=== PATIENT | male | born 1935 | race Caucasian/White ===

== ENCOUNTER 2017-11-13 15:35 | Inpatient (IN) | payer MEDICARE, SELFPAY ==
[2017-11-13 15:43] VITALS: BP 126/45; PULSE 55; RESP 18; TEMP 36.7; O2SAT 98; BMI 26.9
[2017-11-13] MEDS: Menthol/Lanolin/Calamine/Znox 113 GM Tube 1 APPLIC TOPICAL ×2 (17:40→21:54)
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
[2017-11-13 19:35] VITALS: PULSE 55; RESP 18; O2SAT 98
[2017-11-13] MEDS: Ipratropium/Albuterol Sulfate 3 ML AMPUL.NEB INHALATION (19:35)
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
[2017-11-13] MEDS: Doxycycline 100 MG CAPSULE PO (21:54)
[2017-11-13] MEDS: Amitriptyline 25 MG Tablet PO (21:54)
[2017-11-13] MEDS: Atorvastatin Calcium 40 MG Tablet PO (21:54)
[2017-11-13] MEDS: oxyCODONE 5 MG Tablet PO (22:01)
[2017-11-14] MEDS: Menthol/Lanolin/Calamine/Znox 113 GM Tube 1 APPLIC TOPICAL ×4 (05:58→21:49)
[2017-11-14] MEDS: levoFLOXacin 250 MG Tablet PO (05:58)
[2017-11-14] MEDS: Enoxaparin 30 MG/0.3 ML Syringe SC (05:58)
[2017-11-14 07:21] LABS: Bedside Glucose 135 mg/dL (70-110)
[2017-11-14] MEDS: Aspirin 81 MG TAB.CHEW PO (08:24)
[2017-11-14] MEDS: amLODIPine 5 MG Tablet PO (08:25)
[2017-11-14] MEDS: Doxycycline 100 MG CAPSULE PO ×2 (08:25→17:02)
[2017-11-14] MEDS: Propranolol 40 MG Tablet 80 MG PO ×2 (08:25→17:02)
[2017-11-14] MEDS: Iron Polysaccharide Complex 150 MG CAPSULE PO (08:26)
[2017-11-14] MEDS: Senna/Docusate Sodium 1 Tablet 2 TABLET PO ×2 (08:26→17:02)
[2017-11-14] MEDS: Pantoprazole Sodium 40 MG Tablet PO (08:26)
[2017-11-14] MEDS: Magnesium Oxide 400 MG Tablet PO (08:26)
[2017-11-14] MEDS: Polyethylene Glycol 3350 17 GM PACKET PO (08:37)
[2017-11-14 11:01] LABS: Bedside Glucose 195 mg/dL (70-110)
[2017-11-14] MEDS: Tuberculin,Purif.prot.deriv. 50 TU/ML Vial 5 ML ID (11:38)
[2017-11-14 11:45] VITALS: PULSE 53; RESP 18; O2SAT 93
--- NOTE | 2017-11-14 15:06 | NURSING ---
wound photo: left anterior lower leg
--- NOTE | 2017-11-14 15:06 | NURSING ---
wound photo: left lateral foot/heel
[2017-11-14 15:50] VITALS: BP 120/48; PULSE 50; RESP 18; TEMP 36.9; O2SAT 95
[2017-11-14] MEDS: oxyCODONE 5 MG Tablet PO (19:08)
[2017-11-14] MEDS: Atorvastatin Calcium 40 MG Tablet PO (21:50)
[2017-11-14] MEDS: Amitriptyline 25 MG Tablet PO (21:50)
[2017-11-14 22:40] LABS: Bedside Glucose 245 mg/dL (70-110)
--- NOTE | 2017-11-14 23:49 | NURSING ---
Pt remains in contact precautions this shift.
[2017-11-15] MEDS: Menthol/Lanolin/Calamine/Znox 113 GM Tube 1 APPLIC TOPICAL ×3 (05:21→20:31)
[2017-11-15] MEDS: Enoxaparin 30 MG/0.3 ML Syringe SC (05:21)
[2017-11-15] MEDS: levoFLOXacin 250 MG Tablet PO (05:21)
[2017-11-15 07:21] LABS: Bedside Glucose 156 mg/dL (70-110)
[2017-11-15] MEDS: Propranolol 40 MG Tablet 80 MG PO ×2 (08:45→18:06)
[2017-11-15] MEDS: Magnesium Oxide 400 MG Tablet PO (08:45)
[2017-11-15] MEDS: amLODIPine 5 MG Tablet PO (08:46)
[2017-11-15] MEDS: Doxycycline 100 MG CAPSULE PO ×2 (08:46→18:06)
[2017-11-15] MEDS: Senna/Docusate Sodium 1 Tablet 2 TABLET PO ×2 (08:46→18:06)
[2017-11-15] MEDS: Pantoprazole Sodium 40 MG Tablet PO (08:46)
[2017-11-15] MEDS: Aspirin 81 MG TAB.CHEW PO (08:46)
[2017-11-15] MEDS: Iron Polysaccharide Complex 150 MG CAPSULE PO (08:46)
[2017-11-15 11:11] LABS: Bedside Glucose 245 mg/dL (70-110)
[2017-11-15 15:46] VITALS: BP 111/45; PULSE 58; RESP 18; TEMP 36.7; O2SAT 94
[2017-11-15 17:00] LABS: Bedside Glucose 258 mg/dL (70-110)
[2017-11-15] MEDS: Amitriptyline 25 MG Tablet PO (20:32)
[2017-11-15] MEDS: Atorvastatin Calcium 40 MG Tablet PO (20:32)
[2017-11-15] MEDS: oxyCODONE 5 MG Tablet PO (20:35)
[2017-11-15 20:56] LABS: Bedside Glucose 313 mg/dL (70-110)
[2017-11-16] MEDS: Enoxaparin 30 MG/0.3 ML Syringe SC (05:38)
[2017-11-16] MEDS: levoFLOXacin 250 MG Tablet PO (05:38)
[2017-11-16] MEDS: Menthol/Lanolin/Calamine/Znox 113 GM Tube 1 APPLIC TOPICAL ×4 (05:42→20:56)
[2017-11-16 06:11] LABS: Absolute Lymphocyte Count 1.37 X10^3/ul (0.83-4.51); Basophil# 0.01 X10^3/uL; Basophil% 0.1 % (0-1); Eosinophil# 0.02 X10^3/uL; Eosinophils% 0.1 % (0-5); Hematocrit 31.8 % (40-54); Hemoglobin 10.8 g/dl (13.0-16.5); Lymphocyte # 1.37 X10^3/ul (4.0); Lymphocyte % 7.3 % (19-41); Mean Corpuscular Hgb 31.2 pg (27.0-32.0); Mean Corpuscular Volume 91.9 fL (80-94); Mean Platelet Vol. 9.1 fl (6.2-12.0); Monocyte# 1.32 X10^3/uL; Neutrophil # 15.98 X10^3/uL (2.7-7.7); Neutrophil % 85.1 % (47-70); Platelet Count 267 K/mm3 (150-450); RBC Distribution Width CV 12.6 % (11.6-14.6); RBC Distribution Width SD 40.9 fl (35.1-43.9); Red Blood Count 3.46 M/mm3 (4.6-6.2); White Blood Count 18.8 K/mm3 (4.4-11.0)
[2017-11-16 06:20] LABS: POSITIVE COUNT NO; POSITIVE DIFFERENTIAL NO; POSITIVE MORPHOLOGY NO
[2017-11-16 06:40] LABS: Anion Gap 7 (5-15); BUN 38 mg/dL (7-18); Calcium,Total 8.1 mg/dL (8.5-10.1); Chloride 97 mmol/L (98-107); Creatinine, Serum 1.73 mg/dL (0.70-1.30); EST Glomerular Filtration Rate 40 mL/min (>60); Est Glom Filt Rate - Afr Amer 49 mL/min (>60); Estimated Creatinine Clearance 33.49 ml/min; Glucose 144 mg/dL (70-110); Potassium 4.1 mmol/L (3.5-5.1); Sodium Level 132 mmol/L (136-145)
[2017-11-16 06:56] LABS: Bedside Glucose 127 mg/dL (70-110)
[2017-11-16 10:00] VITALS: PULSE 58; RESP 24; O2SAT 98
[2017-11-16] MEDS: oxyCODONE 5 MG Tablet PO ×2 (10:05→20:58)
[2017-11-16] MEDS: Propranolol 40 MG Tablet 80 MG PO ×2 (10:06→18:14)
[2017-11-16] MEDS: Magnesium Oxide 400 MG Tablet PO (10:06)
[2017-11-16] MEDS: Senna/Docusate Sodium 1 Tablet 2 TABLET PO ×2 (10:06→18:15)
[2017-11-16] MEDS: Pantoprazole Sodium 40 MG Tablet PO (10:06)
[2017-11-16] MEDS: amLODIPine 5 MG Tablet PO (10:06)
[2017-11-16] MEDS: Aspirin 81 MG TAB.CHEW PO (10:07)
[2017-11-16] MEDS: Iron Polysaccharide Complex 150 MG CAPSULE PO (10:07)
[2017-11-16] MEDS: Doxycycline 100 MG CAPSULE PO ×2 (10:07→18:14)
[2017-11-16 10:19] VITALS: BP 120/52; PULSE 60; O2SAT 98
--- NOTE | 2017-11-16 10:20 | NURSING ---
pt in precautions
--- NOTE | 2017-11-16 15:04 | PCM.PN.RX ---
<Valerio Buckley D - Last Filed: 11/16/17 15:04> Progress Note - Pharmacy Subjective: [facility] Admission Objective: Allergies aspirin Adverse Reaction (Verified 11/07/17 07:08) Other causes stomach to bleed Home Medications Medication Instructions Recorded Magnesium Oxide [Mag-Ox 400] 400 mg PO DAILY 12/21/15 Amlodipine [Norvasc] 5 mg PO DAILY 07/13/17 Propranolol HCl 80 mg PO BID 07/13/17 Amitriptyline HCl [Elavil] 25 mg PO QHS 08/02/17 Lansoprazole [Prevacid] 30 mg PO DAILY 08/02/17 Oxygen, Home [Home Oxygen] 2 lpm NASAL PRN PRN 08/02/17 Acetaminophen [Tylenol Tablet] 650 mg PO Q6H PRN PRN tablet 11/13/17 Albuterol Aerosols [Ventolin 2.5 mg INHALATION Q2H PRN PRN 11/13/17 Aerosols] vial.neb. Aspirin [Aspirin, Baby] 81 mg PO DAILY@0800 11/13/17 Atorvastatin Calcium [Lipitor] 40 mg PO QHS 11/13/17 Bisacodyl [Dulcolax] 10 mg RECTAL DAILY PRN PRN suppos. 11/13/17 Doxycycline 100 mg PO BID 11/13/17 Furosemide [Lasix] 40 mg PO BID 11/13/17 Insulin Aspart [Novolog Flexpen] See Protocol SC ACHS 11/13/17 Ipratropium/Albuterol Sulfate 3 ml INHALATION Q4HWA.RT 11/13/17 [Duoneb] Iron Polysaccharide Complex 150 mg PO DAILYCM 11/13/17 [Ferrex 150] Levofloxacin [Levaquin] 250 mg PO DAILY@0600 11/13/17 Magnesium Hydroxide [Milk Of 30 ml PO DAILY PRN PRN udc 11/13/17 Magnesia] Menthol/Lanolin/Calamine/Znox 1 applic TOPICAL 4X/DAY 11/13/17 [Calmoseptine Ointment] Oxycodone [Oxyir] 5 mg PO Q6H PRN PRN #12 tab 11/13/17 Polyethylene Glycol 3350 [Miralax] 17 gm PO DAILY 11/13/17 Prednisone 10 mg PO DAILY 11/13/17 Spironolactone [Aldactone] 50 mg PO BID #0 11/13/17 Current Medications Generic Name Dose Route Start Last Admin Trade Name Freq PRN Reason Stop Dose Admin Acetaminophen 1,000 mg 11/13/17 19:58 Tylenol PO Q8H PRN MILD PAIN (1-3/10) Albuterol Sulfate 2.5 mg 11/13/17 16:40 Ventolin Aerosols INHALATION Q2H PRN PRN SHORTNESS OF BREATH Amitriptyline HCl 25 mg 11/13/17 22:00 11/15/17 20:32 Elavil PO 25 mg QHS [facility] Administration Amlodipine Besylate 5 mg 11/14/17 08:00 11/16/17 10:06 Norvasc PO 5 mg DAILY@0800 [facility] Administration Aspirin 81 mg 11/14/17 08:00 11/16/17 10:07 Aspirin, Baby PO 81 mg DAILY@0800 [facility] Administration Atorvastatin Calcium 40 mg 11/13/17 22:00 11/15/17 20:32 Lipitor PO 40 mg QHS [facility] Administration Bisacodyl 10 mg 11/13/17 16:40 Dulcolax RECTAL DAILY PRN PRN Constipation Calamine/Phenol 1 applic 11/13/17 17:00 11/16/17 11:25 Calmoseptine Ointment TOPICAL 1 applicatio 4X/DAY [facility] Administration Protocol Doxycycline Monohydrate 100 mg 11/14/17 08:00 11/16/17 10:07 Doxycycline PO 11/16/17 23:59 100 mg BID@0800,1800 [facility] Administration Enoxaparin Sodium 30 mg 11/14/17 06:00 11/16/17 05:38 Lovenox SC 30 mg DAILY@0600 [facility] Administration Furosemide 40 mg 11/18/17 08:00 Lasix PO BID@0800,1800 [facility] Levofloxacin 250 mg 11/14/17 06:00 11/16/17 05:38 Levaquin PO 11/16/17 23:59 250 mg DAILY@0600 [facility] Administration Magnesium Hydroxide 30 ml 11/13/17 16:40 Milk Of Magnesia PO DAILY PRN PRN Constipation Magnesium Oxide 400 mg 11/14/17 08:00 11/16/17 10:06 Mag-Ox 400 PO 400 mg DAILY@0800 [facility] Administration Non-Formulary Medication 2 lpm 11/13/17 16:40 Oxygen, Home [Home Oxygen] NASAL PRN PRN SOB &/OR WHEEZING Oxycodone HCl 5 mg 11/13/17 16:40 11/16/17 10:05 Oxyir PO 5 mg Q6H PRN PRN Administration SEVERE PAIN (6-08/08) Pantoprazole Sodium 40 mg 11/14/17 08:00 11/16/17 10:06 Protonix PO 40 mg DAILY@0800 [facility] Administration Polyethylene Glycol 17 gm 11/14/17 08:00 11/16/17 10:08 Miralax PO Not Given DAILY@0800 [facility] Polysaccharide Iron Complex 150 mg 11/14/17 08:00 11/16/17 10:07 Ferrex 150 PO 150 mg DAILYCM [facility] Administration Prednisone 20 mg 11/14/17 08:00 11/16/17 10:05 Prednisone PO 11/19/17 07:59 20 mg DAILY@0800 [facility] Administration Taper Propranolol HCl 80 mg 11/14/17 08:00 11/16/17 10:06 Inderal PO 80 mg BID@0800,1800 [facility] Administration Senna/Docusate Sodium 2 tablet 11/14/17 08:00 11/16/17 10:06 Senokot-S, Anastasia-Colace PO 2 tablet BID@0800,1800 [facility] Administration Spironolactone 50 mg 11/18/17 08:00 Aldactone PO BID@0800,1800 [facility] Tuberculin PPD 5 tu 11/21/17 10:00 Tubersol, Aplisol, Ppd ID 11/21/17 10:01 X1 ONE Problem List Encephalopathy (Acute) Chronic pain (Chronic) Vital Signs Temp Pulse Resp BP Pulse Ox 98.1 F 60 18 120/52 L 98 11/15/17 15:46 11/16/17 10:19 11/15/17 15:46 11/16/17 10:19 11/16/17 10:19 Oxygen Flow Rate 3 Oxygen Delivery Method Nasal Cannula Weight: 82.15 kg Body Mass Index (BMI) 26.9 Finger Stick Blood Glucose 205 Sodium 132 mmol/L (136-145) L 11/16/17 05:22 Potassium 4.1 mmol/L (3.5-5.1) 11/16/17 05:22 Chloride 97 mmol/L (98-107) L 11/16/17 05:22 Carbon Dioxide 28.0 mmol/L (21.0-32.0) 11/16/17 05:22 Anion Gap 7 (5-15) 11/16/17 05:22 BUN 38 mg/dL (7-18) H 11/16/17 05:22 Creatinine 1.73 mg/dL (0.70-1.30) H 11/16/17 05:22 Est GFR (MDRD) Af Amer 49 mL/min (>60) L 11/16/17 05:22 Est GFR (MDRD) Non-Af 40 mL/min (>60) L 11/16/17 05:22 BUN/Creatinine Ratio 22.0 RATIO (10-20) H 11/16/17 05:22 Glucose 144 mg/dL (70-110) H 11/16/17 05:22 Assessment/Plan: 1) Pain APAP for mild pain, oxycodone for severe pain. Continue to monitor prn medication use, daily pain scores. 2) HTN/CAD/CHF Amlodipine, propranolol, spironolactone, ASA, atorvastatin, furosemide. BP/HR within goal ranges, patient has been BP < 55, BUN/SCr at baseline, K wnl, lipids at goal, hepatic enzymes wnl. Continue to monitor BP/HR, renal function, electrolytes, lipids, hepatic enzymes. 3) ID Levofloxacin and doxycycline until 11/16. WBC elevated but patient taking prednisone, afebrile. Continue to monitor s/s infection. 4) Pulm Albuterol aerosols prn, prednisone. Continue to monitor prn medication use, for shortness of breath. 5) Nutrition MgOx, Fe. Continue to monitor clinically. 6) GI Pantoprazole daily. Continue to monitor s/s GI distress. 7) Derm Calmoseptine topically. Continue to monitor clinically. 8) DVT PPx Enoxaparin daily. Continue to monitor s/s bleeding/clot. Psychotropic Medications: 9) Insomnia Amitriptyline at HS. Continue to monitor for insomnia. Unnecessary Medications: None Bowel Regimen: 10) Senna/s, PEG, prn bisacodyl, prn MgOH. Continue to monitor prn medication use, daily pain scores. Date of Note:: 11/16/17 - Provider Comments Provider responsibility: Provider responsible to enter orders to implement recommendations <Tommy Maciel Chi - Last Filed: 11/16/17 17:38> Progress Note - Pharmacy Subjective: [] Objective: Allergies aspirin Adverse Reaction (Verified 11/07/17 07:08) Other causes stomach to bleed Home Medications Medication Instructions Recorded Magnesium Oxide [Mag-Ox 400] 400 mg PO DAILY 12/21/15 Amlodipine [Norvasc] 5 mg PO DAILY 07/13/17 Propranolol HCl 80 mg PO BID 07/13/17 Amitriptyline HCl [Elavil] 25 mg PO QHS 08/02/17 Lansoprazole [Prevacid] 30 mg PO DAILY 08/02/17 Oxygen, Home [Home Oxygen] 2 lpm NASAL PRN PRN 08/02/17 Acetaminophen [Tylenol Tablet] 650 mg PO Q6H PRN PRN tablet 11/13/17 Albuterol Aerosols [Ventolin 2.5 mg INHALATION Q2H PRN PRN 11/13/17 Aerosols] vial.neb. Aspirin [Aspirin, Baby] 81 mg PO DAILY@0800 11/13/17 Atorvastatin Calcium [Lipitor] 40 mg PO QHS 11/13/17 Bisacodyl [Dulcolax] 10 mg RECTAL DAILY PRN PRN suppos. 11/13/17 Doxycycline 100 mg PO BID 11/13/17 Furosemide [Lasix] 40 mg PO BID 11/13/17 Insulin Aspart [Novolog Flexpen] See Protocol SC ACHS 11/13/17 Ipratropium/Albuterol Sulfate 3 ml INHALATION Q4HWA.RT 11/13/17 [Duoneb] Iron Polysaccharide Complex 150 mg PO DAILYCM 11/13/17 [Ferrex 150] Levofloxacin [Levaquin] 250 mg PO DAILY@0600 11/13/17 Magnesium Hydroxide [Milk Of 30 ml PO DAILY PRN PRN udc 11/13/17 Magnesia] Menthol/Lanolin/Calamine/Znox 1 applic TOPICAL 4X/DAY 11/13/17 [Calmoseptine Ointment] Oxycodone [Oxyir] 5 mg PO Q6H PRN PRN #12 tab 11/13/17 Polyethylene Glycol 3350 [Miralax] 17 gm PO DAILY 11/13/17 Prednisone 10 mg PO DAILY 11/13/17 Spironolactone [Aldactone] 50 mg PO BID #0 11/13/17 Current Medications Generic Name Dose Route Start Last Admin Trade Name Freq PRN Reason Stop Dose Admin Acetaminophen 1,000 mg 11/13/17 19:58 Tylenol PO Q8H PRN MILD PAIN (1-3/10) Albuterol Sulfate 2.5 mg 11/13/17 16:40 Ventolin Aerosols INHALATION Q2H PRN PRN SHORTNESS OF BREATH Amitriptyline HCl 25 mg 11/13/17 22:00 11/15/17 20:32 Elavil PO 25 mg QHS [facility] Administration Amlodipine Besylate 5 mg 11/14/17 08:00 11/16/17 10:06 Norvasc PO 5 mg DAILY@0800 [facility] Administration Aspirin 81 mg 11/14/17 08:00 11/16/17 10:07 Aspirin, Baby PO 81 mg DAILY@0800 [facility] Administration Atorvastatin Calcium 40 mg 11/13/17 22:00 11/15/17 20:32 Lipitor PO 40 mg QHS [facility] Administration Bisacodyl 10 mg 11/13/17 16:40 Dulcolax RECTAL DAILY PRN PRN Constipation Calamine/Phenol 1 applic 11/13/17 17:00 11/16/17 11:25 Calmoseptine Ointment TOPICAL 1 applicatio 4X/DAY [facility] Administration Protocol Doxycycline Monohydrate 100 mg 11/14/17 08:00 11/16/17 10:07 Doxycycline PO 11/16/17 23:59 100 mg BID@0800,1800 [facility] Administration Enoxaparin Sodium 30 mg 11/14/17 06:00 11/16/17 05:38 Lovenox SC 30 mg DAILY@0600 [facility] Administration Furosemide 40 mg 11/18/17 08:00 Lasix PO BID@0800,1800 [facility] Levofloxacin 250 mg 11/14/17 06:00 11/16/17 05:38 Levaquin PO 11/16/17 23:59 250 mg DAILY@0600 [facility] Administration Magnesium Hydroxide 30 ml 11/13/17 16:40 Milk Of Magnesia PO DAILY PRN PRN Constipation Magnesium Oxide 400 mg 11/14/17 08:00 11/16/17 10:06 Mag-Ox 400 PO 400 mg DAILY@0800 [facility] Administration Non-Formulary Medication 2 lpm 11/13/17 16:40 Oxygen, Home [Home Oxygen] NASAL PRN PRN SOB &/OR WHEEZING Oxycodone HCl 5 mg 11/13/17 16:40 11/16/17 10:05 Oxyir PO 5 mg Q6H PRN PRN Administration SEVERE PAIN (6-08/08) Pantoprazole Sodium 40 mg 11/14/17 08:00 11/16/17 10:06 Protonix PO 40 mg DAILY@0800 [facility] Administration Polyethylene Glycol 17 gm 11/14/17 08:00 11/16/17 10:08 Miralax PO Not Given DAILY@0800 [facility] Polysaccharide Iron Complex 150 mg 11/14/17 08:00 11/16/17 10:07 Ferrex 150 PO 150 mg DAILYCM [facility] Administration Prednisone 20 mg 11/14/17 08:00 11/16/17 10:05 Prednisone PO 11/19/17 07:59 20 mg DAILY@0800 [facility] Administration Taper Propranolol HCl 80 mg 11/14/17 08:00 11/16/17 10:06 Inderal PO 80 mg BID@0800,1800 [facility] Administration Senna/Docusate Sodium 2 tablet 11/14/17 08:00 11/16/17 10:06 Senokot-S, Anastasia-Colace PO 2 tablet BID@0800,1800 [facility] Administration Spironolactone 50 mg 11/18/17 08:00 Aldactone PO BID@0800,1800 [facility] Tuberculin PPD 5 tu 11/21/17 10:00 Tubersol, Aplisol, Ppd ID 11/21/17 10:01 X1 ONE Problem List Encephalopathy (Acute) Chronic pain (Chronic) Vital Signs Temp Pulse Resp BP Pulse Ox 97.3 F L 50 L 18 120/46 L 96 11/16/17 15:14 11/16/17 15:14 11/16/17 15:14 11/16/17 15:14 11/16/17 15:14 Oxygen Flow Rate 3 Oxygen Delivery Method Nasal Cannula Weight: 82.15 kg Body Mass Index (BMI) 26.9 Finger Stick Blood Glucose 205 Sodium 132 mmol/L (136-145) L 11/16/17 05:22 Potassium 4.1 mmol/L (3.5-5.1) 11/16/17 05:22 Chloride 97 mmol/L (98-107) L 11/16/17 05:22 Carbon Dioxide 28.0 mmol/L (21.0-32.0) 11/16/17 05:22 Anion Gap 7 (5-15) 11/16/17 05:22 BUN 38 mg/dL (7-18) H 11/16/17 05:22 Creatinine 1.73 mg/dL (0.70-1.30) H 11/16/17 05:22 Est GFR (MDRD) Af Amer 49 mL/min (>60) L 11/16/17 05:22 Est GFR (MDRD) Non-Af 40 mL/min (>60) L 11/16/17 05:22 BUN/Creatinine Ratio 22.0 RATIO (10-20) H 11/16/17 05:22 Glucose 144 mg/dL (70-110) H 11/16/17 05:22 Assessment/Plan: Psychotropic Medications: Unnecessary Medications: Bowel Regimen: - Provider Comments Provider responsibility: Provider responsible to enter orders to implement recommendations Provider Comments to Recommendations by Pharmacy: Agree
[2017-11-16 15:14] VITALS: BP 120/46; PULSE 50; RESP 18; TEMP 36.3; O2SAT 96
--- NOTE | 2017-11-16 15:21 | PHA.CONS_ITS ---
<Valerio Buckley D - Last Filed: 11/16/17 15:04> Progress Note - Pharmacy Subjective: TCU Admission Objective: Allergies aspirin Adverse Reaction (Verified 11/07/17 07:08) Other causes stomach to bleed Home Medications Medication Instructions Recorded Magnesium Oxide [Mag-Ox 400] 400 mg PO DAILY 12/21/15 Amlodipine [Norvasc] 5 mg PO DAILY 07/13/17 Propranolol HCl 80 mg PO BID 07/13/17 Amitriptyline HCl [Elavil] 25 mg PO QHS 08/02/17 Lansoprazole [Prevacid] 30 mg PO DAILY 08/02/17 Oxygen, Home [Home Oxygen] 2 lpm NASAL PRN PRN 08/02/17 Acetaminophen [Tylenol Tablet] 650 mg PO Q6H PRN PRN tablet 11/13/17 Albuterol Aerosols [Ventolin 2.5 mg INHALATION Q2H PRN PRN 11/13/17 Aerosols] vial.neb. Aspirin [Aspirin, Baby] 81 mg PO DAILY@0800 11/13/17 Atorvastatin Calcium [Lipitor] 40 mg PO QHS 11/13/17 Bisacodyl [Dulcolax] 10 mg RECTAL DAILY PRN PRN suppos. 11/13/17 Doxycycline 100 mg PO BID 11/13/17 Furosemide [Lasix] 40 mg PO BID 11/13/17 Insulin Aspart [Novolog Flexpen] See Protocol SC ACHS 11/13/17 Ipratropium/Albuterol Sulfate 3 ml INHALATION Q4HWA.RT 11/13/17 [Duoneb] Iron Polysaccharide Complex 150 mg PO DAILYCM 11/13/17 [Ferrex 150] Levofloxacin [Levaquin] 250 mg PO DAILY@0600 11/13/17 Magnesium Hydroxide [Milk Of 30 ml PO DAILY PRN PRN udc 11/13/17 Magnesia] Menthol/Lanolin/Calamine/Znox 1 applic TOPICAL 4X/DAY 11/13/17 [Calmoseptine Ointment] Oxycodone [Oxyir] 5 mg PO Q6H PRN PRN #12 tab 11/13/17 Polyethylene Glycol 3350 [Miralax] 17 gm PO DAILY 11/13/17 Prednisone 10 mg PO DAILY 11/13/17 Spironolactone [Aldactone] 50 mg PO BID #0 11/13/17 Current Medications Generic Name Dose Route Start Last Admin Trade Name Freq PRN Reason Stop Dose Admin Acetaminophen 1,000 mg 11/13/17 19:58 Tylenol PO Q8H PRN MILD PAIN (1-3/10) Albuterol Sulfate 2.5 mg 11/13/17 16:40 Ventolin Aerosols INHALATION Q2H PRN PRN SHORTNESS OF BREATH Amitriptyline HCl 25 mg 11/13/17 22:00 11/15/17 20:32 Elavil PO 25 mg QHS [facility] Administration Amlodipine Besylate 5 mg 11/14/17 08:00 11/16/17 10:06 Norvasc PO 5 mg DAILY@0800 [facility] Administration Aspirin 81 mg 11/14/17 08:00 11/16/17 10:07 Aspirin, Baby PO 81 mg DAILY@0800 [facility] Administration Atorvastatin Calcium 40 mg 11/13/17 22:00 11/15/17 20:32 Lipitor PO 40 mg QHS [facility] Administration Bisacodyl 10 mg 11/13/17 16:40 Dulcolax RECTAL DAILY PRN PRN Constipation Calamine/Phenol 1 applic 11/13/17 17:00 11/16/17 11:25 Calmoseptine Ointment TOPICAL 1 applicatio 4X/DAY [facility] Administration Protocol Doxycycline Monohydrate 100 mg 11/14/17 08:00 11/16/17 10:07 Doxycycline PO 11/16/17 23:59 100 mg BID@0800,1800 [facility] Administration Enoxaparin Sodium 30 mg 11/14/17 06:00 11/16/17 05:38 Lovenox SC 30 mg DAILY@0600 [facility] Administration Furosemide 40 mg 11/18/17 08:00 Lasix PO BID@0800,1800 [facility] Levofloxacin 250 mg 11/14/17 06:00 11/16/17 05:38 Levaquin PO 11/16/17 23:59 250 mg DAILY@0600 [facility] Administration Magnesium Hydroxide 30 ml 11/13/17 16:40 Milk Of Magnesia PO DAILY PRN PRN Constipation Magnesium Oxide 400 mg 11/14/17 08:00 11/16/17 10:06 Mag-Ox 400 PO 400 mg DAILY@0800 [facility] Administration Non-Formulary Medication 2 lpm 11/13/17 16:40 Oxygen, Home [Home Oxygen] NASAL PRN PRN SOB &/OR WHEEZING Oxycodone HCl 5 mg 11/13/17 16:40 11/16/17 10:05 Oxyir PO 5 mg Q6H PRN PRN Administration SEVERE PAIN (6-08/08) Pantoprazole Sodium 40 mg 11/14/17 08:00 11/16/17 10:06 Protonix PO 40 mg DAILY@0800 [facility] Administration Polyethylene Glycol 17 gm 11/14/17 08:00 11/16/17 10:08 Miralax PO Not Given DAILY@0800 [facility] Polysaccharide Iron Complex 150 mg 11/14/17 08:00 11/16/17 10:07 Ferrex 150 PO 150 mg DAILYCM [facility] Administration Prednisone 20 mg 11/14/17 08:00 11/16/17 10:05 Prednisone PO 11/19/17 07:59 20 mg DAILY@0800 [facility] Administration Taper Propranolol HCl 80 mg 11/14/17 08:00 11/16/17 10:06 Inderal PO 80 mg BID@0800,1800 [facility] Administration Senna/Docusate Sodium 2 tablet 11/14/17 08:00 11/16/17 10:06 Senokot-S, Anastasia-Colace PO 2 tablet BID@0800,1800 [facility] Administration Spironolactone 50 mg 11/18/17 08:00 Aldactone PO BID@0800,1800 [facility] Tuberculin PPD 5 tu 11/21/17 10:00 Tubersol, Aplisol, Ppd ID 11/21/17 10:01 X1 ONE Problem List Encephalopathy (Acute) Chronic pain (Chronic) Vital Signs Temp Pulse Resp BP Pulse Ox 98.1 F 60 18 120/52 L 98 11/15/17 15:46 11/16/17 10:19 11/15/17 15:46 11/16/17 10:19 11/16/17 10:19 Oxygen Flow Rate 3 Oxygen Delivery Method Nasal Cannula Weight: 82.15 kg Body Mass Index (BMI) 26.9 Finger Stick Blood Glucose 205 Sodium 132 mmol/L (136-145) L 11/16/17 05:22 Potassium 4.1 mmol/L (3.5-5.1) 11/16/17 05:22 Chloride 97 mmol/L (98-107) L 11/16/17 05:22 Carbon Dioxide 28.0 mmol/L (21.0-32.0) 11/16/17 05:22 Anion Gap 7 (5-15) 11/16/17 05:22 BUN 38 mg/dL (7-18) H 11/16/17 05:22 Creatinine 1.73 mg/dL (0.70-1.30) H 11/16/17 05:22 Est GFR (MDRD) Af Amer 49 mL/min (>60) L 11/16/17 05:22 Est GFR (MDRD) Non-Af 40 mL/min (>60) L 11/16/17 05:22 BUN/Creatinine Ratio 22.0 RATIO (10-20) H 11/16/17 05:22 Glucose 144 mg/dL (70-110) H 11/16/17 05:22 Assessment/Plan: 1) Pain APAP for mild pain, oxycodone for severe pain. Continue to monitor prn medication use, daily pain scores. 2) HTN/CAD/CHF Amlodipine, propranolol, spironolactone, ASA, atorvastatin, furosemide. BP/ HR within goal ranges, patient has been BP < 55, BUN/SCr at baseline, K wnl, lipids at goal, hepatic enzymes wnl. Continue to monitor BP/HR, renal function, electrolytes, lipids, hepatic enzymes. 3) ID Levofloxacin and doxycycline until 11/16. WBC elevated but patient taking prednisone, afebrile. Continue to monitor s/s infection. 4) Pulm Albuterol aerosols prn, prednisone. Continue to monitor prn medication use, for shortness of breath. 5) Nutrition MgOx, Fe. Continue to monitor clinically. 6) GI Pantoprazole daily. Continue to monitor s/s GI distress. 7) Derm Calmoseptine topically. Continue to monitor clinically. 8) DVT PPx Enoxaparin daily. Continue to monitor s/s bleeding/clot. Psychotropic Medications: 9) Insomnia Amitriptyline at HS. Continue to monitor for insomnia. Unnecessary Medications: None Bowel Regimen: 10) Senna/s, PEG, prn bisacodyl, prn MgOH. Continue to monitor prn medication use, daily pain scores. Date of Note:: 11/16/17 - Provider Comments Provider responsibility: Provider responsible to enter orders to implement recommendations <Tommy Maciel Chi - Last Filed: 11/16/17 17:38> Progress Note - Pharmacy Subjective: [] Objective: Allergies aspirin Adverse Reaction (Verified 11/07/17 07:08) Other causes stomach to bleed Home Medications Medication Instructions Recorded Magnesium Oxide [Mag-Ox 400] 400 mg PO DAILY 12/21/15 Amlodipine [Norvasc] 5 mg PO DAILY 07/13/17 Propranolol HCl 80 mg PO BID 07/13/17 Amitriptyline HCl [Elavil] 25 mg PO QHS 08/02/17 Lansoprazole [Prevacid] 30 mg PO DAILY 08/02/17 Oxygen, Home [Home Oxygen] 2 lpm NASAL PRN PRN 08/02/17 Acetaminophen [Tylenol Tablet] 650 mg PO Q6H PRN PRN tablet 11/13/17 Albuterol Aerosols [Ventolin 2.5 mg INHALATION Q2H PRN PRN 11/13/17 Aerosols] vial.neb. Aspirin [Aspirin, Baby] 81 mg PO DAILY@0800 11/13/17 Atorvastatin Calcium [Lipitor] 40 mg PO QHS 11/13/17 Bisacodyl [Dulcolax] 10 mg RECTAL DAILY PRN PRN suppos. 11/13/17 Doxycycline 100 mg PO BID 11/13/17 Furosemide [Lasix] 40 mg PO BID 11/13/17 Insulin Aspart [Novolog Flexpen] See Protocol SC ACHS 11/13/17 Ipratropium/Albuterol Sulfate 3 ml INHALATION Q4HWA.RT 11/13/17 [Duoneb] Iron Polysaccharide Complex 150 mg PO DAILYCM 11/13/17 [Ferrex 150] Levofloxacin [Levaquin] 250 mg PO DAILY@0600 11/13/17 Magnesium Hydroxide [Milk Of 30 ml PO DAILY PRN PRN udc 11/13/17 Magnesia] Menthol/Lanolin/Calamine/Znox 1 applic TOPICAL 4X/DAY 11/13/17 [Calmoseptine Ointment] Oxycodone [Oxyir] 5 mg PO Q6H PRN PRN #12 tab 11/13/17 Polyethylene Glycol 3350 [Miralax] 17 gm PO DAILY 11/13/17 Prednisone 10 mg PO DAILY 11/13/17 Spironolactone [Aldactone] 50 mg PO BID #0 11/13/17 Current Medications Generic Name Dose Route Start Last Admin Trade Name Freq PRN Reason Stop Dose Admin Acetaminophen 1,000 mg 11/13/17 19:58 Tylenol PO Q8H PRN MILD PAIN (1-3/10) Albuterol Sulfate 2.5 mg 11/13/17 16:40 Ventolin Aerosols INHALATION Q2H PRN PRN SHORTNESS OF BREATH Amitriptyline HCl 25 mg 11/13/17 22:00 11/15/17 20:32 Elavil PO 25 mg QHS [facility] Administration Amlodipine Besylate 5 mg 11/14/17 08:00 11/16/17 10:06 Norvasc PO 5 mg DAILY@0800 [facility] Administration Aspirin 81 mg 11/14/17 08:00 11/16/17 10:07 Aspirin, Baby PO 81 mg DAILY@0800 [facility] Administration Atorvastatin Calcium 40 mg 11/13/17 22:00 11/15/17 20:32 Lipitor PO 40 mg QHS [facility] Administration Bisacodyl 10 mg 11/13/17 16:40 Dulcolax RECTAL DAILY PRN PRN Constipation Calamine/Phenol 1 applic 11/13/17 17:00 11/16/17 11:25 Calmoseptine Ointment TOPICAL 1 applicatio 4X/DAY [facility] Administration Protocol Doxycycline Monohydrate 100 mg 11/14/17 08:00 11/16/17 10:07 Doxycycline PO 11/16/17 23:59 100 mg BID@0800,1800 [facility] Administration Enoxaparin Sodium 30 mg 11/14/17 06:00 11/16/17 05:38 Lovenox SC 30 mg DAILY@0600 [facility] Administration Furosemide 40 mg 11/18/17 08:00 Lasix PO BID@0800,1800 [facility] Levofloxacin 250 mg 11/14/17 06:00 11/16/17 05:38 Levaquin PO 11/16/17 23:59 250 mg DAILY@0600 [facility] Administration Magnesium Hydroxide 30 ml 11/13/17 16:40 Milk Of Magnesia PO DAILY PRN PRN Constipation Magnesium Oxide 400 mg 11/14/17 08:00 11/16/17 10:06 Mag-Ox 400 PO 400 mg DAILY@0800 [facility] Administration Non-Formulary Medication 2 lpm 11/13/17 16:40 Oxygen, Home [Home Oxygen] NASAL PRN PRN SOB &/OR WHEEZING Oxycodone HCl 5 mg 11/13/17 16:40 11/16/17 10:05 Oxyir PO 5 mg Q6H PRN PRN Administration SEVERE PAIN (6-08/08) Pantoprazole Sodium 40 mg 11/14/17 08:00 11/16/17 10:06 Protonix PO 40 mg DAILY@0800 [facility] Administration Polyethylene Glycol 17 gm 11/14/17 08:00 11/16/17 10:08 Miralax PO Not Given DAILY@0800 [facility] Polysaccharide Iron Complex 150 mg 11/14/17 08:00 11/16/17 10:07 Ferrex 150 PO 150 mg DAILYCM [facility] Administration Prednisone 20 mg 11/14/17 08:00 11/16/17 10:05 Prednisone PO 11/19/17 07:59 20 mg DAILY@0800 [facility] Administration Taper Propranolol HCl 80 mg 11/14/17 08:00 11/16/17 10:06 Inderal PO 80 mg BID@0800,1800 [facility] Administration Senna/Docusate Sodium 2 tablet 11/14/17 08:00 11/16/17 10:06 Senokot-S, Anastasia-Colace PO 2 tablet BID@0800,1800 [facility] Administration Spironolactone 50 mg 11/18/17 08:00 Aldactone PO BID@0800,1800 [facility] Tuberculin PPD 5 tu 11/21/17 10:00 Tubersol, Aplisol, Ppd ID 11/21/17 10:01 X1 ONE Problem List Encephalopathy (Acute) Chronic pain (Chronic) Vital Signs Temp Pulse Resp BP Pulse Ox 97.3 F L 50 L 18 120/46 L 96 11/16/17 15:14 11/16/17 15:14 11/16/17 15:14 11/16/17 15:14 11/16/17 15:14 Oxygen Flow Rate 3 Oxygen Delivery Method Nasal Cannula Weight: 82.15 kg Body Mass Index (BMI) 26.9 Finger Stick Blood Glucose 205 Sodium 132 mmol/L (136-145) L 11/16/17 05:22 Potassium 4.1 mmol/L (3.5-5.1) 11/16/17 05:22 Chloride 97 mmol/L (98-107) L 11/16/17 05:22 Carbon Dioxide 28.0 mmol/L (21.0-32.0) 11/16/17 05:22 Anion Gap 7 (5-15) 11/16/17 05:22 BUN 38 mg/dL (7-18) H 11/16/17 05:22 Creatinine 1.73 mg/dL (0.70-1.30) H 11/16/17 05:22 Est GFR (MDRD) Af Amer 49 mL/min (>60) L 11/16/17 05:22 Est GFR (MDRD) Non-Af 40 mL/min (>60) L 11/16/17 05:22 BUN/Creatinine Ratio 22.0 RATIO (10-20) H 11/16/17 05:22 Glucose 144 mg/dL (70-110) H 11/16/17 05:22 Assessment/Plan: Psychotropic Medications: Unnecessary Medications: Bowel Regimen: - Provider Comments Provider responsibility: Provider responsible to enter orders to implement recommendations Provider Comments to Recommendations by Pharmacy: Agree
--- NOTE | 2017-11-16 17:19 | NURSING ---
Dr. Maciel reviewed labs, NNO.
[2017-11-16] MEDS: Atorvastatin Calcium 40 MG Tablet PO (20:53)
[2017-11-16] MEDS: Amitriptyline 25 MG Tablet PO (20:53)
[2017-11-17] MEDS: Enoxaparin 30 MG/0.3 ML Syringe SC (06:06)
[2017-11-17] MEDS: Menthol/Lanolin/Calamine/Znox 113 GM Tube 1 APPLIC TOPICAL ×3 (06:06→22:02)
[2017-11-17 07:11] LABS: Bedside Glucose 176 mg/dL (70-110)
[2017-11-17] MEDS: amLODIPine 5 MG Tablet PO (08:54)
[2017-11-17] MEDS: Senna/Docusate Sodium 1 Tablet 2 TABLET PO ×2 (08:54→17:52)
[2017-11-17] MEDS: Pantoprazole Sodium 40 MG Tablet PO (08:54)
[2017-11-17] MEDS: Iron Polysaccharide Complex 150 MG CAPSULE PO (08:55)
[2017-11-17] MEDS: Aspirin 81 MG TAB.CHEW PO (08:55)
[2017-11-17] MEDS: Magnesium Oxide 400 MG Tablet PO (08:55)
[2017-11-17] MEDS: Propranolol 40 MG Tablet 80 MG PO ×2 (08:55→17:52)
[2017-11-17 10:00] VITALS: PULSE 74; RESP 18; O2SAT 97
[2017-11-17 10:50] VITALS: O2SAT 96
--- NOTE | 2017-11-17 11:36 | CASEMGMT ---
Brief interview for mental status (BIMS) and resident mood interview (PHQ-9) completed on this day. BIMS score 1515. PHQ-9 score 01/23
[2017-11-17] MEDS: oxyCODONE 5 MG Tablet PO (15:17)
[2017-11-17 15:42] VITALS: BP 120/44; PULSE 55; RESP 18; TEMP 36.7; O2SAT 97
[2017-11-17] MEDS: Atorvastatin Calcium 40 MG Tablet PO (22:03)
[2017-11-17] MEDS: Amitriptyline 25 MG Tablet PO (22:04)
--- NOTE | 2017-11-18 02:37 | NURSING ---
Pt remains in contact precautions this shift.
[2017-11-18] MEDS: Menthol/Lanolin/Calamine/Znox 113 GM Tube 1 APPLIC TOPICAL ×3 (05:32→21:13)
[2017-11-18] MEDS: Enoxaparin 30 MG/0.3 ML Syringe SC (05:33)
[2017-11-18] MEDS: oxyCODONE 5 MG Tablet PO ×2 (06:44→21:13)
[2017-11-18 07:10] LABS: Bedside Glucose 127 mg/dL (70-110)
[2017-11-18] MEDS: Pantoprazole Sodium 40 MG Tablet PO (09:50)
[2017-11-18] MEDS: Magnesium Oxide 400 MG Tablet PO (09:50)
[2017-11-18] MEDS: Iron Polysaccharide Complex 150 MG CAPSULE PO (09:53)
[2017-11-18] MEDS: Aspirin 81 MG TAB.CHEW PO (09:53)
[2017-11-18] MEDS: amLODIPine 5 MG Tablet PO (09:53)
[2017-11-18] MEDS: Propranolol 40 MG Tablet 80 MG PO ×2 (09:54→18:47)
[2017-11-18] MEDS: Spironolactone 50 MG Tablet PO ×2 (09:54→18:47)
[2017-11-18] MEDS: Furosemide 40 MG Tablet PO ×2 (09:54→18:47)
[2017-11-18] MEDS: Senna/Docusate Sodium 1 Tablet 2 TABLET PO ×2 (09:55→18:47)
[2017-11-18] MEDS: Polyethylene Glycol 3350 17 GM PACKET PO (10:00)
[2017-11-18] MEDS: Acetaminophen 500 MG Tablet 1000 MG PO (10:18)
[2017-11-18 16:00] VITALS: BP 111/55; PULSE 53; RESP 14; TEMP 36.4; O2SAT 94
[2017-11-18 20:45] VITALS: PULSE 66; O2SAT 99
[2017-11-18] MEDS: Amitriptyline 25 MG Tablet PO (21:13)
[2017-11-18] MEDS: Atorvastatin Calcium 40 MG Tablet PO (21:14)
--- NOTE | 2017-11-18 22:45 | NURSING ---
Pt remains in contact precautions this shift.
[2017-11-19] MEDS: Menthol/Lanolin/Calamine/Znox 113 GM Tube 1 APPLIC TOPICAL ×4 (04:07→21:17)
[2017-11-19] MEDS: Enoxaparin 30 MG/0.3 ML Syringe SC (04:07)
[2017-11-19 06:52] LABS: Absolute Lymphocyte Count 1.35 X10^3/ul (0.83-4.51); Absolute Neutrophil Count 10.4 X10^3/uL (2.0-7.7); Basophil# 0.01 X10^3/uL; Basophil% 0.1 % (0-1); Eosinophil# 0.04 X10^3/uL; Eosinophils% 0.3 % (0-5); Hematocrit 29.5 % (40-54); Lymphocyte # 1.35 X10^3/ul (4.0); Lymphocyte % 10.4 % (19-41); Mean Corp Hgb Conc 33.9 g/gl (32-36); Mean Corpuscular Hgb 31.3 pg (27.0-32.0); Mean Corpuscular Volume 92.2 fL (80-94); Mean Platelet Vol. 9.4 fl (6.2-12.0); Monocyte# 1.19 X10^3/uL; Monocyte% 9.2 % (0-10); Neutrophil # 10.35 X10^3/uL (2.7-7.7); Neutrophil % 79.7 % (47-70); Platelet Count 249 K/mm3 (150-450); RBC Distribution Width CV 12.7 % (11.6-14.6); RBC Distribution Width SD 41.3 fl (35.1-43.9)
[2017-11-19 06:56] LABS: Bedside Glucose 132 mg/dL (70-110)
[2017-11-19 06:57] LABS: POSITIVE COUNT NO; POSITIVE DIFFERENTIAL NO; POSITIVE MORPHOLOGY NO
[2017-11-19 07:24] LABS: Anion Gap 7 (5-15); BUN 31 mg/dL (7-18); BUN/Creat Ratio 20.1 RATIO (10-20); Chloride 97 mmol/L (98-107); Creatinine, Serum 1.54 mg/dL (0.70-1.30); EST Glomerular Filtration Rate 46 mL/min (>60); Est Glom Filt Rate - Afr Amer 56 mL/min (>60); Estimated Creatinine Clearance 37.62 ml/min; Glucose 126 mg/dL (70-110); Potassium 4.1 mmol/L (3.5-5.1); Sodium Level 134 mmol/L (136-145)
[2017-11-19 07:57] VITALS: O2SAT 97
[2017-11-19] MEDS: Pantoprazole Sodium 40 MG Tablet PO (10:07)
[2017-11-19] MEDS: Polyethylene Glycol 3350 17 GM PACKET PO (10:07)
[2017-11-19] MEDS: Spironolactone 50 MG Tablet PO ×2 (10:07→17:28)
[2017-11-19] MEDS: Magnesium Oxide 400 MG Tablet PO (10:07)
[2017-11-19] MEDS: amLODIPine 5 MG Tablet PO (10:07)
[2017-11-19] MEDS: Propranolol 40 MG Tablet 80 MG PO ×2 (10:07→17:28)
[2017-11-19] MEDS: Aspirin 81 MG TAB.CHEW PO (10:07)
[2017-11-19] MEDS: Iron Polysaccharide Complex 150 MG CAPSULE PO (10:08)
[2017-11-19] MEDS: Furosemide 40 MG Tablet PO ×2 (10:08→17:28)
[2017-11-19] MEDS: oxyCODONE 5 MG Tablet PO ×2 (10:08→17:29)
[2017-11-19] MEDS: Senna/Docusate Sodium 1 Tablet 2 TABLET PO ×2 (10:08→17:28)
[2017-11-19 15:57] VITALS: BP 131/55; PULSE 60; RESP 16; TEMP 37; O2SAT 97
--- NOTE | 2017-11-19 17:10 | NURSING ---
Patient's requesting pt be restarted on actos that he was on at home. Dr. Maciel made aware, NO for actos 15mg PO daily. Pt and made aware.
[2017-11-19] MEDS: Atorvastatin Calcium 40 MG Tablet PO (21:17)
[2017-11-19] MEDS: Amitriptyline 25 MG Tablet PO (21:17)
[2017-11-20] MEDS: Menthol/Lanolin/Calamine/Znox 113 GM Tube 1 APPLIC TOPICAL ×3 (04:41→20:19)
[2017-11-20] MEDS: Enoxaparin 30 MG/0.3 ML Syringe SC (04:42)
--- NOTE | 2017-11-20 06:38 | NURSING ---
Pt remains in contact isolation this shift.
[2017-11-20 06:51] LABS: Bedside Glucose 124 mg/dL (70-110)
[2017-11-20 07:55] VITALS: O2SAT 92
[2017-11-20] MEDS: Spironolactone 50 MG Tablet PO ×2 (09:19→17:54)
[2017-11-20] MEDS: Polyethylene Glycol 3350 17 GM PACKET PO (09:19)
[2017-11-20] MEDS: Pioglitazone Hydrochloride 15 MG Tablet PO (09:19)
[2017-11-20] MEDS: Propranolol 40 MG Tablet 80 MG PO ×2 (09:19→17:54)
[2017-11-20] MEDS: Furosemide 40 MG Tablet PO ×2 (09:20→17:54)
[2017-11-20] MEDS: Aspirin 81 MG TAB.CHEW PO (09:20)
[2017-11-20] MEDS: Magnesium Oxide 400 MG Tablet PO (09:20)
[2017-11-20] MEDS: Senna/Docusate Sodium 1 Tablet 2 TABLET PO ×2 (09:20→17:53)
[2017-11-20] MEDS: amLODIPine 5 MG Tablet PO (09:20)
[2017-11-20] MEDS: Pantoprazole Sodium 40 MG Tablet PO (09:20)
[2017-11-20] MEDS: Iron Polysaccharide Complex 150 MG CAPSULE PO (09:20)
--- NOTE | 2017-11-20 10:31 | NURSING ---
wound photo: left lower leg
--- NOTE | 2017-11-20 10:31 | NURSING ---
wound photo: left lateral heel
[2017-11-20] MEDS: oxyCODONE 5 MG Tablet PO (10:35)
--- NOTE | 2017-11-20 11:08 | NURSING ---
pt assisted to BR, noted mepilex rolled up, moist with strong odor. REmoved, applied salma to bottocks. Will continue to monitor. explained to pt to turn side to side when resting in bed.
--- NOTE | 2017-11-20 14:20 | CASEMGMT ---
Insurance Clinical information faxed. Pending continued stay approval at this time. Auth#[id number] Mely SANDOVAL, PARKING METER MECHANIC
--- NOTE | 2017-11-20 14:52 | CASEMGMT ---
Insurance Continued stay approved with next update due on 11/24/17 Auth#[id number] Mely SANDOVAL, SHRUB GROWER
[2017-11-20 15:44] VITALS: BP 130/46; PULSE 60; RESP 18; TEMP 36.7; O2SAT 94
[2017-11-20] MEDS: Amitriptyline 25 MG Tablet PO (20:17)
[2017-11-20] MEDS: Atorvastatin Calcium 40 MG Tablet PO (20:17)
[2017-11-21] MEDS: Enoxaparin 30 MG/0.3 ML Syringe SC (06:19)
[2017-11-21] MEDS: Menthol/Lanolin/Calamine/Znox 113 GM Tube 1 APPLIC TOPICAL ×3 (06:20→20:40)
[2017-11-21 07:21] LABS: Bedside Glucose 145 mg/dL (70-110)
[2017-11-21 07:36] VITALS: O2SAT 90
[2017-11-21] MEDS: Spironolactone 50 MG Tablet PO ×2 (08:58→17:10)
[2017-11-21] MEDS: Aspirin 81 MG TAB.CHEW PO (08:58)
[2017-11-21] MEDS: Iron Polysaccharide Complex 150 MG CAPSULE PO (08:58)
[2017-11-21] MEDS: Propranolol 40 MG Tablet 80 MG PO ×2 (08:58→17:10)
[2017-11-21] MEDS: Magnesium Oxide 400 MG Tablet PO (08:59)
[2017-11-21] MEDS: Polyethylene Glycol 3350 17 GM PACKET PO (08:59)
[2017-11-21] MEDS: Furosemide 40 MG Tablet PO ×2 (08:59→17:10)
[2017-11-21] MEDS: Senna/Docusate Sodium 1 Tablet 2 TABLET PO ×2 (09:00→17:10)
[2017-11-21] MEDS: Pantoprazole Sodium 40 MG Tablet PO (09:00)
[2017-11-21] MEDS: Pioglitazone Hydrochloride 15 MG Tablet PO (09:01)
[2017-11-21] MEDS: oxyCODONE 5 MG Tablet PO ×2 (09:04→20:32)
[2017-11-21] MEDS: amLODIPine 5 MG Tablet PO (09:05)
[2017-11-21 09:11] VITALS: BP 119/46; PULSE 61; O2SAT 99
[2017-11-21] MEDS: Tuberculin,Purif.prot.deriv. 50 TU/ML Vial 5 ML ID (09:59)
--- NOTE | 2017-11-21 12:43 | CASEMGMT ---
Insurance Clinical information faxed. Pending continued stay approval at this time. Auth#[id number] Mely SANDOVAL, GOLD TOOLER
--- NOTE | 2017-11-21 14:26 | NURSING ---
AIDS AND THIS NURSE IN ROOM. PT REFUSING CALMOSEPTINE ON BOTTOM. PT BEEN COMPLANING OF BOTTOM HURTING. ASKED PT IF HE WANTED TO LAY DOWN TO GET OFF OF IT AND WE WOULD LAY HIM ON HIS SIDE. PT REFUSED AND WANTED BACK IN CHAIR. REPORTED TO JANUSZ MESSER
[2017-11-21 15:37] VITALS: BP 118/39; PULSE 55; RESP 18; TEMP 36.6; O2SAT 94
[2017-11-21] MEDS: Amitriptyline 25 MG Tablet PO (20:32)
[2017-11-21] MEDS: Atorvastatin Calcium 40 MG Tablet PO (20:32)
[2017-11-21 21:43] VITALS: O2SAT 94
[2017-11-22] MEDS: Enoxaparin 30 MG/0.3 ML Syringe SC (05:27)
[2017-11-22] MEDS: Menthol/Lanolin/Calamine/Znox 113 GM Tube 1 APPLIC TOPICAL (05:28)
[2017-11-22 07:11] LABS: Bedside Glucose 120 mg/dL (70-110)
[2017-11-22 07:23] VITALS: O2SAT 97
[2017-11-22] MEDS: Magnesium Oxide 400 MG Tablet PO (08:45)
[2017-11-22] MEDS: Senna/Docusate Sodium 1 Tablet 2 TABLET PO ×2 (08:45→17:43)
[2017-11-22] MEDS: Propranolol 40 MG Tablet 80 MG PO ×2 (08:45→17:43)
[2017-11-22] MEDS: Pioglitazone Hydrochloride 15 MG Tablet PO (08:45)
[2017-11-22] MEDS: Furosemide 40 MG Tablet PO ×2 (08:45→17:43)
[2017-11-22] MEDS: amLODIPine 5 MG Tablet PO (08:46)
[2017-11-22] MEDS: Spironolactone 50 MG Tablet PO ×2 (08:46→17:43)
[2017-11-22] MEDS: Aspirin 81 MG TAB.CHEW PO (08:46)
[2017-11-22] MEDS: Polyethylene Glycol 3350 17 GM PACKET PO (08:46)
[2017-11-22] MEDS: Iron Polysaccharide Complex 150 MG CAPSULE PO (08:46)
[2017-11-22] MEDS: Pantoprazole Sodium 40 MG Tablet PO (08:46)
[2017-11-22 10:00] VITALS: PULSE 63; RESP 16; O2SAT 97
[2017-11-22] MEDS: oxyCODONE 5 MG Tablet PO ×2 (10:04→21:54)
--- NOTE | 2017-11-22 13:55 | CASEMGMT ---
Plan of care meeting held. Resident present as well as resident daughter. No discharge date set at this time. Resident to continue with further care and treatment on the Transitional Care Unit at this time. Resident does have an insurance update due on 11/24/17, resident and resident family aware. Resident plans to discharge home with spouse at time of discharge. Support given. Will continue to follow. Mely SANDOVAL, JOURNEYMAN WIREMAN
[2017-11-22] MEDS: Acetaminophen 500 MG Tablet 1000 MG PO (14:46)
[2017-11-22 15:44] VITALS: BP 111/41; PULSE 63; RESP 20; TEMP 36.9; O2SAT 97
--- NOTE | 2017-11-22 18:42 | NURSING ---
Dr. Maciel updated about home Ambien dose, N.O. received. Also aware that family was asking about Actoplus instead of Actos. [facility] pharmacy doesn't carry Actoplus, Dr. Maciel stating it isn't available anymore. Pt aware.
[2017-11-22] MEDS: Amitriptyline 25 MG Tablet PO (21:52)
[2017-11-22] MEDS: Atorvastatin Calcium 40 MG Tablet PO (21:52)
[2017-11-22] MEDS: Zolpidem Tartrate 5 MG Tablet PO (21:52)
--- NOTE | 2017-11-22 21:56 | NURSING ---
Pt refused to have salma applied to bilateral buttocks. Educated on importance and that it was only applied once this AM but this nurse after much encouragment. Pt stated This is my ass and ill worry about it. Im sick of you people trying to make it better! Pt resting comfortably in bed with call light in reach.
[2017-11-23 06:40] VITALS: O2SAT 97
[2017-11-23] MEDS: Menthol/Lanolin/Calamine/Znox 113 GM Tube 1 APPLIC TOPICAL ×2 (06:57→15:45)
[2017-11-23 07:01] LABS: Bedside Glucose 109 mg/dL (70-110)
[2017-11-23] MEDS: Propranolol 40 MG Tablet 80 MG PO ×2 (08:31→18:17)
[2017-11-23] MEDS: Spironolactone 50 MG Tablet PO ×2 (08:32→18:17)
[2017-11-23] MEDS: Iron Polysaccharide Complex 150 MG CAPSULE PO (08:32)
[2017-11-23] MEDS: Aspirin 81 MG TAB.CHEW PO (08:32)
[2017-11-23] MEDS: Pioglitazone Hydrochloride 15 MG Tablet PO (08:32)
[2017-11-23] MEDS: Enoxaparin 30 MG/0.3 ML Syringe SC (08:33)
[2017-11-23] MEDS: Furosemide 40 MG Tablet PO ×2 (08:33→18:17)
[2017-11-23] MEDS: Magnesium Oxide 400 MG Tablet PO (08:34)
[2017-11-23] MEDS: Senna/Docusate Sodium 1 Tablet 2 TABLET PO (08:36)
[2017-11-23] MEDS: Pantoprazole Sodium 40 MG Tablet PO (08:36)
[2017-11-23] MEDS: amLODIPine 5 MG Tablet PO (08:38)
[2017-11-23] MEDS: oxyCODONE 5 MG Tablet PO ×2 (08:38→23:30)
[2017-11-23 08:47] VITALS: BP 112/41; PULSE 63
[2017-11-23 15:22] VITALS: BP 116/46; PULSE 54; RESP 16; TEMP 37.1; O2SAT 96
[2017-11-23] MEDS: Amitriptyline 25 MG Tablet PO (20:22)
[2017-11-23] MEDS: Atorvastatin Calcium 40 MG Tablet PO (20:23)
[2017-11-23] MEDS: Zolpidem Tartrate 5 MG Tablet PO (23:29)
[2017-11-24 07:01] LABS: Bedside Glucose 142 mg/dL (70-110)
[2017-11-24] MEDS: Pantoprazole Sodium 40 MG Tablet PO (08:44)
[2017-11-24] MEDS: Propranolol 40 MG Tablet 80 MG PO ×2 (08:44→17:13)
[2017-11-24] MEDS: Magnesium Oxide 400 MG Tablet PO (08:44)
[2017-11-24] MEDS: Senna/Docusate Sodium 1 Tablet 2 TABLET PO (08:44)
[2017-11-24] MEDS: Iron Polysaccharide Complex 150 MG CAPSULE PO (08:45)
[2017-11-24] MEDS: Spironolactone 50 MG Tablet PO ×2 (08:45→17:13)
[2017-11-24] MEDS: amLODIPine 5 MG Tablet PO (08:45)
[2017-11-24] MEDS: Furosemide 40 MG Tablet PO ×2 (08:45→17:13)
[2017-11-24] MEDS: Aspirin 81 MG TAB.CHEW PO (08:45)
[2017-11-24] MEDS: Pioglitazone Hydrochloride 15 MG Tablet PO (08:45)
[2017-11-24] MEDS: Enoxaparin 30 MG/0.3 ML Syringe SC (08:46)
[2017-11-24] MEDS: oxyCODONE 5 MG Tablet PO ×2 (08:54→15:13)
--- NOTE | 2017-11-24 09:45 | MDS.RN ---
Information for the mds was obtained from review of the clinical record, interview of resident, staff, and direct observation of resident's care.
--- NOTE | 2017-11-24 12:04 | CASEMGMT ---
Insurance Clinical update faxed to insurance. Will await determination on continued stay. Auth # [id number] JAIME Spann
[2017-11-24 13:12] VITALS: O2SAT 95
--- NOTE | 2017-11-24 15:00 | CASEMGMT ---
Insurance and Social Work Spoke with Magdalena at [facility] and continued stay has been approved with update due on 11/28/17. Magdalena states she is planning on issuing a NOMNOC on that date. Phone call to pt with above information. Pt is very upset with this information. She does not feel pt is ready to return home at this time and stated multiple times that she has many medical issues and is no longer able to care for pt. SW attempted to speak with pt about detention longterm placement. Pt states that she cannot care for pt any longer but she will not place him in a longterm. SW did discuss with pt appeal process with insurance if pt is cut from services. Pt is aware of this option. SW attempted to speak with of detention plan and need to consider [facility] placement. Presented options of private pay vs. Medicaid and pt states she knows she will not qualify for Medicaid. SW encouraged her to speak with J[facility]. SW allowed pt to verbalize feelings and provided emotional support. SW encouraged pt to talk to her daughter and review detention plans for pt including possible longterm placement if insurance does not approve continued stay. THERESE will continue to follow for d/c planning and support. JAIME Spann
[2017-11-24 16:00] VITALS: BP 112/42; PULSE 58; RESP 18; TEMP 36.8; O2SAT 94
[2017-11-24] MEDS: Menthol/Lanolin/Calamine/Znox 113 GM Tube 1 APPLIC TOPICAL (17:13)
[2017-11-24] MEDS: Amitriptyline 25 MG Tablet PO (22:01)
[2017-11-24] MEDS: Atorvastatin Calcium 40 MG Tablet PO (22:01)
[2017-11-24] MEDS: Zolpidem Tartrate 5 MG Tablet PO (22:06)
[2017-11-24 22:08] VITALS: PULSE 68; O2SAT 98
[2017-11-25] MEDS: Menthol/Lanolin/Calamine/Znox 113 GM Tube 1 APPLIC TOPICAL (05:22)
[2017-11-25 05:31] LABS: Bedside Glucose 151 mg/dL (70-110)
[2017-11-25 07:17] VITALS: O2SAT 90
[2017-11-25] MEDS: Aspirin 81 MG TAB.CHEW PO (09:04)
[2017-11-25] MEDS: Magnesium Oxide 400 MG Tablet PO (09:04)
[2017-11-25] MEDS: Propranolol 40 MG Tablet 80 MG PO ×2 (09:04→17:40)
[2017-11-25] MEDS: Furosemide 40 MG Tablet PO ×2 (09:05→17:40)
[2017-11-25] MEDS: Pioglitazone Hydrochloride 15 MG Tablet PO (09:05)
[2017-11-25] MEDS: Spironolactone 50 MG Tablet PO ×2 (09:05→17:40)
[2017-11-25] MEDS: Iron Polysaccharide Complex 150 MG CAPSULE PO (09:05)
[2017-11-25] MEDS: Enoxaparin 30 MG/0.3 ML Syringe SC (09:06)
[2017-11-25] MEDS: amLODIPine 5 MG Tablet PO (09:06)
[2017-11-25] MEDS: Pantoprazole Sodium 40 MG Tablet PO (09:07)
[2017-11-25] MEDS: oxyCODONE 5 MG Tablet PO (11:41)
--- NOTE | 2017-11-25 12:44 | CASEMGMT ---
Brief interview for mental status (BIMS) and resident mood interview (PHQ-9) completed on this day. BIMS score 15. PHQ-9 score 12/26
[2017-11-25 16:00] VITALS: BP 106/41; PULSE 66; RESP 18; TEMP 37.1; O2SAT 95
[2017-11-25] MEDS: Atorvastatin Calcium 40 MG Tablet PO (20:12)
[2017-11-25] MEDS: Amitriptyline 25 MG Tablet PO (20:12)
[2017-11-25 20:18] VITALS: O2SAT 95
[2017-11-25] MEDS: Zolpidem Tartrate 5 MG Tablet PO (22:01)
[2017-11-26 06:56] LABS: Bedside Glucose 131 mg/dL (70-110)
[2017-11-26] MEDS: Senna/Docusate Sodium 1 Tablet 2 TABLET PO (08:21)
[2017-11-26] MEDS: Propranolol 40 MG Tablet 80 MG PO ×2 (08:22→17:13)
[2017-11-26] MEDS: amLODIPine 5 MG Tablet PO (08:22)
[2017-11-26] MEDS: Pioglitazone Hydrochloride 15 MG Tablet PO (08:22)
[2017-11-26] MEDS: Magnesium Oxide 400 MG Tablet PO (08:22)
[2017-11-26] MEDS: Furosemide 40 MG Tablet PO ×2 (08:23→17:13)
[2017-11-26] MEDS: Pantoprazole Sodium 40 MG Tablet PO (08:23)
[2017-11-26] MEDS: Aspirin 81 MG TAB.CHEW PO (08:23)
[2017-11-26] MEDS: Spironolactone 50 MG Tablet PO ×2 (08:23→17:13)
[2017-11-26] MEDS: Iron Polysaccharide Complex 150 MG CAPSULE PO (08:27)
[2017-11-26] MEDS: Enoxaparin 30 MG/0.3 ML Syringe SC (08:28)
--- NOTE | 2017-11-26 11:01 | PCM.PROGNOTE ---
Patient Problems: Active and Suspected Problems Encephalopathy (Acute) Subjective: Patient seen for long, painful, thickened toenails 1-5 bilateral. He is unable to reduce them himself. He is in TCU, recovering from regalado on the left heel and leg. He is having daily dressing changes. He relates they are improving. He has no other complaints at this time. - Physical Exam General: Alert, Oriented x3, Cooperative, No apparent distress Extremities: Capillary Refill Less than 3 Seconds, No Calf Tenderness, - - There are wounds/ulcers to the anterior leg and to the lateral heel down to the subcutaneous tissue layer secondary to regalado, the wounds appear to be healing with viable base and margins; there is some superficial dry scabbing present; there is no maloder, no cellulitis, no purulence, no visible abscess, no crepitus, no fluctuance present; there are no other open lesions bilateral foot/ankle/leg; temperature within normal limits bilateral foot/ankle/leg with CFT < 2 seconds to all toes; motor function and sensation intact bilateral foot/ankle. Toenails 1-5 bilateral are thickened, dsytrophic, elongated, yellow, painful with subungual debris. Vital Signs Temp Pulse Resp BP Pulse Ox 98.8 F 66 18 106/41 L 95 11/25/17 16:00 11/25/17 16:00 11/25/17 16:00 11/25/17 16:00 11/25/17 20:18 Oxygen Flow Rate 2 Oxygen Delivery Method Room Air Weight: 82.4 kg Body Mass Index (BMI) 26.9 Finger Stick Blood Glucose 205 Intake and Output for Last 24 Hours 11/24/17 11/25/17 11/26/17 23:59 23:59 23:59 Intake Total 1200 / 1200 600 / 600 240 / 240 Output Total 1550 / 1550 950 / 950 650 / 650 Balance -350 / -350 -350 / -350 -410 / -410 POC Glucose 11/26/17 06:46 POC Glucose 131 H Assessment/Plan Active and Suspected Problems Encephalopathy (Acute) Left heel and leg ulcers down to subcutaneous tissue layer secondary to regalado left foot/leg - healing Dystrophic nails 1-5 bilateral Pain in toe right and left Reviewed findings with him. Appears the wounds on the left heel and leg are healing, no evidence of infection at this time. Wounds were cleansed with normal saline solution, applied adaptic and overlying dry sterile gauze, abd pads, and kerlix dressing. Nursing continues to change daily. Debrided toenails 1-5 bilateral manually using a nail nipper, this was done without incident. All of patient's questions were answered. Podiatry will continue to follow weekly.
--- NOTE | 2017-11-26 11:11 | PN_ITS ---
Patient Problems: Active and Suspected Problems Encephalopathy (Acute) Subjective: Patient seen for long, painful, thickened toenails 1-5 bilateral. He is unable to reduce them himself. He is in TCU, recovering from regalado on the left heel and leg. He is having daily dressing changes. He relates they are improving. He has no other complaints at this time. - Physical Exam General: Alert, Oriented x3, Cooperative, No apparent distress Extremities: Capillary Refill Less than 3 Seconds, No Calf Tenderness, - - There are wounds/ulcers to the anterior leg and to the lateral heel down to the subcutaneous tissue layer secondary to regalado, the wounds appear to be healing with viable base and margins; there is some superficial dry scabbing present; there is no maloder, no cellulitis, no purulence, no visible abscess, no crepitus, no fluctuance present; there are no other open lesions bilateral foot/ ankle/leg; temperature within normal limits bilateral foot/ankle/leg with CFT < 2 seconds to all toes; motor function and sensation intact bilateral foot/ ankle. Toenails 1-5 bilateral are thickened, dsytrophic, elongated, yellow, painful with subungual debris. Vital Signs Temp Pulse Resp BP Pulse Ox 98.8 F 66 18 106/41 L 95 11/25/17 16:00 11/25/17 16:00 11/25/17 16:00 11/25/17 16:00 11/25/17 20:18 Oxygen Flow Rate 2 Oxygen Delivery Method Room Air Weight: 82.4 kg Body Mass Index (BMI) 26.9 Finger Stick Blood Glucose 205 Intake and Output for Last 24 Hours 11/24/17 11/25/17 11/26/17 23:59 23:59 23:59 Intake Total 1200 / 1200 600 / 600 240 / 240 Output Total 1550 / 1550 950 / 950 650 / 650 Balance -350 / -350 -350 / -350 -410 / -410 POC Glucose 11/26/17 06:46 POC Glucose 131 H Assessment/Plan Active and Suspected Problems Encephalopathy (Acute) Left heel and leg ulcers down to subcutaneous tissue layer secondary to regalado left foot/leg - healing Dystrophic nails 1-5 bilateral Pain in toe right and left Reviewed findings with him. Appears the wounds on the left heel and leg are healing, no evidence of infection at this time. Wounds were cleansed with normal saline solution, applied adaptic and overlying dry sterile gauze, abd pads, and kerlix dressing. Nursing continues to change daily. Debrided toenails 1-5 bilateral manually using a nail nipper, this was done without incident. All of patient's questions were answered. Podiatry will continue to follow weekly.
[2017-11-26] MEDS: oxyCODONE 5 MG Tablet PO ×2 (12:49→19:46)
[2017-11-26 16:00] VITALS: BP 105/33; PULSE 81; RESP 18; TEMP 36.9; O2SAT 95
[2017-11-26] MEDS: Atorvastatin Calcium 40 MG Tablet PO (19:39)
[2017-11-26] MEDS: Amitriptyline 25 MG Tablet PO (19:39)
[2017-11-26] MEDS: Zolpidem Tartrate 5 MG Tablet PO (21:54)
[2017-11-27] MEDS: Zolpidem Tartrate 5 MG Tablet PO (00:10)
[2017-11-27 06:45] LABS: Bedside Glucose 115 mg/dL (70-110)
--- NOTE | 2017-11-27 08:47 | NURSING ---
wound photo: left rosario
--- NOTE | 2017-11-27 08:48 | NURSING ---
wound photo: left lateral heel
[2017-11-27] MEDS: Aspirin 81 MG TAB.CHEW PO (09:16)
[2017-11-27] MEDS: Pantoprazole Sodium 40 MG Tablet PO (09:16)
[2017-11-27] MEDS: Magnesium Oxide 400 MG Tablet PO (09:16)
[2017-11-27] MEDS: Propranolol 40 MG Tablet 80 MG PO ×2 (09:16→18:54)
[2017-11-27] MEDS: Iron Polysaccharide Complex 150 MG CAPSULE PO (09:16)
[2017-11-27] MEDS: Pioglitazone Hydrochloride 15 MG Tablet PO (09:17)
[2017-11-27] MEDS: Enoxaparin 30 MG/0.3 ML Syringe SC (09:17)
[2017-11-27 09:33] VITALS: BP 110/40; PULSE 73
--- NOTE | 2017-11-27 10:44 | NURSING ---
Pt having low blood pressures, 106/41, 105/33, 110/40. Dr. Maciel made aware, NO to decrease lasix to 40mg daily and decrease aldactone to 50mg daily. Aldactone, lasix and norvasc held this AM per nursing judgement for low BP of 110/40.
[2017-11-27 11:27] VITALS: O2SAT 94
[2017-11-27 15:32] VITALS: BP 123/60; PULSE 60; RESP 18; TEMP 36.3; O2SAT 96
[2017-11-27] MEDS: oxyCODONE 5 MG Tablet PO (18:54)
[2017-11-27] MEDS: Menthol/Lanolin/Calamine/Znox 113 GM Tube 1 APPLIC TOPICAL (19:02)
[2017-11-27] MEDS: Amitriptyline 25 MG Tablet PO (20:39)
[2017-11-27] MEDS: Atorvastatin Calcium 40 MG Tablet PO (20:39)
--- NOTE | 2017-11-27 20:48 | NURSING ---
Patient c/o not being able to open his left eye. Left eye lid swollen and red. Dr. Maciel notified. New orders given.
[2017-11-28] VITALS (7 sets, daily range): BP systolic 113–144; BP diastolic 42–63; PULSE 50–95; RESP 18; TEMP 37; O2SAT 96–97
[2017-11-28] MEDS: Gentamicin Sulfate 1 OPTH.BTL 1 DRP LEFT EYE ×7 (02:24→21:44)
[2017-11-28 07:21] LABS: Bedside Glucose 145 mg/dL (70-110)
[2017-11-28] MEDS: Furosemide 40 MG Tablet PO (07:33)
[2017-11-28] MEDS: Spironolactone 50 MG Tablet PO (07:34)
[2017-11-28] MEDS: Pantoprazole Sodium 40 MG Tablet PO (09:11)
[2017-11-28] MEDS: Aspirin 81 MG TAB.CHEW PO (09:11)
[2017-11-28] MEDS: Propranolol 40 MG Tablet 80 MG PO ×2 (09:12→18:25)
[2017-11-28] MEDS: Magnesium Oxide 400 MG Tablet PO (09:12)
[2017-11-28] MEDS: Enoxaparin 30 MG/0.3 ML Syringe SC (09:12)
[2017-11-28] MEDS: amLODIPine 5 MG Tablet PO (09:12)
[2017-11-28] MEDS: Iron Polysaccharide Complex 150 MG CAPSULE PO (09:13)
[2017-11-28] MEDS: Pioglitazone Hydrochloride 15 MG Tablet PO (10:10)
--- NOTE | 2017-11-28 12:45 | CASEMGMT ---
Insurance Clinical information faxed. Pending continued stay approval at this time. Auth#[id number] Mely SANDOVAL, PUBLIC HEALTH PHYSICIAN
--- NOTE | 2017-11-28 14:12 | CASEMGMT ---
Insurance Continued stay denied with last cover day being 11/30/17 and discharge or resident financial responsibility to begin on 12/01/17. Auth#[id number] Mely SANDOVAL, CERTIFIED CONTROL SYSTEMS TECHNICIAN
--- NOTE | 2017-11-28 15:58 | CASEMGMT ---
Social Work Spoke with resident and resident spouse. This socially responsible investment adviser communicating that continued stay has been denied by resident insurance with a last cover day of 11/30/17 and a discharge or resident financial responsibility to begin on 12/01/17. Resident is agreeable to discharge date on 12/01/17 and plans to discharge home with spouse. Resident spouse is agreeable to discharge plan as too but also expressing some concerns. Resident spouse, Buffy voicing to have concerns of being able to meet resident needs within the home. This socially responsible investment adviser broached topic of assisted living and extended care facilities, both resident and Buffy reporting to not be interested in either option and that the plan will be for resident to discharge home. Resident is agreeable to have home health services. Support given. Proposed discharge date: 12/01/17 PLAN: Discharge home with spouse and home health care. Will continue to follow. Mely SANDOVAL, SPINNER HAND
[2017-11-28] MEDS: oxyCODONE 5 MG Tablet PO (18:31)
[2017-11-28] MEDS: Atorvastatin Calcium 40 MG Tablet PO (21:43)
[2017-11-28] MEDS: Amitriptyline 25 MG Tablet PO (21:43)
[2017-11-28] MEDS: Zolpidem Tartrate 5 MG Tablet PO (22:50)
[2017-11-29] MEDS: Spironolactone 50 MG Tablet PO (06:14)
[2017-11-29] MEDS: Gentamicin Sulfate 1 OPTH.BTL 1 DRP LEFT EYE ×6 (06:15→22:18)
[2017-11-29] MEDS: Furosemide 40 MG Tablet PO (06:15)
[2017-11-29 06:16] VITALS: BP 153/57; PULSE 59
[2017-11-29 07:00] LABS: Bedside Glucose 130 mg/dL (70-110)
[2017-11-29] MEDS: Pioglitazone Hydrochloride 15 MG Tablet PO (08:20)
[2017-11-29] MEDS: Iron Polysaccharide Complex 150 MG CAPSULE PO (08:20)
[2017-11-29] MEDS: Enoxaparin 30 MG/0.3 ML Syringe SC (08:20)
[2017-11-29] MEDS: Pantoprazole Sodium 40 MG Tablet PO (08:20)
[2017-11-29] MEDS: Magnesium Oxide 400 MG Tablet PO (08:20)
[2017-11-29] MEDS: Propranolol 40 MG Tablet 80 MG PO ×2 (08:20→17:12)
[2017-11-29] MEDS: amLODIPine 5 MG Tablet PO (08:20)
[2017-11-29] MEDS: Aspirin 81 MG TAB.CHEW PO (08:20)
--- NOTE | 2017-11-29 10:31 | CASEMGMT ---
Social Work Spoke with resident in room. This nephrology social worker communicating that physical and occupational therapy as well as group home are recommending for resident to have continued services through home health care at time of discharge. Resident is requesting for home health care to be set up through [facility] ([facility]). Resident reporting to have all needed durable medical equipment set up within the home at time of discharge. Resident spouse and daughter to provide transportation home for for resident at time of discharge. Support given. [facility] This nephrology social worker making referral for physical and occupational therapy as well as group home. Order to be completed. Proposed discharge date: 12/01/17 PLAN: Discharge home with spouse and home health care. Mely SANDOVAL, TECHNICIAN HELPER INSTRUMENT
--- NOTE | 2017-11-29 14:35 | NURSING ---
Pt back from neurology appt today, no new orders, f/u appt made january 10 at 1330
[2017-11-29 15:32] VITALS: BP 119/39; PULSE 52; RESP 18; TEMP 36.9; O2SAT 90
[2017-11-29 20:32] VITALS: O2SAT 97
--- NOTE | 2017-11-29 20:34 | PCM.DC ---
- Discharge Diagnoses Current Active Problems: Current Active and Chronic Problems Encephalopathy (Acute) Chronic pain (Chronic) You will use the following diet at home:: No restrictions, Regular Your food should be the consistency of: Regular Your liquids should be the consistency of: Regular/Thin Discharge Activity: Return to Normal Activity, May Shower, Use Walker Weight Bearing Status: Weight bearing as tolerated Call your doctor if you observe: Fever of 101 or Higher, Inability to urinate, Inability to have a bowel movement, Shortness of breath, Chest pain, Uncontrolled pain Allergies/Adverse Reactions: Allergies aspirin Adverse Reaction (Verified 11/07/17 07:08) Other causes stomach to bleed Medications to take at Discharge Magnesium Oxide [Mag-Ox 400] 400 mg PO DAILY 12/21/15 Amlodipine [Norvasc] 5 mg PO DAILY 07/13/17 Propranolol HCl 80 mg PO BID 07/13/17 Amitriptyline HCl [Elavil] 25 mg PO QHS 08/02/17 Lansoprazole [Prevacid] 30 mg PO DAILY 08/02/17 Oxygen, Home [Home Oxygen] 2 lpm NASAL PRN PRN 08/02/17 Acetaminophen [Tylenol Tablet] 650 mg PO Q6H PRN PRN tablet 11/13/17 Aspirin [Aspirin, Baby] 81 mg PO DAILY@0800 11/13/17 Atorvastatin Calcium [Lipitor] 40 mg PO QHS 11/13/17 Furosemide [Lasix] 40 mg PO BID 11/13/17 Iron Polysaccharide Complex [Ferrex 150] 150 mg PO DAILYCM 11/13/17 Menthol/Lanolin/Calamine/Znox [Calmoseptine Ointment] 1 applic TOPICAL 4X/DAY 11/13/17 Polyethylene Glycol 3350 [Miralax] 17 gm PO DAILY 11/13/17 Spironolactone [Aldactone] 50 mg PO BID #0 11/13/17 Gentamicin Ophthalmic Drops [Garamycin Ophthalmic Drops] 1 drp LEFT EYE Q3HWA #1 opth.btl 11/29/17 Nutritional Supplement [Clif - ORANGE FLAVOR] 1 packet PO BIDCM #60 packet 11/29/17 Pioglitazone [Actos] 15 mg PO DAILY@0800 tablet 11/29/17 The following prescriptions were given: Nutritional Supplement [Clif - ORANGE FLAVOR] 1 packet PO BIDCM #60 packet Gentamicin Ophthalmic Drops [Garamycin Ophthalmic Drops] 1 drp LEFT EYE Q3HWA #1 opth.btl Primary Care Physician: Tommy Maciel Chi, MD [Primary Care Provider] - Please follow up with your Primary Care Physician in: 1 week. Please Follow Up With: Fady Velasco MD When: [phone] Proposed Discharge Date: 12/01/17
--- NOTE | 2017-11-29 20:37 | DCINST_ITS ---
- Discharge Diagnoses Current Active Problems: Current Active and Chronic Problems Encephalopathy (Acute) Chronic pain (Chronic) You will use the following diet at home:: No restrictions, Regular Your food should be the consistency of: Regular Your liquids should be the consistency of: Regular/Thin Discharge Activity: Return to Normal Activity, May Shower, Use Walker Weight Bearing Status: Weight bearing as tolerated Call your doctor if you observe: Fever of 101 or Higher, Inability to urinate, Inability to have a bowel movement, Shortness of breath, Chest pain, Uncontrolled pain Allergies/Adverse Reactions: Allergies aspirin Adverse Reaction (Verified 11/07/17 07:08) Other causes stomach to bleed Medications to take at Discharge Magnesium Oxide [Mag-Ox 400] 400 mg PO DAILY 12/21/15 Amlodipine [Norvasc] 5 mg PO DAILY 07/13/17 Propranolol HCl 80 mg PO BID 07/13/17 Amitriptyline HCl [Elavil] 25 mg PO QHS 08/02/17 Lansoprazole [Prevacid] 30 mg PO DAILY 08/02/17 Oxygen, Home [Home Oxygen] 2 lpm NASAL PRN PRN 08/02/17 Acetaminophen [Tylenol Tablet] 650 mg PO Q6H PRN PRN tablet 11/13/17 Aspirin [Aspirin, Baby] 81 mg PO DAILY@0800 11/13/17 Atorvastatin Calcium [Lipitor] 40 mg PO QHS 11/13/17 Furosemide [Lasix] 40 mg PO BID 11/13/17 Iron Polysaccharide Complex [Ferrex 150] 150 mg PO DAILYCM 11/13/17 Menthol/Lanolin/Calamine/Znox [Calmoseptine Ointment] 1 applic TOPICAL 4X/DAY Polyethylene Glycol 3350 [Miralax] 17 gm PO DAILY 11/13/17 Spironolactone [Aldactone] 50 mg PO BID #0 11/13/17 Gentamicin Ophthalmic Drops [Garamycin Ophthalmic Drops] 1 drp LEFT EYE Q3HWA # 1 opth.btl 11/29/17 Nutritional Supplement [Clif - ORANGE FLAVOR] 1 packet PO BIDCM #60 packet Pioglitazone [Actos] 15 mg PO DAILY@0800 tablet 11/29/17 The following prescriptions were given: Nutritional Supplement [Clif - ORANGE FLAVOR] 1 packet PO BIDCM #60 packet Gentamicin Ophthalmic Drops [Garamycin Ophthalmic Drops] 1 drp LEFT EYE Q3HWA # 1 opth.btl Primary Care Physician: Tommy Maciel Chi, MD [Primary Care Provider] - Please follow up with your Primary Care Physician in: 1 week. Please Follow Up With: Fady Velasco MD When: [phone] Proposed Discharge Date: 12/01/17
--- NOTE | 2017-11-29 20:37 | PCM.DC.SUM ---
Discharge Date and Diagnosis - Problem List Patient Problems: Active and Suspected Problems Encephalopathy (Acute) Date of Admission: 11/13/17 Date of Discharge: 12/01/17 - Primary Discharge Diagnosis Active and Suspected Problems Encephalopathy (Acute) - Secondary Discharge Diagnosis Chronic Problems Diabetes mellitus (Chronic) Chronic constipation (Chronic) Anemia (Chronic) Cirrhosis of liver (Chronic) Chronic kidney disease (Chronic) Peripheral vascular disease (Chronic) COPD (chronic obstructive pulmonary disease) (Chronic) Hypertension (Chronic) Hepatic encephalopathy (Chronic) Stroke (Chronic) Pulmonary hypertension (Chronic) mild Hypomagnesemia (Chronic) Edema (Chronic) GERD (gastroesophageal reflux disease) (Chronic) Insomnia (Chronic) Tinea unguium (Chronic) Toe pain, right (Chronic) Toe pain, left (Chronic) Chronic pain (Chronic) Hospital Course and Treatment Imaging Results: 11/13/17 15:50 Diet: Cardiac: Calorie-Controlled Diet Comments: low sodium How many daily calories?: 1800 calorie Labs (Last 48 Hours) 11/28/17 11/29/17 07:17 06:55 POC Glucose 145 H 130 H Consultations 11/13/17 Consult: Onc/Wound/datawarehouse developer Routine Comment: burn lle Reason for Consult:: burn lle 11/17/17 07:35 Consult: Onc/Wound/datawarehouse developer Routine Comment: Reason for Consult:: Open areas to bilateral buttocks Operations: None Procedures: None Summary of Care Provided: The patient is a 82 year old Male with below past medical history hospitalized for sepsis secondary to left lower extremity cellulitis complicated by encephalopathy, acute kidney injury, atrial fibrillation, constipation, fluid overload, admitted to TCU for rehabilitation, strengthening. Will discharge home with spouse. Home health ordered. Discharge Diet: No Restrictions Discharge Activity: Return to Normal Activity, May Shower, Use Walker Weight Bearing Status: Weight bearing as tolerated Call your doctor if you observe: Fever of 101 or Higher, Inability to urinate, Inability to have a bowel movement, Shortness of breath, Chest pain, Uncontrolled pain Home Medications: Medications to take at Discharge Magnesium Oxide [Mag-Ox 400] 400 mg PO DAILY 12/21/15 Amlodipine [Norvasc] 5 mg PO DAILY 07/13/17 Propranolol HCl 80 mg PO BID 07/13/17 Amitriptyline HCl [Elavil] 25 mg PO QHS 08/02/17 Lansoprazole [Prevacid] 30 mg PO DAILY 08/02/17 Oxygen, Home [Home Oxygen] 2 lpm NASAL PRN PRN 08/02/17 Acetaminophen [Tylenol Tablet] 650 mg PO Q6H PRN PRN tablet 11/13/17 Aspirin [Aspirin, Baby] 81 mg PO DAILY@0800 11/13/17 Atorvastatin Calcium [Lipitor] 40 mg PO QHS 11/13/17 Furosemide [Lasix] 40 mg PO BID 11/13/17 Iron Polysaccharide Complex [Ferrex 150] 150 mg PO DAILYCM 11/13/17 Menthol/Lanolin/Calamine/Znox [Calmoseptine Ointment] 1 applic TOPICAL 4X/DAY 11/13/17 Polyethylene Glycol 3350 [Miralax] 17 gm PO DAILY 11/13/17 Spironolactone [Aldactone] 50 mg PO BID #0 11/13/17 Gentamicin Ophthalmic Drops [Garamycin Ophthalmic Drops] 1 drp LEFT EYE Q3HWA #1 opth.btl 11/29/17 Nutritional Supplement [Clif - ORANGE FLAVOR] 1 packet PO BIDCM #60 packet 11/29/17 Pioglitazone [Actos] 15 mg PO DAILY@0800 tablet 11/29/17 Following Prescrptions Were Given to Patient: Nutritional Supplement [Clif - ORANGE FLAVOR] 1 packet PO BIDCM #60 packet Gentamicin Ophthalmic Drops [Garamycin Ophthalmic Drops] 1 drp LEFT EYE Q3HWA #1 opth.btl Primary Care Physician: Tommy Maciel Chi, MD [Primary Care Provider] - Please follow up with your Primary Care Physician in: 1 week. Please Follow Up With: Fady Velasco MD When: [phone] Disposition: Home with Home Health Minutes spent on discharge:: 35 Patient Condition:: Stable Meaningful Use Info Meaningful Use Diagnoses (Choose all that apply): None applicable
--- NOTE | 2017-11-29 20:41 | DS.PCM_ITS ---
Discharge Date and Diagnosis - Problem List Patient Problems: Active and Suspected Problems Encephalopathy (Acute) Date of Admission: 11/13/17 Date of Discharge: 12/01/17 - Primary Discharge Diagnosis Active and Suspected Problems Encephalopathy (Acute) - Secondary Discharge Diagnosis Chronic Problems Diabetes mellitus (Chronic) Chronic constipation (Chronic) Anemia (Chronic) Cirrhosis of liver (Chronic) Chronic kidney disease (Chronic) Peripheral vascular disease (Chronic) COPD (chronic obstructive pulmonary disease) (Chronic) Hypertension (Chronic) Hepatic encephalopathy (Chronic) Stroke (Chronic) Pulmonary hypertension (Chronic) mild Hypomagnesemia (Chronic) Edema (Chronic) GERD (gastroesophageal reflux disease) (Chronic) Insomnia (Chronic) Tinea unguium (Chronic) Toe pain, right (Chronic) Toe pain, left (Chronic) Chronic pain (Chronic) Hospital Course and Treatment Imaging Results: 11/13/17 15:50 Diet: Cardiac: Calorie-Controlled Diet Comments: low sodium How many daily calories?: 1800 calorie Labs (Last 48 Hours) 11/28/17 11/29/17 07:17 06:55 POC Glucose 145 H 130 H Consultations 11/13/17 Consult: Onc/Wound/electric meter tester helper Routine Comment: burn lle Reason for Consult:: burn lle 11/17/17 07:35 Consult: Onc/Wound/electric meter tester helper Routine Comment: Reason for Consult:: Open areas to bilateral buttocks Operations: None Procedures: None Summary of Care Provided: The patient is a 82 year old Male with below past medical history hospitalized for sepsis secondary to left lower extremity cellulitis complicated by encephalopathy, acute kidney injury, atrial fibrillation, constipation, fluid overload, admitted to TCU for rehabilitation, strengthening. Will discharge home with spouse. Home health ordered. Discharge Diet: No Restrictions Discharge Activity: Return to Normal Activity, May Shower, Use Walker Weight Bearing Status: Weight bearing as tolerated Call your doctor if you observe: Fever of 101 or Higher, Inability to urinate, Inability to have a bowel movement, Shortness of breath, Chest pain, Uncontrolled pain Home Medications: Medications to take at Discharge Magnesium Oxide [Mag-Ox 400] 400 mg PO DAILY 12/21/15 Amlodipine [Norvasc] 5 mg PO DAILY 07/13/17 Propranolol HCl 80 mg PO BID 07/13/17 Amitriptyline HCl [Elavil] 25 mg PO QHS 08/02/17 Lansoprazole [Prevacid] 30 mg PO DAILY 08/02/17 Oxygen, Home [Home Oxygen] 2 lpm NASAL PRN PRN 08/02/17 Acetaminophen [Tylenol Tablet] 650 mg PO Q6H PRN PRN tablet 11/13/17 Aspirin [Aspirin, Baby] 81 mg PO DAILY@0800 11/13/17 Atorvastatin Calcium [Lipitor] 40 mg PO QHS 11/13/17 Furosemide [Lasix] 40 mg PO BID 11/13/17 Iron Polysaccharide Complex [Ferrex 150] 150 mg PO DAILYCM 11/13/17 Menthol/Lanolin/Calamine/Znox [Calmoseptine Ointment] 1 applic TOPICAL 4X/DAY Polyethylene Glycol 3350 [Miralax] 17 gm PO DAILY 11/13/17 Spironolactone [Aldactone] 50 mg PO BID #0 11/13/17 Gentamicin Ophthalmic Drops [Garamycin Ophthalmic Drops] 1 drp LEFT EYE Q3HWA # 1 opth.btl 11/29/17 Nutritional Supplement [Clif - ORANGE FLAVOR] 1 packet PO BIDCM #60 packet Pioglitazone [Actos] 15 mg PO DAILY@0800 tablet 11/29/17 Following Prescrptions Were Given to Patient: Nutritional Supplement [Clif - ORANGE FLAVOR] 1 packet PO BIDCM #60 packet Gentamicin Ophthalmic Drops [Garamycin Ophthalmic Drops] 1 drp LEFT EYE Q3HWA # 1 opth.btl Primary Care Physician: Tommy Maciel Chi, MD [Primary Care Provider] - Please follow up with your Primary Care Physician in: 1 week. Please Follow Up With: Fady Velasco MD When: [phone] Disposition: Home with Home Health Minutes spent on discharge:: 35 Patient Condition:: Stable Meaningful Use Info Meaningful Use Diagnoses (Choose all that apply): None applicable
--- NOTE | 2017-11-29 20:42 | HHNOTE_ITS ---
Home Health Note - Plan Overview of reason of hospitalization: The patient is a 82 year old Male with below past medical history hospitalized for sepsis secondary to left lower extremity cellulitis complicated by encephalopathy, acute kidney injury, atrial fibrillation, constipation, fluid overload, admitted to TCU for rehabilitation, strengthening. Will discharge home with spouse. Home health ordered. Problems: Patient was seen for Encephalopathy (Acute) Chronic pain (Chronic) Complete List of Medical Problems Choledocholithiasis (Acute) Pancreatitis (Acute) Abdominal pain (Acute) Diabetes mellitus (Chronic) Chronic constipation (Chronic) Anemia (Chronic) Cirrhosis of liver (Chronic) Chronic kidney disease (Chronic) Cellulitis of leg without foot, left (Acute) Peripheral vascular disease (Chronic) COPD (chronic obstructive pulmonary disease) (Chronic) Hypertension (Chronic) Hepatic encephalopathy (Chronic) Pneumonia (Acute) Stroke (Chronic) Visual disturbance as complication of stroke (Acute) Debility secondary to stroke (Acute) 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) Pulmonary hypertension (Chronic) Fall (Acute) Hypomagnesemia (Chronic) Edema (Chronic) GERD (gastroesophageal reflux disease) (Chronic) Insomnia (Chronic) Tinea unguium (Chronic) Toe pain, right (Chronic) Toe pain, left (Chronic) Sepsis (Acute) Left leg cellulitis (Acute) COPD with acute exacerbation (Acute) Diastolic CHF (Acute) YANNA (acute kidney injury) (Acute) Paroxysmal A-fib (Acute) Debility (Acute) Acute respiratory failure with hypoxia (Acute) Encephalopathy (Acute) Chronic pain (Chronic) - Requirements and Reasons Disciplines Needed/Ordered: Longterm, Physical Therapy Reason for Disciplines: Disease Specific Monitoring/education, Medication Management/Knowledge Deficit, Wound Care, Gait Training, Stair Training, Fall Prevention, Home Safety/Equipment Instruction, Balance and/or Posture Training, Transfer Training Related To: Limited/Poor Endurance, Shortness of Breath with Activity, Physical Impairments, Unsteady Gait/Balance, Fall Risk Patient is unable to leave the home: Without Aid of Supportive Devices (crutches , cane, wheelchair, walker), Without the assistance of another person - Additional Disciplines Additional Disciplines Needed/Ordered: Occupational Therapy
[2017-11-29] MEDS: Zolpidem Tartrate 5 MG Tablet PO (22:20)
[2017-11-29] MEDS: Atorvastatin Calcium 40 MG Tablet PO (22:21)
[2017-11-29] MEDS: Amitriptyline 25 MG Tablet PO (22:21)
[2017-11-30] MEDS: Furosemide 40 MG Tablet PO (05:30)
[2017-11-30] MEDS: Spironolactone 50 MG Tablet PO (05:30)
[2017-11-30] MEDS: Gentamicin Sulfate 1 OPTH.BTL 1 DRP LEFT EYE ×6 (05:30→21:59)
[2017-11-30 06:52] LABS: Bedside Glucose 166 mg/dL (70-110)
[2017-11-30] MEDS: Magnesium Oxide 400 MG Tablet PO (08:55)
[2017-11-30] MEDS: amLODIPine 5 MG Tablet PO (08:55)
[2017-11-30] MEDS: Pantoprazole Sodium 40 MG Tablet PO (08:55)
[2017-11-30] MEDS: Propranolol 40 MG Tablet 80 MG PO ×2 (08:56→18:41)
[2017-11-30] MEDS: Enoxaparin 30 MG/0.3 ML Syringe SC (08:56)
[2017-11-30] MEDS: Iron Polysaccharide Complex 150 MG CAPSULE PO (08:56)
[2017-11-30] MEDS: Aspirin 81 MG TAB.CHEW PO (08:56)
[2017-11-30] MEDS: Pioglitazone Hydrochloride 15 MG Tablet PO (08:56)
[2017-11-30] MEDS: oxyCODONE 5 MG Tablet PO ×2 (09:02→18:42)
[2017-11-30 09:17] VITALS: BP 113/53; PULSE 72
--- NOTE | 2017-11-30 11:24 | CASEMGMT ---
Social Work Telephone call from [facility], [facility]. Tyra reporting to now not be able to accept resident due to resident having daily dressing changes. Spoke with resident and resident spouse. This bilingual social worker communicating above information. Resident voicing understanding and requesting for this bilingual social worker to make a referral to [facility]. Support given. [facility] This bilingual social worker making referral for physical and occupational therapy as well as detention. [facility] reporting to be able to accept resident. Clinical information faxed along with discharge orders. Proposed discharge date: 12/01/17 PLAN: Discharge home with spouse and home health care. Mely SANDOVAL, HEAD MILLER
[2017-11-30 16:00] VITALS: BP 130/47; PULSE 59; RESP 18; TEMP 36.2; O2SAT 97
[2017-11-30] MEDS: Amitriptyline 25 MG Tablet PO (22:00)
[2017-11-30] MEDS: Atorvastatin Calcium 40 MG Tablet PO (22:00)
[2017-11-30] MEDS: Zolpidem Tartrate 5 MG Tablet PO (23:24)
[2017-12-01] MEDS: Gentamicin Sulfate 1 OPTH.BTL 1 DRP LEFT EYE ×2 (06:32→09:16)
[2017-12-01] MEDS: Spironolactone 50 MG Tablet PO (06:33)
[2017-12-01] MEDS: Furosemide 40 MG Tablet PO (06:33)
[2017-12-01 06:46] LABS: Bedside Glucose 141 mg/dL (70-110)
[2017-12-01] MEDS: Pantoprazole Sodium 40 MG Tablet PO (09:15)
[2017-12-01] MEDS: amLODIPine 5 MG Tablet PO (09:15)
[2017-12-01] MEDS: Magnesium Oxide 400 MG Tablet PO (09:15)
[2017-12-01] MEDS: Aspirin 81 MG TAB.CHEW PO (09:16)
[2017-12-01] MEDS: Propranolol 40 MG Tablet 80 MG PO (09:16)
[2017-12-01] MEDS: Pioglitazone Hydrochloride 15 MG Tablet PO (09:16)
[2017-12-01] MEDS: Iron Polysaccharide Complex 150 MG CAPSULE PO (09:17)
[2017-12-01] MEDS: oxyCODONE 5 MG Tablet PO (10:03)
[2017-12-01 10:20] VITALS: PULSE 56; RESP 18; O2SAT 95
--- NOTE | 2017-12-04 11:32 | CASEMGMT ---
Insurance Notified Magdalena at [facility] of resident discharge date on 12/01/17. Auth#[id number] Mely SANDOVAL, LOG CLERK
--- NOTE | 2017-12-11 15:11 | MDS.RN ---
Information for the mds was obtained from review of the clinical record, interview of resident, staff, and direct observation of resident's care.
== END 2017-12-01 15:29 | disposition home health service (06) | DRG 871 ==
PROVIDERS: Admitting Provider Family Medicine Geriatric Medicine; Family Provider Family Medicine Geriatric Medicine; PCP Family Medicine Geriatric Medicine; Visit Provider Family Medicine Geriatric Medicine
DX: A41.9 Sepsis, unspecified organism (principal); K72.00 Acute and subacute hepatic failure without coma; N17.9 Acute kidney failure, unspecified; E11.22 Type 2 diabetes mellitus with diabetic chronic kidney disease; I27.20 Pulmonary hypertension, unspecified; I13.0 Hypertensive heart and chronic kidney disease with heart failure and stage 1 through stage 4 chronic kidney disease, or unspecified chronic kidney disease; I50.22 Chronic systolic (congestive) heart failure; I48.91 Unspecified atrial fibrillation; B35.1 Tinea unguium; L03.116 Cellulitis of left lower limb; Z99.81 Dependence on supplemental oxygen; D50.9 Iron deficiency anemia, unspecified; D64.9 Anemia, unspecified; F10.20 Alcohol dependence, uncomplicated; K21.9 Gastro-esophageal reflux disease without esophagitis; T25.022D Burn of unspecified degree of left foot, subsequent encounter; N18.9 Chronic kidney disease, unspecified; K74.60 Unspecified cirrhosis of liver; K59.09 Other constipation; J44.9 Chronic obstructive pulmonary disease, unspecified; I73.9 Peripheral vascular disease, unspecified; G89.29 Other chronic pain; K72.90 Hepatic failure, unspecified without coma; F17.210 Nicotine dependence, cigarettes, uncomplicated; E78.5 Hyperlipidemia, unspecified; I25.10 Atherosclerotic heart disease of native coronary artery without angina pectoris; K72.10 Chronic hepatic failure without coma; M79.674 Pain in right toe(s); M79.675 Pain in left toe(s); Z86.73 Personal history of transient ischemic attack (TIA), and cerebral infarction without residual deficits; Z79.899 Other long term (current) drug therapy; Z79.4 Long term (current) use of insulin; Z79.84 Long term (current) use of oral hypoglycemic drugs; Z91.81 History of falling; X08.8XXD Exposure to other specified smoke, fire and flames, subsequent encounter
CPT/HCPCS: 36415; 80048; 82962; 85025; 94640; 97110; 97116; 97162; 97165; 97530; 97535; 99406

== ENCOUNTER → 2018-01-02 15:20 | Outpatient (CLI) | payer MEDICARE, SELFPAY ==
[2018-01-02 16:43] LABS: Absolute Lymphocyte Count 1.71 X10^3/ul (0.83-4.51); Absolute Neutrophil Count 6.2 X10^3/uL (2.0-7.7); Basophil# 0.05 X10^3/uL; Basophil% 0.5 % (0-1); Eosinophil# 0.62 X10^3/uL; Eosinophils% 6.5 % (0-5); Hematocrit 34.6 % (40-54); Hemoglobin 11.2 g/dl (13.0-16.5); Lymphocyte # 1.71 X10^3/ul (4.0); Mean Corp Hgb Conc 32.4 g/gl (32-36); Mean Corpuscular Hgb 30.8 pg (27.0-32.0); Mean Corpuscular Volume 95.1 fL (80-94); Monocyte# 0.91 X10^3/uL; Monocyte% 9.6 % (0-10); Neutrophil % 65.1 % (47-70); Platelet Count 253 K/mm3 (150-450); RBC Distribution Width CV 14.3 % (11.6-14.6); RBC Distribution Width SD 49.6 fl (35.1-43.9); Red Blood Count 3.64 M/mm3 (4.6-6.2); White Blood Count 9.5 K/mm3 (4.4-11.0)
[2018-01-02 16:47] LABS: POSITIVE COUNT NO; POSITIVE DIFFERENTIAL NO; POSITIVE MORPHOLOGY NO
[2018-01-02 16:57] LABS: ALB/GLOB Ratio 0.7 RATIO (0.9-2.4); AST(SGOT) 18 U/L (15-37); Alanine Aminotransfer ALT/SGPT 16 U/L (16-61); Albumin, Serum 3.3 g/dL (3.2-5.0); Alkaline Phosphatase 62 U/L (45-117); Anion Gap 6 (5-15); BUN 28 mg/dL (7-18); BUN/Creat Ratio 15.5 RATIO (10-20); Calcium,Total 8.9 mg/dL (8.5-10.1); Chloride 99 mmol/L (98-107); Creatinine, Serum 1.81 mg/dL (0.70-1.30); EST Glomerular Filtration Rate 38 mL/min (>60); Est Glom Filt Rate - Afr Amer 46 mL/min (>60); Globulin 4.6 g/dL (2.2-4.2); Glucose 123 mg/dL (74-106); Potassium 4.5 mmol/L (3.5-5.1); Protein, Total 7.9 g/dL (6.4-8.2); Sodium Level 133 mmol/L (136-145); Thyroid Stim Hormone (TSH) 1.06 uIU/mL (0.358-3.74)
== END ==
PROVIDERS: Family Provider Family Medicine Geriatric Medicine; PCP Family Medicine Geriatric Medicine; Visit Provider Family Medicine Geriatric Medicine
DX: E11.9 Type 2 diabetes mellitus without complications (principal); I10 Essential (primary) hypertension
CPT/HCPCS: 36415; 80053; 84443; 85025

== ENCOUNTER → 2018-03-20 14:47 | Outpatient (CLI) | payer MEDICARE, SELFPAY ==
--- NOTE | 2018-03-20 14:55 | CT_ITS ---
STUDY: CT BRAIN WITHOUT CONTRAST REASON FOR EXAM: Male, 83 years old. CVA. Left hemianopsia. Elevated creatinine. RADIATION DOSAGE (If Supplied By Facility): CTDIvol = ( 44.99 ) mGy, DLP = ( 796.11 ) mGycm TECHNIQUE: Transaxial CT imaging of the brain was performed without administration of intravenous contrast material. Individualized dose optimization techniques were used for this CT. COMPARISON: November 07, 2017. FINDINGS: Normal soft tissue structures. Normal calvarium. There is mild cerebral atrophy with widening of the extra-axial spaces and ventricular dilatation. There are areas of decreased attenuation within the white matter tracts of the supratentorial brain, consistent with microvascular disease changes. Normal basal ganglia and thalami. Normal brainstem. Normal cerebellum. Old right medial occipital lobe infarction. There is no intracranial hemorrhage. There are no findings of an acute ischemic infarction. Normal visualized paranasal sinuses. Atherosclerotic calcification of the cavernous portion of the internal carotid arteries as well as the left vertebral artery. CT/Brain/Head without Contrast IMPRESSION: Stable head CT, no acute intracranial abnormality. Chronic involutional changes of brain. Old right occipital lobe infarction. If further imaging is clinically warranted consider MRI with diffusion-weighted images. Electronically Signed: Christopher Delgado MD at 0:29 EDT , Service support ,
[2018-03-20 15:16] LABS: CREATININE FINGERSTICK 1.8 mg/dL (0.70-1.30)
== END ==
PROVIDERS: Family Provider Family Medicine Geriatric Medicine; PCP Family Medicine Geriatric Medicine; Visit Provider Nurse Practitioner Acute Care
DX: H53.462 Homonymous bilateral field defects, left side (principal); Z86.73 Personal history of transient ischemic attack (TIA), and cerebral infarction without residual deficits
CPT/HCPCS: 70450

== ENCOUNTER → 2018-04-16 15:17 | Outpatient (CLI) | payer MEDICARE, SELFPAY ==
[2018-04-16 17:28] LABS: Absolute Neutrophil Count 5.3 X10^3/uL (2.0-7.7); Basophil# 0.07 X10^3/uL; Basophil% 0.8 % (0-1); Eosinophil# 0.53 X10^3/uL; Eosinophils% 6.1 % (0-5); Hematocrit 31.8 % (40-54); Hemoglobin 10.6 g/dl (13.0-16.5); Lymphocyte % 19.5 % (19-41); Mean Corp Hgb Conc 33.3 g/gl (32-36); Mean Corpuscular Hgb 31.8 pg (27.0-32.0); Mean Corpuscular Volume 95.5 fL (80-94); Monocyte# 1.14 X10^3/uL; Monocyte% 13.1 % (0-10); Neutrophil # 5.28 X10^3/uL (2.7-7.7); Neutrophil % 60.4 % (47-70); Platelet Count 214 K/mm3 (150-450); RBC Distribution Width CV 13.5 % (11.6-14.6); Red Blood Count 3.33 M/mm3 (4.6-6.2); White Blood Count 8.7 K/mm3 (4.4-11.0)
[2018-04-16 17:31] LABS: POSITIVE COUNT NO; POSITIVE DIFFERENTIAL NO; POSITIVE MORPHOLOGY NO
[2018-04-16 17:42] LABS: Vitamin D,25 Hydroxy 26.8 ng/mL (29.95-100.01)
[2018-04-16 18:37] LABS: ALB/GLOB Ratio 0.8 RATIO (0.9-2.4); AST(SGOT) 21 U/L (15-37); Alanine Aminotransfer ALT/SGPT 20 U/L (16-61); Albumin, Serum 3.4 g/dL (3.2-5.0); Alkaline Phosphatase 66 U/L (45-117); Anion Gap 7 (5-15); BUN 42 mg/dL (7-18); BUN/Creat Ratio 19.5 RATIO (10-20); Calcium,Total 9.1 mg/dL (8.5-10.1); Chloride 100 mmol/L (98-107); Creatinine, Serum 2.15 mg/dL (0.70-1.30); EST Glomerular Filtration Rate 31 mL/min (>60); Est Glom Filt Rate - Afr Amer 38 mL/min (>60); Globulin 4.3 g/dL (2.2-4.2); Glucose 127 mg/dL (74-106); Potassium 4.7 mmol/L (3.5-5.1); Protein, Total 7.7 g/dL (6.4-8.2); Sodium Level 134 mmol/L (136-145); Thyroid Stim Hormone (TSH) 0.92 uIU/mL (0.358-3.74)
== END ==
PROVIDERS: Family Provider Family Medicine Geriatric Medicine; PCP Family Medicine Geriatric Medicine; Visit Provider Family Medicine Geriatric Medicine
DX: E11.9 Type 2 diabetes mellitus without complications (principal); E55.9 Vitamin D deficiency, unspecified; I10 Essential (primary) hypertension
CPT/HCPCS: 36415; 80053; 82306; 84443; 85025

== ENCOUNTER 2018-04-25 06:59 | Emergency (ER) | payer MEDICARE, SELFPAY ==
[2018-04-25 07:00] VITALS: BP 138/44; PULSE 59; RESP 18; TEMP 37.2; O2SAT 96; BMI 31.5
--- NOTE | 2018-04-25 07:22 | RAD_ITS ---
STUDY: X-RAY - LEFT TIBIA AND FIBULA REASON FOR EXAM: Male, 83 years old. Pain following a fall. TECHNIQUE: 4 view(s) of the tibia and fibula were obtained. COMPARISON: None. FINDINGS: Comminuted nondisplaced fracture in the proximal shaft of the tibia. Comminuted nondisplaced fracture in the neck of the fibula. Soft tissue swelling. Vascular calcification. RAD/Tibia & Fibula 2 Views IMPRESSION: Comminuted fracture in the proximal metaphysis and shaft of the tibia as well as in the neck of the fibula with overlying soft tissue swelling. Electronically Signed: Raheel Church MD at 8:37 EDT Tel [phone], Service support ,
--- NOTE | 2018-04-25 07:22 | RAD_ITS ---
STUDY: X-RAY - LEFT ANKLE REASON FOR EXAM: Male, 83 years old. Fell and injured left ankle TECHNIQUE: 1 view(s) of the ankle. COMPARISON: None. FINDINGS: Normal visualized distal tibia and fibula. Normal medial and lateral malleoli. Normal tibiotalar articulation and ankle mortise. Normal visualized talus and calcaneus. The visualized subtalar, talonavicular, calcaneocuboid and tarsal articulations are normal. Diffuse demineralization. The soft tissue structures are unremarkable. RAD/Ankle 2 Views IMPRESSION: Limited one view with demineralization decreases sensitivity for fracture Electronically Signed: Geoff Perez MD at 18:22 EDT , Service support ,
[2018-04-25] MEDS: Ondansetron 4 MG/2 ML Vial IV (07:37)
[2018-04-25] MEDS: Morphine 4 MG/ML Syringe IV ×2 (07:37→08:45)
[2018-04-25 07:42] LABS: Absolute Lymphocyte Count 1.04 X10^3/ul (0.83-4.51); Absolute Neutrophil Count 6.7 X10^3/uL (2.0-7.7); Basophil# 0.05 X10^3/uL; Basophil% 0.5 % (0-1); Eosinophils% 4.3 % (0-5); Hematocrit 31.6 % (40-54); Hemoglobin 10.7 g/dl (13.0-16.5); Lymphocyte # 1.04 X10^3/ul (4.0); Lymphocyte % 11.3 % (19-41); Mean Corp Hgb Conc 33.9 g/gl (32-36); Mean Corpuscular Volume 94.6 fL (80-94); Mean Platelet Vol. 8.5 fl (6.2-12.0); Monocyte# 1.04 X10^3/uL; Monocyte% 11.3 % (0-10); Neutrophil % 72.5 % (47-70); Platelet Count 204 K/mm3 (150-450); RBC Distribution Width CV 13.5 % (11.6-14.6); Red Blood Count 3.34 M/mm3 (4.6-6.2); White Blood Count 9.2 K/mm3 (4.4-11.0)
[2018-04-25 07:45] LABS: POSITIVE COUNT NO; POSITIVE DIFFERENTIAL NO; POSITIVE MORPHOLOGY NO
[2018-04-25 07:56] LABS: ALB/GLOB Ratio 0.7 RATIO (0.9-2.4); AST(SGOT) 22 U/L (15-37); Alanine Aminotransfer ALT/SGPT 19 U/L (16-61); Albumin, Serum 3.3 g/dL (3.2-5.0); Alkaline Phosphatase 58 U/L (45-117); Anion Gap 6 (5-15); BUN 46 mg/dL (7-18); BUN/Creat Ratio 18.8 RATIO (10-20); Calcium,Total 9.1 mg/dL (8.5-10.1); Chloride 95 mmol/L (98-107); Creatinine, Serum 2.45 mg/dL (0.70-1.30); EST Glomerular Filtration Rate 27 mL/min (>60); Est Glom Filt Rate - Afr Amer 33 mL/min (>60); Estimated Creatinine Clearance 22.49 ml/min; Globulin 4.9 g/dL (2.2-4.2); Glucose 136 mg/dL (74-106); Potassium 4.9 mmol/L (3.5-5.1); Protein, Total 8.2 g/dL (6.4-8.2); Sodium Level 132 mmol/L (136-145)
[2018-04-25 08:11] LABS: International Normalized Ratio 1.2; Prothrombin Time (Protime)PT. 15.2 SECONDS (11.7-14.9)
--- NOTE | 2018-04-25 08:49 | ED.VISSUMM ---
- ER Visit Summary Date of Service: 04/25/18 Chief Complaint: Fall History of Present Illness: The patient is a 83 M who fell at home. He tripped and injured his left leg. He denies any other injuries or complaints. He says he did not hit his head or neck. He denies head or neck pain. He denies loss of consciousness. Patient has multiple past medical issues including stroke, COPD, diabetes, hypertension, chronic kidney disease, cirrhosis, anemia, atrial fibrillation, pulmonary hypertension, and pancreatitis, among others. He takes aspirin but no other blood thinners. He does live at home with his spouse. He uses alcohol and tobacco. Physical Examination: Afebrile and vital signs unremarkable. Head and neck are atraumatic. Cranial nerves grossly intact. Neck is nontender. Chest is nontender. Heart regular. Lungs clear. Abdomen soft and nontender. Back unremarkable. Pelvis stable. Upper extremities atraumatic. Right lower extremity atraumatic. Left lower extremity shows severe tenderness to palpation of the mid and proximal left tib and fib with a concern for possible mild deformity with movement. Overlying skin is intact. He is neurovascular intact distally. Test Results: X-rays show comminuted fracture of the proximal tibia and fibula. Laboratory studies show anemia, BUN 46 and creatinine 2.45. Coags normal. Emergency Department Course and Treatment: Patient was treated with morphine and Zofran while awaiting results. X-rays showed the fracture. He was placed in a posterior leg splint. He tolerated this well. Neurovascularly intact distally afterwards. I spoke with Dr. Darryn Louise. He voiced some concerns that the patient has multiple medical issues and that likely this type of fracture could be rodded. He is unable to do that at this facility and recommended transfer to a trauma center. Patient adjusted [facility]. I spoke with Dr. Edwin Fajardo. The patient will be transferred to the emergency department for further evaluation and definitive orthopedic and medical care. Patient required an additional dose of morphine. He remains neurovascularly intact. No new or worsening issues. He will be transferred by local ambulance. Treatment Plan: As above Disposition: Transfer to [facility] Impression: 1. Comminuted fracture left proximal tibia and fibula This note was generated with TrenStar dictation software. It may contain incorrect words, spelling, and punctuation that were not noted in review of the chart prior to signing ED Disposition - Plan for ED Patient: Chief Complaint: Fall Referrals: Tommy Maciel Chi, MD [Primary Care Provider] -
--- NOTE | 2018-04-25 08:52 | ED.DCSUM_ITS ---
- ER Visit Summary Date of Service: 04/25/18 Chief Complaint: Fall History of Present Illness: The patient is a 83 M who fell at home. He tripped and injured his left leg. He denies any other injuries or complaints. He says he did not hit his head or neck. He denies head or neck pain. He denies loss of consciousness. Patient has multiple past medical issues including stroke, COPD, diabetes, hypertension, chronic kidney disease, cirrhosis, anemia, atrial fibrillation, pulmonary hypertension, and pancreatitis, among others. He takes aspirin but no other blood thinners. He does live at home with his spouse. He uses alcohol and tobacco. Physical Examination: Afebrile and vital signs unremarkable. Head and neck are atraumatic. Cranial nerves grossly intact. Neck is nontender. Chest is nontender. Heart regular. Lungs clear. Abdomen soft and nontender. Back unremarkable. Pelvis stable. Upper extremities atraumatic. Right lower extremity atraumatic. Left lower extremity shows severe tenderness to palpation of the mid and proximal left tib and fib with a concern for possible mild deformity with movement. Overlying skin is intact. He is neurovascular intact distally. Test Results: X-rays show comminuted fracture of the proximal tibia and fibula. Laboratory studies show anemia, BUN 46 and creatinine 2.45. Coags normal. Emergency Department Course and Treatment: Patient was treated with morphine and Zofran while awaiting results. X-rays showed the fracture. He was placed in a posterior leg splint. He tolerated this well. Neurovascularly intact distally afterwards. I spoke with Dr. Darryn Louise. He voiced some concerns that the patient has multiple medical issues and that likely this type of fracture could be rodded. He is unable to do that at this facility and recommended transfer to a trauma center. Patient adjusted [facility]. I spoke with Dr. Edwin Fajardo. The patient will be transferred to the emergency department for further evaluation and definitive orthopedic and medical care. Patient required an additional dose of morphine. He remains neurovascularly intact. No new or worsening issues. He will be transferred by local ambulance. Treatment Plan: As above Disposition: Transfer to [facility] Impression: 1. Comminuted fracture left proximal tibia and fibula This note was generated with [employer] dictation software. It may contain incorrect words, spelling, and punctuation that were not noted in review of the chart prior to signing ED Disposition - Plan for ED Patient: Chief Complaint: Fall Referrals: Tommy Maciel Chi, MD [Primary Care Provider] -
[2018-04-25 09:00] VITALS: BP 146/40; BP 165/44; PULSE 17; PULSE 71; RESP 16; TEMP 37.2; O2SAT 95; O2SAT 97
[2018-04-25 10:00] VITALS: BP 108/38; PULSE 71; RESP 14; O2SAT 95
== END 2018-04-25 10:01 | disposition short-term general hospital (02) ==
LOC: ED 07:27
PROVIDERS: Emergency Provider Emergency Medicine; Family Provider Family Medicine Geriatric Medicine; PCP Family Medicine Geriatric Medicine
DX: S82.192A Other fracture of upper end of left tibia, initial encounter for closed fracture (principal); S82.492A Other fracture of shaft of left fibula, initial encounter for closed fracture; W01.0XXA Fall on same level from slipping, tripping and stumbling without subsequent striking against object, initial encounter; Y93.9 Activity, unspecified; Y92.009 Unspecified place in unspecified non-institutional (private) residence as the place of occurrence of the external cause; Z86.73 Personal history of transient ischemic attack (TIA), and cerebral infarction without residual deficits; J44.9 Chronic obstructive pulmonary disease, unspecified; I12.9 Hypertensive chronic kidney disease with stage 1 through stage 4 chronic kidney disease, or unspecified chronic kidney disease; E11.22 Type 2 diabetes mellitus with diabetic chronic kidney disease; N18.9 Chronic kidney disease, unspecified; D63.1 Anemia in chronic kidney disease; I48.91 Unspecified atrial fibrillation; I27.20 Pulmonary hypertension, unspecified; K74.60 Unspecified cirrhosis of liver; K21.9 Gastro-esophageal reflux disease without esophagitis; Z79.82 Long term (current) use of aspirin; Z79.84 Long term (current) use of oral hypoglycemic drugs; Z79.899 Other long term (current) drug therapy; Z72.0 Tobacco use
CPT/HCPCS: 29505; 73590; 73600; 80053; 85025; 85610; 85730; 96361; 96374; 96375; 96376; 99285; J7030; J7040; A4216; J2405

== ENCOUNTER 2018-05-01 18:03 | Inpatient (IN) | payer MEDICARE, SELFPAY ==
--- NOTE | 2018-05-01 18:28 | PCM.HP.STD ---
Problem List (1) Fracture of left tibia and fibula Status: Acute (2) Chronic kidney disease Status: Chronic (3) Cirrhosis of liver Status: Chronic (4) Anemia Status: Chronic (5) Diabetes mellitus Status: Chronic (6) Chronic pain Status: Chronic (7) Insomnia Status: Chronic (8) GERD (gastroesophageal reflux disease) Status: Chronic (9) Edema Status: Chronic (10) Hypomagnesemia Status: Chronic (11) Fall Status: Acute (12) Pulmonary hypertension Status: Chronic Comment: mild (13) Stroke Status: Chronic Qualifiers: (14) Hepatic encephalopathy Status: Chronic (15) Hypertension Status: Chronic (16) COPD (chronic obstructive pulmonary disease) Status: Chronic (17) Peripheral vascular disease Status: Chronic History of Present Illness Date of Admission: 05/01/18 Chief Complaint: Here for rehabilitation, strengthening, prior to discharge home with spouse. The patient is a 83 year old Male with below past medical history with followin04/25/2018 Fall, presented to [facility] ED with left tib/fib fracture, transferred to [facility]. 04/27/2018 ORIF left tib/fib fracture. 05/01/2018 Admit to TCU for rehabilitation, strengthening, prior to discharge home with spouse.; Past Medical History Past Medical History (Chronic Problems): Chronic Problems Chronic kidney disease (Chronic) Cirrhosis of liver (Chronic) Anemia (Chronic) Chronic constipation (Chronic) Diabetes mellitus (Chronic) Chronic pain (Chronic) Toe pain, left (Chronic) Toe pain, right (Chronic) Tinea unguium (Chronic) Insomnia (Chronic) GERD (gastroesophageal reflux disease) (Chronic) Edema (Chronic) Hypomagnesemia (Chronic) Pulmonary hypertension (Chronic) mild Stroke (Chronic) Hepatic encephalopathy (Chronic) Hypertension (Chronic) COPD (chronic obstructive pulmonary disease) (Chronic) Peripheral vascular disease (Chronic) Allergies aspirin Adverse Reaction (Verified 04/25/18 07:02) Other causes stomach to bleed Home Medications: Ambulatory Orders Medication Instructions Recorded Magnesium Oxide [Mag-Ox 400] 400 mg PO DAILY 12/21/15 Amlodipine [Norvasc] 5 mg PO DAILY 07/13/17 Propranolol HCl 80 mg PO BID 07/13/17 Amitriptyline HCl [Elavil] 25 mg PO QHS 08/02/17 Aspirin [Aspirin, Baby] 81 mg PO DAILY@0800 11/13/17 Atorvastatin Calcium [Lipitor] 40 mg PO QHS 11/13/17 Furosemide [Lasix] 40 mg PO BID 11/13/17 Oxycodone CR [Oxycontin] 20 mg PO Q12H 04/25/18 Pioglitazone HCl/Metformin HCl 1 tab PO BID 04/25/18 [Actoplus Met 15 MG-500 MG Tab] Acetaminophen [Tylenol Tablet] 650 mg PO Q4H PRN PRN 05/01/18 Balsam [place] Oil [Venelex 60 gm TP BID 05/01/18 Ointment] Docusate Sodium [Colace] 100 mg PO DAILY 05/01/18 Hydrocodone/Acetaminophen [[place] 1 each PO Q6H PRN PRN 05/01/18 5-325 Tablet] Metformin HCl 500 mg PO BID 05/01/18 Spironolactone [Aldactone] 50 mg PO DAILY 05/01/18 Surgical History: cholecystectomy, tonsillectomy, - - Stone removal from common bile duct, ORIF left tib/fib fracture. Psychiatric History: No pertinent psych hx Lives: Spouse/ Significant Other Smoking Status: Current every day smoker Tobacco Use: Cigarettes Alcohol: Sober Drugs: None - *Family History Maternal History Items: Diabetes Paternal History Items: Stroke Review of Systems Constitutional: Denies: Chills, Fever, Weight Change HEENT: Denies: Head Aches, Sinus Congestion, Sinus Drainage Cardiovascular: Denies: Chest Pain, Palpitations Respiratory: Denies: Cough, Shortness of breath at rest, Sputum production Gastrointestinal: Denies: Abdominal Pain, Nausea, Vomiting Genitourinary: Denies: Dysuria Musculoskeletal: Denies: Joint Pain, Joint Tenderness Skin: Denies: Rash, Wounds Neurological: Denies: Numbness, Tingling, Focal weakness Psychiatric: Denies: Anxiety, Depression, Homicidal Ideations, Suicidal Ideations Hematologic/ Lymphatic: Denies: Easy Bruising, Easy Bleeding VTE Information - Inpt Only VTE Present on Admission: No VTE Mechan Device Prophylaxis: Knee High DEENA Hose VTE Pharm Prophylaxis ordered?: Yes Patient Problems: Active and Suspected Problems Fracture of left tibia and fibula (Acute) - Physical Exam General: Alert, Oriented x3, Cooperative HEENT: Atraumatic, PERRLA, EOMI, Normocephalic Neck: Supple, No JVD, Negative Carotid Bruits Lungs: Clear to auscultation, Normal air movement Cardiovascular: Regular rate, No murmurs Abdomen: Bowel Sounds Present, Soft, Non Tender Extremities: No edema, Capillary Refill Less than 3 Seconds Skin: No rashes, No breakdown, Incision - Left lower extremity clean, dry, intact. Musculoskeletal: No Tenderness to Palpation of Joints or Extremities Neurological: Cranial nerves II-XII grossly intact Psych/Mental Status: Normal Affect, Appropriate Finger Stick Blood Glucose 205 Assessment/Plan All Active Problems Fracture of left tibia and fibula (Acute) Cellulitis of leg without foot, left (Acute) Encephalopathy (Acute) Acute respiratory failure with hypoxia (Acute) Debility (Acute) Paroxysmal A-fib (Acute) YANNA (acute kidney injury) (Acute) Diastolic CHF (Acute) COPD with acute exacerbation (Acute) Abdominal pain (Acute) Left leg cellulitis (Acute) Sepsis (Acute) Fall (Acute) Pancreatitis (Acute) 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 Debility - PT/OT. Pain - Oxycontin 20MG Q12H, Tylenol 1000MG Q8H PRN mild pain, Oxycodone 5MG Q4H PRN severe pain. Bowel - Miralax 17GM daily, Senna/colace 2 tablets BID, Dulcolax 10MG PO daily PRN. Pneumonia vaccination - Administer Prevnar 13 and/or Pneumovax 23 as necessary. DVT prophylaxis - Lovenox 40MG SC daily. Neuropathic pain - Elavil 25MG QHS (Beer's List drug due to rehabilitation supervisor use). Hypertension - Amlodipine 5MG daily. Coronary Artery Disease - Propranolol 80MG twice daily, Aspirin 81MG daily. Hyperlipidemia - Atorvastatin 40MG QHS. Edema - Lasix 40MG twice daily, Aldactone 50MG daily. Hypomagnesemia - Mag Oxide 400MG daily. Diabetes Mellitus II - Metformin 500MG BID, Pioglitazone 15MG BID.
[2018-05-01 18:32] VITALS: BP 118/45; PULSE 60; RESP 18; TEMP 36.4; O2SAT 96
--- NOTE | 2018-05-01 18:35 | HP.PCM_ITS ---
Problem List (1) Fracture of left tibia and fibula Status: Acute (2) Chronic kidney disease Status: Chronic (3) Cirrhosis of liver Status: Chronic (4) Anemia Status: Chronic (5) Diabetes mellitus Status: Chronic (6) Chronic pain Status: Chronic (7) Insomnia Status: Chronic (8) GERD (gastroesophageal reflux disease) Status: Chronic (9) Edema Status: Chronic (10) Hypomagnesemia Status: Chronic (11) Fall Status: Acute (12) Pulmonary hypertension Status: Chronic Comment: mild (13) Stroke Status: Chronic Qualifiers: (14) Hepatic encephalopathy Status: Chronic (15) Hypertension Status: Chronic (16) COPD (chronic obstructive pulmonary disease) Status: Chronic (17) Peripheral vascular disease Status: Chronic History of Present Illness Date of Admission: 05/01/18 Chief Complaint: Here for rehabilitation, strengthening, prior to discharge home with spouse. The patient is a 83 year old Male with below past medical history with following : 04/25/2018 Fall, presented to [facility] ED with left tib/fib fracture, transferred to [facility]. 04/27/2018 ORIF left tib/fib fracture. 05/01/2018 Admit to TCU for rehabilitation, strengthening, prior to discharge home with spouse.; Past Medical History Past Medical History (Chronic Problems): Chronic Problems Chronic kidney disease (Chronic) Cirrhosis of liver (Chronic) Anemia (Chronic) Chronic constipation (Chronic) Diabetes mellitus (Chronic) Chronic pain (Chronic) Toe pain, left (Chronic) Toe pain, right (Chronic) Tinea unguium (Chronic) Insomnia (Chronic) GERD (gastroesophageal reflux disease) (Chronic) Edema (Chronic) Hypomagnesemia (Chronic) Pulmonary hypertension (Chronic) mild Stroke (Chronic) Hepatic encephalopathy (Chronic) Hypertension (Chronic) COPD (chronic obstructive pulmonary disease) (Chronic) Peripheral vascular disease (Chronic) Allergies aspirin Adverse Reaction (Verified 04/25/18 07:02) Other causes stomach to bleed Home Medications: Ambulatory Orders Medication Instructions Recorded Magnesium Oxide [Mag-Ox 400] 400 mg PO DAILY 12/21/15 Amlodipine [Norvasc] 5 mg PO DAILY 07/13/17 Propranolol HCl 80 mg PO BID 07/13/17 Amitriptyline HCl [Elavil] 25 mg PO QHS 08/02/17 Aspirin [Aspirin, Baby] 81 mg PO DAILY@0800 11/13/17 Atorvastatin Calcium [Lipitor] 40 mg PO QHS 11/13/17 Furosemide [Lasix] 40 mg PO BID 11/13/17 Oxycodone CR [Oxycontin] 20 mg PO Q12H 04/25/18 Pioglitazone HCl/Metformin HCl 1 tab PO BID 04/25/18 [Actoplus Met 15 MG-500 MG Tab] Acetaminophen [Tylenol Tablet] 650 mg PO Q4H PRN PRN 05/01/18 Balsam [place] Oil [Venelex 60 gm TP BID 05/01/18 Ointment] Docusate Sodium [Colace] 100 mg PO DAILY 05/01/18 Hydrocodone/Acetaminophen [[place] 1 each PO Q6H PRN PRN 05/01/18 5-325 Tablet] Metformin HCl 500 mg PO BID 05/01/18 Spironolactone [Aldactone] 50 mg PO DAILY 05/01/18 Surgical History: cholecystectomy, tonsillectomy, - - Stone removal from common bile duct, ORIF left tib/fib fracture. Psychiatric History: No pertinent psych hx Lives: Spouse/ Significant Other Smoking Status: Current every day smoker Tobacco Use: Cigarettes Alcohol: Sober Drugs: None - *Family History Maternal History Items: Diabetes Paternal History Items: Stroke Review of Systems Constitutional: Denies: Chills, Fever, Weight Change HEENT: Denies: Head Aches, Sinus Congestion, Sinus Drainage Cardiovascular: Denies: Chest Pain, Palpitations Respiratory: Denies: Cough, Shortness of breath at rest, Sputum production Gastrointestinal: Denies: Abdominal Pain, Nausea, Vomiting Genitourinary: Denies: Dysuria Musculoskeletal: Denies: Joint Pain, Joint Tenderness Skin: Denies: Rash, Wounds Neurological: Denies: Numbness, Tingling, Focal weakness Psychiatric: Denies: Anxiety, Depression, Homicidal Ideations, Suicidal Ideations Hematologic/ Lymphatic: Denies: Easy Bruising, Easy Bleeding VTE Information - Inpt Only VTE Present on Admission: No VTE Mechan Device Prophylaxis: Knee High DEENA Hose VTE Pharm Prophylaxis ordered?: Yes Patient Problems: Active and Suspected Problems Fracture of left tibia and fibula (Acute) - Physical Exam General: Alert, Oriented x3, Cooperative HEENT: Atraumatic, PERRLA, EOMI, Normocephalic Neck: Supple, No JVD, Negative Carotid Bruits Lungs: Clear to auscultation, Normal air movement Cardiovascular: Regular rate, No murmurs Abdomen: Bowel Sounds Present, Soft, Non Tender Extremities: No edema, Capillary Refill Less than 3 Seconds Skin: No rashes, No breakdown, Incision - Left lower extremity clean, dry, intact. Musculoskeletal: No Tenderness to Palpation of Joints or Extremities Neurological: Cranial nerves II-XII grossly intact Psych/Mental Status: Normal Affect, Appropriate Finger Stick Blood Glucose 205 Assessment/Plan All Active Problems Fracture of left tibia and fibula (Acute) Cellulitis of leg without foot, left (Acute) Encephalopathy (Acute) Acute respiratory failure with hypoxia (Acute) Debility (Acute) Paroxysmal A-fib (Acute) YANNA (acute kidney injury) (Acute) Diastolic CHF (Acute) COPD with acute exacerbation (Acute) Abdominal pain (Acute) Left leg cellulitis (Acute) Sepsis (Acute) Fall (Acute) Pancreatitis (Acute) 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 * Debility - PT/OT. * Pain - Oxycontin 20MG Q12H, Tylenol 1000MG Q8H PRN mild pain, Oxycodone 5MG Q4H PRN severe pain. * Bowel - Miralax 17GM daily, Senna/colace 2 tablets BID, Dulcolax 10MG PO daily PRN. * Pneumonia vaccination - Administer Prevnar 13 and/or Pneumovax 23 as necessary. * DVT prophylaxis - Lovenox 40MG SC daily. * Neuropathic pain - Elavil 25MG QHS (Beer's List drug due to nursing home use). * Hypertension - Amlodipine 5MG daily. * Coronary Artery Disease - Propranolol 80MG twice daily, Aspirin 81MG daily. * Hyperlipidemia - Atorvastatin 40MG QHS. * Edema - Lasix 40MG twice daily, Aldactone 50MG daily. * Hypomagnesemia - Mag Oxide 400MG daily. * Diabetes Mellitus II - Metformin 500MG BID, Pioglitazone 15MG BID.
--- NOTE | 2018-05-01 18:51 | NURSING ---
Pt admitted to room 18 from [facility] via cot. Patient oriented to room and call light system explained.
[2018-05-01 20:40] VITALS: BMI 26.6
[2018-05-01 20:43] VITALS: BMI 26.6
[2018-05-01 20:45] VITALS: O2SAT 99
[2018-05-01] MEDS: Amitriptyline 25 MG Tablet PO (22:23)
[2018-05-01] MEDS: Atorvastatin Calcium 40 MG Tablet PO (22:23)
[2018-05-02] MEDS: oxyCODONE 5 MG Tablet PO ×3 (04:02→13:21)
[2018-05-02] MEDS: Propranolol 40 MG Tablet 80 MG PO ×2 (06:28→17:43)
[2018-05-02] MEDS: Senna/Docusate Sodium 1 Tablet 2 TABLET PO ×2 (06:28→17:42)
[2018-05-02] MEDS: amLODIPine 5 MG Tablet PO (06:28)
[2018-05-02] MEDS: Furosemide 40 MG Tablet PO ×2 (06:28→17:42)
[2018-05-02] MEDS: Magnesium Oxide 400 MG Tablet PO (06:28)
[2018-05-02] MEDS: Nystatin Powder 15gm Bottle 1 APPLIC TOPICAL ×2 (06:28→22:39)
[2018-05-02] MEDS: Spironolactone 50 MG Tablet PO (06:28)
[2018-05-02 06:42] VITALS: BP 126/55; PULSE 76
[2018-05-02 06:57] LABS: Absolute Lymphocyte Count 1.41 X10^3/ul (0.83-4.51); Absolute Neutrophil Count 8.1 X10^3/uL (2.0-7.7); Basophil# 0.03 X10^3/uL; Basophil% 0.3 % (0-1); Eosinophil# 0.32 X10^3/uL; Eosinophils% 2.8 % (0-5); Hematocrit 26.7 % (40-54); Hemoglobin 8.9 g/dl (13.0-16.5); Lymphocyte # 1.41 X10^3/ul (4.0); Lymphocyte % 12.5 % (19-41); Mean Corp Hgb Conc 33.3 g/gl (32-36); Mean Corpuscular Hgb 31.1 pg (27.0-32.0); Mean Corpuscular Volume 93.4 fL (80-94); Mean Platelet Vol. 8.6 fl (6.2-12.0); Monocyte# 1.35 X10^3/uL; Neutrophil # 8.11 X10^3/uL (2.7-7.7); Neutrophil % 72.1 % (47-70); Platelet Count 281 K/mm3 (150-450); RBC Distribution Width CV 13.2 % (11.6-14.6); RBC Distribution Width SD 45.4 fl (35.1-43.9); Red Blood Count 2.86 M/mm3 (4.6-6.2); White Blood Count 11.3 K/mm3 (4.4-11.0)
[2018-05-02 07:02] LABS: Anion Gap 8 (5-15); BUN 42 mg/dL (7-18); BUN/Creat Ratio 23.1 RATIO (10-20); Calcium,Total 8.5 mg/dL (8.5-10.1); Chloride 94 mmol/L (98-107); Creatinine, Serum 1.82 mg/dL (0.70-1.30); EST Glomerular Filtration Rate 38 mL/min (>60); Est Glom Filt Rate - Afr Amer 46 mL/min (>60); Estimated Creatinine Clearance 31.29 ml/min; Glucose 175 mg/dL (74-106); Potassium 3.4 mmol/L (3.5-5.1); Sodium Level 133 mmol/L (136-145)
[2018-05-02 07:03] LABS: POSITIVE COUNT NO; POSITIVE DIFFERENTIAL NO; POSITIVE MORPHOLOGY NO
[2018-05-02 07:15] LABS: Bedside Glucose 177 mg/dL (70-110)
[2018-05-02] MEDS: Pioglitazone Hydrochloride 15 MG Tablet PO ×2 (08:45→17:43)
[2018-05-02] MEDS: Aspirin 81 MG TAB.CHEW PO (08:45)
[2018-05-02] MEDS: Enoxaparin 40 MG/0.4 ML Syringe SC (08:49)
[2018-05-02] MEDS: Tuberculin,Purif.prot.deriv. 50 TU/ML Vial 5 ML ID (11:25)
--- NOTE | 2018-05-02 13:18 | NURSING ---
dr celis reviewed labs, potassium ordered. recheck BMP 05/04/18
[2018-05-02 15:46] VITALS: BP 118/57; PULSE 80; RESP 20; TEMP 36.4; O2SAT 94
[2018-05-02] MEDS: Atorvastatin Calcium 40 MG Tablet PO (20:15)
[2018-05-02] MEDS: Amitriptyline 25 MG Tablet PO (20:15)
[2018-05-03] MEDS: amLODIPine 5 MG Tablet PO (04:44)
[2018-05-03] MEDS: Magnesium Oxide 400 MG Tablet PO (04:44)
[2018-05-03] MEDS: Propranolol 40 MG Tablet 80 MG PO ×2 (04:44→17:07)
[2018-05-03] MEDS: Furosemide 40 MG Tablet PO ×2 (04:44→17:07)
[2018-05-03] MEDS: Senna/Docusate Sodium 1 Tablet 2 TABLET PO ×2 (04:45→17:07)
[2018-05-03] MEDS: Spironolactone 50 MG Tablet PO (04:45)
[2018-05-03] MEDS: Polyethylene Glycol 3350 17 GM PACKET PO (04:45)
[2018-05-03] MEDS: Enoxaparin 40 MG/0.4 ML Syringe SC (04:46)
[2018-05-03] MEDS: Nystatin Powder 15gm Bottle 1 APPLIC TOPICAL ×2 (04:46→19:55)
[2018-05-03] MEDS: Menthol/Lanolin/Calamine/Znox 113 GM Tube 1 APPLIC TOPICAL ×2 (04:46→19:56)
[2018-05-03 06:46] LABS: Bedside Glucose 170 mg/dL (70-110)
[2018-05-03] MEDS: oxyCODONE 5 MG Tablet PO ×3 (07:26→19:56)
[2018-05-03] MEDS: Pioglitazone Hydrochloride 15 MG Tablet PO ×2 (08:44→17:20)
[2018-05-03] MEDS: Aspirin 81 MG TAB.CHEW PO (08:44)
[2018-05-03 10:00] VITALS: PULSE 80; RESP 20; O2SAT 94
[2018-05-03 15:56] VITALS: BP 114/47; PULSE 92; RESP 16; TEMP 36.6; O2SAT 90
[2018-05-03] MEDS: Amitriptyline 25 MG Tablet PO (19:57)
[2018-05-03] MEDS: Atorvastatin Calcium 40 MG Tablet PO (19:57)
[2018-05-04] MEDS: oxyCODONE 5 MG Tablet PO ×3 (01:03→12:14)
--- NOTE | 2018-05-04 01:04 | NURSING ---
Pt moaning, calling out. C/o pain '10/' to left leg. Given prn oxyir 5mg and repositioned for comfort. Continuing to monitor.
[2018-05-04] MEDS: amLODIPine 5 MG Tablet PO (06:20)
[2018-05-04] MEDS: Menthol/Lanolin/Calamine/Znox 113 GM Tube 1 APPLIC TOPICAL ×2 (06:20→20:06)
[2018-05-04] MEDS: Propranolol 40 MG Tablet 80 MG PO ×2 (06:21→17:22)
[2018-05-04] MEDS: Spironolactone 50 MG Tablet PO (06:21)
[2018-05-04] MEDS: Senna/Docusate Sodium 1 Tablet 2 TABLET PO ×2 (06:22→17:23)
[2018-05-04] MEDS: Nystatin Powder 15gm Bottle 1 APPLIC TOPICAL ×2 (06:22→20:09)
[2018-05-04] MEDS: Polyethylene Glycol 3350 17 GM PACKET PO (06:22)
[2018-05-04 06:26] LABS: Anion Gap 9 (5-15); BUN 59 mg/dL (7-18); BUN/Creat Ratio 21.4 RATIO (10-20); Calcium,Total 8.5 mg/dL (8.5-10.1); Chloride 91 mmol/L (98-107); Creatinine, Serum 2.76 mg/dL (0.70-1.30); EST Glomerular Filtration Rate 24 mL/min (>60); Est Glom Filt Rate - Afr Amer 29 mL/min (>60); Estimated Creatinine Clearance 20.64 ml/min; Glucose 170 mg/dL (74-106); Potassium 4.5 mmol/L (3.5-5.1); Sodium Level 129 mmol/L (136-145)
[2018-05-04] MEDS: Magnesium Oxide 400 MG Tablet PO (06:26)
[2018-05-04] MEDS: Enoxaparin 40 MG/0.4 ML Syringe SC (06:26)
[2018-05-04] MEDS: Furosemide 40 MG Tablet PO (06:27)
--- NOTE | 2018-05-04 06:29 | NURSING ---
Pt continues to c/o pain even after oxycontin 20mg. Explained it is an extended release tablet, pt said he understood this and asked for the 'fast release one' meaning the prn oxyir 5mg. Stated he felt more relief from that during night. Given oxyir 5mg, and repositioned for comfort. Continuing to monitor.
[2018-05-04 07:01] LABS: Bedside Glucose 179 mg/dL (70-110)
[2018-05-04] MEDS: Aspirin 81 MG TAB.CHEW PO (08:34)
[2018-05-04] MEDS: Pioglitazone Hydrochloride 15 MG Tablet PO ×2 (08:34→17:22)
[2018-05-04 10:00] VITALS: PULSE 88; RESP 18; O2SAT 94
--- NOTE | 2018-05-04 11:47 | PCM.PN.RX ---
<Valerio Buckley D - Last Filed: 05/04/18 11:47> Progress Note - Pharmacy Subjective: TCU Admission Objective: Allergies aspirin Adverse Reaction (Verified 04/25/18 07:02) Other causes stomach to bleed Current Medications Generic Name Dose Route Start Last Admin Trade Name Freq PRN Reason Stop Dose Admin Acetaminophen 1,000 mg 05/01/18 22:03 Tylenol PO Q8H PRN PRN MILD PAIN (1-3/10) Amitriptyline HCl 25 mg 05/01/18 22:00 05/03/18 19:57 Elavil PO 25 mg QHS VERONIKA Administration Amlodipine Besylate 5 mg 05/02/18 06:00 05/04/18 06:20 Norvasc PO 5 mg DAILY VERONIKA Administration Aspirin 81 mg 05/02/18 08:00 05/04/18 08:34 Aspirin, Baby PO 81 mg DAILY@0800 VERONIKA Administration Atorvastatin Calcium 40 mg 05/01/18 22:00 05/03/18 19:57 Lipitor PO 40 mg QHS VERONIKA Administration Bisacodyl 10 mg 05/01/18 18:46 Dulcolax PO DAILY PRN Constipation Calamine/Phenol 1 applic 05/03/18 06:00 05/04/18 06:20 Calmoseptine Ointment TOPICAL 1 applicatio 0600,2200 VERONIKA Administration Protocol Emollient Ointment 1 applic 05/03/18 22:00 05/04/18 06:21 Eucerin Intensive Repair TOPICAL 1 applicatio 0600,2200 [facility] Administration Protocol Enoxaparin Sodium 40 mg 05/02/18 08:00 05/04/18 06:26 Lovenox SC 40 mg DAILY@0600 VERONIKA Administration Sodium Chloride 1,000 mls @ 50 mls/hr 05/04/18 08:10 IV .Q20H VERONIKA Magnesium Oxide 400 mg 05/02/18 06:00 05/04/18 06:26 Mag-Ox 400 PO 400 mg DAILY VERONIKA Administration Nystatin 1 applic 05/02/18 06:00 05/04/18 06:22 Mycostatin Powder TOPICAL 1 applicatio 0600,2200 VERONIKA Administration Protocol Oxycodone HCl 20 mg 05/01/18 19:00 05/04/18 05:18 Oxycontin PO 20 mg Q12 VERONIKA Administration Oxycodone HCl 5 mg 05/01/18 22:02 05/04/18 06:20 Oxyir PO 5 mg Q4H PRN PRN Administration SEVERE PAIN (6-1010) Pioglitazone HCl 15 mg 05/02/18 08:00 05/04/18 08:34 Actos PO 15 mg BIDCM VERONIKA Administration Polyethylene Glycol 17 gm 05/02/18 06:00 05/04/18 06:22 Miralax PO 17 gm DAILY VERONIKA Administration Potassium Chloride 20 meq 05/03/18 08:00 05/04/18 08:34 K-Dur PO 20 meq DAILYCM VERONIKA Administration Propranolol HCl 80 mg 05/02/18 06:00 05/04/18 06:21 Inderal PO 80 mg BID VERONIKA Administration Senna/Docusate Sodium 2 tablet 05/02/18 06:00 05/04/18 06:22 Senokot-S, Anastasia-Colace PO 2 tablet BID VERONIKA Administration Tuberculin PPD 5 tu 05/09/18 10:00 Tubersol, Aplisol, Ppd ID 05/09/18 10:01 X1 ONE Problem List Fracture of left tibia and fibula (Acute) Vital Signs Temp Pulse Resp BP Pulse Ox 97.9 F 92 16 114/47 L 90 05/03/18 15:56 05/03/18 15:56 05/03/18 15:56 05/03/18 15:56 05/03/18 15:56 Oxygen Delivery Method Room Air Weight: 81.647 kg Body Mass Index (BMI) 26.6 Finger Stick Blood Glucose 205 Sodium 129 mmol/L (136-145) L 05/04/18 05:20 Potassium 4.5 mmol/L (3.5-5.1) 05/04/18 05:20 Chloride 91 mmol/L (98-107) L 05/04/18 05:20 Carbon Dioxide 29.0 mmol/L (21.0-32.0) 05/04/18 05:20 Anion Gap 9 (5-15) 05/04/18 05:20 BUN 59 mg/dL (7-18) H 05/04/18 05:20 Creatinine 2.76 mg/dL (0.70-1.30) H 05/04/18 05:20 Est GFR (MDRD) Af Amer 29 mL/min (>60) L 05/04/18 05:20 Est GFR (MDRD) Non-Af 24 mL/min (>60) L 05/04/18 05:20 BUN/Creatinine Ratio 21.4 RATIO (10-20) H 05/04/18 05:20 Glucose 170 mg/dL (74-106) H 05/04/18 05:20 Assessment/Plan: 1) Pain Oxycontin, oxycodone for severe pain, APAP for mild pain, amitriptyline. Continue to monitor prn medication use, daily pain scores. 2) HTN Amlodipine daily. Continue to monitor BP. 3) DM2 Pioglitazone twice daily. Continue to monitor BGT. 4) CAD ASA, atorvastatin, propranolol. Continue to monitor BP/HR, lipids. 5) DVT PPx Enoxaparin daily. Continue to monitor for bleeding/clot. 6) Derm Calmoseptine, nystatin, emollient. Continue to monitor clinically. Psychotropic Medications: None Unnecessary Medications: None Bowel Regimen: 7) Senna/s, PEG, prn bisacodyl. Continue to monitor prn medication use, for constipation/diarrhea. Date of Note:: 05/04/18 - Provider Comments Provider responsibility: Provider responsible to enter orders to implement recommendations <Tommy Maciel Chi - Last Filed: 05/04/18 13:52> Progress Note - Pharmacy Subjective: [] Objective: Allergies aspirin Adverse Reaction (Verified 04/25/18 07:02) Other causes stomach to bleed Current Medications Generic Name Dose Route Start Last Admin Trade Name Freq PRN Reason Stop Dose Admin Acetaminophen 1,000 mg 05/01/18 22:03 Tylenol PO Q8H PRN PRN MILD PAIN (1-3/10) Amitriptyline HCl 25 mg 05/01/18 22:00 05/03/18 19:57 Elavil PO 25 mg QHS VERONIKA Administration Amlodipine Besylate 5 mg 05/02/18 06:00 05/04/18 06:20 Norvasc PO 5 mg DAILY VERONIKA Administration Aspirin 81 mg 05/02/18 08:00 05/04/18 08:34 Aspirin, Baby PO 81 mg DAILY@0800 VERONIKA Administration Atorvastatin Calcium 40 mg 05/01/18 22:00 05/03/18 19:57 Lipitor PO 40 mg QHS VERONIKA Administration Bisacodyl 10 mg 05/01/18 18:46 Dulcolax PO DAILY PRN Constipation Calamine/Phenol 1 applic 05/03/18 06:00 05/04/18 06:20 Calmoseptine Ointment TOPICAL 1 applicatio 06,2200 [facility] Administration Protocol Emollient Ointment 1 applic 05/03/18 22:00 05/04/18 06:21 Eucerin Intensive Repair TOPICAL 1 applicatio 06,2200 [facility] Administration Protocol Enoxaparin Sodium 40 mg 05/02/18 08:00 05/04/18 06:26 Lovenox SC 40 mg DAILY@0600 VERONIKA Administration Sodium Chloride 1,000 mls @ 50 mls/hr 05/04/18 08:10 05/04/18 12:44 IV 50 mls/hr .Q20H VERONIKA Administration Magnesium Oxide 400 mg 05/02/18 06:00 05/04/18 06:26 Mag-Ox 400 PO 400 mg DAILY VERONIKA Administration Nystatin 1 applic 05/02/18 06:00 05/04/18 06:22 Mycostatin Powder TOPICAL 1 applicatio 599,2200 [facility] Administration Protocol Oxycodone HCl 20 mg 05/01/18 19:00 05/04/18 05:18 Oxycontin PO 20 mg Q12 VERONIKA Administration Oxycodone HCl 5 mg 05/01/18 22:02 05/04/18 12:14 Oxyir PO 5 mg Q4H PRN PRN Administration SEVERE PAIN (6-10/10) Pioglitazone HCl 15 mg 05/02/18 08:00 05/04/18 08:34 Actos PO 15 mg BIDCM VERONIKA Administration Polyethylene Glycol 17 gm 05/02/18 06:00 05/04/18 06:22 Miralax PO 17 gm DAILY VERONIKA Administration Potassium Chloride 20 meq 05/03/18 08:00 05/04/18 08:34 K-Dur PO 20 meq DAILYCM VERONIKA Administration Propranolol HCl 80 mg 05/02/18 06:00 05/04/18 06:21 Inderal PO 80 mg BID VERONIKA Administration Senna/Docusate Sodium 2 tablet 05/02/18 06:00 05/04/18 06:22 Senokot-S, Anastasia-Colace PO 2 tablet BID VERONIKA Administration Tuberculin PPD 5 tu 05/09/18 10:00 Tubersol, Aplisol, Ppd ID 05/09/18 10:01 X1 ONE Problem List Fracture of left tibia and fibula (Acute) Vital Signs Temp Pulse Resp BP Pulse Ox 97.9 F 92 16 114/47 L 90 05/03/18 15:56 05/03/18 15:56 05/03/18 15:56 05/03/18 15:56 05/03/18 15:56 Oxygen Delivery Method Room Air Weight: 81.647 kg Body Mass Index (BMI) 26.6 Finger Stick Blood Glucose 205 Sodium 129 mmol/L (136-145) L 05/04/18 05:20 Potassium 4.5 mmol/L (3.5-5.1) 05/04/18 05:20 Chloride 91 mmol/L (98-107) L 05/04/18 05:20 Carbon Dioxide 29.0 mmol/L (21.0-32.0) 05/04/18 05:20 Anion Gap 9 (5-15) 05/04/18 05:20 BUN 59 mg/dL (7-18) H 05/04/18 05:20 Creatinine 2.76 mg/dL (0.70-1.30) H 05/04/18 05:20 Est GFR (MDRD) Af Amer 29 mL/min (>60) L 05/04/18 05:20 Est GFR (MDRD) Non-Af 24 mL/min (>60) L 05/04/18 05:20 BUN/Creatinine Ratio 21.4 RATIO (10-20) H 05/04/18 05:20 Glucose 170 mg/dL (74-106) H 05/04/18 05:20 Assessment/Plan: Psychotropic Medications: Unnecessary Medications: Bowel Regimen: - Provider Comments Provider responsibility: Provider responsible to enter orders to implement recommendations Provider Comments to Recommendations by Pharmacy: Agree
--- NOTE | 2018-05-04 12:00 | PHA.CONS_ITS ---
<Valerio Buckley D - Last Filed: 05/04/18 11:47> Progress Note - Pharmacy Subjective: TCU Admission Objective: Allergies aspirin Adverse Reaction (Verified 04/25/18 07:02) Other causes stomach to bleed Current Medications Generic Name Dose Route Start Last Admin Trade Name Freq PRN Reason Stop Dose Admin Acetaminophen 1,000 mg 05/01/18 22:03 Tylenol PO Q8H PRN PRN MILD PAIN (1-3/10) Amitriptyline HCl 25 mg 05/01/18 22:00 05/03/18 19:57 Elavil PO 25 mg QHS VERONIKA Administration Amlodipine Besylate 5 mg 05/02/18 06:00 05/04/18 06:20 Norvasc PO 5 mg DAILY VERONIKA Administration Aspirin 81 mg 05/02/18 08:00 05/04/18 08:34 Aspirin, Baby PO 81 mg DAILY@0800 VERONIKA Administration Atorvastatin Calcium 40 mg 05/01/18 22:00 05/03/18 19:57 Lipitor PO 40 mg QHS VERONIKA Administration Bisacodyl 10 mg 05/01/18 18:46 Dulcolax PO DAILY PRN Constipation Calamine/Phenol 1 applic 05/03/18 06:00 05/04/18 06:20 Calmoseptine Ointment TOPICAL 1 applicatio 0600,2200 VERONIKA Administration Protocol Emollient Ointment 1 applic 05/03/18 22:00 05/04/18 06:21 Eucerin Intensive Repair TOPICAL 1 applicatio 0600,2200 [facility] Administration Protocol Enoxaparin Sodium 40 mg 05/02/18 08:00 05/04/18 06:26 Lovenox SC 40 mg DAILY@0600 VERONIKA Administration Sodium Chloride 1,000 mls @ 50 mls/hr 05/04/18 08:10 IV .Q20H VERONIKA Magnesium Oxide 400 mg 05/02/18 06:00 05/04/18 06:26 Mag-Ox 400 PO 400 mg DAILY VERONIKA Administration Nystatin 1 applic 05/02/18 06:00 05/04/18 06:22 Mycostatin Powder TOPICAL 1 applicatio 0600,2200 VERONIKA Administration Protocol Oxycodone HCl 20 mg 05/01/18 19:00 05/04/18 05:18 Oxycontin PO 20 mg Q12 VERONIKA Administration Oxycodone HCl 5 mg 05/01/18 22:02 05/04/18 06:20 Oxyir PO 5 mg Q4H PRN PRN Administration SEVERE PAIN (6-1010) Pioglitazone HCl 15 mg 05/02/18 08:00 05/04/18 08:34 Actos PO 15 mg BIDCM VERONIKA Administration Polyethylene Glycol 17 gm 05/02/18 06:00 05/04/18 06:22 Miralax PO 17 gm DAILY VERONIKA Administration Potassium Chloride 20 meq 05/03/18 08:00 05/04/18 08:34 K-Dur PO 20 meq DAILYCM VERONIKA Administration Propranolol HCl 80 mg 05/02/18 06:00 05/04/18 06:21 Inderal PO 80 mg BID VERONIKA Administration Senna/Docusate Sodium 2 tablet 05/02/18 06:00 05/04/18 06:22 Senokot-S, Anastasia-Colace PO 2 tablet BID VERONIKA Administration Tuberculin PPD 5 tu 05/09/18 10:00 Tubersol, Aplisol, Ppd ID 05/09/18 10:01 X1 ONE Problem List Fracture of left tibia and fibula (Acute) Vital Signs Temp Pulse Resp BP Pulse Ox 97.9 F 92 16 114/47 L 90 05/03/18 15:56 05/03/18 15:56 05/03/18 15:56 05/03/18 15:56 05/03/18 15:56 Oxygen Delivery Method Room Air Weight: 81.647 kg Body Mass Index (BMI) 26.6 Finger Stick Blood Glucose 205 Sodium 129 mmol/L (136-145) L 05/04/18 05:20 Potassium 4.5 mmol/L (3.5-5.1) 05/04/18 05:20 Chloride 91 mmol/L (98-107) L 05/04/18 05:20 Carbon Dioxide 29.0 mmol/L (21.0-32.0) 05/04/18 05:20 Anion Gap 9 (5-15) 05/04/18 05:20 BUN 59 mg/dL (7-18) H 05/04/18 05:20 Creatinine 2.76 mg/dL (0.70-1.30) H 05/04/18 05:20 Est GFR (MDRD) Af Amer 29 mL/min (>60) L 05/04/18 05:20 Est GFR (MDRD) Non-Af 24 mL/min (>60) L 05/04/18 05:20 BUN/Creatinine Ratio 21.4 RATIO (10-20) H 05/04/18 05:20 Glucose 170 mg/dL (74-106) H 05/04/18 05:20 Assessment/Plan: 1) Pain Oxycontin, oxycodone for severe pain, APAP for mild pain, amitriptyline. Continue to monitor prn medication use, daily pain scores. 2) HTN Amlodipine daily. Continue to monitor BP. 3) DM2 Pioglitazone twice daily. Continue to monitor BGT. 4) CAD ASA, atorvastatin, propranolol. Continue to monitor BP/HR, lipids. 5) DVT PPx Enoxaparin daily. Continue to monitor for bleeding/clot. 6) Derm Calmoseptine, nystatin, emollient. Continue to monitor clinically. Psychotropic Medications: None Unnecessary Medications: None Bowel Regimen: 7) Senna/s, PEG, prn bisacodyl. Continue to monitor prn medication use, for constipation/diarrhea. Date of Note:: 05/04/18 - Provider Comments Provider responsibility: Provider responsible to enter orders to implement recommendations <Tommy Maciel Chi - Last Filed: 05/04/18 13:52> Progress Note - Pharmacy Subjective: [] Objective: Allergies aspirin Adverse Reaction (Verified 04/25/18 07:02) Other causes stomach to bleed Current Medications Generic Name Dose Route Start Last Admin Trade Name Freq PRN Reason Stop Dose Admin Acetaminophen 1,000 mg 05/01/18 22:03 Tylenol PO Q8H PRN PRN MILD PAIN (1-3/10) Amitriptyline HCl 25 mg 05/01/18 22:00 05/03/18 19:57 Elavil PO 25 mg QHS VERONIKA Administration Amlodipine Besylate 5 mg 05/02/18 06:00 05/04/18 06:20 Norvasc PO 5 mg DAILY VERONIKA Administration Aspirin 81 mg 05/02/18 08:00 05/04/18 08:34 Aspirin, Baby PO 81 mg DAILY@0800 VERONIKA Administration Atorvastatin Calcium 40 mg 05/01/18 22:00 05/03/18 19:57 Lipitor PO 40 mg QHS VERONIKA Administration Bisacodyl 10 mg 05/01/18 18:46 Dulcolax PO DAILY PRN Constipation Calamine/Phenol 1 applic 05/03/18 06:00 05/04/18 06:20 Calmoseptine Ointment TOPICAL 1 applicatio 06,2200 [facility] Administration Protocol Emollient Ointment 1 applic 05/03/18 22:00 05/04/18 06:21 Eucerin Intensive Repair TOPICAL 1 applicatio 06,2200 [facility] Administration Protocol Enoxaparin Sodium 40 mg 05/02/18 08:00 05/04/18 06:26 Lovenox SC 40 mg DAILY@0600 VERONIKA Administration Sodium Chloride 1,000 mls @ 50 mls/hr 05/04/18 08:10 05/04/18 12:44 IV 50 mls/hr .Q20H VERONIKA Administration Magnesium Oxide 400 mg 05/02/18 06:00 05/04/18 06:26 Mag-Ox 400 PO 400 mg DAILY VERONIKA Administration Nystatin 1 applic 05/02/18 06:00 05/04/18 06:22 Mycostatin Powder TOPICAL 1 applicatio 599,2200 [facility] Administration Protocol Oxycodone HCl 20 mg 05/01/18 19:00 05/04/18 05:18 Oxycontin PO 20 mg Q12 VERONIKA Administration Oxycodone HCl 5 mg 05/01/18 22:02 05/04/18 12:14 Oxyir PO 5 mg Q4H PRN PRN Administration SEVERE PAIN (6-10/10) Pioglitazone HCl 15 mg 05/02/18 08:00 05/04/18 08:34 Actos PO 15 mg BIDCM VERONIKA Administration Polyethylene Glycol 17 gm 05/02/18 06:00 05/04/18 06:22 Miralax PO 17 gm DAILY VERONIKA Administration Potassium Chloride 20 meq 05/03/18 08:00 05/04/18 08:34 K-Dur PO 20 meq DAILYCM VERONIKA Administration Propranolol HCl 80 mg 05/02/18 06:00 05/04/18 06:21 Inderal PO 80 mg BID VERONIKA Administration Senna/Docusate Sodium 2 tablet 05/02/18 06:00 05/04/18 06:22 Senokot-S, Anastasia-Colace PO 2 tablet BID VERONIKA Administration Tuberculin PPD 5 tu 05/09/18 10:00 Tubersol, Aplisol, Ppd ID 05/09/18 10:01 X1 ONE Problem List Fracture of left tibia and fibula (Acute) Vital Signs Temp Pulse Resp BP Pulse Ox 97.9 F 92 16 114/47 L 90 05/03/18 15:56 05/03/18 15:56 05/03/18 15:56 05/03/18 15:56 05/03/18 15:56 Oxygen Delivery Method Room Air Weight: 81.647 kg Body Mass Index (BMI) 26.6 Finger Stick Blood Glucose 205 Sodium 129 mmol/L (136-145) L 05/04/18 05:20 Potassium 4.5 mmol/L (3.5-5.1) 05/04/18 05:20 Chloride 91 mmol/L (98-107) L 05/04/18 05:20 Carbon Dioxide 29.0 mmol/L (21.0-32.0) 05/04/18 05:20 Anion Gap 9 (5-15) 05/04/18 05:20 BUN 59 mg/dL (7-18) H 05/04/18 05:20 Creatinine 2.76 mg/dL (0.70-1.30) H 05/04/18 05:20 Est GFR (MDRD) Af Amer 29 mL/min (>60) L 05/04/18 05:20 Est GFR (MDRD) Non-Af 24 mL/min (>60) L 05/04/18 05:20 BUN/Creatinine Ratio 21.4 RATIO (10-20) H 05/04/18 05:20 Glucose 170 mg/dL (74-106) H 05/04/18 05:20 Assessment/Plan: Psychotropic Medications: Unnecessary Medications: Bowel Regimen: - Provider Comments Provider responsibility: Provider responsible to enter orders to implement recommendations Provider Comments to Recommendations by Pharmacy: Agree
[2018-05-04] MEDS: 0.9% Normal Saline 1,000 ML 50 ML IV (12:44)
--- NOTE | 2018-05-04 12:50 | NURSING ---
This nurse into change Pt dressing, Pt refused to have his dressing changed at this time, kerlex noted to be around Pt ankle, Pt did let this nurse remove kerlex around his foot, but refused to have wound redressed. Priscilla BOUDREAUX aware
--- NOTE | 2018-05-04 13:10 | NURSING ---
Dr. Maciel reviewed AM labs, N.O. to start IV fluids and recheck BMP on 05/05/18, pt updated on new orders
--- NOTE | 2018-05-04 14:32 | NURSING ---
Addendum entered by Priscilla Freitas 05/04/18 17:18: here and aware. Original Note: Dr. Maciel assessed LLE, N.O. for Keflex and Doxycycline for 10 days.
[2018-05-04 15:29] VITALS: BP 154/48; PULSE 56; RESP 18; TEMP 36.8; O2SAT 97
[2018-05-04] MEDS: Cephalexin 500 MG Capsule PO (17:22)
[2018-05-04] MEDS: Doxycycline 100 MG CAPSULE PO (17:23)
[2018-05-04] MEDS: Amitriptyline 25 MG Tablet PO (20:07)
[2018-05-04] MEDS: Atorvastatin Calcium 40 MG Tablet PO (20:07)
[2018-05-05] MEDS: Cephalexin 500 MG Capsule PO ×4 (00:34→21:12)
[2018-05-05] MEDS: Doxycycline 100 MG CAPSULE PO ×3 (00:35→17:36)
[2018-05-05] MEDS: Polyethylene Glycol 3350 17 GM PACKET PO (05:08)
[2018-05-05] MEDS: Senna/Docusate Sodium 1 Tablet 2 TABLET PO ×2 (05:09→17:35)
[2018-05-05] MEDS: amLODIPine 5 MG Tablet PO (05:09)
[2018-05-05] MEDS: Magnesium Oxide 400 MG Tablet PO (05:09)
[2018-05-05] MEDS: Propranolol 40 MG Tablet 80 MG PO ×2 (05:09→17:35)
[2018-05-05] MEDS: Enoxaparin 40 MG/0.4 ML Syringe SC (05:12)
[2018-05-05] MEDS: Menthol/Lanolin/Calamine/Znox 113 GM Tube 1 APPLIC TOPICAL ×2 (05:15→21:10)
[2018-05-05] MEDS: Nystatin Powder 15gm Bottle 1 APPLIC TOPICAL ×2 (05:15→21:11)
[2018-05-05 06:45] LABS: Bedside Glucose 144 mg/dL (70-110)
[2018-05-05 07:11] LABS: Anion Gap 9 (5-15); BUN 51 mg/dL (7-18); BUN/Creat Ratio 23.5 RATIO (10-20); Calcium,Total 8.5 mg/dL (8.5-10.1); Chloride 97 mmol/L (98-107); Creatinine, Serum 2.17 mg/dL (0.70-1.30); EST Glomerular Filtration Rate 31 mL/min (>60); Est Glom Filt Rate - Afr Amer 38 mL/min (>60); Estimated Creatinine Clearance 26.25 ml/min; Glucose 150 mg/dL (74-106); Potassium 4.4 mmol/L (3.5-5.1); Sodium Level 134 mmol/L (136-145)
[2018-05-05] MEDS: 0.9% Normal Saline 1,000 ML 50 ML IV (07:50)
[2018-05-05] MEDS: Pioglitazone Hydrochloride 15 MG Tablet PO ×2 (07:55→17:36)
[2018-05-05] MEDS: Aspirin 81 MG TAB.CHEW PO (07:55)
--- NOTE | 2018-05-05 08:54 | NURSING ---
Addendum entered by Priscilla Freitas 05/05/18 11:34: updated on N.O. and pt via phone Original Note: Dr. Maciel reviewed BMP, N.O. to d/c IV fluids and check BMP 05/06, pt updated.
[2018-05-05] MEDS: oxyCODONE 5 MG Tablet 10 MG PO ×2 (13:49→21:11)
[2018-05-05 16:00] VITALS: BP 126/65; PULSE 63; RESP 22; TEMP 36.4; O2SAT 92
[2018-05-05] MEDS: Atorvastatin Calcium 40 MG Tablet PO (21:12)
[2018-05-05] MEDS: Amitriptyline 25 MG Tablet PO (21:12)
[2018-05-06] MEDS: oxyCODONE 5 MG Tablet 10 MG PO ×3 (01:43→20:28)
[2018-05-06] MEDS: Propranolol 40 MG Tablet 80 MG PO ×2 (06:08→18:17)
[2018-05-06] MEDS: Magnesium Oxide 400 MG Tablet PO (06:08)
[2018-05-06] MEDS: Nystatin Powder 15gm Bottle 1 APPLIC TOPICAL ×2 (06:08→20:29)
[2018-05-06] MEDS: Cephalexin 500 MG Capsule PO ×3 (06:08→20:30)
[2018-05-06] MEDS: amLODIPine 5 MG Tablet PO (06:08)
[2018-05-06] MEDS: Doxycycline 100 MG CAPSULE PO ×2 (06:09→18:16)
[2018-05-06] MEDS: Menthol/Lanolin/Calamine/Znox 113 GM Tube 1 APPLIC TOPICAL ×2 (06:09→20:26)
[2018-05-06] MEDS: Enoxaparin 40 MG/0.4 ML Syringe SC (06:10)
[2018-05-06] MEDS: Senna/Docusate Sodium 1 Tablet 2 TABLET PO ×2 (06:15→18:17)
[2018-05-06] MEDS: Polyethylene Glycol 3350 17 GM PACKET PO (06:15)
[2018-05-06 06:41] LABS: Bedside Glucose 161 mg/dL (70-110)
--- NOTE | 2018-05-06 07:22 | NURSING ---
Pt given prn oxyir 10mg per request prior to dressing change. Pt stated oxycontin 20mg 'doesn't do anything' and made no difference to his pain rated 10/10. Pt was coherent at alert at this time, 0645. Dressings changed and pt repositioned.
--- NOTE | 2018-05-06 07:23 | NURSING ---
Addendum entered by Maggie Ruiz 05/06/18 08:11: Dr. Maciel updated on patient's status. NO for CXR, albuterol 2.5mg [id number] PRN, duoneb 3mL [id number] scheduled, solumedrol 125mg IV x1 now and start medrol dose phoebe. Patient updated. Patient given albuterol breathing treatment per order, Color improved, cap refill less than 3 seconds, oxygen at 96% on 4L (turned up by RT). Patient is alert and answering questions appropriately, eating breakfast. Will continue to monitor. Original Note: At 0715 senior estimator alerted this nurse that pt was requesting breathing tx, stating he was having trouble breathing. Pt was pale, slightly ashen. Pulse ox on unit reading between 70-85% RA. Pt immediately put on oxygen via NC at 2L, and instructed to breathe in through nose and out of mouth which he was having trouble doing. At this time RNs on unit into room to assist. Oxygen bumped up to 5L as sp02 not increasing and pt having trouble breathing through nose. sp02 holding steady at 85%. Pt color returned to normal and he stated he felt better, not as panicky. Asked where he was and pt answered [facility] When initially asked right after senior estimator reported trouble catching breath and confusion, pt stated You've moved me into an office somewhere. Pt baseline is intermittent confusion. Pt put on non re breather mask and after a few moments, oxygen came up to mid nineties, up to 100%. D/t COPD, returned back to [place], from mask. Pt was not on oxygen prior to this morning. Pt reported that he wears 'oxygen at night when I'm at home'. Prior to this he has never told staff that, and has not been on oxygen while a pt here. Pt holding steady at 97% 2L, via NC. RNs aware, dayshift included. Continuing to monitor.
[2018-05-06 07:24] LABS: Anion Gap 7 (5-15); BUN 47 mg/dL (7-18); BUN/Creat Ratio 23.9 RATIO (10-20); Calcium,Total 8.8 mg/dL (8.5-10.1); Chloride 96 mmol/L (98-107); Creatinine, Serum 1.97 mg/dL (0.70-1.30); EST Glomerular Filtration Rate 35 mL/min (>60); Est Glom Filt Rate - Afr Amer 42 mL/min (>60); Estimated Creatinine Clearance 28.91 ml/min; Glucose 171 mg/dL (74-106); Potassium 4.4 mmol/L (3.5-5.1); Sodium Level 131 mmol/L (136-145)
--- NOTE | 2018-05-06 08:03 | RAD_ITS ---
STUDY: X-RAY CHEST REASON FOR EXAM: Male, 83 years old. Shortness of breath. TECHNIQUE: Single AP portable view of the chest. COMPARISON: 11/08/2017 FINDINGS: There is hyperinflation of the lungs consistent with chronic obstructive lung disease (COPD). There is bibasilar mild chronic interstitial infiltrates or edema. There is pleural fibrotic scarring of the costophrenic angles. Normal size heart. Normal mediastinum and esthela. Mildly prominent peripheral pulmonary arteries. There is atherosclerotic calcification of the aortic arch. There is demineralization of the osseous structures. Normal visualized ribs, clavicles, and shoulders. There is no demonstrated abnormality of the visualized soft tissue structures of the upper abdomen. RAD/Chest 1 View (Portable) IMPRESSION: Bibasilar mild chronic interstitial infiltrates or edema. COPD changes. Electronically Signed: Isauro Wise MD at 8:25 EDT Tel , Service support ,
[2018-05-06] MEDS: Albuterol 2.5 MG/3 ML VIAL.NEB. INHALATION ×2 (08:10→12:21)
[2018-05-06 08:15] VITALS: PULSE 83; RESP 18
[2018-05-06 08:38] VITALS: PULSE 72; RESP 23; O2SAT 91
[2018-05-06] MEDS: Aspirin 81 MG TAB.CHEW PO (08:42)
[2018-05-06] MEDS: Pioglitazone Hydrochloride 15 MG Tablet PO ×2 (08:42→18:16)
[2018-05-06] MEDS: MethylPREDNISolone 125 MG/2 ML Vial IV (09:55)
--- NOTE | 2018-05-06 12:41 | NURSING ---
Addendum entered by Maggie Ruiz 05/06/18 12:44: Dr. Maciel updated on CXR results, NNO at this time. Original Note: Pt had another small episode of SOB and anxiety. Oxygen 87% on 4L, PRN albuterol aerosol given, oxygen up to 94% on 4L after treatment. Dr. Maciel updated, NO for xanax 0.5mg PO [id number] PRN for anxiety or SOB. Will continue to monitor patient.
[2018-05-06] MEDS: ALPRAZolam 0.5 MG Tablet PO (13:34)
[2018-05-06 13:44] VITALS: PULSE 80; RESP 20
[2018-05-06] MEDS: Ipratropium/Albuterol Sulfate 3 ML AMPUL.NEB INHALATION (13:44)
[2018-05-06 15:46] VITALS: BP 125/45; PULSE 58; RESP 16; TEMP 37.2; O2SAT 94
[2018-05-06] MEDS: MethylPREDNISolone DosePak 4 MG BOX PO ×2 (18:15→22:14)
[2018-05-06 20:00] VITALS: PULSE 68; RESP 22; O2SAT 92
[2018-05-06] MEDS: Amitriptyline 25 MG Tablet PO (20:28)
[2018-05-06] MEDS: Atorvastatin Calcium 40 MG Tablet PO (20:30)
--- NOTE | 2018-05-06 20:34 | NURSING ---
When asked how pt was doing, how he was feeling, and if he was feeling any better than he was this morning, he looked confused and it took a few moments to focus his eyes on this nurse. Once he did he smiled and was more alert. Stated he was feeling better but c/o all over aching. Appeared uncomfortable, repositioned with several pillows, HOB elevated. Pt said he felt a little better. Given prn oxyir 10mg. sp02 90% on 4L. RN aware. Continuing to monitor.
[2018-05-07] MEDS: oxyCODONE 5 MG Tablet 10 MG PO ×2 (04:15→10:11)
[2018-05-07] MEDS: amLODIPine 5 MG Tablet PO (06:06)
[2018-05-07] MEDS: Nystatin Powder 15gm Bottle 1 APPLIC TOPICAL ×2 (06:06→20:43)
[2018-05-07] MEDS: Propranolol 40 MG Tablet 80 MG PO ×2 (06:07→18:14)
[2018-05-07] MEDS: Magnesium Oxide 400 MG Tablet PO (06:07)
[2018-05-07] MEDS: Cephalexin 500 MG Capsule PO ×3 (06:07→20:40)
[2018-05-07] MEDS: Menthol/Lanolin/Calamine/Znox 113 GM Tube 1 APPLIC TOPICAL ×2 (06:08→20:42)
[2018-05-07] MEDS: Doxycycline 100 MG CAPSULE PO ×2 (06:08→18:14)
[2018-05-07] MEDS: Senna/Docusate Sodium 1 Tablet 2 TABLET PO ×2 (06:08→18:13)
[2018-05-07] MEDS: Polyethylene Glycol 3350 17 GM PACKET PO (06:08)
[2018-05-07] MEDS: Enoxaparin 40 MG/0.4 ML Syringe SC (06:11)
[2018-05-07 06:41] LABS: Bedside Glucose 230 mg/dL (70-110)
[2018-05-07 07:45] VITALS: PULSE 90; RESP 20; O2SAT 91
[2018-05-07] MEDS: Ipratropium/Albuterol Sulfate 3 ML AMPUL.NEB INHALATION ×3 (07:45→19:25)
[2018-05-07] MEDS: Aspirin 81 MG TAB.CHEW PO (08:39)
[2018-05-07] MEDS: Pioglitazone Hydrochloride 15 MG Tablet PO ×2 (08:39→18:14)
[2018-05-07] MEDS: MethylPREDNISolone DosePak 4 MG BOX PO ×4 (08:39→20:40)
[2018-05-07] MEDS: 0.9% NaCl Peripheral Flush Adult/Peds IV (12:35)
[2018-05-07 14:42] VITALS: PULSE 89; RESP 20
[2018-05-07 15:24] VITALS: BP 116/45; PULSE 55; RESP 22; TEMP 36.8; O2SAT 96
[2018-05-07 18:09] VITALS: PULSE 67
[2018-05-07 19:25] VITALS: PULSE 88; RESP 20; O2SAT 92
[2018-05-07] MEDS: Amitriptyline 25 MG Tablet PO (20:40)
[2018-05-07] MEDS: Atorvastatin Calcium 40 MG Tablet PO (20:40)
[2018-05-07] MEDS: Acetaminophen 500 MG Tablet 1000 MG PO (20:50)
[2018-05-07 22:00] VITALS: PULSE 61; RESP 24; O2SAT 97
[2018-05-08] MEDS: amLODIPine 5 MG Tablet PO (06:16)
[2018-05-08] MEDS: Senna/Docusate Sodium 1 Tablet 2 TABLET PO ×2 (06:16→17:26)
[2018-05-08] MEDS: Propranolol 40 MG Tablet 80 MG PO ×2 (06:16→17:26)
[2018-05-08] MEDS: Doxycycline 100 MG CAPSULE PO (06:16)
[2018-05-08] MEDS: Magnesium Oxide 400 MG Tablet PO (06:16)
[2018-05-08] MEDS: Polyethylene Glycol 3350 17 GM PACKET PO (06:16)
[2018-05-08] MEDS: Enoxaparin 40 MG/0.4 ML Syringe SC (06:19)
[2018-05-08] MEDS: Cephalexin 500 MG Capsule PO (06:19)
[2018-05-08] MEDS: Menthol/Lanolin/Calamine/Znox 113 GM Tube 1 APPLIC TOPICAL ×2 (06:22→21:44)
[2018-05-08] MEDS: Nystatin Powder 15gm Bottle 1 APPLIC TOPICAL ×2 (06:22→21:46)
[2018-05-08 06:35] LABS: Bedside Glucose 218 mg/dL (70-110)
[2018-05-08 06:55] VITALS: PULSE 79; RESP 28; O2SAT 85
[2018-05-08] MEDS: Ipratropium/Albuterol Sulfate 3 ML AMPUL.NEB INHALATION ×4 (06:55→19:00)
[2018-05-08] MEDS: Aspirin 81 MG TAB.CHEW PO (08:19)
[2018-05-08] MEDS: Pioglitazone Hydrochloride 15 MG Tablet PO ×2 (08:19→17:27)
[2018-05-08] MEDS: MethylPREDNISolone DosePak 4 MG BOX PO ×4 (08:19→21:45)
[2018-05-08 08:29] VITALS: RESP 24; O2SAT 96
--- NOTE | 2018-05-08 08:53 | RAD_ITS ---
STUDY: X-RAY CHEST REASON FOR EXAM: Male, 83 years old. Shortness of breath. TECHNIQUE: AP and lateral views of the chest. COMPARISON: Comparison is made with prior study dated May 16, 2018. FINDINGS: Hyperinflation. There is evidence of a small bilateral pleural effusions with bibasilar atelectasis slightly worse on the left side. There is superimposed mild degree of vascular congestion and CHF. There is borderline cardiomegaly. Normal mediastinum and esthela. Normal visualized pulmonary arteries. There is atherosclerotic calcification of the aortic arch with tortuosity. There is demineralization of the osseous structures. Loss of height of the lower dorsal and upper lumbar vertebrae. There is degenerative osteoarthritis of the bilateral shoulders. There is no demonstrated abnormality of the visualized soft tissue structures of the upper abdomen. RAD/Chest PA and Lateral IMPRESSION: Mild degree of CHF with small bilateral pleural effusions and bibasilar atelectasis. Electronically Signed: Raheel Church MD at 10:33 EDT Tel [phone], Service support ,
--- NOTE | 2018-05-08 09:32 | NURSING ---
Pt had an episode of SOB with morning, oxygen dropped to 85% on 4L, RT gave aerosol treatment and increased oxygen to 6L, oxygen increased to 95%, sob subsided. CXR completed per Dr. Maciel. Results reviewed, NO for zithromax 500mg IV [id number] and rocephin 1 gram IV [id number]. PO keflex and doxycycline discontinued.
--- NOTE | 2018-05-08 09:42 | CASEMGMT ---
Insurance Clinical information faxed. Pending continued stay approval at this time. Auth#[id number] Mely SANDOVAL, MOTOR BUILDER WINDER
[2018-05-08] MEDS: oxyCODONE 5 MG Tablet 10 MG PO ×3 (10:16→21:46)
[2018-05-08 10:57] VITALS: PULSE 72; RESP 23; O2SAT 95
[2018-05-08] MEDS: ALPRAZolam 0.5 MG Tablet PO (11:25)
--- NOTE | 2018-05-08 11:28 | NURSING ---
22g IV inserted into patients left AC. Patient tolerated procedure well. Flushed with 10mL NS and dressed with tegaderm dressing.
--- NOTE | 2018-05-08 11:34 | CASEMGMT ---
Insurance Continued stay approved with next update due on 05/14/18. Auth#[id number] Mely SANDOVAL, TANK PUMPER
[2018-05-08] MEDS: 0.9% NaCl IVPB Med Flush (250 mL) 15 ML IV (12:03)
[2018-05-08] MEDS: Ceftriaxone 1 GM/50 ML BAG IV (12:04)
[2018-05-08] MEDS: 0.9% NaCl Peripheral Flush Adult/Peds IV ×2 (12:17→14:17)
[2018-05-08 14:37] VITALS: RESP 24
--- NOTE | 2018-05-08 14:39 | CASEMGMT ---
Brief interview for mental status (BIMS) and resident mood interview (PHQ-9) completed on this day. BIMS score 10/13. PHQ-9 score 06/25
[2018-05-08 15:19] VITALS: BP 107/42; PULSE 58; RESP 22; TEMP 36.4; O2SAT 95
[2018-05-08 16:55] LABS: Bedside Glucose 232 mg/dL (70-110)
[2018-05-08] MEDS: Bisacodyl 5 MG Tablet 10 MG PO (17:28)
[2018-05-08 19:00] VITALS: PULSE 60; RESP 22; O2SAT 92
[2018-05-08] MEDS: Furosemide 40 MG/4 ML Vial IV (19:41)
--- NOTE | 2018-05-08 19:42 | NURSING ---
Patient's BP 104/44, HR 67. Dr. Maciel made aware of blood pressure, order to give IV lasix.
[2018-05-08] MEDS: Amitriptyline 25 MG Tablet PO (21:44)
[2018-05-08] MEDS: Atorvastatin Calcium 40 MG Tablet PO (21:45)
[2018-05-09] MEDS: Magnesium Oxide 400 MG Tablet PO (06:32)
[2018-05-09] MEDS: Enoxaparin 40 MG/0.4 ML Syringe SC (06:32)
[2018-05-09] MEDS: amLODIPine 5 MG Tablet PO (06:32)
[2018-05-09] MEDS: Propranolol 40 MG Tablet 80 MG PO ×2 (06:32→17:20)
[2018-05-09] MEDS: Senna/Docusate Sodium 1 Tablet 2 TABLET PO ×2 (06:32→17:20)
[2018-05-09] MEDS: Polyethylene Glycol 3350 17 GM PACKET PO (06:32)
[2018-05-09] MEDS: Menthol/Lanolin/Calamine/Znox 113 GM Tube 1 APPLIC TOPICAL ×2 (06:39→20:56)
[2018-05-09] MEDS: Nystatin Powder 15gm Bottle 1 APPLIC TOPICAL ×2 (06:40→20:58)
[2018-05-09 06:44] LABS: Absolute Lymphocyte Count 1.19 X10^3/ul (0.83-4.51); Absolute Neutrophil Count 16.4 X10^3/uL (2.0-7.7); Basophil# 0.01 X10^3/uL; Basophil% 0.1 % (0-1); Hematocrit 24.9 % (40-54); Lymphocyte # 1.19 X10^3/ul (4.0); Lymphocyte % 6.3 % (19-41); Mean Corp Hgb Conc 32.1 g/gl (32-36); Mean Corpuscular Hgb 31.1 pg (27.0-32.0); Mean Corpuscular Volume 96.9 fL (80-94); Mean Platelet Vol. 8.5 fl (6.2-12.0); Monocyte# 1.21 X10^3/uL; Monocyte% 6.4 % (0-10); Neutrophil # 16.37 X10^3/uL (2.7-7.7); Neutrophil % 86.7 % (47-70); Platelet Count 299 K/mm3 (150-450); RBC Distribution Width CV 13.4 % (11.6-14.6); RBC Distribution Width SD 44.2 fl (35.1-43.9); Red Blood Count 2.57 M/mm3 (4.6-6.2); White Blood Count 18.9 K/mm3 (4.4-11.0)
[2018-05-09 06:46] LABS: Anion Gap 8 (5-15); BUN 71 mg/dL (7-18); BUN/Creat Ratio 34.6 RATIO (10-20); Calcium,Total 8.5 mg/dL (8.5-10.1); Chloride 97 mmol/L (98-107); Creatinine, Serum 2.05 mg/dL (0.70-1.30); EST Glomerular Filtration Rate 33 mL/min (>60); Est Glom Filt Rate - Afr Amer 40 mL/min (>60); Estimated Creatinine Clearance 27.78 ml/min; Glucose 202 mg/dL (74-106); Potassium 4.8 mmol/L (3.5-5.1); Sodium Level 134 mmol/L (136-145)
[2018-05-09 06:50] LABS: Bedside Glucose 195 mg/dL (70-110)
[2018-05-09 06:56] LABS: Differential Indicated SCAN CRITERIA MET; POSITIVE COUNT NO; POSITIVE DIFFERENTIAL NO; POSITIVE MORPHOLOGY YES
[2018-05-09 07:00] VITALS: PULSE 56; RESP 21; O2SAT 90
[2018-05-09] MEDS: Ipratropium/Albuterol Sulfate 3 ML AMPUL.NEB INHALATION ×3 (07:00→20:35)
[2018-05-09 07:06] LABS: Differential Comment SCANNED
[2018-05-09] MEDS: MethylPREDNISolone DosePak 4 MG BOX PO ×3 (08:27→20:57)
[2018-05-09] MEDS: Aspirin 81 MG TAB.CHEW PO (08:27)
[2018-05-09] MEDS: Pioglitazone Hydrochloride 15 MG Tablet PO ×2 (08:28→17:20)
[2018-05-09] MEDS: oxyCODONE 5 MG Tablet 10 MG PO ×2 (09:21→21:03)
[2018-05-09] MEDS: Ceftriaxone 1 GM/50 ML BAG IV (09:27)
[2018-05-09] MEDS: Furosemide 40 MG/4 ML Vial IV (09:27)
[2018-05-09] MEDS: 0.9% NaCl Peripheral Flush Adult/Peds IV ×2 (09:34→20:54)
[2018-05-09 10:00] VITALS: PULSE 84; RESP 18; O2SAT 96
--- NOTE | 2018-05-09 13:00 | CASEMGMT ---
Plan of care meeting held. Resident present as well as resident spouse and resident family. No discharge date set at this time. Resident with next insurance update due on 05/14/18 and is aware that continued stay approval is not guaranteed. This protective services social worker broaching topic of a plan B in the event that resident is unable to return home with spouse. Resident open to group home placement if needed. This protective services social worker providing resident and resident family with list of extended care facilities within the area as well as a private duty home health care list. Resident and resident family planning to discuss further on what their plan B option would be in the event that it is needed. Resident spouse is unable to assist with care of resident within the home. Support given. Will continue to follow. Mely SANDOVAL, STEEL FIXER
[2018-05-09 14:25] VITALS: RESP 20
--- NOTE | 2018-05-09 15:23 | NURSING ---
wound photo: left posterior thigh
--- NOTE | 2018-05-09 15:23 | NURSING ---
wound photo: left heel
[2018-05-09 15:31] VITALS: BP 87/42; PULSE 62; RESP 20; TEMP 36.1; O2SAT 98
[2018-05-09] MEDS: Furosemide 40 MG Tablet PO (17:20)
[2018-05-09 20:35] VITALS: PULSE 80; RESP 20
[2018-05-09] MEDS: Atorvastatin Calcium 40 MG Tablet PO (20:57)
[2018-05-09] MEDS: Amitriptyline 25 MG Tablet PO (20:57)
[2018-05-10] MEDS: Polyethylene Glycol 3350 17 GM PACKET PO (04:44)
[2018-05-10] MEDS: Bisacodyl 5 MG Tablet 10 MG PO ×2 (04:44→17:03)
[2018-05-10] MEDS: amLODIPine 5 MG Tablet PO (04:47)
[2018-05-10] MEDS: Magnesium Oxide 400 MG Tablet PO (04:47)
[2018-05-10] MEDS: Senna/Docusate Sodium 1 Tablet 2 TABLET PO ×2 (04:47→17:07)
[2018-05-10] MEDS: Propranolol 40 MG Tablet 80 MG PO ×2 (04:47→17:08)
[2018-05-10] MEDS: Enoxaparin 40 MG/0.4 ML Syringe SC (04:48)
[2018-05-10] MEDS: Menthol/Lanolin/Calamine/Znox 113 GM Tube 1 APPLIC TOPICAL ×2 (04:51→21:08)
[2018-05-10] MEDS: Nystatin Powder 15gm Bottle 1 APPLIC TOPICAL ×2 (04:51→21:09)
[2018-05-10 07:06] LABS: Bedside Glucose 174 mg/dL (70-110)
[2018-05-10] MEDS: Ipratropium/Albuterol Sulfate 3 ML AMPUL.NEB INHALATION (07:14)
[2018-05-10 07:15] VITALS: PULSE 71; RESP 18; O2SAT 99
[2018-05-10] MEDS: MethylPREDNISolone DosePak 4 MG BOX PO ×2 (08:27→21:09)
[2018-05-10] MEDS: Aspirin 81 MG TAB.CHEW PO (08:28)
[2018-05-10] MEDS: Furosemide 40 MG Tablet PO ×2 (08:28→17:08)
[2018-05-10] MEDS: Pioglitazone Hydrochloride 15 MG Tablet PO ×2 (08:28→17:08)
--- NOTE | 2018-05-10 09:07 | NURSING ---
Dr. Maciel updated that last BM was 05/05, N.O. for SSE, pt updated.
[2018-05-10] MEDS: 0.9% NaCl Peripheral Flush Adult/Peds IV (09:48)
[2018-05-10 10:00] VITALS: PULSE 84; RESP 18; O2SAT 96
[2018-05-10] MEDS: Ceftriaxone 1 GM/50 ML BAG IV (11:39)
[2018-05-10] MEDS: 0.9% NaCl IVPB Med Flush (250 mL) 15 ML IV (11:40)
--- NOTE | 2018-05-10 11:50 | NURSING ---
Addendum entered by Priscilla Freitas 05/10/18 18:00: Dr. Maciel updated no results from enema, PRN dulcolax given, N.O. for lactulose, pt updated Original Note: Soaps suds enema given Per Doctor order at 1150
[2018-05-10 16:00] VITALS: BP 112/54; PULSE 67; RESP 22; TEMP 35.7; O2SAT 99
[2018-05-10] MEDS: Amitriptyline 25 MG Tablet PO (21:08)
[2018-05-10] MEDS: Atorvastatin Calcium 40 MG Tablet PO (21:09)
[2018-05-10] MEDS: Lactulose 20 GM/30 ML UDC 60 GM PO (21:18)
--- NOTE | 2018-05-10 21:24 | NURSING ---
Aide assisted nurse with pulling pt up in bed and noted IV catheter lying in the covers of the bed next to resident. small amount of red drainage dry at the IV site. IV cath tip full intact at this time.
[2018-05-11] MEDS: Menthol/Lanolin/Calamine/Znox 113 GM Tube 1 APPLIC TOPICAL ×2 (05:27→20:30)
[2018-05-11] MEDS: Enoxaparin 40 MG/0.4 ML Syringe SC (05:28)
[2018-05-11] MEDS: amLODIPine 5 MG Tablet PO (05:29)
[2018-05-11] MEDS: Magnesium Oxide 400 MG Tablet PO (05:29)
[2018-05-11] MEDS: Propranolol 40 MG Tablet 80 MG PO ×2 (05:29→17:22)
[2018-05-11] MEDS: Nystatin Powder 15gm Bottle 1 APPLIC TOPICAL ×2 (05:30→20:31)
[2018-05-11 06:56] LABS: Bedside Glucose 185 mg/dL (70-110)
[2018-05-11] MEDS: MethylPREDNISolone DosePak 4 MG BOX PO (08:09)
[2018-05-11] MEDS: Aspirin 81 MG TAB.CHEW PO (08:09)
[2018-05-11] MEDS: Pioglitazone Hydrochloride 15 MG Tablet PO ×2 (08:09→17:21)
[2018-05-11 08:13] VITALS: O2SAT 98
[2018-05-11] MEDS: 0.9% NaCl Peripheral Flush Adult/Peds IV ×2 (10:00→10:54)
[2018-05-11] MEDS: Ceftriaxone 1 GM/50 ML BAG IV (10:00)
[2018-05-11] MEDS: 0.9% NaCl IVPB Med Flush (250 mL) 15 ML IV (10:54)
[2018-05-11] MEDS: Furosemide 40 MG Tablet PO ×2 (11:05→17:22)
[2018-05-11 15:38] VITALS: BP 133/51; PULSE 80; RESP 18; TEMP 36.8; O2SAT 99
[2018-05-11] MEDS: Senna/Docusate Sodium 1 Tablet 2 TABLET PO (17:24)
[2018-05-11] MEDS: Amitriptyline 25 MG Tablet PO (20:29)
[2018-05-11] MEDS: Atorvastatin Calcium 40 MG Tablet PO (20:29)
[2018-05-12] MEDS: Menthol/Lanolin/Calamine/Znox 113 GM Tube 1 APPLIC TOPICAL ×2 (05:08→20:40)
[2018-05-12] MEDS: Nystatin Powder 15gm Bottle 1 APPLIC TOPICAL ×2 (05:08→20:41)
[2018-05-12] MEDS: Senna/Docusate Sodium 1 Tablet 2 TABLET PO ×2 (05:13→17:07)
[2018-05-12] MEDS: amLODIPine 5 MG Tablet PO (05:14)
[2018-05-12] MEDS: Magnesium Oxide 400 MG Tablet PO (05:14)
[2018-05-12] MEDS: Propranolol 40 MG Tablet 80 MG PO ×2 (05:14→17:07)
[2018-05-12] MEDS: Enoxaparin 40 MG/0.4 ML Syringe SC (05:17)
[2018-05-12 07:06] LABS: Bedside Glucose 184 mg/dL (70-110)
[2018-05-12 07:38] VITALS: O2SAT 100
[2018-05-12] MEDS: Polyethylene Glycol 3350 17 GM PACKET PO (07:38)
[2018-05-12] MEDS: Pioglitazone Hydrochloride 15 MG Tablet PO ×2 (08:39→17:07)
[2018-05-12] MEDS: Aspirin 81 MG TAB.CHEW PO (08:39)
[2018-05-12] MEDS: Furosemide 40 MG Tablet PO ×2 (08:40→17:07)
[2018-05-12] MEDS: Ceftriaxone 1 GM/50 ML BAG IV (09:09)
[2018-05-12] MEDS: 0.9% NaCl Peripheral Flush Adult/Peds IV ×3 (09:13→20:36)
[2018-05-12 10:00] VITALS: PULSE 74; RESP 18; O2SAT 94
[2018-05-12 15:46] VITALS: BP 119/44; PULSE 67; RESP 20; TEMP 36.8; O2SAT 92
[2018-05-12] MEDS: Atorvastatin Calcium 40 MG Tablet PO (20:36)
[2018-05-12] MEDS: Amitriptyline 25 MG Tablet PO (20:36)
[2018-05-13] MEDS: Propranolol 40 MG Tablet 80 MG PO ×2 (05:21→17:24)
[2018-05-13] MEDS: Enoxaparin 40 MG/0.4 ML Syringe SC (05:21)
[2018-05-13] MEDS: Magnesium Oxide 400 MG Tablet PO (05:21)
[2018-05-13] MEDS: Polyethylene Glycol 3350 17 GM PACKET PO (05:21)
[2018-05-13] MEDS: amLODIPine 5 MG Tablet PO (05:21)
[2018-05-13] MEDS: Senna/Docusate Sodium 1 Tablet 2 TABLET PO ×2 (05:21→17:23)
[2018-05-13] MEDS: Menthol/Lanolin/Calamine/Znox 113 GM Tube 1 APPLIC TOPICAL ×2 (05:22→20:26)
[2018-05-13] MEDS: Nystatin Powder 15gm Bottle 1 APPLIC TOPICAL ×2 (05:22→20:26)
[2018-05-13 07:26] LABS: Bedside Glucose 169 mg/dL (70-110)
[2018-05-13 07:41] VITALS: O2SAT 98
[2018-05-13] MEDS: Aspirin 81 MG TAB.CHEW PO (08:34)
[2018-05-13] MEDS: Pioglitazone Hydrochloride 15 MG Tablet PO ×2 (08:34→17:24)
[2018-05-13] MEDS: Furosemide 40 MG Tablet PO ×2 (08:34→17:25)
[2018-05-13] MEDS: 0.9% NaCl Peripheral Flush Adult/Peds IV ×2 (08:58→20:27)
[2018-05-13] MEDS: 0.9% NaCl IVPB Med Flush (250 mL) 15 ML IV (08:58)
[2018-05-13] MEDS: Ceftriaxone 1 GM/50 ML BAG IV (08:58)
[2018-05-13 15:54] VITALS: BP 134/54; PULSE 79; RESP 20; TEMP 37.1; O2SAT 95
[2018-05-13] MEDS: Amitriptyline 25 MG Tablet PO (20:25)
[2018-05-13] MEDS: Atorvastatin Calcium 40 MG Tablet PO (20:25)
[2018-05-14] MEDS: Propranolol 40 MG Tablet 80 MG PO ×2 (05:56→17:17)
[2018-05-14] MEDS: Polyethylene Glycol 3350 17 GM PACKET PO (05:56)
[2018-05-14] MEDS: amLODIPine 5 MG Tablet PO (05:56)
[2018-05-14] MEDS: Senna/Docusate Sodium 1 Tablet 2 TABLET PO ×2 (05:56→17:17)
[2018-05-14] MEDS: Enoxaparin 40 MG/0.4 ML Syringe SC (05:57)
[2018-05-14] MEDS: Magnesium Oxide 400 MG Tablet PO (05:57)
[2018-05-14] MEDS: Menthol/Lanolin/Calamine/Znox 113 GM Tube 1 APPLIC TOPICAL ×2 (05:57→19:58)
[2018-05-14] MEDS: Nystatin Powder 15gm Bottle 1 APPLIC TOPICAL ×2 (05:57→20:00)
[2018-05-14 06:45] LABS: Bedside Glucose 147 mg/dL (70-110)
[2018-05-14 07:05] VITALS: O2SAT 91
--- NOTE | 2018-05-14 07:27 | MDS.RN ---
Information for the mds was obtained from review of the clinical record, interview of resident, staff, and direct observation of resident's care.
[2018-05-14] MEDS: Furosemide 40 MG Tablet PO ×2 (08:09→17:17)
[2018-05-14] MEDS: Aspirin 81 MG TAB.CHEW PO (08:10)
[2018-05-14] MEDS: Pioglitazone Hydrochloride 15 MG Tablet PO ×2 (08:10→17:17)
[2018-05-14 10:00] VITALS: PULSE 86; RESP 18; O2SAT 96
[2018-05-14] MEDS: oxyCODONE 5 MG Tablet 10 MG PO ×2 (10:16→19:57)
[2018-05-14] MEDS: 0.9% NaCl IVPB Med Flush (250 mL) 15 ML IV (10:32)
[2018-05-14] MEDS: 0.9% NaCl Peripheral Flush Adult/Peds IV (10:33)
--- NOTE | 2018-05-14 10:46 | CASEMGMT ---
Insurance Clinical information faxed. Pending continued stay approval at this time. Auth#[id number] Mely SANDOVAL, STREET LIGHT MECHANIC
--- NOTE | 2018-05-14 11:21 | NURSING ---
Pt Jhonny removed per Doctor order, 26 jhonny removed, all jhonny intact incisions approximated, no redness noted. Pt tolerated without complaint.
--- NOTE | 2018-05-14 11:36 | CASEMGMT ---
Insurance Continued stay approved with next update due on 05/18/18. Auth#[id number] Mely SANDOVAL, LOCATOR
[2018-05-14] MEDS: Ceftriaxone 1 GM/50 ML BAG IV (11:57)
--- NOTE | 2018-05-14 13:31 | NURSING ---
Addendum entered by Priscilla Freitas 05/15/18 14:52: This nurse spoke with Olga in xray, they will send xray results to Dr. Louise's office Original Note: Addendum entered by Priscilla Freitas 05/15/18 14:32: LM with Dr. Louise to follow up about xray results from yesterday Original Note: Addendum entered by Priscilla Freitas 05/14/18 15:21: X-ray results faxed to Dr. Louise Original Note: Dr. Hans Louise faxed an order to xray left tibula fibula prior to scheduling a follow up appt, pt updated, will updated Dr. Maciel
--- NOTE | 2018-05-14 14:10 | RAD_ITS ---
STUDY: X-RAY - LEFT TIBIA AND FIBULA REASON FOR EXAM: Male, 83 years old. Follow-up fracture repair 2 weeks ago TECHNIQUE: 2 view(s) of the tibia and fibula were obtained. COMPARISON: April 25, 2018 FINDINGS: There is a intramedullary amandeep in the right tibia transfixed by 4 cortical screws. There is a comminuted minimally displaced fracture of the proximal tibia. There is a fracture of the proximal fibula with extension to the fibular head. The bones are severely osteopenic. There is visualization of the minimally posterior displaced fracture of the distal fibula. There is soft tissue swelling cranial to the patella. There is degenerative change in the knee joint. RAD/Tibia & Fibula 2 Views IMPRESSION: Open reduction internal fixation comminuted tibia fracture. Minimally displaced proximal and distal fibular fractures. Electronically Signed: Eloisa Aquino MD at 14:59 EDT Tel , Service support ,
--- NOTE | 2018-05-14 14:45 | CASEMGMT ---
Brief interview for mental status (BIMS) and resident mood interview (PHQ-9) completed on this day. BIMS score 10/15. PHQ-9 score 06/25
[2018-05-14 15:39] VITALS: BP 112/44; PULSE 63; RESP 18; TEMP 35.3; O2SAT 97
[2018-05-14] MEDS: Amitriptyline 25 MG Tablet PO (19:58)
[2018-05-14] MEDS: Atorvastatin Calcium 40 MG Tablet PO (19:58)
--- NOTE | 2018-05-14 23:59 | NURSING ---
Pt was observed sleeping in bed without NC/oxygen on. When this nurse entered room to put it back on pt did not want it, and when reminded he needed it especially while sleeping, he said bullshit! you're full of shit leave me alone'. RN aware. Continuing to monitor, check oxygen is on. Sp02 currently 91% on 4L.
[2018-05-15] MEDS: oxyCODONE 5 MG Tablet 10 MG PO ×4 (01:00→19:54)
--- NOTE | 2018-05-15 04:56 | NURSING ---
Pt has been asking for pain medication since 0300. AM meds with scheduled oxycontin 20mg given at this time. Repositioned for comfort. RN aware, continuing to monitor.
[2018-05-15] MEDS: Propranolol 40 MG Tablet 80 MG PO ×2 (04:58→17:32)
[2018-05-15] MEDS: Menthol/Lanolin/Calamine/Znox 113 GM Tube 1 APPLIC TOPICAL ×2 (04:58→19:54)
[2018-05-15] MEDS: Enoxaparin 40 MG/0.4 ML Syringe SC (04:59)
[2018-05-15] MEDS: Nystatin Powder 15gm Bottle 1 APPLIC TOPICAL (04:59)
[2018-05-15] MEDS: Magnesium Oxide 400 MG Tablet PO (04:59)
[2018-05-15] MEDS: amLODIPine 5 MG Tablet PO (05:00)
[2018-05-15] MEDS: Senna/Docusate Sodium 1 Tablet 2 TABLET PO ×2 (05:00→17:31)
[2018-05-15] MEDS: Polyethylene Glycol 3350 17 GM PACKET PO (05:00)
--- NOTE | 2018-05-15 06:37 | NURSING ---
Pt given prn oxyir 10mg per request for c/o pain in left leg, heel. Stated scheduled oxycontin 20mg doesn't help. Explained to pt that is extended release and if he did not take it he would probably have greater pain, and explained difference between that and prn oxyir 10mg. Pt states oxyir more effective. RN aware. Repositioned for comfort, continuing to monitor.
[2018-05-15 07:06] LABS: Bedside Glucose 146 mg/dL (70-110)
[2018-05-15] MEDS: Aspirin 81 MG TAB.CHEW PO (08:15)
[2018-05-15] MEDS: Pioglitazone Hydrochloride 15 MG Tablet PO ×2 (08:15→17:32)
[2018-05-15] MEDS: Furosemide 40 MG Tablet PO ×2 (08:18→17:32)
[2018-05-15] MEDS: 0.9% NaCl Peripheral Flush Adult/Peds IV ×3 (09:24→20:44)
[2018-05-15] MEDS: Ceftriaxone 1 GM/50 ML BAG IV (09:24)
[2018-05-15 10:21] VITALS: O2SAT 96
[2018-05-15] MEDS: 0.9% NaCl IVPB Med Flush (250 mL) 15 ML IV (10:54)
[2018-05-15 15:50] VITALS: PULSE 66; RESP 24; O2SAT 91
[2018-05-15 16:00] VITALS: BP 94/56; PULSE 66; RESP 20; TEMP 36.8; O2SAT 100
--- NOTE | 2018-05-15 16:22 | NURSING ---
THIS NURSE WAS IN PT ROOM WITH THERAPY AND PT WAS CUSING BOTH THERAPY GIRLS OUT WHEN THEY WERE TRYING TO GET PT OUT OF BED FOR THERAPY. PT WAS REFUSING TO DO THERAPY AND TOLD GIRLS THEY DIDNT KNOW HOW TO DO THERE F#*#*# JOB, ETC. THIS NURSE TRIED TALKING TO PT AND HELP. PT STARTED TO YELL AT THIS NURSE. LEFT PT ALONG AND THERAPY FINALLY GOT PT UP TO CHAIR. REPORTED TO JANUSZ RÍOS
[2018-05-15] MEDS: Amitriptyline 25 MG Tablet PO (19:54)
[2018-05-15] MEDS: Atorvastatin Calcium 40 MG Tablet PO (19:54)
--- NOTE | 2018-05-15 19:57 | NURSING ---
Pt confused, sitting in recliner chair asking where his is. Very slowly and carefully moving left leg, wincing and moaning in pain. Yelled give me something for this leg. Given prn oxyir 10mg and encouraged to rest. RN aware, continuing to monitor.
[2018-05-16] MEDS: oxyCODONE 5 MG Tablet 10 MG PO ×2 (03:17→08:51)
[2018-05-16] MEDS: Menthol/Lanolin/Calamine/Znox 113 GM Tube 1 APPLIC TOPICAL ×2 (05:31→20:09)
[2018-05-16] MEDS: Magnesium Oxide 400 MG Tablet PO (05:31)
[2018-05-16] MEDS: Polyethylene Glycol 3350 17 GM PACKET PO (05:31)
[2018-05-16] MEDS: amLODIPine 5 MG Tablet PO (05:31)
[2018-05-16] MEDS: Senna/Docusate Sodium 1 Tablet 2 TABLET PO ×2 (05:31→17:42)
[2018-05-16] MEDS: Propranolol 40 MG Tablet 80 MG PO ×2 (05:31→17:42)
[2018-05-16] MEDS: Nystatin Powder 15gm Bottle 1 APPLIC TOPICAL ×2 (05:32→20:09)
[2018-05-16] MEDS: Enoxaparin 40 MG/0.4 ML Syringe SC (05:32)
[2018-05-16 07:16] LABS: Bedside Glucose 158 mg/dL (70-110)
[2018-05-16 08:05] LABS: Absolute Lymphocyte Count 0.94 X10^3/ul (0.83-4.51); Absolute Neutrophil Count 6.6 X10^3/uL (2.0-7.7); Basophil# 0.03 X10^3/uL; Basophil% 0.3 % (0-1); Eosinophil# 0.34 X10^3/uL; Eosinophils% 3.8 % (0-5); Hematocrit 25.5 % (40-54); Hemoglobin 8.2 g/dl (13.0-16.5); Lymphocyte # 0.94 X10^3/ul (4.0); Lymphocyte % 10.5 % (19-41); Mean Corp Hgb Conc 32.2 g/gl (32-36); Mean Corpuscular Hgb 30.8 pg (27.0-32.0); Mean Corpuscular Volume 95.9 fL (80-94); Mean Platelet Vol. 8.5 fl (6.2-12.0); Monocyte# 1.06 X10^3/uL; Monocyte% 11.8 % (0-10); Neutrophil # 6.59 X10^3/uL (2.7-7.7); Neutrophil % 73.6 % (47-70); Platelet Count 199 K/mm3 (150-450); RBC Distribution Width CV 13.9 % (11.6-14.6); RBC Distribution Width SD 48.7 fl (35.1-43.9); Red Blood Count 2.66 M/mm3 (4.6-6.2)
[2018-05-16 08:06] LABS: POSITIVE COUNT NO; POSITIVE DIFFERENTIAL NO; POSITIVE MORPHOLOGY NO
[2018-05-16 08:19] LABS: Anion Gap 7 (5-15); BUN 24 mg/dL (7-18); BUN/Creat Ratio 15.6 RATIO (10-20); Calcium,Total 8.7 mg/dL (8.5-10.1); Chloride 98 mmol/L (98-107); Creatinine, Serum 1.54 mg/dL (0.70-1.30); EST Glomerular Filtration Rate 46 mL/min (>60); Est Glom Filt Rate - Afr Amer 56 mL/min (>60); Estimated Creatinine Clearance 36.98 ml/min; Glucose 156 mg/dL (74-106); Potassium 4.1 mmol/L (3.5-5.1); Sodium Level 136 mmol/L (136-145)
[2018-05-16] MEDS: Furosemide 40 MG Tablet PO ×2 (08:51→17:42)
[2018-05-16] MEDS: Pioglitazone Hydrochloride 15 MG Tablet PO ×2 (08:52→17:42)
[2018-05-16] MEDS: Aspirin 81 MG TAB.CHEW PO (08:52)
[2018-05-16] MEDS: 0.9% NaCl Peripheral Flush Adult/Peds IV ×2 (11:48→14:23)
[2018-05-16] MEDS: Ceftriaxone 1 GM/50 ML BAG IV (13:12)
[2018-05-16 16:00] VITALS: BP 115/45; PULSE 77; RESP 20; TEMP 36.7; O2SAT 90
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
[2018-05-16] MEDS: Atorvastatin Calcium 40 MG Tablet PO (20:09)
[2018-05-16] MEDS: Amitriptyline 25 MG Tablet PO (20:09)
[2018-05-16 20:13] VITALS: PULSE 66; RESP 18; O2SAT 100
[2018-05-17] MEDS: amLODIPine 5 MG Tablet PO (06:27)
[2018-05-17] MEDS: Magnesium Oxide 400 MG Tablet PO (06:27)
[2018-05-17] MEDS: Senna/Docusate Sodium 1 Tablet 2 TABLET PO (06:27)
[2018-05-17] MEDS: Propranolol 40 MG Tablet 80 MG PO ×2 (06:27→16:41)
[2018-05-17] MEDS: Polyethylene Glycol 3350 17 GM PACKET PO (06:29)
[2018-05-17] MEDS: Enoxaparin 40 MG/0.4 ML Syringe SC (06:30)
[2018-05-17] MEDS: Menthol/Lanolin/Calamine/Znox 113 GM Tube 1 APPLIC TOPICAL ×2 (06:32→22:01)
[2018-05-17] MEDS: Nystatin Powder 15gm Bottle 1 APPLIC TOPICAL ×2 (06:32→22:01)
[2018-05-17 07:06] LABS: Bedside Glucose 135 mg/dL (70-110)
[2018-05-17 07:44] VITALS: O2SAT 90
[2018-05-17] MEDS: Aspirin 81 MG TAB.CHEW PO ×2 (08:24→08:25)
[2018-05-17] MEDS: Pioglitazone Hydrochloride 15 MG Tablet PO ×2 (08:25→16:42)
[2018-05-17] MEDS: oxyCODONE 5 MG Tablet 10 MG PO (09:08)
[2018-05-17] MEDS: Furosemide 40 MG Tablet PO ×2 (09:08→16:42)
[2018-05-17 09:34] VITALS: PULSE 66; RESP 16
[2018-05-17 15:50] VITALS: BP 107/63; PULSE 64; RESP 18; TEMP 35.6; O2SAT 4
[2018-05-17] MEDS: Atorvastatin Calcium 40 MG Tablet PO (22:03)
[2018-05-17] MEDS: Amitriptyline 25 MG Tablet PO (22:03)
[2018-05-18] MEDS: Menthol/Lanolin/Calamine/Znox 113 GM Tube 1 APPLIC TOPICAL ×2 (05:27→19:55)
[2018-05-18] MEDS: Nystatin Powder 15gm Bottle 1 APPLIC TOPICAL ×2 (05:27→22:02)
[2018-05-18] MEDS: Magnesium Oxide 400 MG Tablet PO (05:29)
[2018-05-18] MEDS: Propranolol 40 MG Tablet 80 MG PO ×2 (05:29→19:52)
[2018-05-18] MEDS: Senna/Docusate Sodium 1 Tablet 2 TABLET PO (05:29)
[2018-05-18] MEDS: amLODIPine 5 MG Tablet PO (05:30)
[2018-05-18] MEDS: Enoxaparin 40 MG/0.4 ML Syringe SC (05:33)
[2018-05-18 07:15] LABS: Bedside Glucose 121 mg/dL (70-110)
[2018-05-18] MEDS: Pioglitazone Hydrochloride 15 MG Tablet PO ×2 (08:31→19:52)
[2018-05-18] MEDS: Furosemide 40 MG Tablet PO ×2 (08:32→19:52)
--- NOTE | 2018-05-18 08:51 | CASEMGMT ---
Insurance Clinical update faxed to insurance. Will await continued stay determination. Auth #[id number] JAIME Spann
[2018-05-18 10:00] VITALS: PULSE 72; O2SAT 98
--- NOTE | 2018-05-18 11:35 | CASEMGMT ---
Insurance Return call from Magdalena at [facility] and continued stay has been denied with last covered day of 05/21/18 and D/C 05/22/18. Auth # [id number] JAIME Spann
--- NOTE | 2018-05-18 11:37 | CASEMGMT ---
Social Work Phone call placed to pt Buffy and explained that continued stay has been denied by insurance with d/c set for 05/22/18. Extensive conversation with Buffy concerning discharge plan. Pt does not feel pt is ready for d/c at this time and states she would like to appeal determination. SW explained that this was her right and appeal can take place, but plan does need to be made in case pt loses appeal. Pt adamant that she is not able to care for pt in her home as her health is compromised and she cannot assist pt and her physical well being will decline. SW explored options with pt including staying in [facility] private pay and community SNFs. SW explained the difference in cost of the facilities and that pt will be responsible for payment. Discussion with pt regarding Medicaid and qualifications. Likely pt will not qualify for Medicaid at this time. Much active listening provided and SW continued to redirect conversation to need to make a discharge plan. SW assured pt that SW will assist in making arrangements with nursing facility, however, pt continues to resist making decision stating she does not want him to go to a group home. SW encouraged pt to discuss situation with children to assist her in making a decision. Pt also resistant to this idea as she does not want to interrupt daughter. SW providing emotional support and education on [facility] care options. SW to continue to follow to assist with d/c planning. JAIME Spann
[2018-05-18 16:00] VITALS: BP 116/46; PULSE 68; RESP 20; TEMP 37.3; O2SAT 88
--- NOTE | 2018-05-18 16:24 | CASEMGMT ---
Social Work/Insurance Pt signed NOMNOC and pt wishing to appeal. Appeal process started. Will await determination on continued stay vs. Last covered day 05/21/18. Auth #[id number] Phone calls placed to [facility] to obtain bed availability and room rates. Phone call placed to pt and information provided. Pt Buffy stating she would like pt to go to the [facility]. Buffy made aware that room rate is $250 a day and 30 day payment is due up front prior to admission. She is agreeable. Phone call to Lynn at [facility] and verbal referral given. Will fax information on Monday in the event pt looses appeal. JAIME Spann
--- NOTE | 2018-05-18 16:31 | CHAPLAIN ---
Type of Pastoral Visit _x__ Initial Visit ___ Follow-up Visit ___ On-call Visit ___ General Patient Visit ___ Spiritual Assessment ___ Family Conference ___ Bereavement ___ Rapid Response ___ Code Blue ___ Other (describe below) Pastoral Care Referral From _x__ Patient ___ Family ___ Nurse ___ Physician ___ Restaurant Delivery Driver ___ Mental Health Specialist ___ Other (describe below) Sacrament/Intervention ___ Active listening ___ Anointing ___ Anabaptism ___ Bereavement ___ Communion ___ Sugey exploration ___ ___ Life review ___ Prayer ___ Reconciliation ___ Sacrament of Sick _x__ Supportive presence ___ Wedding ___ Other (describe below) Pastoral Comments introduced self to patient and purpose of care; family members were with pt in room; pt was welcoming but said I've sure had a lot of visitors today and so made this brief
[2018-05-18] MEDS: Atorvastatin Calcium 40 MG Tablet PO (19:52)
[2018-05-18] MEDS: Amitriptyline 25 MG Tablet PO (19:52)
[2018-05-19] MEDS: Senna/Docusate Sodium 1 Tablet 2 TABLET PO (05:48)
[2018-05-19] MEDS: Nystatin Powder 15gm Bottle 1 APPLIC TOPICAL ×2 (05:49→20:07)
[2018-05-19] MEDS: amLODIPine 5 MG Tablet PO (05:49)
[2018-05-19] MEDS: Enoxaparin 40 MG/0.4 ML Syringe SC (05:49)
[2018-05-19] MEDS: Magnesium Oxide 400 MG Tablet PO (05:49)
[2018-05-19] MEDS: Propranolol 40 MG Tablet 80 MG PO ×2 (05:49→18:14)
[2018-05-19] MEDS: Menthol/Lanolin/Calamine/Znox 113 GM Tube 1 APPLIC TOPICAL ×2 (05:50→20:07)
[2018-05-19 05:59] VITALS: BP 107/50; PULSE 82
[2018-05-19 07:15] LABS: Bedside Glucose 136 mg/dL (70-110)
[2018-05-19] MEDS: Aspirin 81 MG TAB.CHEW PO (08:36)
[2018-05-19] MEDS: Pioglitazone Hydrochloride 15 MG Tablet PO ×2 (08:36→18:14)
[2018-05-19] MEDS: Furosemide 40 MG Tablet PO ×2 (08:36→18:12)
[2018-05-19] MEDS: oxyCODONE 5 MG Tablet 10 MG PO ×2 (08:39→14:27)
[2018-05-19 15:50] VITALS: BP 101/37; PULSE 63; RESP 20; TEMP 36.4; O2SAT 100
--- NOTE | 2018-05-19 16:01 | NURSING ---
[employer] called, resident lost appeal, pt and aware, LM with Banker Mason Mely
[2018-05-19 16:28] VITALS: PULSE 64; RESP 18; O2SAT 93
[2018-05-19 18:19] VITALS: BP 138/43; PULSE 76
[2018-05-19] MEDS: Atorvastatin Calcium 40 MG Tablet PO (20:08)
[2018-05-19] MEDS: Amitriptyline 25 MG Tablet PO (20:08)
[2018-05-20] MEDS: Acetaminophen 500 MG Tablet 1000 MG PO (00:49)
[2018-05-20] MEDS: Propranolol 40 MG Tablet 80 MG PO ×2 (05:23→18:16)
[2018-05-20] MEDS: amLODIPine 5 MG Tablet PO (05:23)
[2018-05-20] MEDS: Senna/Docusate Sodium 1 Tablet 2 TABLET PO (05:23)
[2018-05-20] MEDS: Magnesium Oxide 400 MG Tablet PO (05:23)
[2018-05-20] MEDS: Nystatin Powder 15gm Bottle 1 APPLIC TOPICAL ×2 (05:24→21:08)
[2018-05-20] MEDS: Menthol/Lanolin/Calamine/Znox 113 GM Tube 1 APPLIC TOPICAL ×2 (05:25→21:07)
[2018-05-20] MEDS: Enoxaparin 40 MG/0.4 ML Syringe SC (05:26)
[2018-05-20 07:16] LABS: Bedside Glucose 126 mg/dL (70-110)
[2018-05-20 07:20] VITALS: O2SAT 98
[2018-05-20] MEDS: oxyCODONE 5 MG Tablet 10 MG PO (09:10)
[2018-05-20] MEDS: Pioglitazone Hydrochloride 15 MG Tablet PO ×2 (09:11→18:15)
[2018-05-20] MEDS: Aspirin 81 MG TAB.CHEW PO (09:11)
[2018-05-20] MEDS: Furosemide 40 MG Tablet PO ×2 (09:11→18:17)
[2018-05-20 16:00] VITALS: BP 108/43; PULSE 60; RESP 20; TEMP 36.7; O2SAT 98
[2018-05-20] MEDS: Atorvastatin Calcium 40 MG Tablet PO (21:07)
[2018-05-20] MEDS: Amitriptyline 25 MG Tablet PO (21:07)
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
[2018-05-20] MEDS: ALPRAZolam 0.5 MG Tablet 1 MG PO (23:04)
[2018-05-21] MEDS: Menthol/Lanolin/Calamine/Znox 113 GM Tube 1 APPLIC TOPICAL ×2 (05:44→22:44)
[2018-05-21] MEDS: Propranolol 40 MG Tablet 80 MG PO ×2 (05:45→17:43)
[2018-05-21] MEDS: Nystatin Powder 15gm Bottle 1 APPLIC TOPICAL ×2 (05:45→22:44)
[2018-05-21] MEDS: amLODIPine 5 MG Tablet PO (05:46)
[2018-05-21] MEDS: Magnesium Oxide 400 MG Tablet PO (05:46)
[2018-05-21] MEDS: Senna/Docusate Sodium 1 Tablet 2 TABLET PO ×2 (05:46→17:43)
[2018-05-21] MEDS: Enoxaparin 40 MG/0.4 ML Syringe SC (05:49)
[2018-05-21 07:25] LABS: Bedside Glucose 139 mg/dL (70-110)
[2018-05-21 07:45] VITALS: PULSE 70; RESP 24; O2SAT 83
[2018-05-21] MEDS: Albuterol 2.5 MG/3 ML VIAL.NEB. INHALATION (07:45)
[2018-05-21 07:55] VITALS: O2SAT 93
--- NOTE | 2018-05-21 08:15 | CPS ---
Patient given aerosol and nurse aware of sats.
[2018-05-21] MEDS: Pioglitazone Hydrochloride 15 MG Tablet PO ×2 (08:19→17:43)
[2018-05-21] MEDS: Aspirin 81 MG TAB.CHEW PO (08:19)
[2018-05-21] MEDS: Furosemide 40 MG Tablet PO ×2 (08:19→17:43)
--- NOTE | 2018-05-21 10:40 | CASEMGMT ---
Social Work Telephone call to resident spouse Buffy Baer voicing to be aware that appeal was lost at this time. [facility]y confirming that [facility]. Buffy aware that this will be private pay. Support given. Spoke with resident in room and confirmed above information as well. [facility]phone call to [facility]. This social service technician making referral. Clinical information faxed. Pending approval at this time. Proposed discharge date: 05/22/18 PLAN: Discharge to the [facility] [place] pending approval. Mely SANDOVAL, CONSUMER AFFAIRS DIRECTOR
[2018-05-21 11:00] VITALS: O2SAT 93
--- NOTE | 2018-05-21 13:52 | CASEMGMT ---
Social Work Tele[place] [facility] [place]. Resident approved to transition on 05/22/18. Spoke with resident and resident spouse in regards to above information. Resident and resident spouse are agreeable to discharge plan. Resident requesting for transportation to be set up via cot. Therapy staff supporting that resident should be transported by cot for safety. Support given. Transfer form initiated. PASRR completed in [facility] Telephone call to Lili/Krista. Ashtyn. Transportation set up for 05/22/18 at 2:00pm. Transportation form completed and placed with resident discharge information. Proposed discharge date: 05/22/18 PLAN: Discharge to the [facility] under intermediate stay. Mely SANDOVAL, COAL SHOVELER
[2018-05-21 14:14] VITALS: O2SAT 91
[2018-05-21 16:00] VITALS: BP 131/85; PULSE 66; RESP 18; TEMP 36.7; O2SAT 94
--- NOTE | 2018-05-21 18:19 | TREXTCAR_ITS ---
- Diet 05/01/18 18:32 Diet: Regular Diet - Routine Orders/Code Status Suppository Type: Dulcolax 10mg Suppository Frequency: Daily PRN Routine Lab Work: CBC, BMP Code Status: Full Code - Wound(s) Inner Lt ankle Wound Type: Surgical Incision Dressing Change: Dry Sterile Dressing Proximal Incision above Lt knee Wound Type: Surgical Incision Dressing Change: Adaptic with DSD Medial inc below knee Wound Type: Surgical Incision Dressing Change: Adaptic with DSD Lt heel Wound Type: Pressure Injury Dressing Change: Mepilex 05/19 Lt great toe Wound Type: Abrasion Dressing Change: Dry Sterile Dressing Lt posterior thigh Wound Type: necrotic area Dressing Change: Dry Sterile Dressing Coccyx Wound Type: Area of concern Dressing Change: mepilex 05/19 Left buttock Wound Type: Open area Dressing Change: Mepilex 05/19 - Therapies Weight Bearing: Weight bearing as tolerated Extremity Affected:: Bilateral Lower Physical Therapy: Eval and Treat Occupational Therapy: Eval and Treat - Problem/Diagnosis (1) Fracture of left tibia and fibula Status: Acute Current Visit: Yes (2) Chronic kidney disease Status: Chronic Current Visit: No (3) Cirrhosis of liver Status: Chronic Current Visit: No (4) Anemia Status: Chronic Current Visit: No (5) Diabetes mellitus Status: Chronic Current Visit: No (6) Chronic pain Status: Chronic Current Visit: No (7) Insomnia Status: Chronic Current Visit: No (8) GERD (gastroesophageal reflux disease) Status: Chronic Current Visit: No (9) Edema Status: Chronic Current Visit: No (10) Hypomagnesemia Status: Chronic Current Visit: No (11) Fall Status: Acute Current Visit: No (12) Pulmonary hypertension Status: Chronic Comment: mild Current Visit: No (13) Stroke Status: Chronic Current Visit: No (14) Hepatic encephalopathy Status: Chronic Current Visit: No (15) Hypertension Status: Chronic Current Visit: No (16) COPD (chronic obstructive pulmonary disease) Status: Chronic Current Visit: No (17) Peripheral vascular disease Status: Chronic Current Visit: No - Allergies/Procedures Done in Hospital Allergies/Adverse Reactions: Allergies aspirin Adverse Reaction (Verified 04/25/18 07:02) Other causes stomach to bleed - Type of Care/Length of Stay Estimated LOS: More Than 30 Days Type of Care Needed: Intermediate Rehab Potential: Fair Prognosis: Fair - Additional Orders/Day of Discharge Day of Discharge: 05/22/18 - Dietary and Speech Recommendations Dietitian Recommendations/Changes: Rec consider diet change to 1800 Telly, Cardiac /Low Cholesterol r/t PMHx. Does not like ensure enlive - providing chocolate CIB w/ meals warmed up instead. - Follow Up Care Primary Care Physician: Tommy Maciel Chi, MD [Primary Care Provider] - Please follow up with your Primary Care Physician in: After [facility] from [facility]. Please Follow Up With: Dr.Eric Louise When: 1-2 weeks from [id number]
--- NOTE | 2018-05-21 18:19 | PCM.DC.SUM ---
Discharge Date and Diagnosis - Problem List Patient Problems: Active and Suspected Problems Fracture of left tibia and fibula (Acute) Date of Admission: 05/01/18 Date of Discharge: 05/22/18 - Primary Discharge Diagnosis Active and Suspected Problems Fracture of left tibia and fibula (Acute) - Secondary Discharge Diagnosis Chronic Problems Chronic kidney disease (Chronic) Cirrhosis of liver (Chronic) Anemia (Chronic) Chronic constipation (Chronic) Diabetes mellitus (Chronic) Chronic pain (Chronic) Toe pain, left (Chronic) Toe pain, right (Chronic) Tinea unguium (Chronic) Insomnia (Chronic) GERD (gastroesophageal reflux disease) (Chronic) Edema (Chronic) Hypomagnesemia (Chronic) Pulmonary hypertension (Chronic) mild Stroke (Chronic) Hepatic encephalopathy (Chronic) Hypertension (Chronic) COPD (chronic obstructive pulmonary disease) (Chronic) Peripheral vascular disease (Chronic) Hospital Course and Treatment Imaging Results: 05/01/18 18:32 Diet: Regular Diet Clinical Impression(s) from Imaging Studies Chest X-Ray 05/08/18 08:53 IMPRESSION: Mild degree of CHF with small bilateral pleural effusions and bibasilar atelectasis. Electronically Signed: Raheel Church MD at 10:33 EDT Tel [phone], Service support , Tibia/Fibula X-Ray 05/14/18 14:10 IMPRESSION: Open reduction internal fixation comminuted tibia fracture. Minimally displaced proximal and distal fibular fractures. Electronically Signed: Eloisa Aquino MD at 14:59 EDT Tel , Service support , Labs (Last 48 Hours) 05/20/18 05/21/18 07:03 07:01 POC Glucose 126 H 139 H Consultations 05/01/18 Consult: Onc/Wound/police liaison Routine Comment: Reason for Consult:: left heel DTI 05/09/18 06:57 Consult: Onc/Wound/police liaison Routine Comment: Reason for Consult:: Posterior lt thigh Operations: None Procedures: None Summary of Care Provided: The patient is a 83 year old Male with below past medical history hospitalized for fall with left tib/fib fracture, underwent ORIF 04/27/2018 at [facility], admitted to TCU with debility, here for rehabilitation, strengthening, prior to discharge home with spouse. Resident is dying, I have let resident, , daughter know he is hospice appropriate. is in denial at this time. Consider transitioning to hospice care. [facility] to [facility] [place], under intermediate stay. Discharge Diet: No Restrictions Discharge Activity: Return to Normal Activity, May Shower, Use Walker Weight Bearing Status: Weight bearing as tolerated Call your doctor if you observe: Fever of 101 or Higher, Inability to urinate, Inability to have a bowel movement, Chest pain, Uncontrolled pain Home Medications: Medications to take at Discharge Magnesium Oxide [Mag-Ox 400] 400 mg PO DAILY 12/21/15 Amlodipine [Norvasc] 5 mg PO DAILY 07/13/17 Propranolol HCl 80 mg PO BID 07/13/17 Amitriptyline HCl [Elavil] 25 mg PO QHS 08/02/17 Aspirin [Aspirin, Baby] 81 mg PO DAILY@0800 11/13/17 Atorvastatin Calcium [Lipitor] 40 mg PO QHS 11/13/17 Oxycodone CR [Oxycontin] 20 mg PO Q12H 04/25/18 Acetaminophen [Tylenol Tablet] 650 mg PO Q4H PRN PRN 05/01/18 ALPRAZolam [Xanax] 0.5 mg PO Q6H PRN PRN tablet 05/21/18 Albuterol Aerosols [Ventolin Aerosols] 2.5 mg INHALATION Q2H PRN PRN vial.neb. 05/21/18 Bisacodyl [Dulcolax] 10 mg PO DAILY PRN tablet 05/21/18 Enoxaparin [Lovenox] 40 mg SC DAILY@0600 syringe 05/21/18 Furosemide [Lasix] 40 mg PO BID@1000,1800 tablet 05/21/18 Guaifenesin Dm [Robitussin Dm] 10 ml PO Q4H PRN PRN udc 05/21/18 Menthol/Lanolin/Calamine/Znox [Calmoseptine Ointment] 1 applic TOPICAL 0600,2200 tube 05/21/18 Nystatin Powder [Mycostatin Powder] 1 applic TOPICAL 0600,2200 bottle 05/21/18 Oxycodone [Oxyir] 10 mg PO Q4H PRN PRN tablet 05/21/18 Pioglitazone [Actos] 15 mg PO BIDCM tablet 05/21/18 Polyethylene Glycol 3350 [Miralax] 17 gm PO DAILY packet 05/21/18 Potassium Chloride [K-Dur] 20 meq PO DAILYCM tablet 05/21/18 Senna/Docusate Sodium [Senokot-S] 2 tablet PO BID tablet 05/21/18 Primary Care Physician: Tommy Maciel Chi, MD [Primary Care Provider] - Please follow up with your Primary Care Physician in: After [facility] from [facility]. Please Follow Up With: Dr.Eric Louise When: 1-2 weeks from [id number] Disposition: Asstd Living/Non-Skill [place] Minutes spent on discharge:: 35 Patient Condition:: Guarded Medical Necessity - Tobacco Use Smoking Status: Current every day smoker Tobacco Use: Cigarettes Meaningful Use Info Meaningful Use Diagnoses (Choose all that apply): None applicable
--- NOTE | 2018-05-21 18:22 | DS.PCM_ITS ---
Discharge Date and Diagnosis - Problem List Patient Problems: Active and Suspected Problems Fracture of left tibia and fibula (Acute) Date of Admission: 05/01/18 Date of Discharge: 05/22/18 - Primary Discharge Diagnosis Active and Suspected Problems Fracture of left tibia and fibula (Acute) - Secondary Discharge Diagnosis Chronic Problems Chronic kidney disease (Chronic) Cirrhosis of liver (Chronic) Anemia (Chronic) Chronic constipation (Chronic) Diabetes mellitus (Chronic) Chronic pain (Chronic) Toe pain, left (Chronic) Toe pain, right (Chronic) Tinea unguium (Chronic) Insomnia (Chronic) GERD (gastroesophageal reflux disease) (Chronic) Edema (Chronic) Hypomagnesemia (Chronic) Pulmonary hypertension (Chronic) mild Stroke (Chronic) Hepatic encephalopathy (Chronic) Hypertension (Chronic) COPD (chronic obstructive pulmonary disease) (Chronic) Peripheral vascular disease (Chronic) Hospital Course and Treatment Imaging Results: 05/01/18 18:32 Diet: Regular Diet Clinical Impression(s) from Imaging Studies Chest X-Ray 05/08/18 08:53 IMPRESSION: Mild degree of CHF with small bilateral pleural effusions and bibasilar atelectasis. Electronically Signed: Raheel Church MD at 10:33 EDT Tel [phone], Service support , Tibia/Fibula X-Ray 05/14/18 14:10 IMPRESSION: Open reduction internal fixation comminuted tibia fracture. Minimally displaced proximal and distal fibular fractures. Electronically Signed: Eloisa Aquino MD at 14:59 EDT Tel , Service support , Labs (Last 48 Hours) 05/20/18 05/21/18 07:03 07:01 POC Glucose 126 H 139 H Consultations 05/01/18 Consult: Onc/Wound/dispute specialist Routine Comment: Reason for Consult:: left heel DTI 05/09/18 06:57 Consult: Onc/Wound/dispute specialist Routine Comment: Reason for Consult:: Posterior lt thigh Operations: None Procedures: None Summary of Care Provided: The patient is a 83 year old Male with below past medical history hospitalized for fall with left tib/fib fracture, underwent ORIF 04/27/2018 at [facility] , admitted to TCU with debility, here for rehabilitation, strengthening, prior to discharge home with spouse. Resident is dying, I have let resident, , daughter know he is hospice appropriate. is in denial at this time. Consider transitioning to hospice care. [facility] [place], under intermediate stay. Discharge Diet: No Restrictions Discharge Activity: Return to Normal Activity, May Shower, Use Walker Weight Bearing Status: Weight bearing as tolerated Call your doctor if you observe: Fever of 101 or Higher, Inability to urinate, Inability to have a bowel movement, Chest pain, Uncontrolled pain Home Medications: Medications to take at Discharge Magnesium Oxide [Mag-Ox 400] 400 mg PO DAILY 12/21/15 Amlodipine [Norvasc] 5 mg PO DAILY 07/13/17 Propranolol HCl 80 mg PO BID 07/13/17 Amitriptyline HCl [Elavil] 25 mg PO QHS 08/02/17 Aspirin [Aspirin, Baby] 81 mg PO DAILY@0800 11/13/17 Atorvastatin Calcium [Lipitor] 40 mg PO QHS 11/13/17 Oxycodone CR [Oxycontin] 20 mg PO Q12H 04/25/18 Acetaminophen [Tylenol Tablet] 650 mg PO Q4H PRN PRN 05/01/18 ALPRAZolam [Xanax] 0.5 mg PO Q6H PRN PRN tablet 05/21/18 Albuterol Aerosols [Ventolin Aerosols] 2.5 mg INHALATION Q2H PRN PRN vial.neb. 05/21/18 Bisacodyl [Dulcolax] 10 mg PO DAILY PRN tablet 05/21/18 Enoxaparin [Lovenox] 40 mg SC DAILY@0600 syringe 05/21/18 Furosemide [Lasix] 40 mg PO BID@1000,1800 tablet 05/21/18 Guaifenesin Dm [Robitussin Dm] 10 ml PO Q4H PRN PRN udc 05/21/18 Menthol/Lanolin/Calamine/Znox [Calmoseptine Ointment] 1 applic TOPICAL 0600, 2200 tube 05/21/18 Nystatin Powder [Mycostatin Powder] 1 applic TOPICAL 0600,2200 bottle 05/21/18 Oxycodone [Oxyir] 10 mg PO Q4H PRN PRN tablet 05/21/18 Pioglitazone [Actos] 15 mg PO BIDCM tablet 05/21/18 Polyethylene Glycol 3350 [Miralax] 17 gm PO DAILY packet 05/21/18 Potassium Chloride [K-Dur] 20 meq PO DAILYCM tablet 05/21/18 Senna/Docusate Sodium [Senokot-S] 2 tablet PO BID tablet 05/21/18 Primary Care Physician: Tommy Maciel Chi, MD [Primary Care Provider] - Please follow up with your Primary Care Physician in: After [facility] from [facility]. Please Follow Up With: Dr.Eric Louise When: 1-2 weeks from [id number] Disposition: Asstd Living/Non-Skill [place] Minutes spent on discharge:: 35 Patient Condition:: Guarded Medical Necessity - Tobacco Use Smoking Status: Current every day smoker Tobacco Use: Cigarettes Meaningful Use Info Meaningful Use Diagnoses (Choose all that apply): None applicable
[2018-05-21 22:30] VITALS: O2SAT 94
[2018-05-21] MEDS: Atorvastatin Calcium 40 MG Tablet PO (22:43)
[2018-05-21] MEDS: Amitriptyline 25 MG Tablet PO (22:43)
[2018-05-21] MEDS: oxyCODONE 5 MG Tablet 10 MG PO (22:47)
[2018-05-22] MEDS: Menthol/Lanolin/Calamine/Znox 113 GM Tube 1 APPLIC TOPICAL (06:14)
[2018-05-22] MEDS: Senna/Docusate Sodium 1 Tablet 2 TABLET PO (06:15)
[2018-05-22] MEDS: amLODIPine 5 MG Tablet PO (06:15)
[2018-05-22] MEDS: Enoxaparin 40 MG/0.4 ML Syringe SC (06:15)
[2018-05-22] MEDS: Propranolol 40 MG Tablet 80 MG PO (06:15)
[2018-05-22] MEDS: Nystatin Powder 15gm Bottle 1 APPLIC TOPICAL (06:15)
[2018-05-22] MEDS: Magnesium Oxide 400 MG Tablet PO (06:15)
[2018-05-22 07:20] LABS: Bedside Glucose 150 mg/dL (70-110)
[2018-05-22] MEDS: Furosemide 40 MG Tablet PO (09:19)
[2018-05-22] MEDS: Pioglitazone Hydrochloride 15 MG Tablet PO (09:19)
[2018-05-22] MEDS: Aspirin 81 MG TAB.CHEW PO (09:20)
[2018-05-22 10:00] VITALS: PULSE 78; RESP 20; O2SAT 92
--- NOTE | 2018-05-22 10:33 | CASEMGMT ---
Social Work Discharge information and PASRR results faxed to [facility] [place]. Proposed discharge date: 05/22/18 PLAN: Discharge on 05/22/18 @ 2:00pm. Mely SANDOVAL, EDUCATION REPORTER
--- NOTE | 2018-05-22 11:37 | NURSING ---
PT CONFUSED,STATED THERE WAS A MAN SITTING IN A CHAIR BESIDE HIS BED. REASSURED PT THERE WAS NO ONE THERE. PT STATED WELL HE WAS. REPORTED TO JANUSZ LEON
--- NOTE | 2018-05-22 13:13 | CASEMGMT ---
Social Work Talking with resident spouse multiple times today. Resident spouse was reading over the detailed notice of medicare non-coverage and noted that there was some incorrect information. Resident spouse speaking to this public health social worker in length. This public health social worker communicating what information was sent to insurance, resident spouse agreeable to what information was sent but confused at why insurance form states otherwise. Resident spouse wanting to ensure that insurance had correct information when deciding to discontinue coverage. This public health social worker contacting insurance, Magdalena. Magdalena reporting that information was noted to be incorrect on notice sent to family but that insurance had the correct information when reviewing the chart. This public health social worker spoke with Betzaida from the insurance ([facility]). Betzaida reporting to have completed form and to have noted to have made an error. Betzaida making corrections and sending form to this public health social worker via fax and via mail to resident home address. Betzaida and Magdalena reporting that this does not make a change to residents approved/denied time. Spoke again with resident spouse. Resident reporting to have talked with insurance and filed a complaint. Insurance is to get back to resident spouse on outcome of complaint by end of today. Resident spouse is waiting to hear back from insurance at this time. Resident spouse is not wanting resident to be transported until a call from insurance has been obtained. Resident spouse requesting for transportation to be changed to 4:00pm to allow for more time to hear back from the insurance. Resident spouse aware that at this time continued stay has been denied by insurance and that if resident would continue with stay a private pay rate would be applied and billed to resident. Resident is agreeable to all above at well. Support given. Telephone call to Lili/Krista, transportation time changed to 4:00pm. Notified [facility] [place] of the change of time for transport. Proposed discharge date: 05/22/18 pending resident/resident spouse decision. PLAN: [facility]charge to [facility] [place]. Mely SANDOVAL, SHOE PULLER
[2018-05-22] MEDS: oxyCODONE 5 MG Tablet 10 MG PO (14:10)
--- NOTE | 2018-05-22 15:54 | CASEMGMT ---
Social Work Spoke with resident spouse. Resident spouse reporting to have not heard from insurance yet and to want to cancel transportation at this time. This professor of social work voicing understanding. Resident spouse aware of possible private pay charges at this time. Resident agreeable to plan. Support given. Telephone call to Lili/Krista, transportation canceled at this time. Telephone call to K[facility] at [facility] [place]. This professor of social work communicating above information. Kira aware that resident may still be coming today pending if insurance gets back to resident spouse. Kira voicing understanding. Proposed discharge date: 05/22/18 pending response from resident spouse. PLAN: Discharge to [facility] [place]. Mely SANDOVAL, WEATHERSTRIP MACHINE OPERATOR
--- NOTE | 2018-05-22 18:35 | NURSING ---
BUYER LIAISON entered patient's room for med pass, patient SOB and labored. Oxygen 70% on 4L, increased to 5L, oxygen dropped to 50%, NRB at 15L put on and DOUBLE END TENONER SETTER called. BP 122/76, 87, oxygen increased to 86% on 15. Patient's lungs with crackles. EKG done per MD during DOUBLE END TENONER SETTER, IV inserted to RAC. Patient taken down to ER, report given to RN present during DOUBLE END TENONER SETTER. Patient's , Buffy, made aware.
--- NOTE | 2018-05-22 18:55 | NURSING ---
Pt's spouse, Buffy notified pt's condition. Pt's spouse aware pt is going to ER for further evaluation. Spouse informed this nurse she is unable to drive at night d/t medical conditions. Pt's spouse Buffy requesting updates. Norah nurse in ER informed spouse would not be in but would like updates.
--- NOTE | 2018-05-22 19:21 | NURSING ---
THIS NURSE WENT TO PT ROOM AT 1830 TO GIVE MEDS AND AID STATED TO THIS NURSE THAT SHE THOUGHT PT WAS HAVING A HARD TIME BREATHING. THIS NURSE FOUND PT HAVING TROUBLE BREATHING ASKED PT IF HE WAS PT STATED YES I CANT BREATH. OXYGEN WAS 77% ON 4L. BUMPED PT UP TO 5L. PT DID NOT IMPROVE AND DROPPED TO 70%. CALLED JANUSZ LEON TO ROOM. OXYGEN THEN DROPPED TO IN THE 50S. DEDICATED REGIONAL DRIVER WAS CALLED.
--- NOTE | 2018-05-22 19:22 | EKG12_ITS ---
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 Rate : 093 BPM Atrial Rate : 093 BPM P-R Int : 256 ms QRS Dur : 134 ms QT Int : 378 ms P-R-T Axes : 000 009 058 degrees QTc Int : 469 ms Poor data quality, interpretation may be adversely affected Sinus rhythm with 1st degree A-V block Non-specific intra-ventricular conduction block Nonspecific T wave abnormality Abnormal ECG Confirmed by YING MOLINA, YOLANDE ([id number]), metropolitan editor DELILAH LOYOLA ([id number]) on 05/25/2018 1:54:26 PM Referred By: DARLENE Confirmed By:YOLANDE HE MD
--- NOTE | 2018-05-23 08:22 | PCM.DC ---
- Discharge Diagnoses Current Active Problems: Current Active and Chronic Problems Acute exacerbation of CHF (congestive heart failure) (Acute) You will use the following diet at home:: No restrictions, Regular Your food should be the consistency of: Regular Your liquids should be the consistency of: Regular/Thin Discharge Activity: Return to Normal Activity, May Shower, Use Walker Weight Bearing Status: Weight bearing as tolerated Call your doctor if you observe: Fever of 101 or Higher, Inability to urinate, Inability to have a bowel movement, Chest pain, Uncontrolled pain Allergies/Adverse Reactions: Allergies aspirin Adverse Reaction (Verified 05/22/18 18:58) Other causes stomach to bleed Medications to take at Discharge Magnesium Oxide [Mag-Ox 400] 400 mg PO DAILY 12/21/15 Amlodipine [Norvasc] 5 mg PO DAILY 07/13/17 Propranolol HCl 80 mg PO BID 07/13/17 Amitriptyline HCl [Elavil] 25 mg PO QHS 08/02/17 Aspirin [Aspirin, Baby] 81 mg PO DAILY@0800 11/13/17 Atorvastatin Calcium [Lipitor] 40 mg PO QHS 11/13/17 Oxycodone CR [Oxycontin] 20 mg PO Q12H 04/25/18 ALPRAZolam [Xanax] 0.5 mg PO Q6H PRN PRN tablet 05/21/18 Albuterol Aerosols [Ventolin Aerosols] 2.5 mg INHALATION Q2H PRN PRN vial.neb. 05/21/18 Bisacodyl [Dulcolax] 10 mg PO DAILY PRN tablet 05/21/18 Enoxaparin [Lovenox] 40 mg SC DAILY@0600 syringe 05/21/18 Guaifenesin Dm [Robitussin Dm] 10 ml PO Q4H PRN PRN udc 05/21/18 Menthol/Lanolin/Calamine/Znox [Calmoseptine Ointment] 1 applic TOPICAL 0600,2200 tube 05/21/18 Nystatin Powder [Mycostatin Powder] 1 applic TOPICAL 0600,2200 bottle 05/21/18 Oxycodone [Oxyir] 10 mg PO Q4H PRN PRN tablet 05/21/18 Acetaminophen 1,000 mg PO Q8H PRN PRN 05/22/18 Emollient Combination No.72 [Eucerin Intensive Repair] 1 applicatio TP BID 05/22/18 Furosemide Liquid [Lasix Liquid] 4 ml IV X1 05/22/18 Furosemide [Lasix] 40 mg PO BID 05/22/18 Pioglitazone [Actos] 15 mg PO BIDCM 05/22/18 Polyethylene Glycol 3350 [Miralax] 17 gm PO DAILY 05/22/18 Potassium Chloride [K-Dur] 20 meq PO DAILYCM 05/22/18 Senna/Docusate Sodium [Senokot-S] 2 tablet PO BID 05/22/18 Primary Care Physician: Tommy Maciel Chi, MD [Primary Care Provider] - Please follow up with your Primary Care Physician in: After discharge from Hospital. Test Results: Test results from this visit will be discussed in further detail at your follow-up appointment, if applicable. Please Follow Up With: Dr.Eric Louise When: 1-2 weeks from [id number] Proposed Discharge Date: 05/22/18
--- NOTE | 2018-05-23 12:30 | CASEMGMT ---
Insurance Notified insurance of resident discharge to acute hospital setting on 05/22/18. Auth#[id number] Mely SANDOVAL, MASH TUB COOKER OPERATOR
--- NOTE | 2018-05-23 12:31 | CASEMGMT ---
Social Work Telephone call to the [facility] [place]. This social service agency director notified [facility] of resident discharge to [facility]. Mely SANDOVAL, [employer] MEMBER
== END 2018-05-22 22:40 | disposition short-term general hospital (02) | DRG 559 ==
PROVIDERS: Admitting Provider Family Medicine Geriatric Medicine; Family Provider Family Medicine Geriatric Medicine; PCP Family Medicine Geriatric Medicine; Visit Provider Family Medicine Geriatric Medicine
DX: S82.202D Unspecified fracture of shaft of left tibia, subsequent encounter for closed fracture with routine healing (principal); I50.31 Acute diastolic (congestive) heart failure; I13.0 Hypertensive heart and chronic kidney disease with heart failure and stage 1 through stage 4 chronic kidney disease, or unspecified chronic kidney disease; S82.402D Unspecified fracture of shaft of left fibula, subsequent encounter for closed fracture with routine healing; W19.XXXD Unspecified fall, subsequent encounter; J44.9 Chronic obstructive pulmonary disease, unspecified; I73.9 Peripheral vascular disease, unspecified; E11.22 Type 2 diabetes mellitus with diabetic chronic kidney disease; N18.9 Chronic kidney disease, unspecified; K21.9 Gastro-esophageal reflux disease without esophagitis; G89.29 Other chronic pain; I27.20 Pulmonary hypertension, unspecified; F17.210 Nicotine dependence, cigarettes, uncomplicated; I69.398 Other sequelae of cerebral infarction; H53.9 Unspecified visual disturbance; I25.10 Atherosclerotic heart disease of native coronary artery without angina pectoris; E78.5 Hyperlipidemia, unspecified; K74.60 Unspecified cirrhosis of liver
CPT/HCPCS: 36415; 71045; 71046; 73590; 80048; 82140; 82962; 85025; 93005; 94640; 97110; 97116; 97161; 97166; 97530; 97535; 97802; J7030; J7050; A4216; J1940

== ENCOUNTER 2018-05-22 18:51 | Inpatient (IN) | payer MEDICARE, SELFPAY ==
[2018-05-22] VITALS (12 sets, daily range): BP systolic 98–126; BP diastolic 53–94; PULSE 66–88; RESP 12–28; TEMP 36.6; O2SAT 50–100; BMI 29.1
[2018-05-22 19:05] LABS: Allen Test POS; Base Excess 8 mmol/L (-2 to +2); Bicarbonate 33.8 mmol/L (22-26); Blood Gas Specimen Type ART; O2 Delivery Device NRB Mask; PO2 183 mmHG (75-100); SITE R Radial; SO2 99 % (95-99); Time Given 1900; Total Carbon Dioxide 36 mmol/L; pCO2 66.6 mmHg (35-45); pH 7.31 (7.35-7.45)
--- NOTE | 2018-05-22 19:21 | ED.RN ---
pt placed on bipap
--- NOTE | 2018-05-22 19:25 | ED.RN ---
PT ARRIVES TO ED SOB. ON 15 L NRB. PT RESPIRATORY STATUS BEING MANAGED PER RESPIRATORY THERAPY. PT SWITCHED TO VENTI MASK AT 1905 AND THEN DESATTING FROM 100% TO 96%. PT PLACED ON BIPAP. PT TOLERATING WELL. DR. MELGAR AT BEDSIDE.
[2018-05-22] MEDS: Ipratropium/Albuterol Sulfate 3 ML AMPUL.NEB INHALATION (19:30)
[2018-05-22] MEDS: Albuterol 2.5 MG/3 ML VIAL.NEB. INHALATION ×2 (19:43)
--- NOTE | 2018-05-22 19:45 | RAD_ITS ---
STUDY: X-RAY CHEST REASON FOR EXAM: Male, 83 years old. Shortness of breath. TECHNIQUE: Single AP portable view of the chest. COMPARISON: May 08, 2018 FINDINGS: There are monitoring devices. There are worsened bilateral lower lung groundglass and airspace opacities. There is small pleural effusions. Normal size heart. Normal mediastinum and esthela. Normal visualized pulmonary arteries. There is atherosclerotic calcification of the aortic arch with tortuosity. There is demineralization of the osseous structures. Normal visualized ribs, clavicles, and shoulders. There is no demonstrated abnormality of the visualized soft tissue structures of the upper abdomen. RAD/Chest 1 View (Portable) IMPRESSION: Bilateral infiltrates or edema and small pleural effusions. Electronically Signed: José Carrasco MD at 20:10 EDT , Service support ,
[2018-05-22 19:53] LABS: Absolute Lymphocyte Count 1.08 X10^3/ul (0.83-4.51); Absolute Neutrophil Count 8.3 X10^3/uL (2.0-7.7); Basophil# 0.04 X10^3/uL; Basophil% 0.3 % (0-1); Eosinophil# 0.38 X10^3/uL; Eosinophils% 3.3 % (0-5); Hematocrit 27.6 % (40-54); Hemoglobin 8.6 g/dl (13.0-16.5); Lymphocyte # 1.08 X10^3/ul (4.0); Lymphocyte % 9.4 % (19-41); Mean Corp Hgb Conc 31.2 g/gl (32-36); Mean Corpuscular Volume 99.6 fL (80-94); Mean Platelet Vol. 8.9 fl (6.2-12.0); Monocyte# 1.57 X10^3/uL; Monocyte% 13.7 % (0-10); Neutrophil # 8.33 X10^3/uL (2.7-7.7); Platelet Count 217 K/mm3 (150-450); RBC Distribution Width CV 13.6 % (11.6-14.6); RBC Distribution Width SD 47.6 fl (35.1-43.9); Red Blood Count 2.77 M/mm3 (4.6-6.2); White Blood Count 11.4 K/mm3 (4.4-11.0)
[2018-05-22 19:54] LABS: Differential Indicated SCAN CRITERIA MET; International Normalized Ratio 1.1; POSITIVE COUNT NO; POSITIVE DIFFERENTIAL YES; POSITIVE MORPHOLOGY NO; Prothrombin Time (Protime)PT. 14.3 SECONDS (11.7-14.9)
[2018-05-22 20:05] LABS: Anion Gap 5 (5-15); BUN 29 mg/dL (7-18); BUN/Creat Ratio 15.4 RATIO (10-20); Calcium,Total 9.1 mg/dL (8.5-10.1); Chloride 95 mmol/L (98-107); Creatinine, Serum 1.88 mg/dL (0.70-1.30); EST Glomerular Filtration Rate 37 mL/min (>60); Est Glom Filt Rate - Afr Amer 44 mL/min (>60); Estimated Creatinine Clearance 30.29 ml/min; Glucose 191 mg/dL (74-106); Potassium 4.5 mmol/L (3.5-5.1); Sodium Level 133 mmol/L (136-145)
[2018-05-22] MEDS: MethylPREDNISolone 125 MG/2 ML Vial IV (21:03)
[2018-05-22 21:54] LABS: BNP,B-Type NATRIURETIC PEPTIDE 1502.7 pg/mL (0-100)
--- NOTE | 2018-05-22 22:09 | HP.PCM_ITS ---
Problem List (1) COPD with acute exacerbation Status: Acute (2) Acute exacerbation of CHF (congestive heart failure) Status: Acute Qualifiers: Heart failure type: diastolic Qualified Code(s): I50.33 - Acute on chronic diastolic (congestive) heart failure History of Present Illness Date of Admission: 05/22/18 Chief Complaint: Shortness of breath and anxiety. The patient is a 83 year old M with a significant history of tobacco abuse, COPD , heart failure CVA, CAD, diabetes, hypertension hyperlipidemia, CKD who was transferred from transitional care unit to the emergency department because of severe shortness of breath and anxiety. His symptoms started the same day of his admission. He was rapid response because he was extremely hypoxic with oxygen saturation of 50% on 4 L. He was placed on a nonrebreather mask but he continued to be severely hypoxic. At emergency department he was placed on BiPAP and finally weaned off from BiPAP to nasal cannula. His chest x-ray showed bilateral lower lung groundglass and airspace opacities with small pleural effusion. His BNP was severely elevated at 1502.7. His ABG showed pH 7.3, PCO2 of 66 and oxygen pressure of 183. He received Lasix IV, breathing treatments and Solu-Medrol at emergency department. The patient was at a TCU undergoing rehabilitation after surgery on fractured left tibia and left fibula. He reports jamming his leg into something and then falling. His surgery was done at [facility]. Past Medical History Past Medical History (Chronic Problems): Chronic Problems Chronic kidney disease (Chronic) Cirrhosis of liver (Chronic) Anemia (Chronic) Chronic constipation (Chronic) Diabetes mellitus (Chronic) Chronic pain (Chronic) Toe pain, left (Chronic) Toe pain, right (Chronic) Tinea unguium (Chronic) Insomnia (Chronic) GERD (gastroesophageal reflux disease) (Chronic) Edema (Chronic) Hypomagnesemia (Chronic) Pulmonary hypertension (Chronic) mild Stroke (Chronic) Hepatic encephalopathy (Chronic) Hypertension (Chronic) COPD (chronic obstructive pulmonary disease) (Chronic) Peripheral vascular disease (Chronic) Allergies aspirin Adverse Reaction (Verified 05/22/18 18:58) Other causes stomach to bleed Home Medications: Ambulatory Orders Medication Instructions Recorded Magnesium Oxide [Mag-Ox 400] 400 mg PO DAILY 12/21/15 Amlodipine [Norvasc] 5 mg PO DAILY 07/13/17 Propranolol HCl 80 mg PO BID 07/13/17 Amitriptyline HCl [Elavil] 25 mg PO QHS 08/02/17 Aspirin [Aspirin, Baby] 81 mg PO DAILY@0800 11/13/17 Atorvastatin Calcium [Lipitor] 40 mg PO QHS 11/13/17 Oxycodone CR [Oxycontin] 20 mg PO Q12H 04/25/18 ALPRAZolam [Xanax] 0.5 mg PO Q6H PRN PRN tablet 05/21/18 Albuterol Aerosols [Ventolin 2.5 mg INHALATION Q2H PRN PRN 05/21/18 Aerosols] vial.neb. Bisacodyl [Dulcolax] 10 mg PO DAILY PRN tablet 05/21/18 Enoxaparin [Lovenox] 40 mg SC DAILY@0600 syringe 05/21/18 Guaifenesin Dm [Robitussin Dm] 10 ml PO Q4H PRN PRN udc 05/21/18 Menthol/Lanolin/Calamine/Znox 1 applic TOPICAL 0600,2200 tube 05/21/18 [Calmoseptine Ointment] Nystatin Powder [Mycostatin Powder] 1 applic TOPICAL 0600,2200 bottle 05/21/18 Oxycodone [Oxyir] 10 mg PO Q4H PRN PRN tablet 05/21/18 Acetaminophen 1,000 mg PO Q8H PRN PRN 05/22/18 Emollient Combination No.72 1 applicatio TP BID 05/22/18 [Eucerin Intensive Repair] Furosemide Liquid [Lasix Liquid] 4 ml IV X1 05/22/18 Furosemide [Lasix] 40 mg PO BID 05/22/18 Pioglitazone [Actos] 15 mg PO BIDCM 05/22/18 Polyethylene Glycol 3350 [Miralax] 17 gm PO DAILY 05/22/18 Potassium Chloride [K-Dur] 20 meq PO DAILYCM 05/22/18 Senna/Docusate Sodium [Senokot-S] 2 tablet PO BID 05/22/18 Surgical History: cholecystectomy, tonsillectomy, - - Stone removal from common bile duct, ORIF left tib/fib fracture. Psychiatric History: No pertinent psych hx Smoking Status: Former smoker - *Family History Maternal History Items: Diabetes Paternal History Items: Stroke Review of Systems Constitutional: Reports: Fatigue Eyes: Denies: Blurred vision, Pain HEENT: Denies: Head Aches, Sinus Congestion, Sinus Drainage Cardiovascular: Denies: Chest Pain, Chest Pressure Respiratory: Reports: Cough Gastrointestinal: Denies: Abdominal Pain, Nausea, Vomiting Genitourinary: Denies: Dysuria Musculoskeletal: Reports: Leg Pain - Left leg secondary to trauma status post surgery Skin: Denies: Rash, Wounds Neurological: Denies: Change in Speech, Slurred speech, Confusion Psychiatric: Reports: Anxiety Hematologic/ Lymphatic: Denies: Easy Bruising, Easy Bleeding VTE Information - Inpt Only VTE Present on Admission: No VTE Mechan Device Prophylaxis: None VTE Pharm Prophylaxis ordered?: Yes Patient Problems: Active and Suspected Problems Fracture of left tibia and fibula (Acute) Acute exacerbation of CHF (congestive heart failure) (Acute) - Physical Exam General: Alert, Oriented x3, Cooperative HEENT: Atraumatic, PERRLA, EOMI, Normocephalic Neck: Supple, No JVD, Negative Carotid Bruits Lungs: Rales, Wheezes Cardiovascular: Regular rate Abdomen: Bowel Sounds Present, Soft, Non Tender Extremities: No edema, Capillary Refill Less than 3 Seconds, Tenderness - Left leg Skin: Ulcer/ Wound - Bilateral lower gluteals with stage II ulcer Left heel with ecchymosis and ulcer Left posterior thigh with necrotic wound, - - Left leg with pinkish discoloration of the rosario. Left toe with necrotic wound. Psych/Mental Status: Normal Affect, Appropriate Vital Signs Temp Pulse Resp BP Pulse Ox 97.8 F 85 20 H 108/66 98 05/22/18 18:53 05/22/18 21:57 05/22/18 21:57 05/22/18 21:57 05/22/18 21:57 Oxygen Flow Rate (L/min) 3 Oxygen Delivery Method Nasal Cannula Weight: 89.5 kg Body Mass Index (BMI) 29.1 Finger Stick Blood Glucose 205 Laboratory Tests Past 24 Hrs 05/22/18 05/22/18 05/22/18 19:00 19:05 19:05 WBC 11.4 H RBC 2.77 L Hgb 8.6 L Hct 27.6 L MCV 99.6 H MCH 31.0 MCHC 31.2 L RDW 13.6 RDW Differential 47.6 H Plt Count 217 MPV 8.9 Immature Gran % (Auto) 0.300 Neut % (Auto) 73.0 H Lymph % (Auto) 9.4 L Crisp % (Auto) 13.7 H Eos % (Auto) 3.3 Baso % (Auto) 0.3 Absolute Neuts (auto) 8.3 H Absolute Lymphs (auto) 1.08 Total Counted Not Reportable PT 14.3 INR 1.1 Specimen Type ART Sample Site R Radial pH 7.31 L Bicarbonate Actual 33.8 H POC Total CO2 36 Base Excess 8 H O2 Saturation 99 ABG pCO2 66.6 H ABG pO2 183 H Naldo Test POS O2 Delivery Device NRB Mask Liter Flow 15.0 Blood Gas Notified Whom ED Blood Gas Notified Time 1900 Sodium Potassium Chloride Carbon Dioxide Anion Gap BUN Creatinine Estim Creat Clear Calc Est GFR (MDRD) Af Amer Est GFR (MDRD) Non-Af BUN/Creatinine Ratio Glucose Calcium Troponin I B-Natriuretic Peptide 05/22/18 05/22/18 19:05 19:05 WBC RBC Hgb Hct MCV MCH MCHC RDW RDW Differential Plt Count MPV Immature Gran % (Auto) Neut % (Auto) Lymph % (Auto) Crisp % (Auto) Eos % (Auto) Baso % (Auto) Absolute Neuts (auto) Absolute Lymphs (auto) Total Counted PT INR Specimen Type Sample Site pH Bicarbonate Actual POC Total CO2 Base Excess O2 Saturation ABG pCO2 ABG pO2 Naldo Test O2 Delivery Device Liter Flow Blood Gas Notified Whom Blood Gas Notified Time Sodium 133 L Potassium 4.5 Chloride 95 L Carbon Dioxide 33.0 H Anion Gap 5 BUN 29 H Creatinine 1.88 H Estim Creat Clear Calc 30.29 Est GFR (MDRD) Af Amer 44 L Est GFR (MDRD) Non-Af 37 L BUN/Creatinine Ratio 15.4 Glucose 191 H Calcium 9.1 Troponin I 0.024 B-Natriuretic Peptide 1502.7 H Assessment/Plan All Active Problems Fracture of left tibia and fibula (Acute) Acute exacerbation of CHF (congestive heart failure) (Acute) Cellulitis of leg without foot, left (Acute) Encephalopathy (Acute) Acute respiratory failure with hypoxia (Acute) Debility (Acute) Paroxysmal A-fib (Acute) YANNA (acute kidney injury) (Acute) Diastolic CHF (Acute) COPD with acute exacerbation (Acute) Abdominal pain (Acute) Left leg cellulitis (Acute) Sepsis (Acute) Fall (Acute) Pancreatitis (Acute) 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 Acute hypoxic and hypercapnic respiratory failure secondary to acute COPD exacerbation and acute diastolic heart failure with intubation. Acute COPD exacerbation Breathing treatments ordered Solu-Medrol 40 mg every 8 hours Oxygen per nasal cannula BiPAP as needed Acute exacerbation of heart failure with preserved Ejection fraction BNP of 1500 with radiographic evidence of pulmonary congestion Patient was evaluated by cardiology on 11/12/2017 and per cardiology notes, Echo this year showed ejection fraction of 55% with evidence of inferior basal hypokinesis and mild pulmonary hypertension with pulmonary to systolic pressure estimated at 42 mmHg. Received Lasix at emergency department On scheduled Lasix 40 mg p.o. twice daily while at transitional care units; and on Lasix at home. Will escalate Lasix to 40 mg IV twice daily for now. Fluid restriction of 1500 mg daily Cardiac and Carb Controlled diet. Daily weights. Strict I&O's. Diabetes mellitus On home Pioglitazone, held Correction scale insulin ordered Cardiac and Control diet as above Multiple wounds Wound care consult Fracture of left tibia and fibula status post surgery Pain medication: Oxycodone CR; Oxycodone IR; and Tylenol continued PT and OT to work with patient. Hypertension Amlodipine continued Depression/anxiety Xanax and amitriptyline continued DVT prophylaxis Was on Lovenox 40 mg daily while at the transitional care unit, continued. Code Visit Inpatient E&M: 00234 Init Hosp L2
[2018-05-22] MEDS: Furosemide 40 MG/4 ML Vial IV (22:18)
--- NOTE | 2018-05-22 22:26 | ED.DCSUM_ITS ---
- ER Visit Summary Date of Service: 05/22/18 Chief Complaint: Shortness of breath History of Present Illness: The patient is a 83 M who presents with shortness of breath and anxiety. He had a recent leg fracture and was transferred to [facility]. He is currently in the TCU. He was a rapid response today. He was complaining of feeling anxious and short of breath. Nurses noted that he had a pulse oximetry of 50% on 4 L. He denies any pain currently. Physical Examination: Afebrile initial pulse ox 99% on nonrebreather with a respiratory rate of 28 heart rate 88 normal blood pressure Patient currently on BiPAP tachypneic with decreased air exchange diffusely I do not appreciate any rales Heart regular rhythm Abdomen soft Extremities nontender Test Results: EKG shows sinus rhythm at a rate of 93. Chest x-ray shows bilateral lower infiltrates versus pulmonary with bilateral pleural effusions. Labs notable for white count 11.4, hemoglobin 8.6. BUN 29 creatinine 1.88. ABG showed pH 7.31 with a PCO2 of 66. BNP 1502. Troponin 0 0.024. Emergency Department Course and Treatment: Patient did have significant improvement with BiPAP. He was given albuterol and Atrovent aerosols and IV Solu-Medrol for hypercapnic respiratory acidosis likely related to COPD. He did have significant improvement was able to be weaned down to nasal cannula. The patient denies any infectious symptoms currently such as fevers or cough. He is not tachycardic. Given significant elevation of BNP I suspect this is related to CHF rather than pneumonia. He was given IV Lasix. He was discussed with hospitalist and admitted. Treatment Plan: [] Disposition: Admit Impression: COPD exacerbation CHF exacerbation This note was generated with [employer] dictation software. It may contain incorrect words, spelling, and punctuation that were not noted in review of the chart prior to signing ED Disposition - Plan for ED Patient: Chief Complaint: Shortness of Breath Referrals: Tommy Maciel Chi, MD [Primary Care Provider] -
--- NOTE | 2018-05-22 23:16 | ED.RN ---
PT WITH COCCYX WOUND ON BILATERAL BUTTOCKS, NEW DRESSING PLACED BY THIS RN. WOUNDS ARE APPROXIMATELY DIME SIZED. PT TOLERATED DRESSING WELL. PT ALSO HAS WOUND ON LEFT HEEL, COVERED WITH DRESSING. PT PT ALSO HAS A WOUND THAT IS UNSTAGEABLE ON THE BACK OF HIS LEFT THIGH. BLACKENED ESCHAR PRESENT. MEASURING 3.0 CM X7.0 CM WOUND WRAPPED WITH TELFA AND GAUZE WRAP. PT TURNED ONTO LEFT SIDE, PROPPED UP WITH PILLOW AND MOVED UP IN BED. PT AWAITING ADMISSION.
--- NOTE | 2018-05-22 23:31 | NURSING ---
Called Shelley ED charge nurse, patient ok to come to floor.
[2018-05-23] VITALS (23 sets, daily range): BP systolic 98–133; BP diastolic 43–62; PULSE 68–88; RESP 16–20; TEMP 36.5–37.1; O2SAT 92–98; BMI 27.3; BMI 29.1
[2018-05-23] MEDS: Enoxaparin 40 MG/0.4 ML Syringe SC (05:31)
[2018-05-23] MEDS: Menthol/Lanolin/Calamine/Znox 113 GM Tube 1 APPLIC TOPICAL (05:31)
[2018-05-23] MEDS: Nystatin Powder 15gm Bottle 1 APPLIC TOPICAL ×2 (05:33→22:31)
[2018-05-23] MEDS: 0.9% NaCl Peripheral Flush Adult/Peds IV ×2 (06:21→18:32)
[2018-05-23] MEDS: Furosemide 40 MG/4 ML Vial IV ×2 (06:21→18:32)
[2018-05-23 06:22] LABS: Anion Gap 9 (5-15); BUN 31 mg/dL (7-18); BUN/Creat Ratio 18.1 RATIO (10-20); Calcium,Total 8.9 mg/dL (8.5-10.1); Chloride 96 mmol/L (98-107); Creatinine, Serum 1.71 mg/dL (0.70-1.30); EST Glomerular Filtration Rate 41 mL/min (>60); Est Glom Filt Rate - Afr Amer 50 mL/min (>60); Estimated Creatinine Clearance 32.22 ml/min; Glucose 208 mg/dL (74-106); Potassium 4.2 mmol/L (3.5-5.1); Sodium Level 136 mmol/L (136-145)
[2018-05-23 06:24] LABS: Absolute Lymphocyte Count 0.33 X10^3/ul (0.83-4.51); Basophil# 0.01 X10^3/uL; Basophil% 0.1 % (0-1); Hematocrit 26.5 % (40-54); Hemoglobin 8.5 g/dl (13.0-16.5); Lymphocyte # 0.33 X10^3/ul (4.0); Lymphocyte % 3.5 % (19-41); Mean Corp Hgb Conc 32.1 g/gl (32-36); Mean Corpuscular Hgb 31.6 pg (27.0-32.0); Mean Corpuscular Volume 98.5 fL (80-94); Mean Platelet Vol. 9.1 fl (6.2-12.0); Monocyte# 0.07 X10^3/uL; Monocyte% 0.7 % (0-10); Neutrophil % 95.6 % (47-70); Platelet Count 173 K/mm3 (150-450); RBC Distribution Width CV 13.2 % (11.6-14.6); RBC Distribution Width SD 45.7 fl (35.1-43.9); Red Blood Count 2.69 M/mm3 (4.6-6.2); White Blood Count 9.4 K/mm3 (4.4-11.0)
[2018-05-23] MEDS: Ipratropium/Albuterol Sulfate 3 ML AMPUL.NEB INHALATION ×5 (06:39→23:44)
[2018-05-23 06:48] LABS: Differential Indicated SCAN CRITERIA MET; POSITIVE COUNT NO; POSITIVE DIFFERENTIAL YES; POSITIVE MORPHOLOGY NO
[2018-05-23 07:06] LABS: Bedside Glucose 206 mg/dL (70-110)
[2018-05-23 07:10] LABS: Differential Comment SCANNED
[2018-05-23] MEDS: Aspirin 81 MG TAB.CHEW PO (07:49)
[2018-05-23] MEDS: Insulin Lispro 100 UNIT/ML INSULN.PEN SQ ×4 (07:53→22:33)
[2018-05-23] MEDS: Magnesium Oxide 400 MG Tablet PO (09:41)
[2018-05-23] MEDS: Senna/Docusate Sodium 1 Tablet 2 TABLET PO ×2 (09:41→22:29)
[2018-05-23] MEDS: Propranolol 40 MG Tablet 80 MG PO ×2 (09:43→22:30)
[2018-05-23] MEDS: Glucerna Shake 120 ML LIQUID PO ×2 (09:44→13:23)
[2018-05-23] MEDS: amLODIPine 5 MG Tablet PO (09:44)
--- NOTE | 2018-05-23 10:49 | CASEMGMT ---
THERESE spoke with THERESE Boone from TCU. Patient was supposed to be discharged to [facility] private pay yesterday. I called Ángela at [facility] and let her know patient is on PCU and will likely come tomorrow. Plan: [facility] under intermediate level of care. Shelley ESPAÑA MSW
[2018-05-23 11:31] LABS: Bedside Glucose 301 mg/dL (70-110)
--- NOTE | 2018-05-23 11:52 | NURSING ---
wound photo: left heel
--- NOTE | 2018-05-23 11:52 | NURSING ---
wound photo: left posterior thigh
--- NOTE | 2018-05-23 11:53 | NURSING ---
wound photo: bilateral buttocks
--- NOTE | 2018-05-23 12:49 | PN_ITS ---
Patient Problems: Active and Suspected Problems Acute exacerbation of CHF (congestive heart failure) (Acute) Subjective: Patient seen and examined. Confused during assessment. States he does not know it is going on here. Nursing reports patient has been confused and aggressive this morning, pulling at medical equipment. - Physical Exam General: Alert, Confused, Disoriented HEENT: Atraumatic, PERRLA, EOMI, Normocephalic Neck: Supple, No JVD, Negative Carotid Bruits Lungs: Diminished, - - Faint scattered crackles Cardiovascular: Regular rate, Regular Rhythm, Normal S1, Normal S2, No murmurs Abdomen: Bowel Sounds Present, Soft, Non Tender, Non-Distended Extremities: No clubbing, No cyanosis, No edema, Capillary Refill Less than 3 Seconds Skin: No rashes, No breakdown, - - Coccyx pressure injury, dressing clean dry and intact. Musculoskeletal: No Tenderness to Palpation of Joints or Extremities Neurological: Cranial nerves II-XII grossly intact, Neuro grossly intact Psych/Mental Status: Agitated, Restless Vital Signs Temp Pulse Resp BP Pulse Ox 98 F 81 19 H 111/43 L 94 05/23/18 09:33 05/23/18 11:02 05/23/18 10:52 05/23/18 09:33 05/23/18 09:33 Oxygen Flow Rate (L/min) 2 Oxygen Delivery Method Nasal Cannula Weight: 184 lb 4.903 oz Body Mass Index (BMI) 27.3 Intake and Output for Last 24 Hours 05/21/18 05/22/18 05/23/18 23:59 23:59 23:59 Intake Total 380 / 380 Output Total 400 / 400 300 / 300 Balance -400 / -400 80 / 80 Laboratory Tests Past 24 Hrs 05/23/18 05/23/18 05/23/18 05:15 05:15 11:50 WBC 9.4 RBC 2.69 L Hgb 8.5 L Hct 26.5 L MCV 98.5 H MCH 31.6 MCHC 32.1 RDW 13.2 RDW Differential 45.7 H Plt Count 173 MPV 9.1 Immature Gran % (Auto) 0.100 Neut % (Auto) 95.6 H Lymph % (Auto) 3.5 L Ware % (Auto) 0.7 Eos % (Auto) 0.0 Baso % (Auto) 0.1 Absolute Neuts (auto) 9.0 H Absolute Lymphs (auto) 0.33 L Total Counted Not Reportable Differential Comment SCANNED Sodium 136 Potassium 4.2 Chloride 96 L Carbon Dioxide 31.0 Anion Gap 9 BUN 31 H Creatinine 1.71 H Estim Creat Clear Calc 32.22 Est GFR (MDRD) Af Amer 50 L Est GFR (MDRD) Non-Af 41 L BUN/Creatinine Ratio 18.1 Glucose 208 H Calcium 8.9 Ammonia 11.0 POC Glucose 05/23/18 05/23/18 11:24 06:59 POC Glucose 301 H 206 H Medical Necessity - Tobacco Use Smoking Status: Former smoker Assessment/Plan All Active Problems Fracture of left tibia and fibula (Acute) Acute exacerbation of CHF (congestive heart failure) (Acute) Cellulitis of leg without foot, left (Acute) Encephalopathy (Acute) Acute respiratory failure with hypoxia (Acute) Debility (Acute) Paroxysmal A-fib (Acute) YANNA (acute kidney injury) (Acute) Diastolic CHF (Acute) COPD with acute exacerbation (Acute) Abdominal pain (Acute) Left leg cellulitis (Acute) Sepsis (Acute) Fall (Acute) Pancreatitis (Acute) 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 Acute on chronic diastolic CHF-patient with crackles bilateral bases. Echocardiogram June 2017 with EF of 55%. BNP 1502. Lasix 40 mg twice daily IV. Strict I&O. Daily weight. Repeat chest x-ray in a.m. 2. Acute hypoxic and hypercapnic respiratory failure secondary to #1. Continue supplemental oxygen to maintain O2 at or above 90%. 3. Acute metabolic encephalopathy-unclear etiology. Check ammonia level. Patient has a history of cirrhosis. reports patient has a history of confusion with admission to the hospital. 4. Chronic COPD-do not suspect exacerbation. No wheezing on assessment. Steroids discontinued. 5. Multiple wounds including coccyx and left heel pressure ulcers, present on admission-wound RN consult. Continue dressing changes. Frequent position changes. 6. Type 2 diabetes mellitus-continue oral p.o. glitazone. Accu-Cheks before meals at bedtime with sliding scale insulin. 7. Fracture of left tibia and fibula status post surgery- PT/OT. Patient with fall 04/25/2018 which resulted in left tib-fib fracture. Patient was transferred to [facility] at that time. Patient underwent left tib-fib ORIF 04/27/2018. Admitted to TCU for rehab prior to transfer to PCU. 8. Hypertension-stable, continue home regimen including amlodipine, Lasix, propanolol. 9. Depression/anxiety-continue amitriptyline regimen. Recommend discontinuation of Xanax regimen. 10. Chronic kidney disease stage III-stable. 11. Chronic macrocytic anemia-Trend CBC. Check B12, folate. DVT prophylaxis-Lovenox subcu. This patient was seen by ADELAIDA Jones under the supervision of Dr. Zhu.
[2018-05-23 13:22] LABS: Vitamin B12 640 pg/mL (211-911)
[2018-05-23 16:45] LABS: Bedside Glucose 250 mg/dL (70-110)
--- NOTE | 2018-05-23 18:15 | RAD_ITS ---
STUDY: X-RAY CHEST REASON FOR EXAM: Male, 83 years old. CHF. TECHNIQUE: Single AP portable view of the chest. COMPARISON: May 22, 2018. FINDINGS: There are monitoring devices. There are bilateral lower lung groundglass and airspace opacities. There are small bilateral pleural effusions. There is left upper lung granuloma. There is mild cardiac enlargement. Normal mediastinum and esthela. Normal visualized pulmonary arteries. There is atherosclerotic calcification of the aortic arch with tortuosity. There is demineralization of the osseous structures. Normal visualized ribs, clavicles, and shoulders. There is no demonstrated abnormality of the visualized soft tissue structures of the upper abdomen. RAD/Chest 1 View (Portable) IMPRESSION: Increasing bilateral edema or infiltrates and pleural effusions. Electronically Signed: José Carrasco MD at 19:06 EDT , Service support ,
--- NOTE | 2018-05-23 19:38 | EKG12_ITS ---
Test Reason : A-FIB Blood Pressure : / mmHG Vent. Rate : 076 BPM Atrial Rate : 075 BPM P-R Int : 000 ms QRS Dur : 124 ms QT Int : 404 ms P-R-T Axes : 000 000 -15 degrees QTc Int : 454 ms Atrial fibrillation Left bundle branch block Abnormal ECG Confirmed by YING MOLINA, YOLANDE ([id number]), legal editor DELILAH LOYOLA ([id number] on 05/25/2018 1:46:50 PM Referred By: DR MURO Confirmed By:YOLANDE HE MD
[2018-05-23] MEDS: oxyCODONE HCl Cr 10 MG Tablet PO (22:30)
[2018-05-23] MEDS: Atorvastatin Calcium 40 MG Tablet PO (22:31)
[2018-05-23] MEDS: MELATONIN 10 MG TABLET PO (22:39)
[2018-05-23 22:50] LABS: Bedside Glucose 244 mg/dL (70-110)
[2018-05-24] VITALS (16 sets, daily range): BP systolic 98–111; BP diastolic 47–53; PULSE 66–83; RESP 16–20; TEMP 36.3–36.7; O2SAT 93–98
[2018-05-24] MEDS: Nystatin Powder 15gm Bottle 1 APPLIC TOPICAL (05:25)
[2018-05-24] MEDS: Enoxaparin 40 MG/0.4 ML Syringe SC (05:27)
[2018-05-24 05:44] LABS: Hematocrit 23.8 % (40-54); Hemoglobin 7.6 g/dl (13.0-16.5); Mean Corp Hgb Conc 31.9 g/gl (32-36); Mean Corpuscular Hgb 31.3 pg (27.0-32.0); Mean Corpuscular Volume 97.9 fL (80-94); Mean Platelet Vol. 9.2 fl (6.2-12.0); Platelet Count 224 K/mm3 (150-450); RBC Distribution Width CV 13.4 % (11.6-14.6); RBC Distribution Width SD 45.2 fl (35.1-43.9); Red Blood Count 2.43 M/mm3 (4.6-6.2); White Blood Count 17.4 K/mm3 (4.4-11.0)
--- NOTE | 2018-05-24 05:55 | RAD_ITS ---
STUDY: X-RAY CHEST REASON FOR EXAM: Male, 83 years old. Shortness of breath. Acute hypoxia. Respiratory failure. TECHNIQUE: 2 AP portable views of the chest were obtained. Patient is rotated to the right. COMPARISON: 05/23/2018 and 05/22/2018. FINDINGS: There is interstitial prominence in the lungs with more confluent densities in the perihilar regions, consistent with CHF and pulmonary edema. There is a small left pleural effusion with overlying atelectasis in the left lung base. Findings are not significant different from previous study. There is borderline cardiomegaly. Normal mediastinum and esthela. Normal visualized pulmonary arteries. There is atherosclerotic calcification of the aortic arch with tortuosity. There are diffuse degenerative changes of the visualized thoracic spine. There are no visualized acute osseous abnormalities. There is no demonstrated abnormality of the visualized soft tissue structures of the upper abdomen. RAD/Chest 1 View (Portable) IMPRESSION: CHF with pulmonary edema and small left pleural effusion. Findings are not significantly different from last previous study. Electronically Signed: Tony Delgado MD at 5:13 EDT , Service support ,
[2018-05-24 06:02] LABS: Anion Gap 6 (5-15); BUN 49 mg/dL (7-18); BUN/Creat Ratio 24.9 RATIO (10-20); Calcium,Total 9.1 mg/dL (8.5-10.1); Chloride 96 mmol/L (98-107); Creatinine, Serum 1.97 mg/dL (0.70-1.30); EST Glomerular Filtration Rate 35 mL/min (>60); Est Glom Filt Rate - Afr Amer 42 mL/min (>60); Estimated Creatinine Clearance 27.97 ml/min; Glucose 194 mg/dL (74-106); Potassium 4.6 mmol/L (3.5-5.1); Sodium Level 135 mmol/L (136-145)
[2018-05-24 06:09] LABS: Scan Indicated on CBC? Y/N NO
--- NOTE | 2018-05-24 06:44 | NURSING ---
This RN has reviewed and agrees with all charting by Laurie CHAMPION. 05/23, 05/24 7p-7a
[2018-05-24 07:10] LABS: Bedside Glucose 192 mg/dL (70-110)
[2018-05-24] MEDS: Ipratropium/Albuterol Sulfate 3 ML AMPUL.NEB INHALATION ×3 (07:19→19:01)
[2018-05-24] MEDS: Insulin Lispro 100 UNIT/ML INSULN.PEN SQ ×3 (08:25→17:16)
[2018-05-24] MEDS: Aspirin 81 MG TAB.CHEW PO (09:20)
[2018-05-24] MEDS: Senna/Docusate Sodium 1 Tablet 2 TABLET PO (09:20)
[2018-05-24] MEDS: Magnesium Oxide 400 MG Tablet PO (09:20)
[2018-05-24] MEDS: Furosemide 40 MG/4 ML Vial IV ×2 (09:20→17:16)
[2018-05-24] MEDS: Propranolol 40 MG Tablet 80 MG PO (09:20)
[2018-05-24] MEDS: 0.9% NaCl Peripheral Flush Adult/Peds IV (09:36)
[2018-05-24] MEDS: oxyCODONE HCl Cr 10 MG Tablet PO (09:36)
--- NOTE | 2018-05-24 11:30 | CASEMGMT ---
Social Work Extensive conversation with pt . Attempting to discuss discharge plan with about [facility]. Pt continuing to express frustration that pt was cut by insurance in the TCU. SW allowed to express her frustrations and concerns about insurance denial for continued stay. SW read to pt the PT notes from the past week to help pt understand the information the insurance company had to make their determination. Pt continues to express that she does not feel insurance made the right decision. SW explained that Insurance denied continued stay and [facility] also reviewed and denied continued stay. SW requested that pt dgt Usha get involved to assist with decision making and support and denied. SW attempted to explained that [facility]ci plans needs to be made and [facility] which pt has choosen, is a viable option. SW will continue to follow for support and d/c planning. JAIME Spann
[2018-05-24 12:00] LABS: Bedside Glucose 233 mg/dL (70-110)
--- NOTE | 2018-05-24 13:32 | PCM.PROGNOTE ---
Patient Problems: Active and Suspected Problems Acute exacerbation of CHF (congestive heart failure) (Acute) Subjective: Pt seen and examined, resting comfortably in chair at bedside with OT present. He was able to get to the chair with assistance. He remains very weak overall and cannot sit up on his own. He remains SOB even at rest, especially with mild exertion. Dry cough occasionally. No CP. No dizziness/LH. No palp. - Physical Exam General: Alert, Oriented x3, Cooperative HEENT: Atraumatic, PERRLA, EOMI, Normocephalic Neck: Supple, No JVD, Negative Carotid Bruits Lungs: Rales - BL bases Cardiovascular: Regular rate, No murmurs Abdomen: Bowel Sounds Present, Soft, Non Tender Extremities: No edema, Capillary Refill Less than 3 Seconds Skin: No rashes, No breakdown Musculoskeletal: No Tenderness to Palpation of Joints or Extremities Neurological: Cranial nerves II-XII grossly intact Psych/Mental Status: Normal Affect, Appropriate Vital Signs Temp Pulse Resp BP Pulse Ox 97.4 F L 71 16 100/47 L 98 05/24/18 09:17 05/24/18 11:05 05/24/18 09:17 05/24/18 09:17 05/24/18 09:17 Oxygen Flow Rate (L/min) 2 Oxygen Delivery Method Nasal Cannula Weight: 182 lb 15.739 oz Body Mass Index (BMI) 27.3 Intake and Output for Last 24 Hours 05/22/18 05/23/18 05/24/18 23:59 23:59 23:59 Intake Total 980 / 980 300 / 300 Output Total 400 / 400 600 / 600 180 / 180 Balance -400 / -400 380 / 380 120 / 120 Laboratory Tests Past 24 Hrs 05/23/18 05/24/18 05/24/18 05:15 05:14 05:14 WBC 17.4 H RBC 2.43 L Hgb 7.6 L Hct 23.8 L MCV 97.9 H MCH 31.3 MCHC 31.9 L RDW 13.4 RDW Differential 45.2 H Plt Count 224 MPV 9.2 Sodium 135 L Potassium 4.6 Chloride 96 L Carbon Dioxide 33.0 H Anion Gap 6 BUN 49 H Creatinine 1.97 H Estim Creat Clear Calc 27.97 Est GFR (MDRD) Af Amer 42 L Est GFR (MDRD) Non-Af 35 L BUN/Creatinine Ratio 24.9 H Glucose 194 H Calcium 9.1 Folate 37.30 POC Glucose 05/24/18 05/24/18 05/23/18 11:42 06:58 22:29 POC Glucose 233 H 192 H 244 H 05/23/18 16:34 POC Glucose 250 H Medical Necessity - Tobacco Use Smoking Status: Former smoker Assessment/Plan All Active Problems Acute exacerbation of CHF (congestive heart failure) (Acute) Encephalopathy (Acute) Acute respiratory failure with hypoxia (Acute) Debility (Acute) Paroxysmal A-fib (Acute) YANNA (acute kidney injury) (Resolved) Diastolic CHF (Acute) COPD with acute exacerbation (Acute) Abdominal pain (Resolved) Left leg cellulitis (Resolved) Sepsis (Resolved) Fall (Resolved) Pancreatitis (Resolved) 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 Acute on chronic CHF diastolic congestive heart failure exacerbation-crackles bilateral bases. Echo June 2017 EF 55%. Elevated BNP. Continue IV Lasix twice daily. Strict I's and O's and daily weights. Does not have significant output on eyes and nose however his daily weight is significantly decreased. Repeat chest x-ray demonstrates CHF. 2. Acute hypoxic hypercapnic respiratory failure secondary to #1. Continue oxygen via nasal cannula. Still short of breath however sats are good. 3. Acute metabolic encephalopathy-ammonia level is normal. Patient remains confused this morning. Per he gets like this in the hospital. Suspect a component of dementia. 4. COPD-do not suspect underlying exacerbation. No wheezing. Steroids discontinued. Leukocytosis likely secondary to steroids. Continue aerosols as needed. 5. Multiple chronic wounds-present on admission-wound care following. 6. Type 2 diabetes mellitus-pioglitazone is been discontinued, contraindicated with CHF. Continue current therapy and titrate insulin. 7. Postsurgical left tib and fib fracture resulting from a mechanical fall on 04/25/2018. Open reduction internal fixation on 04/27/2018. Was in TCU following this fracture and repair. 8. Hypertension-stable 9. Depression/anxiety-continue home meds 10. CKD 3-stable 11. chronic macrocytic anemia-B12 and folate are normal. Hemoglobin trending down however no indication for transfusion at this time. DVT prophylaxis-subcu Lovenox DC planning: Home Vs SNF. SW/CM following. This patient was seen by Willian Puente PA-C under the supervision of Doctor Zhu..
--- NOTE | 2018-05-24 14:29 | CHAPLAIN ---
Type of Pastoral Visit _x__ Initial Visit ___ Follow-up Visit ___ On-call Visit ___ General Patient Visit ___ Spiritual Assessment ___ Family Conference ___ Bereavement ___ Rapid Response ___ Code Blue ___ Other (describe below) Pastoral Care Referral From _x__ Patient ___ Family ___ Nurse ___ Physician ___ Clerical Office ___ Dental Insurance Coordinator ___ Other (describe below) Sacrament/Intervention _x__ Active listening ___ Anointing ___ Christian ___ Bereavement ___ Communion ___ Sugey exploration ___ ___ Life review _x__ Prayer ___ Reconciliation ___ Sacrament of Sick _x__ Supportive presence ___ Wedding ___ Other (describe below) Pastoral Comments patient had been seen by this portfolio analyst when he was on TCU; follow up; pt wanting to go home
--- NOTE | 2018-05-24 14:41 | CASEMGMT ---
Social Work Received call from Kira at [facility]. They are able to accept pt when he is medically ready. Spoke with CHAN Dorsey and he expects possible discharge tomorrow. Phone call to pt and VM left informing that d/c is planned for tomorrow and that [facility] can accept pt. Plan: [facility] private [facility] sn[facility] care JAIME Spann
--- NOTE | 2018-05-24 17:00 | CASEMGMT ---
Social Work Spoke with Dr. Zhu regarding pt care. After speaking with physician and plan for discharge is as follow. Referral will be made to TCU tomorrow and precert from insurance will be requested. If precert is granted pt will transfer to TCU, if precert is denied pt will go [facility] private [facility]. This plan was made with and she is agreeable and understanding is insurance denies precert, there is no other option than projection camera operator placement private pay in a facility (as pt has confirmed she cannot take him home). Pt expresses understanding and confirms if pt goes private pay she would like him to go to [place]. SW will continue to follow. JAIME Spann
[2018-05-24] MEDS: Tamsulosin HCl 0.4 MG Capsule PO (17:16)
[2018-05-24 17:30] LABS: Bedside Glucose 217 mg/dL (70-110)
--- NOTE | 2018-05-24 19:02 | CPS ---
PT IS PAINFUL , RN NOTIFIED
[2018-05-24 23:10] LABS: Bedside Glucose 171 mg/dL (70-110)
[2018-05-25] VITALS (12 sets, daily range): BP systolic 109–155; BP diastolic 56–85; PULSE 62–88; RESP 18–22; TEMP 36.4–37; O2SAT 84–96
[2018-05-25] MEDS: Ipratropium/Albuterol Sulfate 3 ML AMPUL.NEB INHALATION ×3 (02:09→13:17)
[2018-05-25 06:25] LABS: Absolute Neutrophil Count 7.4 X10^3/uL (2.0-7.7); Basophil# 0.01 X10^3/uL; Basophil% 0.1 % (0-1); Eosinophil# 0.04 X10^3/uL; Eosinophils% 0.4 % (0-5); Hematocrit 23.6 % (40-54); Hemoglobin 7.6 g/dl (13.0-16.5); Lymphocyte % 8.3 % (19-41); Mean Corp Hgb Conc 32.2 g/gl (32-36); Mean Corpuscular Hgb 31.3 pg (27.0-32.0); Mean Corpuscular Volume 97.1 fL (80-94); Mean Platelet Vol. 9.2 fl (6.2-12.0); Monocyte# 1.37 X10^3/uL; Monocyte% 14.2 % (0-10); Neutrophil # 7.41 X10^3/uL (2.7-7.7); Neutrophil % 76.5 % (47-70); Platelet Count 245 K/mm3 (150-450); RBC Distribution Width CV 13.6 % (11.6-14.6); RBC Distribution Width SD 45.2 fl (35.1-43.9); Red Blood Count 2.43 M/mm3 (4.6-6.2); White Blood Count 9.7 K/mm3 (4.4-11.0)
[2018-05-25 06:44] LABS: Anion Gap 9 (5-15); BUN 49 mg/dL (7-18); BUN/Creat Ratio 27.7 RATIO (10-20); Calcium,Total 8.7 mg/dL (8.5-10.1); Chloride 96 mmol/L (98-107); Creatinine, Serum 1.77 mg/dL (0.70-1.30); EST Glomerular Filtration Rate 39 mL/min (>60); Est Glom Filt Rate - Afr Amer 48 mL/min (>60); Estimated Creatinine Clearance 31.13 ml/min; Glucose 195 mg/dL (74-106); Potassium 4.1 mmol/L (3.5-5.1); Sodium Level 135 mmol/L (136-145)
[2018-05-25 06:45] LABS: POSITIVE COUNT NO; POSITIVE DIFFERENTIAL NO; POSITIVE MORPHOLOGY NO
[2018-05-25] MEDS: Nystatin Powder 15gm Bottle 1 APPLIC TOPICAL (06:45)
[2018-05-25] MEDS: Enoxaparin 40 MG/0.4 ML Syringe SC (06:46)
[2018-05-25 06:56] LABS: Bedside Glucose 193 mg/dL (70-110)
--- NOTE | 2018-05-25 07:41 | NURSING ---
This RN has reviewed and agrees with all documentation done by Laurie CHAMPION. 05/24-05/25 7pm-7am
--- NOTE | 2018-05-25 08:57 | CASEMGMT ---
THERESE spoke with Althea in TCU and she will try for pre-cert. She will let THERESE know as soon as she hears from insurance. Shelley ESPAÑA MSW
[2018-05-25] MEDS: Polyethylene Glycol 3350 17 GM PACKET PO (10:19)
[2018-05-25] MEDS: Magnesium Oxide 400 MG Tablet PO (10:20)
[2018-05-25] MEDS: Senna/Docusate Sodium 1 Tablet 2 TABLET PO (10:20)
[2018-05-25] MEDS: Propranolol 40 MG Tablet 80 MG PO (10:21)
[2018-05-25] MEDS: Aspirin 81 MG TAB.CHEW PO (10:21)
[2018-05-25] MEDS: amLODIPine 5 MG Tablet PO (10:22)
[2018-05-25] MEDS: oxyCODONE HCl Cr 10 MG Tablet PO (10:22)
[2018-05-25] MEDS: Lidocaine 5% Patch 1 PATCH TOPICAL (10:22)
[2018-05-25] MEDS: Furosemide 40 MG/4 ML Vial IV (10:26)
[2018-05-25] MEDS: Insulin Lispro 100 UNIT/ML INSULN.PEN SQ ×2 (10:30→11:40)
--- NOTE | 2018-05-25 11:16 | PCM.TXEXTCAR ---
- Diet 05/22/18 23:33 Diet: Cardiac: Carb-Controlled - Routine Orders/Code Status Suppository Type: Dulcolax 10mg Suppository Frequency: Daily PRN O2 Frequency: PRN Keep PO Greater than or Equal to (%): 90 Routine Lab Work: CBC - 3 days, BMP - 3 days Code Status: Full Code - Wound(s) Posterior Left Thigh Wound Type: Pressure Injury Dressing Change: Dry Sterile Dressing Left Heel Wound Type: Pressure Injury Dressing Change: Dry Sterile Dressing Left great toe Wound Type: scabbed area from old boot coccyx Wound Type: Pressure Injury left buttock Wound Type: pressure injury/shearing Dressing Change: Mepilex right buttock Wound Type: pressure injury/shearing Dressing Change: Mepilex - Therapies Physical Therapy: Eval and Treat Occupational Therapy: Eval and Treat - Problem/Diagnosis (1) Acute exacerbation of CHF (congestive heart failure) Status: Acute Current Visit: Yes (2) Fracture of left tibia and fibula Status: Inactive Current Visit: No (3) Chronic kidney disease Status: Chronic Current Visit: No (4) Cirrhosis of liver Status: Chronic Current Visit: No (5) Anemia Status: Chronic Current Visit: No (6) Chronic constipation Status: Chronic Current Visit: No (7) Diabetes mellitus Status: Chronic Current Visit: No (8) Chronic pain Status: Chronic Current Visit: No (9) Encephalopathy Status: Acute Current Visit: No (10) Acute respiratory failure with hypoxia Status: Acute Current Visit: No (11) Debility Status: Chronic Current Visit: No (12) Paroxysmal A-fib Status: Chronic Current Visit: No (13) YANNA (acute kidney injury) Status: Resolved Current Visit: No (14) GERD (gastroesophageal reflux disease) Status: Chronic Current Visit: No (15) Pulmonary hypertension Status: Chronic Comment: mild Current Visit: No (16) Stroke Status: Chronic Current Visit: No (17) Hypertension Status: Chronic Current Visit: No (18) COPD (chronic obstructive pulmonary disease) Status: Chronic Current Visit: No (19) Peripheral vascular disease Status: Chronic Current Visit: No - Allergies/Procedures Done in Hospital Allergies/Adverse Reactions: Allergies aspirin Adverse Reaction (Verified 05/22/18 18:58) Other causes stomach to bleed Procedures: None - Type of Care/Length of Stay Estimated LOS: Convalescent Care Less Than 30 days Type of Care Needed: Skilled Rehab Potential: Fair Prognosis: Fair - Additional Orders/Day of Discharge Day of Discharge: 05/25/18 - Dietary and Speech Recommendations Dietitian Recommendations/Changes: Recommend change to low-sodium, cardiac, carbohydrate controlled diet. Will change glucerna 120 ml 4 x / day to chocolate CIB with meals. Suggest 1 packet Clif BID for wound healing. - Follow Up Care Primary Care Physician: Tommy Maciel Chi, MD [Primary Care Provider] - Please follow up with your Primary Care Physician in: 2 weeks
[2018-05-25 11:50] LABS: Bedside Glucose 227 mg/dL (70-110)
--- NOTE | 2018-05-25 13:25 | PCM.DC.SUM ---
Discharge Date and Diagnosis - Problem List Patient Problems: Active and Suspected Problems Acute exacerbation of CHF (congestive heart failure) (Acute) Date of Admission: 05/22/18 Date of Discharge: 05/25/18 - Primary Discharge Diagnosis Active and Suspected Problems Acute exacerbation of diastolic CHF with acute mixed respiratory failure Acute metabolic encephalopathy suspect hypercapneic, suspect underlying dementia COPD Chronic anemia Pressure wounds present on admission coccyx, buttocks Nonhealing LLE wounds Recent left tib/fib fracture HTN DMt2 Depression / Anx CKDIII - Secondary Discharge Diagnosis Chronic Problems Chronic kidney disease (Chronic) Cirrhosis of liver (Chronic) Anemia (Chronic) Chronic constipation (Chronic) Diabetes mellitus (Chronic) Chronic pain (Chronic) Debility (Chronic) Paroxysmal A-fib (Chronic) Toe pain, left (Chronic) Toe pain, right (Chronic) Tinea unguium (Chronic) Insomnia (Chronic) GERD (gastroesophageal reflux disease) (Chronic) Edema (Chronic) Hypomagnesemia (Chronic) Pulmonary hypertension (Chronic) mild Debility secondary to stroke (Chronic) 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 RAD/Chest 1 View (Portable) IMPRESSION: Increasing bilateral edema or infiltrates and pleural effusions. RAD/Chest 1 View (Portable) IMPRESSION: CHF with pulmonary edema and small left pleural effusion. Findings are not significantly different from last previous study. Consultations 05/22/18 23:55 Consult: Onc/Wound/spring internship Routine Comment: Reason for Consult:: Multiple wounds: Comments:: Left heel, posterior left thigh; gluteus, L toe Operations: None Procedures: None Summary of Care Provided: Physical exam on day of discharge: General: Resting comfortably NAD Psych: confused, agitated. HEENT: LEOPOLDOLA AT NC Neck: Supple NT CV: RRR no m/t/r/g/h Resp: CTA Abd: [id number] Soft NT no guarding or rigidity Ext: DP2+= no edema Skin: W/D normal turgor Lymph/Heme: No active bleeding or adenopathy Neuro: CN2-12 intact Hospital course: The patient is a 83 year old M with a hx of debility, recent TCU stay after tib/fib fracture,, hx of cirrhosis, CKDIII, COPD, HTN, CHF, DMt2, who presented to the ER with increased SOB and anxiety from the TCU. He had an elevated BNP, CXR c/w CHF, ABG with pH 7.3, PCO2 66, tachypnea, and O2 requiring Bipap initially. He was admitted to the PCU on IV lasix with Acute diastolic CHF exacerbation - recent echo showed EF 55%, PASP 42mmHg. He was very weak throughout his stay and could not stand or walk without help. His breathing did improve significantly with IV lasix. He was transitioned to a higher PO dose for dc. He did continue to require oxygen via nasal cannula but did not need further NC. During stay he was also intermittently very confused not knowing where he was or why he was here. He required further SNF and was agreeable, she did not feel comfortable taking him home. He was discharged to SNF in stable condition. He will need follow up CBC for chronic anemia, and a follow up BMP with the changing lasix dose. This patient was seen by Willian Puente PA-C under the supervision of Doctor Audra. [] Discharge Diet: Low fat/ Low Cholesterol, 1800 Calorie Control Diet, 2000 mg Sodium Diet Discharge Activity: Return to Normal Activity Home Medications: Medications to take at Discharge Magnesium Oxide [Mag-Ox 400] 400 mg PO DAILY 12/21/15 Amlodipine [Norvasc] 5 mg PO DAILY 07/13/17 Propranolol HCl 80 mg PO BID 07/13/17 Amitriptyline HCl [Elavil] 25 mg PO QHS 08/02/17 Aspirin [Aspirin, Baby] 81 mg PO DAILY@0800 11/13/17 Atorvastatin Calcium [Lipitor] 40 mg PO QHS 11/13/17 Oxycodone CR [Oxycontin] 20 mg PO Q12H 04/25/18 Bisacodyl [Dulcolax] 10 mg PO DAILY PRN tablet 05/21/18 Guaifenesin Dm [Robitussin Dm] 10 ml PO Q4H PRN PRN udc 05/21/18 Menthol/Lanolin/Calamine/Znox [Calmoseptine Ointment] 1 applic TOPICAL 0600,2200 tube 05/21/18 Nystatin Powder [Mycostatin Powder] 1 applic TOPICAL 0600,2200 bottle 05/21/18 Acetaminophen 1,000 mg PO Q8H PRN PRN 05/22/18 Emollient Combination No.72 [Eucerin Intensive Repair] 1 applicatio TP BID 05/22/18 Polyethylene Glycol 3350 [Miralax] 17 gm PO DAILY 05/22/18 Potassium Chloride [K-Dur] 20 meq PO DAILYCM 05/22/18 Senna/Docusate Sodium [Senokot-S] 2 tablet PO BID 05/22/18 Albuterol Aerosols [Ventolin Aerosols] 2.5 mg INHALATION Q2H PRN PRN vial.neb. 05/25/18 Furosemide [Lasix] 60 mg PO BID #60 05/25/18 Insulin Lispro [Humalog KwikPen] See Protocol SQ ACHS insuln.pen 05/25/18 Lidocaine [Lidoderm Patch] 1 patch TOPICAL DAILY patch 05/25/18 Melatonin 10 mg PO QHS tablet 05/25/18 Oxycodone [Oxyir] 10 mg PO Q4H PRN PRN #20 tab 05/25/18 Following Prescrptions Were Given to Patient: Oxycodone [Oxyir] 10 mg PO Q4H PRN PRN #20 tab PRN Reason: Severe Pain (6-10/) Primary Care Physician: Tommy Maciel Chi, MD [Primary Care Provider] - Please follow up with your Primary Care Physician in: 2 weeks Disposition: Retirement facility Minutes spent on discharge:: 35 Patient Condition:: Stable Medical Necessity - Tobacco Use Smoking Status: Former smoker Meaningful Use Info Meaningful Use Diagnoses (Choose all that apply): CHF - CHF MEDARDO/ARB ordered at discharge?: No Reason MEDARDO/ARB not ordered?: Worsening renal disease Documented LVEF (%): 55
--- NOTE | 2018-05-25 13:29 | DS.PCM_ITS ---
Discharge Date and Diagnosis - Problem List Patient Problems: Active and Suspected Problems Acute exacerbation of CHF (congestive heart failure) (Acute) Date of Admission: 05/22/18 Date of Discharge: 05/25/18 - Primary Discharge Diagnosis Active and Suspected Problems Acute exacerbation of diastolic CHF with acute mixed respiratory failure Acute metabolic encephalopathy suspect hypercapneic, suspect underlying dementia COPD Chronic anemia Pressure wounds present on admission coccyx, buttocks Nonhealing LLE wounds Recent left tib/fib fracture HTN DMt2 Depression / Anx CKDIII - Secondary Discharge Diagnosis Chronic Problems Chronic kidney disease (Chronic) Cirrhosis of liver (Chronic) Anemia (Chronic) Chronic constipation (Chronic) Diabetes mellitus (Chronic) Chronic pain (Chronic) Debility (Chronic) Paroxysmal A-fib (Chronic) Toe pain, left (Chronic) Toe pain, right (Chronic) Tinea unguium (Chronic) Insomnia (Chronic) GERD (gastroesophageal reflux disease) (Chronic) Edema (Chronic) Hypomagnesemia (Chronic) Pulmonary hypertension (Chronic) mild Debility secondary to stroke (Chronic) 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 RAD/Chest 1 View (Portable) IMPRESSION: Increasing bilateral edema or infiltrates and pleural effusions. RAD/Chest 1 View (Portable) IMPRESSION: CHF with pulmonary edema and small left pleural effusion. Findings are not significantly different from last previous study. Consultations 05/22/18 23:55 Consult: Onc/Wound/optometrist assistant Routine Comment: Reason for Consult:: Multiple wounds: Comments:: Left heel, posterior left thigh; gluteus, L toe Operations: None Procedures: None Summary of Care Provided: Physical exam on day of discharge: General: Resting comfortably NAD Psych: confused, agitated. HEENT: LEOPOLDOLA AT NC Neck: Supple NT CV: RRR no m/t/r/g/h Resp: CTA Abd: [id number] Soft NT no guarding or rigidity Ext: DP2+= no edema Skin: W/D normal turgor Lymph/Heme: No active bleeding or adenopathy Neuro: CN2-12 intact Hospital course: The patient is a 83 year old M with a hx of debility, recent TCU stay after tib/ fib fracture,, hx of cirrhosis, CKDIII, COPD, HTN, CHF, DMt2, who presented to the ER with increased SOB and anxiety from the TCU. He had an elevated BNP, CXR c/w CHF, ABG with pH 7.3, PCO2 66, tachypnea, and O2 requiring Bipap initially. He was admitted to the PCU on IV lasix with Acute diastolic CHF exacerbation - recent echo showed EF 55%, PASP 42mmHg. He was very weak throughout his stay and could not stand or walk without help. His breathing did improve significantly with IV lasix. He was transitioned to a higher PO dose for dc. He did continue to require oxygen via nasal cannula but did not need further NC. During stay he was also intermittently very confused not knowing where he was or why he was here. He required further SNF and was agreeable, she did not feel comfortable taking him home. He was discharged to SNF in stable condition. He will need follow up CBC for chronic anemia, and a follow up BMP with the changing lasix dose. This patient was seen by Willian Puente PA-C under the supervision of Doctor Audra. [] Discharge Diet: Low fat/ Low Cholesterol, 1800 Calorie Control Diet, 2000 mg Sodium Diet Discharge Activity: Return to Normal Activity Home Medications: Medications to take at Discharge Magnesium Oxide [Mag-Ox 400] 400 mg PO DAILY 12/21/15 Amlodipine [Norvasc] 5 mg PO DAILY 07/13/17 Propranolol HCl 80 mg PO BID 07/13/17 Amitriptyline HCl [Elavil] 25 mg PO QHS 08/02/17 Aspirin [Aspirin, Baby] 81 mg PO DAILY@0800 11/13/17 Atorvastatin Calcium [Lipitor] 40 mg PO QHS 11/13/17 Oxycodone CR [Oxycontin] 20 mg PO Q12H 04/25/18 Bisacodyl [Dulcolax] 10 mg PO DAILY PRN tablet 05/21/18 Guaifenesin Dm [Robitussin Dm] 10 ml PO Q4H PRN PRN udc 05/21/18 Menthol/Lanolin/Calamine/Znox [Calmoseptine Ointment] 1 applic TOPICAL 0600, 2200 tube 05/21/18 Nystatin Powder [Mycostatin Powder] 1 applic TOPICAL 0600,2200 bottle 05/21/18 Acetaminophen 1,000 mg PO Q8H PRN PRN 05/22/18 Emollient Combination No.72 [Eucerin Intensive Repair] 1 applicatio TP BID 05/22 Polyethylene Glycol 3350 [Miralax] 17 gm PO DAILY 05/22/18 Potassium Chloride [K-Dur] 20 meq PO DAILYCM 05/22/18 Senna/Docusate Sodium [Senokot-S] 2 tablet PO BID 05/22/18 Albuterol Aerosols [Ventolin Aerosols] 2.5 mg INHALATION Q2H PRN PRN vial.neb. 05/25/18 Furosemide [Lasix] 60 mg PO BID #60 05/25/18 Insulin Lispro [Humalog KwikPen] See Protocol SQ ACHS insuln.pen 05/25/18 Lidocaine [Lidoderm Patch] 1 patch TOPICAL DAILY patch 05/25/18 Melatonin 10 mg PO QHS tablet 05/25/18 Oxycodone [Oxyir] 10 mg PO Q4H PRN PRN #20 tab 05/25/18 Following Prescrptions Were Given to Patient: Oxycodone [Oxyir] 10 mg PO Q4H PRN PRN #20 tab PRN Reason: Severe Pain (6-10/) Primary Care Physician: Tommy Maciel Chi, MD [Primary Care Provider] - Please follow up with your Primary Care Physician in: 2 weeks Disposition: Senior Living facility Minutes spent on discharge:: 35 Patient Condition:: Stable Medical Necessity - Tobacco Use Smoking Status: Former smoker Meaningful Use Info Meaningful Use Diagnoses (Choose all that apply): CHF - CHF MEDARDO/ARB ordered at discharge?: No Reason MEDARDO/ARB not ordered?: Worsening renal disease Documented LVEF (%): 55
--- NOTE | 2018-05-25 14:14 | CASEMGMT ---
Patient was approved for [facility]. SW called patient's and let her know. THERESE also let RN and real estate legal secretary know this information. THERESE also notified Ángela at [facility]. Plan: [facility] under skilled level of care. Shelley AGUAYO
== END 2018-05-25 16:02 | disposition skilled nursing facility (03) | DRG 291 ==
LOC: ED 19:37 → PCU 23:32
PROVIDERS: Nurse Practitioner Family; Physician Assistant; Admitting Provider Hospitalist; Emergency Provider Emergency Medicine; Family Provider Family Medicine Geriatric Medicine; PCP Family Medicine Geriatric Medicine; Visit Provider Internal Medicine
DX: I13.0 Hypertensive heart and chronic kidney disease with heart failure and stage 1 through stage 4 chronic kidney disease, or unspecified chronic kidney disease (principal); I50.33 Acute on chronic diastolic (congestive) heart failure; J96.01 Acute respiratory failure with hypoxia; J96.02 Acute respiratory failure with hypercapnia; G93.41 Metabolic encephalopathy; E11.22 Type 2 diabetes mellitus with diabetic chronic kidney disease; N18.3 Chronic kidney disease, stage 3 (moderate); Z87.891 Personal history of nicotine dependence; D53.9 Nutritional anemia, unspecified; J44.9 Chronic obstructive pulmonary disease, unspecified; I25.10 Atherosclerotic heart disease of native coronary artery without angina pectoris; E78.00 Pure hypercholesterolemia, unspecified; F41.9 Anxiety disorder, unspecified; F32.9 Major depressive disorder, single episode, unspecified; L89.322 Pressure ulcer of left buttock, stage 2; L89.312 Pressure ulcer of right buttock, stage 2; L89.892 Pressure ulcer of other site, stage 2; Z98.890 Other specified postprocedural states; Z86.73 Personal history of transient ischemic attack (TIA), and cerebral infarction without residual deficits; Z79.82 Long term (current) use of aspirin; Z79.891 Long term (current) use of opiate analgesic; Z79.899 Other long term (current) drug therapy; Z79.51 Long term (current) use of inhaled steroids
CPT/HCPCS: 36415; 36600; 51702; 71045; 80048; 82140; 82607; 82746; 82803; 82962; 83880; 84484; 85025; 85027; 85610; 93005; 94002; 94640; 94667; 94668; 97162; 97165; 97530; 97802; 99283; A4216; J1940

== ENCOUNTER 2018-05-25 16:20 | Inpatient (IN) | payer MEDICARE, SELFPAY ==
[2018-05-25 16:42] VITALS: BP 122/46; PULSE 73; RESP 18; TEMP 36.6; O2SAT 95; BMI 27.5
--- NOTE | 2018-05-25 16:43 | NURSING ---
PT ARRIVED FROM [facility] @ 1600 VIA BED, AT SIDE
[2018-05-25 17:05] LABS: Bedside Glucose 170 mg/dL (70-110)
--- NOTE | 2018-05-25 17:52 | VDLE_ITS ---
Reason For Study: Swelling RIGHT LEFT GSV is normal. GSV is normal. CFV is compressible, spontaneous, phasic, CFV is compressible, spontaneous, phasic, competent and demonstrates normal competent, and demonstrates normal augmentation. augmentation. FV is compressible, spontaneous, phasic, FV is compressible, spontaneous, phasic, competent and demonstrates normal competent and demonstrates normal augmentation. augmentation. POP V is compressible, spontaneous, phasic, POP V is compressible, spontaneous, phasic, competent and demonstrates normal competent and demonstrates normal augmentation. augmentation. T/P Trunk is compressible. T/P Trunk is compressible. PTV is compressible. PTV is compressible. RT PerV is compressible. LT PerV is compressible. Procedure Pt unable to tolerate distal thigh Exam performed portable in patient room. compressions; relied on color doppler. A preliminary report was called and/or faxed to Patients RN. Interpretation Summary Deep veins of the lower extremities are bilaterally patent and compressible segmentally. There is no evidence of deep vein thrombosis on either side. Valvular competence appears intact within the proximal deep venous systems bilaterally. The greater saphenous veins appear bilaterally patent and compressible segmentally. Ordering Physician: Thong Rao Referring Physician: Tommy Maciel Chi Performed By: Sarah Moe, MARLA, RVT
--- NOTE | 2018-05-25 18:04 | PCM.HP.STD ---
Problem List (1) Fracture of left tibia and fibula Status: Chronic (2) Acute exacerbation of CHF (congestive heart failure) Status: Acute Qualifiers: Heart failure type: diastolic Qualified Code(s): I50.33 - Acute on chronic diastolic (congestive) heart failure (3) Chronic kidney disease Status: Chronic (4) Cirrhosis of liver Status: Chronic (5) Anemia Status: Chronic (6) Diabetes mellitus Status: Chronic (7) Chronic pain Status: Chronic (8) Encephalopathy Status: Chronic (9) Debility Status: Acute (10) Paroxysmal A-fib Status: Chronic (11) Diastolic CHF Status: Acute (12) Insomnia Status: Chronic (13) GERD (gastroesophageal reflux disease) Status: Chronic (14) Edema Status: Chronic (15) Stroke Status: Chronic Qualifiers: (16) Hypertension Status: Chronic (17) COPD (chronic obstructive pulmonary disease) Status: Chronic (18) Peripheral vascular disease Status: Chronic (19) Pressure injury of coccygeal region, stage 2 Status: Chronic (20) Nonhealing ulcer of left lower extremity Status: Chronic Comment: multiple areas of eschar LLE History of Present Illness Date of Admission: 05/25/18 Chief Complaint: Here for rehabilitation, strengthening, prior to discharge home with spouse. The patient is a 83 year old M with a past medical history as listed below with the followin04/25/2018 space fall, presented to the [facility] emergency department with left tib-fib fracture, transferred to [facility] 04/27/2018 ORIF left tib-fib fracture 05/01/2018 patient was initially admitted to TCU for rehab 05/22/2018 patient sent to ER for shortness of breath and anxiety. At that time elevated BNP, chest x-ray demonstrated CHF, ABG with pH 7.3, PCO2 66, tachypneic and on O2 requiring BiPAP initially. Admitted to PCU for acute CHF exacerbation. Diuresis with IV Lasix and his narcotic medication was adjusted. 05/24/2018 CXR CHF with pulmonary edema and small left pleural effusion. 05/25/2018 admitted to TCU for rehabilitation and strengthening prior to discharge home with spouse 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) multiple areas of eschar LLE Fracture of left tibia and fibula (Chronic) Chronic kidney disease (Chronic) Cirrhosis of liver (Chronic) Anemia (Chronic) Chronic constipation (Chronic) Diabetes mellitus (Chronic) Chronic pain (Chronic) Encephalopathy (Chronic) Paroxysmal A-fib (Chronic) Toe pain, left (Chronic) Toe pain, right (Chronic) Tinea unguium (Chronic) Insomnia (Chronic) GERD (gastroesophageal reflux disease) (Chronic) Edema (Chronic) Hypomagnesemia (Chronic) Pulmonary hypertension (Chronic) mild Debility secondary to stroke (Chronic) 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) Stroke (Chronic) Hypertension (Chronic) COPD (chronic obstructive pulmonary disease) (Chronic) Peripheral vascular disease (Chronic) Allergies aspirin Adverse Reaction (Verified 05/22/18 18:58) Other causes stomach to bleed Home Medications: Ambulatory Orders Medication Instructions Recorded Magnesium Oxide [Mag-Ox 400] 400 mg PO DAILY 12/21/15 Amlodipine [Norvasc] 5 mg PO DAILY 07/13/17 Propranolol HCl 80 mg PO BID 07/13/17 Amitriptyline HCl [Elavil] 25 mg PO QHS 08/02/17 Aspirin [Aspirin, Baby] 81 mg PO DAILY@0800 11/13/17 Atorvastatin Calcium [Lipitor] 40 mg PO QHS 11/13/17 Oxycodone CR [Oxycontin] 10 mg PO Q12H 04/25/18 Bisacodyl [Dulcolax] 10 mg PO DAILY PRN tablet 05/21/18 Guaifenesin Dm [Robitussin Dm] 10 ml PO Q4H PRN PRN udc 05/21/18 Acetaminophen 1,000 mg PO Q8H PRN PRN 05/22/18 Emollient Combination No.72 1 applicatio TP BID 05/22/18 [Eucerin Intensive Repair] Polyethylene Glycol 3350 [Miralax] 17 gm PO DAILY 05/22/18 Potassium Chloride [K-Dur] 20 meq PO DAILYCM 05/22/18 Senna/Docusate Sodium [Senokot-S] 2 tablet PO BID 05/22/18 Albuterol Aerosols [Ventolin 2.5 mg INHALATION Q2H PRN PRN 05/25/18 Aerosols] vial.neb. Furosemide [Lasix] 60 mg PO BID #60 05/25/18 Insulin Lispro [Humalog KwikPen] See Protocol SQ ACHS 05/25/18 Lidocaine [Lidoderm Patch] 1 patch TOPICAL DAILY 05/25/18 Melatonin 10 mg PO QHS 05/25/18 Menthol/Lanolin/Calamine/Znox 1 applic TOPICAL 599,219905/25/18 [Calmoseptine Ointment] Nystatin Powder [Mycostatin Powder] 1 applic TOPICAL 00,219905/25/18 Oxycodone [Oxyir] 10 mg PO Q4H PRN PRN #20 tab 05/25/18 Surgical History: cholecystectomy, tonsillectomy, - - Stone removal from common bile duct, ORIF left tib/fib fracture. Psychiatric History: No pertinent psych hx Smoking Status: Former smoker - *Family History Maternal History Items: Diabetes Paternal History Items: Stroke Review of Systems Constitutional: Reports: Weakness - generalized weakness. Denies: Chills, Fever, Weight Change HEENT: Denies: Head Aches, Sinus Congestion, Sinus Drainage Cardiovascular: Denies: Chest Pain, Palpitations Respiratory: Denies: Cough, Shortness of breath at rest, Sputum production Gastrointestinal: Denies: Abdominal Pain, Nausea, Vomiting Genitourinary: Denies: Dysuria Musculoskeletal: Reports: Joint Tenderness - chronic low back pain. Denies: Joint Pain Skin: Reports: Wounds - LLE. Denies: Rash Neurological: Denies: Numbness, Tingling, Focal weakness Psychiatric: Denies: Anxiety, Depression, Homicidal Ideations, Suicidal Ideations Hematologic/ Lymphatic: Denies: Easy Bruising, Easy Bleeding VTE Information - Inpt Only VTE Present on Admission: No VTE Mechan Device Prophylaxis: None VTE Pharm Prophylaxis ordered?: Yes - Physical Exam General: Alert, Cooperative, Confused - at times, oriented to place and self, not situation HEENT: Atraumatic, PERRLA Oral: Moist Mucosa Neck: Supple, No JVD Lungs: Clear to auscultation, Normal air movement, Diminished - bases Cardiovascular: Regular rate, Regular Rhythm, Normal S1, Normal S2, No murmurs Abdomen: Bowel Sounds Present, Soft, Non Tender, Non-Distended Extremities: Diminished Peripheral Pulses - DP pulses diminished, Edema - generalized BLLE edema Skin: Ulcer/ Wound - Multiple areas of eschar noted left lower extremity, left posterior thigh with eschar, left anterior great toe and left dorsal foot and left heel with eschar present, no surrounding erythema or signs of acute infection, coccyx pressure ulcer not visualized covered with Mepilex dressing Neurological: Neuro grossly intact Psych/Mental Status: Normal Affect, Appropriate Finger Stick Blood Glucose 205 Intake and Output for Last 24 Hours 05/23/18 05/24/18 05/25/18 23:59 23:59 23:59 Output Total 200 / 200 Balance -200 / -200 POC Glucose 05/25/18 16:56 POC Glucose 170 H Assessment/Plan All Active Problems Acute exacerbation of CHF (congestive heart failure) (Acute) Acute respiratory failure with hypoxia (Acute) Debility (Acute) YANNA (acute kidney injury) (Resolved) Diastolic CHF (Acute) COPD with acute exacerbation (Acute) Abdominal pain (Resolved) Left leg cellulitis (Resolved) Sepsis (Resolved) Fall (Resolved) Pancreatitis (Resolved) 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 Debility-PT OT consulted Pain-OxyContin 10 mg every 12 hour, Tylenol 1000 mg every 8 hours as needed mild pain, OxyIR for severe breakthrough pain, Lidoderm patch Bowel-MiraLAX 17 g daily, senna Colace 2 tabs twice daily, Dulcolax 10 mg p.o. daily as needed Pneumonia vaccine-913 and/or Pneumovax 23 as necessary DVT prophylaxis-Lovenox 30 mg subcu daily Neuropathic pain-Elavil per home regimen Hypertension-continue with current antihypertensive regimen Coronary artery disease-propanolol 80 mg twice daily and aspirin 81 mg daily Edema/congestive heart failure-Lasix 60 mg twice daily, Aldactone daily, follow-up BMP with Lasix changes Hypomagnesemia-mag oxide 400 mg daily Type 2 diabetes mellitus-continue current diabetic regimen and Accu-Cheks per protocol Pressure ulcer coccyx-continue with frequent position changes, encourage increased protein intake, Mepilex dressing, wound care consult Multiple nonhealing wounds left lower extremity-with eschar, Santyl ordered to areas of eschar, wound care consult, float heels for offloading and vascular studies pending Anemia of chronic disease-repeat CBC Discussed patient plan of care with Dr. Barragan and she agrees Thong Rao DNP, GENETIC COUNSELOR-C Code Visit Inpatient E&M: 73249 SNF Subs L2
[2018-05-25] MEDS: Senna/Docusate Sodium 1 Tablet 2 TABLET PO (19:14)
[2018-05-25] MEDS: Propranolol 40 MG Tablet 80 MG PO (19:16)
[2018-05-25] MEDS: Furosemide 40 MG Tablet 60 MG PO (19:17)
[2018-05-25 21:06] LABS: Bedside Glucose 166 mg/dL (70-110)
[2018-05-25] MEDS: Menthol/Lanolin/Calamine/Znox 113 GM Tube 1 APPLIC TOPICAL (23:25)
[2018-05-25] MEDS: Nystatin Powder 15gm Bottle 1 APPLIC TOPICAL (23:26)
[2018-05-25] MEDS: MELATONIN 10 MG TABLET PO (23:27)
[2018-05-25] MEDS: Atorvastatin Calcium 40 MG Tablet PO (23:27)
[2018-05-25] MEDS: Amitriptyline 25 MG Tablet PO (23:29)
[2018-05-25] MEDS: oxyCODONE HCl Cr 10 MG Tablet PO (23:33)
[2018-05-26] MEDS: Insulin Lispro 100 UNIT/ML INSULN.PEN SC ×4 (00:18→21:43)
[2018-05-26 03:33] VITALS: BMI 27.5
[2018-05-26 07:11] LABS: Bedside Glucose 141 mg/dL (70-110)
[2018-05-26 07:18] LABS: Absolute Lymphocyte Count 1.31 X10^3/ul (0.83-4.51); Absolute Neutrophil Count 4.7 X10^3/uL (2.0-7.7); Basophil# 0.02 X10^3/uL; Basophil% 0.3 % (0-1); Eosinophil# 0.17 X10^3/uL; Eosinophils% 2.4 % (0-5); Hematocrit 23.1 % (40-54); Hemoglobin 7.4 g/dl (13.0-16.5); Lymphocyte # 1.31 X10^3/ul (4.0); Lymphocyte % 18.2 % (19-41); Mean Corpuscular Hgb 31.5 pg (27.0-32.0); Mean Corpuscular Volume 98.3 fL (80-94); Mean Platelet Vol. 8.8 fl (6.2-12.0); Monocyte# 1.02 X10^3/uL; Monocyte% 14.1 % (0-10); Neutrophil # 4.66 X10^3/uL (2.7-7.7); Neutrophil % 64.6 % (47-70); Platelet Count 228 K/mm3 (150-450); RBC Distribution Width CV 13.7 % (11.6-14.6); Red Blood Count 2.35 M/mm3 (4.6-6.2); White Blood Count 7.2 K/mm3 (4.4-11.0)
[2018-05-26 07:19] LABS: POSITIVE COUNT NO; POSITIVE DIFFERENTIAL NO; POSITIVE MORPHOLOGY NO
[2018-05-26 07:33] LABS: Anion Gap 8 (5-15); BUN 39 mg/dL (7-18); BUN/Creat Ratio 26.5 RATIO (10-20); Calcium,Total 8.3 mg/dL (8.5-10.1); Chloride 97 mmol/L (98-107); Creatinine, Serum 1.47 mg/dL (0.70-1.30); EST Glomerular Filtration Rate 49 mL/min (>60); Est Glom Filt Rate - Afr Amer 59 mL/min (>60); Estimated Creatinine Clearance 37.48 ml/min; Glucose 157 mg/dL (74-106); Potassium 3.6 mmol/L (3.5-5.1); Sodium Level 139 mmol/L (136-145)
[2018-05-26] MEDS: Furosemide 40 MG Tablet 60 MG PO ×2 (07:36→15:23)
[2018-05-26] MEDS: Magnesium Oxide 400 MG Tablet PO (07:36)
[2018-05-26] MEDS: Propranolol 40 MG Tablet 80 MG PO ×2 (07:36→18:30)
[2018-05-26] MEDS: Enoxaparin 30 MG/0.3 ML Syringe SC (07:36)
[2018-05-26] MEDS: Senna/Docusate Sodium 1 Tablet 2 TABLET PO ×2 (07:37→18:30)
[2018-05-26] MEDS: Nystatin Powder 15gm Bottle 1 APPLIC TOPICAL ×2 (07:37→21:36)
[2018-05-26] MEDS: amLODIPine 5 MG Tablet PO (07:37)
[2018-05-26] MEDS: Menthol/Lanolin/Calamine/Znox 113 GM Tube 1 APPLIC TOPICAL ×2 (07:38→21:36)
[2018-05-26] MEDS: Collagenase 30gm Tube 1 APPLIC TOPICAL (07:40)
[2018-05-26] MEDS: Polyethylene Glycol 3350 17 GM PACKET PO (07:40)
[2018-05-26] MEDS: Aspirin 81 MG TAB.CHEW PO (07:42)
[2018-05-26 10:34] VITALS: O2SAT 100
--- NOTE | 2018-05-26 11:31 | NURSING ---
Labs reviewed by Thong Rao, TOW MOTOR OPERATOR, DNP. NO to recheck cbc and bmp monday. Light pressure MEDARDO wrap to left leg.
[2018-05-26 11:50] LABS: Bedside Glucose 192 mg/dL (70-110)
[2018-05-26] MEDS: oxyCODONE HCl Cr 10 MG Tablet PO ×2 (11:55→21:40)
[2018-05-26] MEDS: Lidocaine 5% Patch 1 PATCH TOPICAL (12:02)
[2018-05-26 15:44] VITALS: BP 116/56; PULSE 66; RESP 20; TEMP 36.6; O2SAT 100
[2018-05-26 17:06] LABS: Bedside Glucose 149 mg/dL (70-110)
[2018-05-26 21:15] LABS: Bedside Glucose 202 mg/dL (70-110)
[2018-05-26] MEDS: MELATONIN 10 MG TABLET PO (21:36)
[2018-05-26] MEDS: Atorvastatin Calcium 40 MG Tablet PO (21:36)
[2018-05-26] MEDS: Amitriptyline 25 MG Tablet PO (21:36)
[2018-05-26 21:45] VITALS: PULSE 68; O2SAT 98
[2018-05-27] MEDS: Menthol/Lanolin/Calamine/Znox 113 GM Tube 1 APPLIC TOPICAL ×2 (06:53→20:07)
[2018-05-27] MEDS: Propranolol 40 MG Tablet 80 MG PO ×2 (06:54→17:21)
[2018-05-27] MEDS: Furosemide 40 MG Tablet 60 MG PO ×2 (06:54→13:17)
[2018-05-27] MEDS: Nystatin Powder 15gm Bottle 1 APPLIC TOPICAL ×2 (06:55→20:09)
[2018-05-27] MEDS: amLODIPine 5 MG Tablet PO (06:55)
[2018-05-27] MEDS: Enoxaparin 30 MG/0.3 ML Syringe SC (06:55)
[2018-05-27] MEDS: Magnesium Oxide 400 MG Tablet PO (06:55)
[2018-05-27] MEDS: Collagenase 30gm Tube 1 APPLIC TOPICAL (06:56)
[2018-05-27] MEDS: Senna/Docusate Sodium 1 Tablet 2 TABLET PO ×2 (06:56→17:21)
[2018-05-27 07:01] LABS: Bedside Glucose 153 mg/dL (70-110)
[2018-05-27] MEDS: Aspirin 81 MG TAB.CHEW PO (08:48)
[2018-05-27] MEDS: Insulin Lispro 100 UNIT/ML INSULN.PEN SC ×4 (08:48→21:37)
[2018-05-27] MEDS: Lidocaine 5% Patch 1 PATCH TOPICAL (08:49)
[2018-05-27] MEDS: oxyCODONE HCl Cr 10 MG Tablet PO ×2 (08:49→20:11)
[2018-05-27 11:56] LABS: Bedside Glucose 172 mg/dL (70-110)
[2018-05-27 16:00] VITALS: BP 130/56; PULSE 64; RESP 16; TEMP 36.8; O2SAT 98
[2018-05-27 17:06] LABS: Bedside Glucose 158 mg/dL (70-110)
[2018-05-27] MEDS: Amitriptyline 25 MG Tablet PO (20:08)
[2018-05-27] MEDS: Atorvastatin Calcium 40 MG Tablet PO (20:08)
[2018-05-27] MEDS: MELATONIN 10 MG TABLET PO (20:09)
[2018-05-27 20:26] VITALS: PULSE 61; O2SAT 98
[2018-05-27 21:11] LABS: Bedside Glucose 199 mg/dL (70-110)
[2018-05-28 05:49] LABS: Absolute Lymphocyte Count 1.36 X10^3/ul (0.83-4.51); Absolute Neutrophil Count 5.5 X10^3/uL (2.0-7.7); Basophil# 0.02 X10^3/uL; Basophil% 0.2 % (0-1); Eosinophil# 0.39 X10^3/uL; Eosinophils% 4.7 % (0-5); Hematocrit 26.5 % (40-54); Hemoglobin 8.5 g/dl (13.0-16.5); Lymphocyte # 1.36 X10^3/ul (4.0); Lymphocyte % 16.2 % (19-41); Mean Corp Hgb Conc 32.1 g/gl (32-36); Mean Corpuscular Hgb 31.6 pg (27.0-32.0); Mean Corpuscular Volume 98.5 fL (80-94); Mean Platelet Vol. 8.9 fl (6.2-12.0); Monocyte# 1.06 X10^3/uL; Monocyte% 12.7 % (0-10); Neutrophil # 5.51 X10^3/uL (2.7-7.7); Neutrophil % 65.8 % (47-70); Platelet Count 248 K/mm3 (150-450); RBC Distribution Width CV 14.5 % (11.6-14.6); RBC Distribution Width SD 51.2 fl (35.1-43.9); Red Blood Count 2.69 M/mm3 (4.6-6.2); White Blood Count 8.4 K/mm3 (4.4-11.0)
[2018-05-28 06:03] LABS: BUN 24 mg/dL (7-18); Estimated Creatinine Clearance 39.36 ml/min; Glucose 138 mg/dL (74-106)
[2018-05-28] MEDS: Menthol/Lanolin/Calamine/Znox 113 GM Tube 1 APPLIC TOPICAL ×2 (06:03→19:46)
[2018-05-28 06:04] LABS: Anion Gap 8 (5-15); BUN/Creat Ratio 17.1 RATIO (10-20); Calcium,Total 8.4 mg/dL (8.5-10.1); Chloride 100 mmol/L (98-107); EST Glomerular Filtration Rate 52 mL/min (>60); Est Glom Filt Rate - Afr Amer 62 mL/min (>60); Potassium 3.8 mmol/L (3.5-5.1); Sodium Level 140 mmol/L (136-145)
[2018-05-28] MEDS: Furosemide 40 MG Tablet 60 MG PO ×2 (06:04→13:26)
[2018-05-28] MEDS: Propranolol 40 MG Tablet 80 MG PO ×2 (06:04→17:44)
[2018-05-28] MEDS: Nystatin Powder 15gm Bottle 1 APPLIC TOPICAL ×2 (06:05→19:48)
[2018-05-28] MEDS: Magnesium Oxide 400 MG Tablet PO (06:05)
[2018-05-28] MEDS: Collagenase 30gm Tube 1 APPLIC TOPICAL (06:05)
[2018-05-28] MEDS: amLODIPine 5 MG Tablet PO (06:05)
[2018-05-28] MEDS: Senna/Docusate Sodium 1 Tablet 2 TABLET PO (06:05)
[2018-05-28] MEDS: Enoxaparin 30 MG/0.3 ML Syringe SC (06:07)
[2018-05-28 06:10] LABS: POSITIVE COUNT NO; POSITIVE DIFFERENTIAL NO; POSITIVE MORPHOLOGY NO
[2018-05-28 07:06] LABS: Bedside Glucose 162 mg/dL (70-110)
[2018-05-28] MEDS: Aspirin 81 MG TAB.CHEW PO (08:28)
[2018-05-28] MEDS: Insulin Lispro 100 UNIT/ML INSULN.PEN SC ×4 (08:28→21:01)
[2018-05-28] MEDS: Lidocaine 5% Patch 1 PATCH TOPICAL (10:52)
[2018-05-28] MEDS: oxyCODONE HCl Cr 10 MG Tablet PO ×2 (10:53→21:01)
[2018-05-28 11:31] LABS: Bedside Glucose 192 mg/dL (70-110)
--- NOTE | 2018-05-28 12:34 | NURSING ---
Thong Rao, SHORT ORDER COOK reviewed AM labs, NNO
--- NOTE | 2018-05-28 14:11 | PCM.PN.RX ---
<Robert Buckleyip D - Last Filed: 05/28/18 14:11> Progress Note - Pharmacy Subjective: TCU Admission Objective: Allergies aspirin Adverse Reaction (Verified 05/22/18 18:58) Other causes stomach to bleed Current Medications Generic Name Dose Route Start Last Admin Trade Name Freq PRN Reason Stop Dose Admin Acetaminophen 1,000 mg 05/25/18 16:58 Tylenol PO Q8H PRN PRN PAIN Albuterol Sulfate 2.5 mg 05/25/18 16:58 Ventolin Aerosols INHALATION Q2H PRN PRN SHORTNESS OF BREATH Amitriptyline HCl 25 mg 05/25/18 22:00 05/27/18 20:08 Elavil PO 25 mg QHS VERONIKA Administration Amlodipine Besylate 5 mg 05/26/18 06:00 05/28/18 06:05 Norvasc PO 5 mg DAILY VERONIKA Administration Aspirin 81 mg 05/26/18 08:00 05/28/18 08:28 Aspirin, Baby PO 81 mg DAILY@0800 VERONIKA Administration Atorvastatin Calcium 40 mg 05/25/18 22:00 05/27/18 20:08 Lipitor PO 40 mg QHS VERONIKA Administration Bisacodyl 10 mg 05/25/18 16:57 Dulcolax RECTAL DAILY PRN Constipation Bisacodyl 10 mg 05/25/18 16:58 Dulcolax PO DAILY PRN Constipation Calamine/Phenol 1 applic 05/25/18 22:00 05/28/18 06:03 Calmoseptine Ointment TOPICAL 1 applicatio 0600,2200 [facility] Administration Protocol Collagenase 1 applic 05/26/18 06:00 05/28/18 06:05 Santyl TOPICAL 1 applicatio DAILY VERONIKA Administration Protocol Emollient Ointment 1 applic 05/25/18 18:30 05/28/18 06:04 Eucerin Intensive Repair TOPICAL 1 applicatio BID VERONIKA Administration Enoxaparin Sodium 30 mg 05/26/18 06:00 05/28/18 06:07 Lovenox SC 30 mg DAILY@0600 VERONIKA Administration Furosemide 60 mg 05/25/18 18:30 05/28/18 13:26 Lasix PO 60 mg BIDLX VERONIKA Administration Guaifenesin 10 ml 05/25/18 16:58 Robitussin Dm PO Q4H PRN PRN COUGH Insulin Human Lispro 0 unit 05/25/18 22:00 05/28/18 11:58 Humalog Kwikpen (Bkc) SC 2 unit ACHS VERONIKA Administration Protocol Lidocaine 1 patch 05/26/18 10:00 05/28/18 10:52 Lidoderm Patch TOPICAL 1 patch DAILY@1000 VERONIKA Administration Protocol Magnesium Oxide 400 mg 05/26/18 06:00 05/28/18 06:05 Mag-Ox 400 PO 400 mg DAILY VERONIKA Administration Melatonin 10 mg 05/25/18 22:00 05/27/18 20:09 Melatonin PO 10 mg QHS VERONIKA Administration Nystatin 1 applic 05/25/18 22:00 05/28/18 06:05 Mycostatin Powder TOPICAL 1 applicatio 0600,2200 VERONIKA Administration Protocol Oxycodone HCl 10 mg 05/25/18 16:58 Oxyir PO Q4H PRN PRN SEVERE PAIN (6-10/10) Oxycodone HCl 10 mg 05/25/18 22:00 05/28/18 10:53 Oxycontin PO 10 mg Q12H VERONIKA Administration Polyethylene Glycol 17 gm 05/26/18 06:00 05/28/18 06:05 Miralax PO Not Given DAILY [facility] Potassium Chloride 20 meq 05/26/18 08:00 05/28/18 08:28 K-Dur PO 20 meq DAILYCM VERONIKA Administration Propranolol HCl 80 mg 05/25/18 18:30 05/28/18 06:04 Inderal PO 80 mg BID VERONIKA Administration Senna/Docusate Sodium 2 tablet 05/25/18 18:00 05/28/18 06:05 Senokot-S, Anastasia-Colace PO 2 tablet BID VERONIKA Administration Problem List Pressure injury of coccygeal region, 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) Vital Signs Temp Pulse Resp BP Pulse Ox 98.2 F 61 16 130/56 H 98 05/27/18 16:00 05/27/18 20:26 05/27/18 16:00 05/27/18 16:00 05/27/18 20:26 Oxygen Flow Rate (L/min) 2 Oxygen Delivery Method Nasal Cannula Weight: 84.17 kg Body Mass Index (BMI) 27.5 Finger Stick Blood Glucose 205 Sodium 140 mmol/L (136-145) 05/28/18 05:10 Potassium 3.8 mmol/L (3.5-5.1) 05/28/18 05:10 Chloride 100 mmol/L (98-107) 05/28/18 05:10 Carbon Dioxide 32.0 mmol/L (21.0-32.0) 05/28/18 05:10 Anion Gap 8 (5-15) 05/28/18 05:10 BUN 24 mg/dL (7-18) H 05/28/18 05:10 Creatinine 1.40 mg/dL (0.70-1.30) H 05/28/18 05:10 Est GFR (MDRD) Af Amer 62 mL/min (>60) 05/28/18 05:10 Est GFR (MDRD) Non-Af 52 mL/min (>60) L 05/28/18 05:10 BUN/Creatinine Ratio 17.1 RATIO (10-20) 05/28/18 05:10 Glucose 138 mg/dL (74-106) H 05/28/18 05:10 Assessment/Plan: 1) Pain APAP prn for pain, oxycodone for severe pain, Oxycontin twice daily, lidocaine patch, amitriptyline. Continue to monitor daily pain scores, prn medication use. Please clarify instructions for APAP and oxyIR so instructions do not overlap. 2) Pulm Albuterol for shortness of breath, guaifenesin for congestion. Continue to monitor prn medication use, for shortness of breath. 3) HTN/CAD/CHF Amlodipine, propranolol, ASA, atorvastatin, furosemide/KCl/Mg. Continue to monitor BP/HR, renal function, electrolytes, lipids, for chest pain. 4) DM2 Insulin lispro SSI. Continue to monitor BGT, s/s hyper/hypoglycemia. 5) DVT PPx Enoxaparin daily. Continue to monitor s/s bleeding/clot. Psychotropic Medications: None Unnecessary Medications: None Bowel Regimen: 6) Senna/s, PEG, prn bisacodyl. Continue to monitor prn medication use, for constipation/diarrhea. Date of Note:: 05/28/18 - Provider Comments Provider responsibility: Provider responsible to enter orders to implement recommendations <Tommy Maciel Chi - Last Filed: 06/01/18 11:13> Progress Note - Pharmacy Subjective: [] Objective: Allergies aspirin Adverse Reaction (Verified 05/22/18 18:58) Other causes stomach to bleed Current Medications Generic Name Dose Route Start Last Admin Trade Name Freq PRN Reason Stop Dose Admin Acetaminophen 1,000 mg 05/25/18 16:58 06/01/18 08:27 Tylenol PO 1,000 mg Q8H PRN PRN Administration PAIN Albuterol Sulfate 2.5 mg 05/25/18 16:58 Ventolin Aerosols INHALATION Q2H PRN PRN SHORTNESS OF BREATH Amitriptyline HCl 25 mg 05/25/18 22:00 05/31/18 22:19 Elavil PO 25 mg QHS VERONIKA Administration Amlodipine Besylate 5 mg 05/26/18 06:00 06/01/18 05:18 Norvasc PO 5 mg DAILY VERONIKA Administration Aspirin 81 mg 05/26/18 08:00 06/01/18 08:26 Aspirin, Baby PO 81 mg DAILY@0800 VERONIKA Administration Atorvastatin Calcium 40 mg 05/25/18 22:00 05/31/18 22:19 Lipitor PO 40 mg QHS VERONIKA Administration Bisacodyl 10 mg 05/25/18 16:57 Dulcolax RECTAL DAILY PRN Constipation Bisacodyl 10 mg 05/25/18 16:58 Dulcolax PO DAILY PRN Constipation Calamine/Phenol 1 applic 05/25/18 22:00 06/01/18 05:09 Calmoseptine Ointment TOPICAL 1 applicatio 0600,2200 [facility] Administration Protocol Collagenase 1 applic 05/26/18 06:00 06/01/18 05:20 Santyl TOPICAL 1 applicatio DAILY [facility] Administration Protocol Emollient Ointment 1 applic 05/25/18 18:30 06/01/18 05:09 Eucerin Intensive Repair TOPICAL 1 applicatio BID VERONIKA Administration Enoxaparin Sodium 30 mg 05/26/18 06:00 06/01/18 05:20 Lovenox SC 30 mg DAILY@0600 VERONIKA Administration Furosemide 60 mg 05/25/18 18:30 06/01/18 05:15 Lasix PO 60 mg BIDLX VERONIKA Administration Guaifenesin 10 ml 05/25/18 16:58 Robitussin Dm PO Q4H PRN PRN COUGH Insulin Human Lispro 0 unit 05/25/18 22:00 06/01/18 08:24 Humalog Kwikpen (Bkc) SC Not Given ACHS [facility] Protocol Lidocaine 1 patch 05/26/18 10:00 08/02/18 10:27 Lidoderm Patch TOPICAL 1 patch DAILY@1000 VERONIKA Administration Protocol Magnesium Oxide 400 mg 05/26/18 06:00 06/01/18 05:16 Mag-Ox 400 PO 400 mg DAILY VERONIKA Administration Melatonin 10 mg 05/25/18 22:00 05/31/18 22:19 Melatonin PO 10 mg QHS VERONIKA Administration Nutritional Formula 1 packet 05/30/18 17:00 06/01/18 08:26 Clif - Archer Flavor PO Not Given BIDCM [facility] Nystatin 1 applic 05/25/18 22:00 06/01/18 05:20 Mycostatin Powder TOPICAL 1 applicatio 0600,2200 VERONIKA Administration Protocol Oxycodone HCl 10 mg 05/25/18 16:58 05/29/18 13:10 Oxyir PO 10 mg Q4H PRN PRN Administration SEVERE PAIN (6-10/10) Oxycodone HCl 10 mg 05/25/18 22:00 05/31/18 22:21 Oxycontin PO 10 mg Q12H VERONIKA Administration Polyethylene Glycol 17 gm 05/26/18 06:00 06/01/18 05:17 Miralax PO 17 gm DAILY VERONIKA Administration Potassium Chloride 20 meq 05/26/18 08:00 06/01/18 08:26 K-Dur PO 20 meq DAILYCM [facility] Administration Propranolol HCl 80 mg 05/25/18 18:30 06/01/18 05:15 Inderal PO 80 mg BID [facility] Administration Senna/Docusate Sodium 2 tablet 05/25/18 18:00 06/01/18 05:17 Senokot-S, Anastasia-Colace PO 2 tablet BID [facility] Administration Problem List Pressure injury of coccygeal region, 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) Vital Signs Temp Pulse Resp BP Pulse Ox 97.3 F L 70 18 109/49 L 95 05/31/18 15:31 06/01/18 05:13 05/31/18 15:31 06/01/18 05:13 06/01/18 07:06 Oxygen Flow Rate (L/min) 3 Oxygen Delivery Method Nasal Cannula Weight: 81.817 kg Body Mass Index (BMI) 27.5 Finger Stick Blood Glucose 205 Sodium 140 mmol/L (136-145) 05/28/18 05:10 Potassium 3.8 mmol/L (3.5-5.1) 05/28/18 05:10 Chloride 100 mmol/L (98-107) 05/28/18 05:10 Carbon Dioxide 32.0 mmol/L (21.0-32.0) 05/28/18 05:10 Anion Gap 8 (5-15) 05/28/18 05:10 BUN 24 mg/dL (7-18) H 05/28/18 05:10 Creatinine 1.40 mg/dL (0.70-1.30) H 05/28/18 05:10 Est GFR (MDRD) Af Amer 62 mL/min (>60) 05/28/18 05:10 Est GFR (MDRD) Non-Af 52 mL/min (>60) L 05/28/18 05:10 BUN/Creatinine Ratio 17.1 RATIO (10-20) 05/28/18 05:10 Glucose 138 mg/dL (74-106) H 05/28/18 05:10 Assessment/Plan: Psychotropic Medications: Unnecessary Medications: Bowel Regimen: - Provider Comments Provider responsibility: Provider responsible to enter orders to implement recommendations Provider Comments to Recommendations by Pharmacy: Agree
--- NOTE | 2018-05-28 14:19 | PHA.CONS_ITS ---
<Robert Buckleyip D - Last Filed: 05/28/18 14:11> Progress Note - Pharmacy Subjective: TCU Admission Objective: Allergies aspirin Adverse Reaction (Verified 05/22/18 18:58) Other causes stomach to bleed Current Medications Generic Name Dose Route Start Last Admin Trade Name Freq PRN Reason Stop Dose Admin Acetaminophen 1,000 mg 05/25/18 16:58 Tylenol PO Q8H PRN PRN PAIN Albuterol Sulfate 2.5 mg 05/25/18 16:58 Ventolin Aerosols INHALATION Q2H PRN PRN SHORTNESS OF BREATH Amitriptyline HCl 25 mg 05/25/18 22:00 05/27/18 20:08 Elavil PO 25 mg QHS VERONIKA Administration Amlodipine Besylate 5 mg 05/26/18 06:00 05/28/18 06:05 Norvasc PO 5 mg DAILY VERONIKA Administration Aspirin 81 mg 05/26/18 08:00 05/28/18 08:28 Aspirin, Baby PO 81 mg DAILY@0800 VERONIKA Administration Atorvastatin Calcium 40 mg 05/25/18 22:00 05/27/18 20:08 Lipitor PO 40 mg QHS VERONIKA Administration Bisacodyl 10 mg 05/25/18 16:57 Dulcolax RECTAL DAILY PRN Constipation Bisacodyl 10 mg 05/25/18 16:58 Dulcolax PO DAILY PRN Constipation Calamine/Phenol 1 applic 05/25/18 22:00 05/28/18 06:03 Calmoseptine Ointment TOPICAL 1 applicatio 0600,2200 [facility] Administration Protocol Collagenase 1 applic 05/26/18 06:00 05/28/18 06:05 Santyl TOPICAL 1 applicatio DAILY VERONIKA Administration Protocol Emollient Ointment 1 applic 05/25/18 18:30 05/28/18 06:04 Eucerin Intensive Repair TOPICAL 1 applicatio BID VERONIKA Administration Enoxaparin Sodium 30 mg 05/26/18 06:00 05/28/18 06:07 Lovenox SC 30 mg DAILY@0600 VERONIKA Administration Furosemide 60 mg 05/25/18 18:30 05/28/18 13:26 Lasix PO 60 mg BIDLX VERONIKA Administration Guaifenesin 10 ml 05/25/18 16:58 Robitussin Dm PO Q4H PRN PRN COUGH Insulin Human Lispro 0 unit 05/25/18 22:00 05/28/18 11:58 Humalog Kwikpen (Bkc) SC 2 unit ACHS VERONIKA Administration Protocol Lidocaine 1 patch 05/26/18 10:00 05/28/18 10:52 Lidoderm Patch TOPICAL 1 patch DAILY@1000 VERONIKA Administration Protocol Magnesium Oxide 400 mg 05/26/18 06:00 05/28/18 06:05 Mag-Ox 400 PO 400 mg DAILY VERONIKA Administration Melatonin 10 mg 05/25/18 22:00 05/27/18 20:09 Melatonin PO 10 mg QHS VERONIKA Administration Nystatin 1 applic 05/25/18 22:00 05/28/18 06:05 Mycostatin Powder TOPICAL 1 applicatio 0600,2200 VERONIKA Administration Protocol Oxycodone HCl 10 mg 05/25/18 16:58 Oxyir PO Q4H PRN PRN SEVERE PAIN (6-10/10) Oxycodone HCl 10 mg 05/25/18 22:00 05/28/18 10:53 Oxycontin PO 10 mg Q12H VERONIKA Administration Polyethylene Glycol 17 gm 05/26/18 06:00 05/28/18 06:05 Miralax PO Not Given DAILY [facility] Potassium Chloride 20 meq 05/26/18 08:00 05/28/18 08:28 K-Dur PO 20 meq DAILYCM VERONIKA Administration Propranolol HCl 80 mg 05/25/18 18:30 05/28/18 06:04 Inderal PO 80 mg BID VERONIKA Administration Senna/Docusate Sodium 2 tablet 05/25/18 18:00 05/28/18 06:05 Senokot-S, Anastasia-Colace PO 2 tablet BID VERONIKA Administration Problem List Pressure injury of coccygeal region, 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) Vital Signs Temp Pulse Resp BP Pulse Ox 98.2 F 61 16 130/56 H 98 05/27/18 16:00 05/27/18 20:26 05/27/18 16:00 05/27/18 16:00 05/27/18 20:26 Oxygen Flow Rate (L/min) 2 Oxygen Delivery Method Nasal Cannula Weight: 84.17 kg Body Mass Index (BMI) 27.5 Finger Stick Blood Glucose 205 Sodium 140 mmol/L (136-145) 05/28/18 05:10 Potassium 3.8 mmol/L (3.5-5.1) 05/28/18 05:10 Chloride 100 mmol/L (98-107) 05/28/18 05:10 Carbon Dioxide 32.0 mmol/L (21.0-32.0) 05/28/18 05:10 Anion Gap 8 (5-15) 05/28/18 05:10 BUN 24 mg/dL (7-18) H 05/28/18 05:10 Creatinine 1.40 mg/dL (0.70-1.30) H 05/28/18 05:10 Est GFR (MDRD) Af Amer 62 mL/min (>60) 05/28/18 05:10 Est GFR (MDRD) Non-Af 52 mL/min (>60) L 05/28/18 05:10 BUN/Creatinine Ratio 17.1 RATIO (10-20) 05/28/18 05:10 Glucose 138 mg/dL (74-106) H 05/28/18 05:10 Assessment/Plan: 1) Pain APAP prn for pain, oxycodone for severe pain, Oxycontin twice daily, lidocaine patch, amitriptyline. Continue to monitor daily pain scores, prn medication use. Please clarify instructions for APAP and oxyIR so instructions do not overlap. 2) Pulm Albuterol for shortness of breath, guaifenesin for congestion. Continue to monitor prn medication use, for shortness of breath. 3) HTN/CAD/CHF Amlodipine, propranolol, ASA, atorvastatin, furosemide/KCl/Mg. Continue to monitor BP/HR, renal function, electrolytes, lipids, for chest pain. 4) DM2 Insulin lispro SSI. Continue to monitor BGT, s/s hyper/hypoglycemia. 5) DVT PPx Enoxaparin daily. Continue to monitor s/s bleeding/clot. Psychotropic Medications: None Unnecessary Medications: None Bowel Regimen: 6) Senna/s, PEG, prn bisacodyl. Continue to monitor prn medication use, for constipation/diarrhea. Date of Note:: 05/28/18 - Provider Comments Provider responsibility: Provider responsible to enter orders to implement recommendations <Tommy Maciel Chi - Last Filed: 06/01/18 11:13> Progress Note - Pharmacy Subjective: [] Objective: Allergies aspirin Adverse Reaction (Verified 05/22/18 18:58) Other causes stomach to bleed Current Medications Generic Name Dose Route Start Last Admin Trade Name Freq PRN Reason Stop Dose Admin Acetaminophen 1,000 mg 05/25/18 16:58 06/01/18 08:27 Tylenol PO 1,000 mg Q8H PRN PRN Administration PAIN Albuterol Sulfate 2.5 mg 05/25/18 16:58 Ventolin Aerosols INHALATION Q2H PRN PRN SHORTNESS OF BREATH Amitriptyline HCl 25 mg 05/25/18 22:00 05/31/18 22:19 Elavil PO 25 mg QHS VERONIKA Administration Amlodipine Besylate 5 mg 05/26/18 06:00 06/01/18 05:18 Norvasc PO 5 mg DAILY VERONIKA Administration Aspirin 81 mg 05/26/18 08:00 06/01/18 08:26 Aspirin, Baby PO 81 mg DAILY@0800 VERONIKA Administration Atorvastatin Calcium 40 mg 05/25/18 22:00 05/31/18 22:19 Lipitor PO 40 mg QHS VERONIKA Administration Bisacodyl 10 mg 05/25/18 16:57 Dulcolax RECTAL DAILY PRN Constipation Bisacodyl 10 mg 05/25/18 16:58 Dulcolax PO DAILY PRN Constipation Calamine/Phenol 1 applic 05/25/18 22:00 06/01/18 05:09 Calmoseptine Ointment TOPICAL 1 applicatio 0600,2200 [facility] Administration Protocol Collagenase 1 applic 05/26/18 06:00 06/01/18 05:20 Santyl TOPICAL 1 applicatio DAILY [facility] Administration Protocol Emollient Ointment 1 applic 05/25/18 18:30 06/01/18 05:09 Eucerin Intensive Repair TOPICAL 1 applicatio BID VERONIKA Administration Enoxaparin Sodium 30 mg 05/26/18 06:00 06/01/18 05:20 Lovenox SC 30 mg DAILY@0600 VERONIKA Administration Furosemide 60 mg 05/25/18 18:30 06/01/18 05:15 Lasix PO 60 mg BIDLX VERONIKA Administration Guaifenesin 10 ml 05/25/18 16:58 Robitussin Dm PO Q4H PRN PRN COUGH Insulin Human Lispro 0 unit 05/25/18 22:00 06/01/18 08:24 Humalog Kwikpen (Bkc) SC Not Given ACHS [facility] Protocol Lidocaine 1 patch 05/26/18 10:00 08/02/18 10:27 Lidoderm Patch TOPICAL 1 patch DAILY@1000 VERONIKA Administration Protocol Magnesium Oxide 400 mg 05/26/18 06:00 06/01/18 05:16 Mag-Ox 400 PO 400 mg DAILY VERONIKA Administration Melatonin 10 mg 05/25/18 22:00 05/31/18 22:19 Melatonin PO 10 mg QHS VERONIKA Administration Nutritional Formula 1 packet 05/30/18 17:00 06/01/18 08:26 Clif - [place] Flavor PO Not Given BIDCM [facility] Nystatin 1 applic 05/25/18 22:00 06/01/18 05:20 Mycostatin Powder TOPICAL 1 applicatio 0600,2200 VERONIKA Administration Protocol Oxycodone HCl 10 mg 05/25/18 16:58 05/29/18 13:10 Oxyir PO 10 mg Q4H PRN PRN Administration SEVERE PAIN (6-10/10) Oxycodone HCl 10 mg 05/25/18 22:00 05/31/18 22:21 Oxycontin PO 10 mg Q12H VERONIKA Administration Polyethylene Glycol 17 gm 05/26/18 06:00 06/01/18 05:17 Miralax PO 17 gm DAILY VERONIKA Administration Potassium Chloride 20 meq 05/26/18 08:00 06/01/18 08:26 K-Dur PO 20 meq DAILYCM [facility] Administration Propranolol HCl 80 mg 05/25/18 18:30 06/01/18 05:15 Inderal PO 80 mg BID [facility] Administration Senna/Docusate Sodium 2 tablet 05/25/18 18:00 06/01/18 05:17 Senokot-S, Anastasia-Colace PO 2 tablet BID [facility] Administration Problem List Pressure injury of coccygeal region, 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) Vital Signs Temp Pulse Resp BP Pulse Ox 97.3 F L 70 18 109/49 L 95 05/31/18 15:31 06/01/18 05:13 05/31/18 15:31 06/01/18 05:13 06/01/18 07:06 Oxygen Flow Rate (L/min) 3 Oxygen Delivery Method Nasal Cannula Weight: 81.817 kg Body Mass Index (BMI) 27.5 Finger Stick Blood Glucose 205 Sodium 140 mmol/L (136-145) 05/28/18 05:10 Potassium 3.8 mmol/L (3.5-5.1) 05/28/18 05:10 Chloride 100 mmol/L (98-107) 05/28/18 05:10 Carbon Dioxide 32.0 mmol/L (21.0-32.0) 05/28/18 05:10 Anion Gap 8 (5-15) 05/28/18 05:10 BUN 24 mg/dL (7-18) H 05/28/18 05:10 Creatinine 1.40 mg/dL (0.70-1.30) H 05/28/18 05:10 Est GFR (MDRD) Af Amer 62 mL/min (>60) 05/28/18 05:10 Est GFR (MDRD) Non-Af 52 mL/min (>60) L 05/28/18 05:10 BUN/Creatinine Ratio 17.1 RATIO (10-20) 05/28/18 05:10 Glucose 138 mg/dL (74-106) H 05/28/18 05:10 Assessment/Plan: Psychotropic Medications: Unnecessary Medications: Bowel Regimen: - Provider Comments Provider responsibility: Provider responsible to enter orders to implement recommendations Provider Comments to Recommendations by Pharmacy: Agree
[2018-05-28 15:34] VITALS: BP 115/52; PULSE 65; RESP 20; TEMP 36.2; O2SAT 98
--- NOTE | 2018-05-28 15:50 | NURSING ---
wound photo: left heel
--- NOTE | 2018-05-28 15:50 | NURSING ---
wound photo: left posterior thigh
--- NOTE | 2018-05-28 15:51 | NURSING ---
wound photo: buttocks
[2018-05-28 17:05] LABS: Bedside Glucose 154 mg/dL (70-110)
[2018-05-28] MEDS: Amitriptyline 25 MG Tablet PO (21:01)
[2018-05-28] MEDS: Atorvastatin Calcium 40 MG Tablet PO (21:01)
[2018-05-28] MEDS: MELATONIN 10 MG TABLET PO (21:01)
[2018-05-28 21:06] LABS: Bedside Glucose 193 mg/dL (70-110)
[2018-05-29] MEDS: Furosemide 40 MG Tablet 60 MG PO ×2 (06:39→13:09)
[2018-05-29] MEDS: Propranolol 40 MG Tablet 80 MG PO ×2 (06:39→18:26)
[2018-05-29] MEDS: Senna/Docusate Sodium 1 Tablet 2 TABLET PO (06:39)
[2018-05-29] MEDS: amLODIPine 5 MG Tablet PO (06:40)
[2018-05-29] MEDS: Magnesium Oxide 400 MG Tablet PO (06:40)
[2018-05-29] MEDS: Nystatin Powder 15gm Bottle 1 APPLIC TOPICAL ×2 (06:41→21:42)
[2018-05-29] MEDS: Enoxaparin 30 MG/0.3 ML Syringe SC (06:41)
[2018-05-29] MEDS: Menthol/Lanolin/Calamine/Znox 113 GM Tube 1 APPLIC TOPICAL ×2 (06:41→21:42)
[2018-05-29] MEDS: Collagenase 30gm Tube 1 APPLIC TOPICAL (06:44)
[2018-05-29 06:55] LABS: Bedside Glucose 137 mg/dL (70-110)
[2018-05-29] MEDS: Aspirin 81 MG TAB.CHEW PO (08:59)
[2018-05-29] MEDS: Lidocaine 5% Patch 1 PATCH TOPICAL (09:00)
[2018-05-29] MEDS: oxyCODONE HCl Cr 10 MG Tablet PO ×2 (09:02→21:39)
[2018-05-29 11:30] VITALS: O2SAT 98
[2018-05-29 11:41] LABS: Bedside Glucose 201 mg/dL (70-110)
[2018-05-29] MEDS: Insulin Lispro 100 UNIT/ML INSULN.PEN SC ×2 (11:49→21:39)
[2018-05-29] MEDS: oxyCODONE 5 MG Tablet 10 MG PO (13:10)
[2018-05-29 15:32] VITALS: BP 124/74; PULSE 65; RESP 18; TEMP 36.4; O2SAT 95
[2018-05-29 17:01] LABS: Bedside Glucose 138 mg/dL (70-110)
[2018-05-29 21:36] LABS: Bedside Glucose 171 mg/dL (70-110)
[2018-05-29] MEDS: MELATONIN 10 MG TABLET PO (21:39)
[2018-05-29] MEDS: Atorvastatin Calcium 40 MG Tablet PO (21:39)
[2018-05-29] MEDS: Amitriptyline 25 MG Tablet PO (21:42)
[2018-05-30] MEDS: Collagenase 30gm Tube 1 APPLIC TOPICAL (03:30)
[2018-05-30] MEDS: Furosemide 40 MG Tablet 60 MG PO ×2 (06:10→14:21)
[2018-05-30] MEDS: Senna/Docusate Sodium 1 Tablet 2 TABLET PO (06:11)
[2018-05-30] MEDS: Propranolol 40 MG Tablet 80 MG PO ×2 (06:11→19:09)
[2018-05-30] MEDS: amLODIPine 5 MG Tablet PO (06:11)
[2018-05-30] MEDS: Magnesium Oxide 400 MG Tablet PO (06:11)
[2018-05-30] MEDS: Polyethylene Glycol 3350 17 GM PACKET PO (06:12)
[2018-05-30] MEDS: Nystatin Powder 15gm Bottle 1 APPLIC TOPICAL ×2 (06:12→21:16)
[2018-05-30] MEDS: Menthol/Lanolin/Calamine/Znox 113 GM Tube 1 APPLIC TOPICAL ×2 (06:12→21:16)
[2018-05-30] MEDS: Enoxaparin 30 MG/0.3 ML Syringe SC (06:12)
[2018-05-30 07:01] LABS: Bedside Glucose 118 mg/dL (70-110)
[2018-05-30] MEDS: Aspirin 81 MG TAB.CHEW PO (08:12)
[2018-05-30 08:30] VITALS: O2SAT 95
[2018-05-30] MEDS: oxyCODONE HCl Cr 10 MG Tablet PO ×2 (10:31→21:15)
[2018-05-30] MEDS: Lidocaine 5% Patch 1 PATCH TOPICAL (10:31)
--- NOTE | 2018-05-30 11:06 | CASEMGMT ---
Brief interview for mental status (BIMS) and resident mood interview (PHQ-9) completed on this day. BIMS score 15/15. PHQ-9 score 06/25
[2018-05-30 11:26] LABS: Bedside Glucose 151 mg/dL (70-110)
[2018-05-30] MEDS: Insulin Lispro 100 UNIT/ML INSULN.PEN SC ×3 (12:29→21:18)
--- NOTE | 2018-05-30 14:01 | CASEMGMT ---
Plan of care meeting held. Resident present as well as resident family. No discharge date set at this time. Resident to continue with further care and treatment on the Transitional Care Unit at this time. Resident plans to discharge home with family vs. extended care facility at time of discharge. Insurance update due on 06/01/18, resident and resident family aware that continued stay approval is not guaranteed. Support given. Will continue to follow. Mely SANDOVAL, PROGRAM AND RESEARCH COORDINATOR
[2018-05-30 15:55] VITALS: BP 102/42; PULSE 69; RESP 16; TEMP 36.5; O2SAT 98
[2018-05-30 17:06] LABS: Bedside Glucose 231 mg/dL (70-110)
[2018-05-30] MEDS: MELATONIN 10 MG TABLET PO (21:16)
[2018-05-30] MEDS: Amitriptyline 25 MG Tablet PO (21:16)
[2018-05-30] MEDS: Atorvastatin Calcium 40 MG Tablet PO (21:17)
[2018-05-30 21:26] LABS: Bedside Glucose 159 mg/dL (70-110)
[2018-05-31] MEDS: Collagenase 30gm Tube 1 APPLIC TOPICAL (06:24)
[2018-05-31] MEDS: Magnesium Oxide 400 MG Tablet PO (06:25)
[2018-05-31] MEDS: Nystatin Powder 15gm Bottle 1 APPLIC TOPICAL ×2 (06:25→22:24)
[2018-05-31] MEDS: Menthol/Lanolin/Calamine/Znox 113 GM Tube 1 APPLIC TOPICAL ×2 (06:25→22:24)
[2018-05-31] MEDS: amLODIPine 5 MG Tablet PO (06:26)
[2018-05-31] MEDS: Enoxaparin 30 MG/0.3 ML Syringe SC (06:26)
[2018-05-31] MEDS: Furosemide 40 MG Tablet 60 MG PO ×2 (06:26→13:33)
[2018-05-31] MEDS: Polyethylene Glycol 3350 17 GM PACKET PO (06:26)
[2018-05-31] MEDS: Propranolol 40 MG Tablet 80 MG PO ×2 (06:26→17:05)
[2018-05-31] MEDS: Senna/Docusate Sodium 1 Tablet 2 TABLET PO ×2 (06:26→17:05)
[2018-05-31 07:06] LABS: Bedside Glucose 112 mg/dL (70-110)
[2018-05-31 07:34] VITALS: O2SAT 93
--- NOTE | 2018-05-31 07:42 | PCM.CONS.GEN ---
Reason for Consult Date of Consultation: 05/31/18 Reason for Consultation: Toenails History of Present Illness: Podiatry was consulted for patient's toenails. They are long, thickened, and painful, patient is unable to maintain his toenails. He has history of multiple medical problems which does include diabetes. He relates he broke his leg and relates he had surgery, per review of records patient had tibia fracture s/p ORIF by Dr. Louise in [place]. Incidentally it was also noted he has pressure sore to the left heel, wound care is following - heel is receiving daily dressing changes. He recently had noninvasive lower extremity arterial studies in which report is pending; however appears patient has significant lower extremity arterial disease. 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) multiple areas of eschar LLE Fracture of left tibia and fibula (Chronic) Chronic kidney disease (Chronic) Cirrhosis of liver (Chronic) Anemia (Chronic) Chronic constipation (Chronic) Diabetes mellitus (Chronic) Chronic pain (Chronic) Encephalopathy (Chronic) Paroxysmal A-fib (Chronic) Toe pain, left (Chronic) Toe pain, right (Chronic) Tinea unguium (Chronic) Insomnia (Chronic) GERD (gastroesophageal reflux disease) (Chronic) Edema (Chronic) Hypomagnesemia (Chronic) Pulmonary hypertension (Chronic) mild Debility secondary to stroke (Chronic) 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) Stroke (Chronic) Hypertension (Chronic) COPD (chronic obstructive pulmonary disease) (Chronic) Peripheral vascular disease (Chronic) Allergies aspirin Adverse Reaction (Verified 05/22/18 18:58) Other causes stomach to bleed Home Medications: Ambulatory Orders Medication Instructions Recorded Magnesium Oxide [Mag-Ox 400] 400 mg PO DAILY 12/21/15 Amlodipine [Norvasc] 5 mg PO DAILY 07/13/17 Propranolol HCl 80 mg PO BID 07/13/17 Amitriptyline HCl [Elavil] 25 mg PO QHS 08/02/17 Aspirin [Aspirin, Baby] 81 mg PO DAILY@0800 11/13/17 Atorvastatin Calcium [Lipitor] 40 mg PO QHS 11/13/17 Oxycodone CR [Oxycontin] 10 mg PO Q12H 04/25/18 Bisacodyl [Dulcolax] 10 mg PO DAILY PRN tablet 05/21/18 Guaifenesin Dm [Robitussin Dm] 10 ml PO Q4H PRN PRN udc 05/21/18 Acetaminophen 1,000 mg PO Q8H PRN PRN 05/22/18 Emollient Combination No.72 1 applicatio TP BID 05/22/18 [Eucerin Intensive Repair] Polyethylene Glycol 3350 [Miralax] 17 gm PO DAILY 05/22/18 Potassium Chloride [K-Dur] 20 meq PO DAILYCM 05/22/18 Senna/Docusate Sodium [Senokot-S] 2 tablet PO BID 05/22/18 Albuterol Aerosols [Ventolin 2.5 mg INHALATION Q2H PRN PRN 05/25/18 Aerosols] vial.neb. Furosemide [Lasix] 60 mg PO BID #60 05/25/18 Insulin Lispro [Humalog KwikPen] See Protocol SQ ACHS 05/25/18 Lidocaine [Lidoderm Patch] 1 patch TOPICAL DAILY 05/25/18 Melatonin 10 mg PO QHS 05/25/18 Menthol/Lanolin/Calamine/Znox 1 applic TOPICAL 0600,0 05/25/18 [Calmoseptine Ointment] Nystatin Powder [Mycostatin Powder] 1 applic TOPICAL 0600,219905/25/18 Oxycodone [Oxyir] 10 mg PO Q4H PRN PRN #20 tab 05/25/18 Surgical History: cholecystectomy, tonsillectomy, - - Stone removal from common bile duct, ORIF left tib/fib fracture. Psychiatric History: No pertinent psych hx Smoking Status: Former smoker - *Family History Maternal History Items: Diabetes Paternal History Items: Stroke - Physical Exam General: Alert, Oriented x3, Cooperative, No apparent distress Extremities: Capillary Refill Less than 3 Seconds, No Calf Tenderness, Diminished Peripheral Pulses - No evidence of acute ischemia to the foot or ankle bilateral., - - Toenails 1-5 bilateral are elongated, thickened, dystrophic, painful w/ subungual debris. Skin: Ulcer/ Wound - Left posterior plantar heel does have an unstagable pressure sore, receiving daily dressing changes using santyl and overlying gauze dressing. Reviewed wound photos, wound has overlying intact dry eschar covering, there is no evidence of infection w/ no cellulitis present. Previous wound dorsal base of left hallux appears to be healed at this time, and no other open lesions noted at this time to rest of foot/ankle bilateral w/ no drainage, no maloder, no fluctuance, no visible abscess, no crepitus. Musculoskeletal: No Tenderness to Palpation of Joints or Extremities - No m/s POP to the foot/ankle bilateral. Psych/Mental Status: Alert and oriented to time, place, person, mood and affect Vital Signs Temp Pulse Resp BP Pulse Ox 97.7 F L 69 16 102/42 L 98 05/30/18 15:55 05/30/18 15:55 05/30/18 15:55 05/30/18 15:55 05/30/18 15:55 Oxygen Flow Rate (L/min) 2 Oxygen Delivery Method Nasal Cannula Weight: 83.121 kg Body Mass Index (BMI) 27.5 Finger Stick Blood Glucose 205 Intake and Output for Last 24 Hours 05/29/18 05/30/18 05/31/18 23:59 23:59 23:59 Intake Total 840 / 840 360 / 360 Output Total 450 / 450 Balance 390 / 390 360 / 360 POC Glucose 05/31/18 05/30/18 05/30/18 06:36 21:09 16:50 POC Glucose 112 H 159 H 231 H 05/30/18 11:14 POC Glucose 151 H Assessment/Plan All Active Problems Acute exacerbation of CHF (congestive heart failure) (Acute) Acute respiratory failure with hypoxia (Acute) Debility (Acute) YANNA (acute kidney injury) (Resolved) Diastolic CHF (Acute) COPD with acute exacerbation (Acute) Abdominal pain (Resolved) Left leg cellulitis (Resolved) Sepsis (Resolved) Fall (Resolved) Pancreatitis (Resolved) 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 Debrided toenails 1-5 bilateral today using a nail nipper, this was done without incident. Patient has a pressure sore to the left heel, wound care is following; site is receiving daily dressing changes with Santyl with overlying gauze along with offloading using pillows. Keep offloaded at all times. His lower extremity arterial study was reviewed (formal report pending) and it was noted there is significant lower extremity arterial disease - recommend vascular surgery consult. Thank you for consultation.
[2018-05-31] MEDS: Aspirin 81 MG TAB.CHEW PO (07:49)
[2018-05-31] MEDS: oxyCODONE HCl Cr 10 MG Tablet PO ×2 (10:22→22:21)
[2018-05-31] MEDS: Lidocaine 5% Patch 1 PATCH TOPICAL (10:27)
[2018-05-31 11:26] LABS: Bedside Glucose 180 mg/dL (70-110)
[2018-05-31] MEDS: Insulin Lispro 100 UNIT/ML INSULN.PEN SC ×2 (11:46→22:22)
--- NOTE | 2018-05-31 12:43 | NURSING ---
Dr. Zee in to see patient this morning, toe nails trimmed. NNO.
--- NOTE | 2018-05-31 13:35 | NURSING ---
pt in bed resting on rt side. pt with heel protectors off at this time and when mentioned to pt pt refused having on at this time. stated, i dont want them on. they make my feet too hot
--- NOTE | 2018-05-31 14:26 | LEAS ---
Arterial Study - Arterial Study Arterial Study: This is an 83-year-old male who presents with wounds of the leg and foot. Suspecting the presence of atherosclerotic peripheral arterial occlusive disease, the patient was brought to the noninvasive vascular laboratory at this time for the purpose of bilateral noninvasive lower extremity arterial assessment. Doppler signal assessment was used to evaluate the pulses at ankle level bilaterally. On the right, the posterior tibial and dorsalis pedis pulses were monophasic. The left posterior tibial pulse was biphasic. The left dorsalis pedis pulse was monophasic. Segmental limb pressures were obtained bilaterally. The right ankle pressure, as determined by posterior tibial pulse, was measured at 69 mmHg. The right ankle pressure, as determined by dorsalis pedis pulse, was measured at 69 mmHg. The right digital pressure was measured at 43 mmHg. The left ankle pressure, as determined by posterior tibial pulse, was measured at 71 mmHg. The left ankle pressure, as determined by dorsalis pedis pulse, was measured at 70 mmHg. The left digital pressure was measured at 68 mmHg. Pulse-volume recordings were obtained at ankle level bilaterally. Waveform amplitudes appeared to be diminished at ankle level on the right. Resting ankle-brachial indices were calculated bilaterally. The resting right ankle-brachial index was calculated to be 0.58. The resting left ankle-brachial index was calculated to be 0.60. Digital-brachial indices were calculated bilaterally. The right digital-brachial index was calculated to be 0.36. The left digital-brachial index was calculated to be 0.57. Impression: Based upon the findings of this resting noninvasive lower extremity arterial study, there is evidence of moderate arterial occlusive disease in the lower extremities bilaterally. Monophasic waveforms were noted at ankle level on the right. Biphasic and monophasic waveforms were noted at ankle level on the left. Resting ankle-brachial indices were moderately diminished bilaterally. The right digital-brachial index was moderately diminished. The left digital-brachial index was mildly diminished. These findings suggest moderate impairment of arterial flow at ankle level bilaterally. There is moderate impairment of arterial flow at digital level on the right, and mild impairment of arterial flow at digital level on the left. Clinical correlation is advised.
--- NOTE | 2018-05-31 14:35 | LEAS_ITS ---
Arterial Study - Arterial Study Arterial Study: This is an 83-year-old male who presents with wounds of the leg and foot. Suspecting the presence of atherosclerotic peripheral arterial occlusive disease , the patient was brought to the noninvasive vascular laboratory at this time for the purpose of bilateral noninvasive lower extremity arterial assessment. Doppler signal assessment was used to evaluate the pulses at ankle level bilaterally. On the right, the posterior tibial and dorsalis pedis pulses were monophasic. The left posterior tibial pulse was biphasic. The left dorsalis pedis pulse was monophasic. Segmental limb pressures were obtained bilaterally. The right ankle pressure, as determined by posterior tibial pulse, was measured at 69 mmHg. The right ankle pressure, as determined by dorsalis pedis pulse, was measured at 69 mmHg. The right digital pressure was measured at 43 mmHg. The left ankle pressure, as determined by posterior tibial pulse, was measured at 71 mmHg. The left ankle pressure, as determined by dorsalis pedis pulse, was measured at 70 mmHg. The left digital pressure was measured at 68 mmHg. Pulse-volume recordings were obtained at ankle level bilaterally. Waveform amplitudes appeared to be diminished at ankle level on the right. Resting ankle-brachial indices were calculated bilaterally. The resting right ankle-brachial index was calculated to be 0.58. The resting left ankle- brachial index was calculated to be 0.60. Digital-brachial indices were calculated bilaterally. The right digital- brachial index was calculated to be 0.36. The left digital-brachial index was calculated to be 0.57. Impression: Based upon the findings of this resting noninvasive lower extremity arterial study, there is evidence of moderate arterial occlusive disease in the lower extremities bilaterally. Monophasic waveforms were noted at ankle level on the right. Biphasic and monophasic waveforms were noted at ankle level on the left. Resting ankle-brachial indices were moderately diminished bilaterally. The right digital-brachial index was moderately diminished. The left digital-brachial index was mildly diminished. These findings suggest moderate impairment of arterial flow at ankle level bilaterally. There is moderate impairment of arterial flow at digital level on the right, and mild impairment of arterial flow at digital level on the left. Clinical correlation is advised.
[2018-05-31 15:31] VITALS: BP 115/42; PULSE 63; RESP 18; TEMP 36.3; O2SAT 96
[2018-05-31 17:01] LABS: Bedside Glucose 129 mg/dL (70-110)
[2018-05-31 21:16] LABS: Bedside Glucose 177 mg/dL (70-110)
[2018-05-31] MEDS: MELATONIN 10 MG TABLET PO (22:19)
[2018-05-31] MEDS: Atorvastatin Calcium 40 MG Tablet PO (22:19)
[2018-05-31] MEDS: Amitriptyline 25 MG Tablet PO (22:19)
[2018-06-01] MEDS: Menthol/Lanolin/Calamine/Znox 113 GM Tube 1 APPLIC TOPICAL ×2 (05:09→21:10)
[2018-06-01 05:13] VITALS: BP 109/49; PULSE 70
[2018-06-01] MEDS: Furosemide 40 MG Tablet 60 MG PO ×2 (05:15→13:28)
[2018-06-01] MEDS: Propranolol 40 MG Tablet 80 MG PO ×2 (05:15→17:40)
[2018-06-01] MEDS: Magnesium Oxide 400 MG Tablet PO (05:16)
[2018-06-01] MEDS: Senna/Docusate Sodium 1 Tablet 2 TABLET PO ×2 (05:17→17:44)
[2018-06-01] MEDS: Polyethylene Glycol 3350 17 GM PACKET PO (05:17)
[2018-06-01] MEDS: amLODIPine 5 MG Tablet PO (05:18)
[2018-06-01] MEDS: Enoxaparin 30 MG/0.3 ML Syringe SC (05:20)
[2018-06-01] MEDS: Collagenase 30gm Tube 1 APPLIC TOPICAL (05:20)
[2018-06-01] MEDS: Nystatin Powder 15gm Bottle 1 APPLIC TOPICAL ×2 (05:20→21:11)
[2018-06-01 07:06] VITALS: O2SAT 95
[2018-06-01 07:10] LABS: Bedside Glucose 136 mg/dL (70-110)
[2018-06-01] MEDS: Aspirin 81 MG TAB.CHEW PO (08:26)
[2018-06-01] MEDS: Acetaminophen 500 MG Tablet 1000 MG PO (08:27)
[2018-06-01] MEDS: Lidocaine 5% Patch 1 PATCH TOPICAL (11:26)
[2018-06-01] MEDS: oxyCODONE HCl Cr 10 MG Tablet PO ×2 (11:31→21:13)
--- NOTE | 2018-06-01 11:35 | CASEMGMT ---
Insurance Clinical update faxed. Will await continued stay determination. Pt and aware insurance update due today and continued stay not guaranteed. Auth # [id number] JAIME Spann
[2018-06-01 11:51] LABS: Bedside Glucose 167 mg/dL (70-110)
[2018-06-01] MEDS: Insulin Lispro 100 UNIT/ML INSULN.PEN SC ×3 (12:12→22:03)
--- NOTE | 2018-06-01 12:50 | CASEMGMT ---
Insurance Pt approved for continued stay with update due 06/05/18. Per Magdalena, pt likely to be denied continued stay upon next review. THERESE spoke with pt and informed of above. The plan will be for pt to go to [facility] private pay if denied continued stay. According to Pt , she has applied for Medicaid for pt and is currently working on providing needed documents to [facility]. Pt also informed of insurance decision. Phone call to Kira at the [facility] and informed that pt may be up for discharge next week and would like to come to [facility]. Beds are available and name will be placed on list. THERESE will follow up after next insurance review. Auth # [id number] JAIME Spann
[2018-06-01 14:30] VITALS: PULSE 60; RESP 18; O2SAT 98
[2018-06-01 16:00] VITALS: BP 96/41; PULSE 57; RESP 20; TEMP 36.2; O2SAT 97
[2018-06-01 16:56] LABS: Bedside Glucose 156 mg/dL (70-110)
[2018-06-01] MEDS: Atorvastatin Calcium 40 MG Tablet PO (21:11)
[2018-06-01] MEDS: Amitriptyline 25 MG Tablet PO (21:11)
[2018-06-01] MEDS: MELATONIN 10 MG TABLET PO (21:11)
[2018-06-01 21:56] LABS: Bedside Glucose 171 mg/dL (70-110)
[2018-06-02] MEDS: Menthol/Lanolin/Calamine/Znox 113 GM Tube 1 APPLIC TOPICAL ×2 (06:23→20:47)
[2018-06-02] MEDS: Propranolol 40 MG Tablet 80 MG PO ×2 (06:30→17:25)
[2018-06-02] MEDS: Furosemide 40 MG Tablet 60 MG PO ×2 (06:30→13:03)
[2018-06-02] MEDS: Enoxaparin 30 MG/0.3 ML Syringe SC (06:30)
[2018-06-02] MEDS: Collagenase 30gm Tube 1 APPLIC TOPICAL (06:31)
[2018-06-02] MEDS: Nystatin Powder 15gm Bottle 1 APPLIC TOPICAL ×2 (06:31→20:49)
[2018-06-02] MEDS: Magnesium Oxide 400 MG Tablet PO (06:31)
[2018-06-02] MEDS: amLODIPine 5 MG Tablet PO (06:31)
[2018-06-02 07:01] LABS: Bedside Glucose 144 mg/dL (70-110)
[2018-06-02 07:54] VITALS: O2SAT 97
[2018-06-02 08:19] LABS: Absolute Lymphocyte Count 1.53 X10^3/ul (0.83-4.51); Absolute Neutrophil Count 7.9 X10^3/uL (2.0-7.7); Basophil# 0.03 X10^3/uL; Basophil% 0.3 % (0-1); Eosinophil# 0.42 X10^3/uL; Eosinophils% 3.7 % (0-5); Hematocrit 27.5 % (40-54); Hemoglobin 8.5 g/dl (13.0-16.5); Lymphocyte # 1.53 X10^3/ul (4.0); Lymphocyte % 13.6 % (19-41); Mean Corp Hgb Conc 30.9 g/gl (32-36); Mean Corpuscular Hgb 30.6 pg (27.0-32.0); Mean Corpuscular Volume 98.9 fL (80-94); Mean Platelet Vol. 8.7 fl (6.2-12.0); Monocyte# 1.26 X10^3/uL; Monocyte% 11.2 % (0-10); Neutrophil # 7.94 X10^3/uL (2.7-7.7); Neutrophil % 70.8 % (47-70); Platelet Count 326 K/mm3 (150-450); RBC Distribution Width SD 48.1 fl (35.1-43.9); Red Blood Count 2.78 M/mm3 (4.6-6.2); White Blood Count 11.2 K/mm3 (4.4-11.0)
[2018-06-02 08:22] LABS: POSITIVE COUNT NO; POSITIVE DIFFERENTIAL NO; POSITIVE MORPHOLOGY NO
[2018-06-02 08:32] LABS: Anion Gap 5 (5-15); BUN 21 mg/dL (7-18); BUN/Creat Ratio 14.9 RATIO (10-20); Calcium,Total 8.6 mg/dL (8.5-10.1); Chloride 97 mmol/L (98-107); Creatinine, Serum 1.41 mg/dL (0.70-1.30); EST Glomerular Filtration Rate 51 mL/min (>60); Est Glom Filt Rate - Afr Amer 62 mL/min (>60); Estimated Creatinine Clearance 39.08 ml/min; Glucose 138 mg/dL (74-106); Potassium 3.7 mmol/L (3.5-5.1); Sodium Level 138 mmol/L (136-145)
[2018-06-02] MEDS: oxyCODONE HCl Cr 10 MG Tablet PO ×2 (08:57→20:54)
[2018-06-02] MEDS: Aspirin 81 MG TAB.CHEW PO (08:58)
[2018-06-02] MEDS: Lidocaine 5% Patch 1 PATCH TOPICAL (08:59)
[2018-06-02 11:20] LABS: Bedside Glucose 171 mg/dL (70-110)
[2018-06-02] MEDS: Insulin Lispro 100 UNIT/ML INSULN.PEN SC ×2 (12:13→22:12)
--- NOTE | 2018-06-02 15:38 | NURSING ---
DR HOANG NOTIFIED OF ELEVATED WBC 11.2 TODAY. NO NEW ORDERS. PT BEEN AFEBRILE.
[2018-06-02 16:00] VITALS: BP 123/44; PULSE 71; RESP 20; TEMP 36; O2SAT 92
[2018-06-02 17:01] LABS: Bedside Glucose 131 mg/dL (70-110)
[2018-06-02] MEDS: Atorvastatin Calcium 40 MG Tablet PO (20:50)
[2018-06-02] MEDS: Amitriptyline 25 MG Tablet PO (20:53)
[2018-06-02] MEDS: MELATONIN 10 MG TABLET PO (20:54)
[2018-06-02 21:26] LABS: Bedside Glucose 176 mg/dL (70-110)
[2018-06-02 22:32] VITALS: PULSE 58; RESP 16; O2SAT 99
[2018-06-03 06:35] VITALS: O2SAT 96
--- NOTE | 2018-06-03 06:36 | NURSING ---
Uriah is refusing all of his medications and is very angry and combative this AM. He stated he would punch the staff and repeatedly screamed and told us leave him alone while yelling profanities. Spoke with AM nurse and she stated to leave the medications on the DEC. The DESIGN EDITOR attempted to get a blood sugar reading and was also threatened. Patient is very confused. Roxanne Roth RN.
--- NOTE | 2018-06-03 06:59 | PCA ---
This gunnery/ordnance officer went into res. room to do his blood sugar, res. said where am I, I then told him he was in the hospital, he said I know where I am and you are holding me captive, I explained to him that I just needed to do his sugar, res. screamed and said get the hell out of here ... reported to Rn, res then cussing and screaming at nurse... blood sugar not done.
[2018-06-03] MEDS: Aspirin 81 MG TAB.CHEW PO (09:21)
[2018-06-03] MEDS: oxyCODONE HCl Cr 10 MG Tablet PO ×2 (09:21→21:25)
[2018-06-03] MEDS: Lidocaine 5% Patch 1 PATCH TOPICAL (09:21)
[2018-06-03 10:00] VITALS: PULSE 84; RESP 18; O2SAT 99
[2018-06-03 11:31] LABS: Bedside Glucose 149 mg/dL (70-110)
[2018-06-03] MEDS: Collagenase 30gm Tube 1 APPLIC TOPICAL (11:37)
[2018-06-03] MEDS: Furosemide 40 MG Tablet 60 MG PO (14:15)
[2018-06-03 15:48] VITALS: BP 129/52; PULSE 64; RESP 20; TEMP 36.1; O2SAT 93
[2018-06-03 16:55] LABS: Bedside Glucose 155 mg/dL (70-110)
[2018-06-03] MEDS: Propranolol 40 MG Tablet 80 MG PO (17:41)
[2018-06-03 20:46] LABS: Bedside Glucose 174 mg/dL (70-110)
[2018-06-03] MEDS: Amitriptyline 25 MG Tablet PO (21:25)
[2018-06-03] MEDS: MELATONIN 10 MG TABLET PO (21:25)
[2018-06-03] MEDS: Menthol/Lanolin/Calamine/Znox 113 GM Tube 1 APPLIC TOPICAL (21:25)
[2018-06-03] MEDS: Atorvastatin Calcium 40 MG Tablet PO (21:25)
[2018-06-03] MEDS: Insulin Lispro 100 UNIT/ML INSULN.PEN SC (21:26)
[2018-06-03] MEDS: Nystatin Powder 15gm Bottle 1 APPLIC TOPICAL (21:28)
[2018-06-04] MEDS: amLODIPine 5 MG Tablet PO (06:29)
[2018-06-04] MEDS: Magnesium Oxide 400 MG Tablet PO (06:29)
[2018-06-04] MEDS: Propranolol 40 MG Tablet 80 MG PO ×2 (06:30→17:34)
[2018-06-04] MEDS: Furosemide 40 MG Tablet 60 MG PO ×2 (06:30→13:27)
[2018-06-04] MEDS: Nystatin Powder 15gm Bottle 1 APPLIC TOPICAL ×2 (06:31→21:33)
[2018-06-04] MEDS: Menthol/Lanolin/Calamine/Znox 113 GM Tube 1 APPLIC TOPICAL ×2 (06:31→21:33)
[2018-06-04] MEDS: Enoxaparin 30 MG/0.3 ML Syringe SC (06:31)
[2018-06-04] MEDS: Senna/Docusate Sodium 1 Tablet 2 TABLET PO (06:35)
[2018-06-04 06:45] LABS: Bedside Glucose 134 mg/dL (70-110)
[2018-06-04 07:03] VITALS: O2SAT 97
[2018-06-04] MEDS: Aspirin 81 MG TAB.CHEW PO (08:26)
[2018-06-04] MEDS: oxyCODONE HCl Cr 10 MG Tablet PO ×2 (10:29→21:33)
[2018-06-04] MEDS: Lidocaine 5% Patch 1 PATCH TOPICAL (10:30)
[2018-06-04 11:31] LABS: Bedside Glucose 177 mg/dL (70-110)
[2018-06-04] MEDS: Insulin Lispro 100 UNIT/ML INSULN.PEN SC ×3 (12:06→21:36)
[2018-06-04 13:30] VITALS: PULSE 64; RESP 18; O2SAT 98
[2018-06-04 15:35] VITALS: BP 106/46; PULSE 60; RESP 20; TEMP 37.1; O2SAT 97
[2018-06-04 16:51] LABS: Bedside Glucose 153 mg/dL (70-110)
[2018-06-04 21:11] LABS: Bedside Glucose 181 mg/dL (70-110)
[2018-06-04] MEDS: MELATONIN 10 MG TABLET PO (21:32)
[2018-06-04] MEDS: Atorvastatin Calcium 40 MG Tablet PO (21:32)
[2018-06-04] MEDS: Amitriptyline 25 MG Tablet PO (21:33)
[2018-06-05] MEDS: Enoxaparin 30 MG/0.3 ML Syringe SC (06:08)
[2018-06-05] MEDS: Menthol/Lanolin/Calamine/Znox 113 GM Tube 1 APPLIC TOPICAL ×2 (06:08→21:32)
[2018-06-05] MEDS: Furosemide 40 MG Tablet 60 MG PO ×2 (06:08→13:45)
[2018-06-05] MEDS: amLODIPine 5 MG Tablet PO (06:08)
[2018-06-05] MEDS: Magnesium Oxide 400 MG Tablet PO (06:08)
[2018-06-05] MEDS: Propranolol 40 MG Tablet 80 MG PO ×2 (06:08→17:24)
[2018-06-05] MEDS: Nystatin Powder 15gm Bottle 1 APPLIC TOPICAL ×2 (06:09→21:32)
[2018-06-05 06:51] LABS: Bedside Glucose 147 mg/dL (70-110)
[2018-06-05 07:23] VITALS: O2SAT 91
[2018-06-05] MEDS: Bisacodyl 5 MG Tablet 10 MG PO (08:01)
[2018-06-05] MEDS: Aspirin 81 MG TAB.CHEW PO (08:02)
[2018-06-05] MEDS: Lidocaine 5% Patch 1 PATCH TOPICAL (09:39)
[2018-06-05] MEDS: oxyCODONE HCl Cr 10 MG Tablet PO ×2 (10:18→21:40)
[2018-06-05 11:36] LABS: Bedside Glucose 119 mg/dL (70-110)
--- NOTE | 2018-06-05 12:10 | CASEMGMT ---
Insurance Clinical information faxed. Pending continued stay approval at this time. Auth#[id number] Mely SANDOVAL, PRINTED CIRCUIT BOARDS PLASMA ETCHER
--- NOTE | 2018-06-05 12:19 | NURSING ---
Message left for Dr. Hans Louise's office in regards to patient's weight bearing status.
--- NOTE | 2018-06-05 14:18 | CASEMGMT ---
Insurance Continued stay approval at this time. Next update due on 06/11/18. Auth#[id number] Mely SANDOVAL, AN EMPLOYEE SPONSOR OR [employer] AND
[2018-06-05 16:00] VITALS: BP 109/49; PULSE 64; RESP 18; TEMP 36.2; O2SAT 90
[2018-06-05 17:11] LABS: Bedside Glucose 130 mg/dL (70-110)
[2018-06-05 21:11] LABS: Bedside Glucose 192 mg/dL (70-110)
[2018-06-05] MEDS: MELATONIN 10 MG TABLET PO (21:32)
[2018-06-05] MEDS: Atorvastatin Calcium 40 MG Tablet PO (21:32)
[2018-06-05] MEDS: Amitriptyline 25 MG Tablet PO (21:32)
[2018-06-05 21:40] VITALS: PULSE 61; O2SAT 98
[2018-06-05] MEDS: Insulin Lispro 100 UNIT/ML INSULN.PEN SC (21:44)
[2018-06-06] MEDS: Menthol/Lanolin/Calamine/Znox 113 GM Tube 1 APPLIC TOPICAL ×2 (05:16→21:27)
[2018-06-06] MEDS: Enoxaparin 30 MG/0.3 ML Syringe SC (05:17)
[2018-06-06] MEDS: Magnesium Oxide 400 MG Tablet PO (05:17)
[2018-06-06] MEDS: Furosemide 40 MG Tablet 60 MG PO ×2 (05:17→14:20)
[2018-06-06] MEDS: Propranolol 40 MG Tablet 80 MG PO ×2 (05:17→18:04)
[2018-06-06] MEDS: Senna/Docusate Sodium 1 Tablet 2 TABLET PO (05:18)
[2018-06-06] MEDS: amLODIPine 5 MG Tablet PO (05:18)
[2018-06-06] MEDS: Nystatin Powder 15gm Bottle 1 APPLIC TOPICAL ×2 (05:18→21:27)
[2018-06-06 06:56] LABS: Bedside Glucose 131 mg/dL (70-110)
[2018-06-06 07:20] VITALS: O2SAT 93
[2018-06-06] MEDS: Lidocaine 5% Patch 1 PATCH TOPICAL (09:14)
[2018-06-06] MEDS: oxyCODONE HCl Cr 10 MG Tablet PO ×2 (09:15→21:27)
[2018-06-06] MEDS: Aspirin 81 MG TAB.CHEW PO (09:15)
[2018-06-06 11:00] LABS: Bedside Glucose 49 mg/dL (70-110)
--- NOTE | 2018-06-06 11:25 | NURSING ---
Pt blood glucose prior to lunch 49. Pt given two glasses of juice. Asymptomatic at this time. Blood glucose retaken 30 minutes later with a reading of 185. Pt denies any discomfort.
[2018-06-06 11:31] LABS: Bedside Glucose 185 mg/dL (70-110)
[2018-06-06] MEDS: Insulin Lispro 100 UNIT/ML INSULN.PEN SC ×3 (12:36→21:28)
--- NOTE | 2018-06-06 14:04 | MDS.RN ---
Information for the mds was obtained from review of the clinical record, interview of resident, staff, and direct observation of resident's care.
[2018-06-06] MEDS: Collagenase 30gm Tube 1 APPLIC TOPICAL (15:15)
[2018-06-06 15:53] VITALS: BP 117/46; PULSE 57; RESP 20; TEMP 36.6; O2SAT 92
[2018-06-06 16:56] LABS: Bedside Glucose 154 mg/dL (70-110)
[2018-06-06 20:51] LABS: Bedside Glucose 190 mg/dL (70-110)
[2018-06-06] MEDS: MELATONIN 10 MG TABLET PO (21:27)
[2018-06-06] MEDS: Amitriptyline 25 MG Tablet PO (21:27)
[2018-06-06] MEDS: Atorvastatin Calcium 40 MG Tablet PO (21:27)
[2018-06-07] MEDS: amLODIPine 5 MG Tablet PO (05:50)
[2018-06-07] MEDS: Menthol/Lanolin/Calamine/Znox 113 GM Tube 1 APPLIC TOPICAL ×2 (05:50→21:01)
[2018-06-07] MEDS: Nystatin Powder 15gm Bottle 1 APPLIC TOPICAL ×2 (05:50→21:02)
[2018-06-07] MEDS: Magnesium Oxide 400 MG Tablet PO (05:50)
[2018-06-07] MEDS: Enoxaparin 30 MG/0.3 ML Syringe SC (05:50)
[2018-06-07] MEDS: Furosemide 40 MG Tablet 60 MG PO ×2 (05:51→13:10)
[2018-06-07] MEDS: Propranolol 40 MG Tablet 80 MG PO ×2 (05:51→17:29)
[2018-06-07 06:46] LABS: Bedside Glucose 152 mg/dL (70-110)
[2018-06-07 07:08] VITALS: O2SAT 91
[2018-06-07] MEDS: oxyCODONE HCl Cr 10 MG Tablet PO ×2 (08:46→21:04)
[2018-06-07] MEDS: Lidocaine 5% Patch 1 PATCH TOPICAL (08:47)
[2018-06-07] MEDS: Aspirin 81 MG TAB.CHEW PO (08:48)
[2018-06-07 11:26] LABS: Bedside Glucose 166 mg/dL (70-110)
[2018-06-07] MEDS: Insulin Lispro 100 UNIT/ML INSULN.PEN SC ×2 (13:09→17:32)
--- NOTE | 2018-06-07 14:35 | NURSING ---
pt off unit to appt with ortho via cot
[2018-06-07 16:00] VITALS: BP 109/47; PULSE 51; RESP 22; TEMP 36.1; O2SAT 93
--- NOTE | 2018-06-07 16:23 | CASEMGMT ---
Brief interview for mental status (BIMS) and resident mood interview (PHQ-9) completed on this day. BIMS score 13/15. PHQ-9 score 06/25
[2018-06-07 17:10] LABS: Bedside Glucose 135 mg/dL (70-110)
[2018-06-07] MEDS: Senna/Docusate Sodium 1 Tablet 2 TABLET PO (17:28)
[2018-06-07 20:15] VITALS: PULSE 73; O2SAT 97
[2018-06-07] MEDS: Collagenase 30gm Tube 1 APPLIC TOPICAL (20:28)
[2018-06-07] MEDS: Amitriptyline 25 MG Tablet PO (21:02)
[2018-06-07] MEDS: Atorvastatin Calcium 40 MG Tablet PO (21:02)
[2018-06-07] MEDS: MELATONIN 10 MG TABLET PO (21:02)
[2018-06-07 21:06] LABS: Bedside Glucose 149 mg/dL (70-110)
[2018-06-08 06:21] LABS: Bedside Glucose 122 mg/dL (70-110)
[2018-06-08] MEDS: Menthol/Lanolin/Calamine/Znox 113 GM Tube 1 APPLIC TOPICAL ×2 (06:24→20:08)
[2018-06-08] MEDS: amLODIPine 5 MG Tablet PO (06:25)
[2018-06-08] MEDS: Senna/Docusate Sodium 1 Tablet 2 TABLET PO (06:25)
[2018-06-08] MEDS: Furosemide 40 MG Tablet 60 MG PO ×2 (06:25→14:38)
[2018-06-08] MEDS: Enoxaparin 30 MG/0.3 ML Syringe SC (06:25)
[2018-06-08] MEDS: Propranolol 40 MG Tablet 80 MG PO ×2 (06:25→17:11)
[2018-06-08] MEDS: Nystatin Powder 15gm Bottle 1 APPLIC TOPICAL ×2 (06:25→20:13)
[2018-06-08] MEDS: Magnesium Oxide 400 MG Tablet PO (06:25)
[2018-06-08 06:54] VITALS: O2SAT 91
[2018-06-08] MEDS: oxyCODONE HCl Cr 10 MG Tablet PO ×2 (08:55→20:14)
[2018-06-08] MEDS: Aspirin 81 MG TAB.CHEW PO (08:55)
[2018-06-08 11:26] LABS: Bedside Glucose 218 mg/dL (70-110)
[2018-06-08] MEDS: Lidocaine 5% Patch 1 PATCH TOPICAL (11:33)
[2018-06-08] MEDS: Insulin Lispro 100 UNIT/ML INSULN.PEN SC ×3 (11:33→20:15)
[2018-06-08 15:07] VITALS: BP 114/50; PULSE 63; RESP 18; TEMP 36.4; O2SAT 95
[2018-06-08 16:56] LABS: Bedside Glucose 220 mg/dL (70-110)
[2018-06-08] MEDS: Collagenase 30gm Tube 1 APPLIC TOPICAL (20:07)
[2018-06-08] MEDS: Atorvastatin Calcium 40 MG Tablet PO (20:14)
[2018-06-08] MEDS: Amitriptyline 25 MG Tablet PO (20:14)
[2018-06-08] MEDS: MELATONIN 10 MG TABLET PO (20:14)
--- NOTE | 2018-06-08 21:45 | PCM.PROGNOTE ---
Subjective: This 83-year-old male was seen bedside for follow-up of decubitus left heel ulcer. He denies pain at this time. He is undergoing rehabilitation status post tibia ORIF by Dr. Louise. He denies fever, chill, nausea, vomiting. - Physical Exam General: Alert, Oriented x3, Cooperative Extremities: Capillary Refill Less than 3 Seconds - All digits bilateral, No Calf Tenderness - Negative Norberto and Bright sign bilateral, Diminished Peripheral Pulses - palpable dp right, non palpable left and non palpable PT bilateral Skin: Ulcer/ Wound - Unstageable pressure ulcer to the posterior left heel measures 1.2 x 1.7 x 0.1 cm. The peripheral peeling eschar and dried bulla site was debrided with underlying sub-hemorrhagic and epithelialized tissue that is non-blanchable. There is no odor, infection, streaking, or purulence., - - The peripheral skin is hairless atrophic Musculoskeletal: No Tenderness to Palpation of Joints or Extremities, Muscle Wasting, - - No pain with wound manipulation left heel Neurological: - - lack of epicritic sensation via light touch bilateral lower extremities Psych/Mental Status: Normal Affect, Appropriate Vital Signs Temp Pulse Resp BP Pulse Ox 97.6 F L 63 18 114/50 L 95 06/08/18 15:07 06/08/18 15:07 06/08/18 15:07 06/08/18 15:07 06/08/18 15:07 Oxygen Flow Rate (L/min) 4 Oxygen Delivery Method Nasal Cannula Weight: 82.27 kg Body Mass Index (BMI) 27.5 Finger Stick Blood Glucose 205 Intake and Output for Last 24 Hours 06/06/18 06/07/18 06/08/18 23:59 23:59 23:59 Intake Total 500 / 500 360 / 360 1380 / 1380 Output Total 150 / 150 Balance 350 / 350 360 / 360 1380 / 1380 POC Glucose 06/08/18 06/08/18 06/08/18 16:46 11:11 06:06 POC Glucose 220 H 218 H 122 H Medical Necessity - Tobacco Use Smoking Status: Former smoker Assessment/Plan All Active Problems Acute exacerbation of CHF (congestive heart failure) (Acute) Acute respiratory failure with hypoxia (Acute) Debility (Acute) YANNA (acute kidney injury) (Resolved) Diastolic CHF (Acute) COPD with acute exacerbation (Acute) Abdominal pain (Resolved) Left leg cellulitis (Resolved) Sepsis (Resolved) Fall (Resolved) Pancreatitis (Resolved) 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 His left heel was evaluated and a sterile scissor and pickup was used to debride nonviable unhealthy and not adhered eschar and dried peeling skin. He was reassured no infection or deeper wound was noted. I recommend strict offloading. I recommend continuation of daily Santyl dressing changes. His noninvasive vascular studies suggest moderate to severe lower extremity arterial disease. A consultation was placed for Dr. Cruz next week as inpatient versus outpatient. To continue with rehabilitation. Medical management and DVT prophylaxis per primary team. The podiatry team will continue to follow him weekly while in house. Please not hesitate to call if you have any questions. Jolie Contreras DPM, FACFAS [facility] [phone]
--- NOTE | 2018-06-08 21:54 | PCM.DC.POD ---
Cleanse incision/area with: Soap & Water Additional Dressing/Incision Instructions:: left heel: change daily with santyl (nickel thickness) and well padded gauze Additional Instructions: keep pressure off of the left heel by wearing a pillow boot; float this heel in the air to prevent further breakdown Allergies/Adverse Reactions: Allergies aspirin Adverse Reaction (Verified 05/22/18 18:58) Other causes stomach to bleed Medications to take at Discharge Magnesium Oxide [Mag-Ox 400] 400 mg PO DAILY 12/21/15 Amlodipine [Norvasc] 5 mg PO DAILY 07/13/17 Propranolol HCl 80 mg PO BID 07/13/17 Amitriptyline HCl [Elavil] 25 mg PO QHS 08/02/17 Aspirin [Aspirin, Baby] 81 mg PO DAILY@0800 11/13/17 Atorvastatin Calcium [Lipitor] 40 mg PO QHS 11/13/17 Oxycodone CR [Oxycontin] 10 mg PO Q12H 04/25/18 Bisacodyl [Dulcolax] 10 mg PO DAILY PRN tablet 05/21/18 Guaifenesin Dm [Robitussin Dm] 10 ml PO Q4H PRN PRN udc 05/21/18 Acetaminophen 1,000 mg PO Q8H PRN PRN 05/22/18 Emollient Combination No.72 [Eucerin Intensive Repair] 1 applicatio TP BID 05/22/18 Polyethylene Glycol 3350 [Miralax] 17 gm PO DAILY 05/22/18 Potassium Chloride [K-Dur] 20 meq PO DAILYCM 05/22/18 Senna/Docusate Sodium [Senokot-S] 2 tablet PO BID 05/22/18 Albuterol Aerosols [Ventolin Aerosols] 2.5 mg INHALATION Q2H PRN PRN vial.neb. 05/25/18 Furosemide [Lasix] 60 mg PO BID #60 05/25/18 Insulin Lispro [Humalog KwikPen] See Protocol SQ ACHS 05/25/18 Lidocaine [Lidoderm Patch] 1 patch TOPICAL DAILY 05/25/18 Melatonin 10 mg PO QHS 05/25/18 Menthol/Lanolin/Calamine/Znox [Calmoseptine Ointment] 1 applic TOPICAL 599,219905/25/18 Nystatin Powder [Mycostatin Powder] 1 applic TOPICAL 00,2200 05/25/18 Oxycodone [Oxyir] 10 mg PO Q4H PRN PRN #20 tab 05/25/18 Primary Care Physician: Tommy Maciel Chi, MD [Primary Care Provider] - Test Results: Test results from this visit will be discussed in further detail at your follow-up appointment, if applicable. Please Follow Up With: Dr Hans Louise Please Follow Up With: [facility] - with Dr. Zee, Diane, or Uriah When: one week; [phone]
[2018-06-08 22:20] LABS: Bedside Glucose 185 mg/dL (70-110)
[2018-06-09] MEDS: Senna/Docusate Sodium 1 Tablet 2 TABLET PO (06:23)
[2018-06-09] MEDS: amLODIPine 5 MG Tablet PO (06:23)
[2018-06-09] MEDS: Enoxaparin 30 MG/0.3 ML Syringe SC (06:23)
[2018-06-09] MEDS: Magnesium Oxide 400 MG Tablet PO (06:23)
[2018-06-09] MEDS: Propranolol 40 MG Tablet 80 MG PO ×2 (06:23→17:26)
[2018-06-09] MEDS: Furosemide 40 MG Tablet 60 MG PO ×2 (06:23→13:59)
[2018-06-09] MEDS: Nystatin Powder 15gm Bottle 1 APPLIC TOPICAL ×2 (06:24→22:23)
[2018-06-09] MEDS: Menthol/Lanolin/Calamine/Znox 113 GM Tube 1 APPLIC TOPICAL ×2 (06:24→22:18)
[2018-06-09 06:36] LABS: Bedside Glucose 136 mg/dL (70-110)
[2018-06-09 07:41] VITALS: O2SAT 95
[2018-06-09 07:53] LABS: Absolute Lymphocyte Count 1.05 X10^3/ul (0.83-4.51); Absolute Neutrophil Count 5.4 X10^3/uL (2.0-7.7); Basophil# 0.05 X10^3/uL; Basophil% 0.6 % (0-1); Eosinophil# 0.34 X10^3/uL; Eosinophils% 4.3 % (0-5); Hematocrit 25.3 % (40-54); Lymphocyte # 1.05 X10^3/ul (4.0); Lymphocyte % 13.1 % (19-41); Mean Corp Hgb Conc 31.6 g/gl (32-36); Mean Corpuscular Hgb 30.4 pg (27.0-32.0); Mean Corpuscular Volume 96.2 fL (80-94); Mean Platelet Vol. 8.7 fl (6.2-12.0); Monocyte# 1.12 X10^3/uL; Neutrophil # 5.41 X10^3/uL (2.7-7.7); Neutrophil % 67.7 % (47-70); POSITIVE COUNT NO; POSITIVE DIFFERENTIAL NO; POSITIVE MORPHOLOGY NO; Platelet Count 191 K/mm3 (150-450); RBC Distribution Width CV 14.5 % (11.6-14.6); RBC Distribution Width SD 50.3 fl (35.1-43.9); Red Blood Count 2.63 M/mm3 (4.6-6.2)
[2018-06-09 08:25] LABS: Anion Gap 9 (5-15); BUN 15 mg/dL (7-18); BUN/Creat Ratio 11.4 RATIO (10-20); Calcium,Total 8.5 mg/dL (8.5-10.1); Chloride 99 mmol/L (98-107); Creatinine, Serum 1.32 mg/dL (0.70-1.30); EST Glomerular Filtration Rate 55 mL/min (>60); Est Glom Filt Rate - Afr Amer 67 mL/min (>60); Estimated Creatinine Clearance 41.74 ml/min; Glucose 140 mg/dL (74-106); Potassium 3.7 mmol/L (3.5-5.1); Sodium Level 138 mmol/L (136-145)
[2018-06-09] MEDS: Aspirin 81 MG TAB.CHEW PO (08:35)
[2018-06-09] MEDS: Lidocaine 5% Patch 1 PATCH TOPICAL (09:15)
[2018-06-09] MEDS: oxyCODONE HCl Cr 10 MG Tablet PO ×2 (10:49→22:17)
[2018-06-09] MEDS: Collagenase 30gm Tube 1 APPLIC TOPICAL (11:12)
--- NOTE | 2018-06-09 11:14 | NURSING ---
Addendum entered by Cate Martinez 06/11/18 18:02: new order for xray lt knee Original Note: DRESSINGS CHANGED, PT TOLERATED WELL. SMALL BUMP BELOW LEFT KNEE, POSSIBLY HARDWARE UNDER SKIN. REPORTED TO JANUSZ RÍOS
[2018-06-09 11:26] LABS: Bedside Glucose 197 mg/dL (70-110)
[2018-06-09] MEDS: Insulin Lispro 100 UNIT/ML INSULN.PEN SC ×3 (11:50→22:21)
--- NOTE | 2018-06-09 12:07 | NURSING ---
Dr. Maciel reviewed AM labs, Shilpa started, pt updated and will update .
[2018-06-09 16:00] VITALS: BP 116/45; PULSE 56; RESP 18; TEMP 36.3; O2SAT 97
[2018-06-09 17:01] LABS: Bedside Glucose 160 mg/dL (70-110)
[2018-06-09 21:06] LABS: Bedside Glucose 163 mg/dL (70-110)
[2018-06-09] MEDS: Amitriptyline 25 MG Tablet PO (22:18)
[2018-06-09] MEDS: Atorvastatin Calcium 40 MG Tablet PO (22:18)
[2018-06-09] MEDS: MELATONIN 10 MG TABLET PO (22:18)
[2018-06-09 23:39] VITALS: RESP 16
[2018-06-10] MEDS: Collagenase 30gm Tube 1 APPLIC TOPICAL (04:44)
[2018-06-10] MEDS: amLODIPine 5 MG Tablet PO (06:04)
[2018-06-10] MEDS: Enoxaparin 30 MG/0.3 ML Syringe SC (06:04)
[2018-06-10] MEDS: Magnesium Oxide 400 MG Tablet PO (06:04)
[2018-06-10] MEDS: Furosemide 40 MG Tablet 60 MG PO ×2 (06:04→13:51)
[2018-06-10] MEDS: Polyethylene Glycol 3350 17 GM PACKET PO (06:04)
[2018-06-10] MEDS: Senna/Docusate Sodium 1 Tablet 2 TABLET PO ×2 (06:04→17:26)
[2018-06-10] MEDS: Propranolol 40 MG Tablet 80 MG PO ×2 (06:06→17:25)
[2018-06-10] MEDS: Menthol/Lanolin/Calamine/Znox 113 GM Tube 1 APPLIC TOPICAL ×2 (06:15→21:34)
[2018-06-10] MEDS: Nystatin Powder 15gm Bottle 1 APPLIC TOPICAL ×2 (06:16→21:34)
[2018-06-10 06:35] LABS: Bedside Glucose 129 mg/dL (70-110)
[2018-06-10 07:22] VITALS: O2SAT 96
[2018-06-10] MEDS: Iron Polysaccharide Complex 150 MG CAPSULE PO (07:51)
[2018-06-10] MEDS: Aspirin 81 MG TAB.CHEW PO (07:51)
[2018-06-10] MEDS: oxyCODONE HCl Cr 10 MG Tablet PO ×2 (09:05→21:31)
[2018-06-10] MEDS: Lidocaine 5% Patch 1 PATCH TOPICAL (09:06)
[2018-06-10 09:30] VITALS: PULSE 63; RESP 18; O2SAT 97
[2018-06-10] MEDS: Insulin Lispro 100 UNIT/ML INSULN.PEN SC ×2 (11:41→21:31)
[2018-06-10 11:46] LABS: Bedside Glucose 153 mg/dL (70-110)
[2018-06-10 15:32] VITALS: BP 116/67; PULSE 66; RESP 18; TEMP 36.8; O2SAT 93
[2018-06-10 16:56] LABS: Bedside Glucose 130 mg/dL (70-110)
[2018-06-10] MEDS: Acetaminophen 500 MG Tablet 1000 MG PO (17:29)
[2018-06-10 21:15] LABS: Bedside Glucose 172 mg/dL (70-110)
[2018-06-10] MEDS: Atorvastatin Calcium 40 MG Tablet PO (21:31)
[2018-06-10] MEDS: MELATONIN 10 MG TABLET PO (21:31)
[2018-06-10] MEDS: Amitriptyline 25 MG Tablet PO (21:31)
[2018-06-11] MEDS: Magnesium Oxide 400 MG Tablet PO (05:19)
[2018-06-11] MEDS: Propranolol 40 MG Tablet 80 MG PO ×2 (05:19→18:02)
[2018-06-11] MEDS: Furosemide 40 MG Tablet 60 MG PO ×2 (05:19→14:40)
[2018-06-11] MEDS: amLODIPine 5 MG Tablet PO (05:19)
[2018-06-11] MEDS: Enoxaparin 30 MG/0.3 ML Syringe SC (05:19)
[2018-06-11] MEDS: Menthol/Lanolin/Calamine/Znox 113 GM Tube 1 APPLIC TOPICAL ×2 (05:21→20:22)
[2018-06-11] MEDS: Nystatin Powder 15gm Bottle 1 APPLIC TOPICAL ×2 (05:22→20:22)
[2018-06-11] MEDS: Collagenase 30gm Tube 1 APPLIC TOPICAL (05:35)
[2018-06-11 06:46] LABS: Bedside Glucose 132 mg/dL (70-110)
[2018-06-11] MEDS: Aspirin 81 MG TAB.CHEW PO (08:19)
[2018-06-11] MEDS: Iron Polysaccharide Complex 150 MG CAPSULE PO (08:19)
[2018-06-11] MEDS: Lidocaine 5% Patch 1 PATCH TOPICAL (09:23)
[2018-06-11] MEDS: oxyCODONE HCl Cr 10 MG Tablet PO ×2 (09:24→20:23)
--- NOTE | 2018-06-11 10:37 | NURSING ---
Dr Cruz Notified of consult order at this time
[2018-06-11 11:06] LABS: Bedside Glucose 152 mg/dL (70-110)
--- NOTE | 2018-06-11 11:24 | CASEMGMT ---
Insurance Clinical information sent. Pending continued stay approval at this time. Auth#[id number] Mely SANDOVAL, DOUGH MIXER
[2018-06-11] MEDS: Insulin Lispro 100 UNIT/ML INSULN.PEN SC ×2 (12:45→18:01)
[2018-06-11 15:27] VITALS: BP 148/39; PULSE 62; RESP 20; TEMP 36.3; O2SAT 99
[2018-06-11 17:06] LABS: Bedside Glucose 156 mg/dL (70-110)
[2018-06-11] MEDS: MELATONIN 10 MG TABLET PO (20:22)
[2018-06-11] MEDS: Amitriptyline 25 MG Tablet PO (20:22)
[2018-06-11] MEDS: Atorvastatin Calcium 40 MG Tablet PO (20:22)
[2018-06-11 21:06] LABS: Bedside Glucose 141 mg/dL (70-110)
[2018-06-12] MEDS: Collagenase 30gm Tube 1 APPLIC TOPICAL (02:30)
[2018-06-12] MEDS: Senna/Docusate Sodium 1 Tablet 2 TABLET PO ×2 (05:59→17:59)
[2018-06-12] MEDS: amLODIPine 5 MG Tablet PO (05:59)
[2018-06-12] MEDS: Furosemide 40 MG Tablet 60 MG PO ×2 (05:59→13:41)
[2018-06-12] MEDS: Magnesium Oxide 400 MG Tablet PO (05:59)
[2018-06-12] MEDS: Menthol/Lanolin/Calamine/Znox 113 GM Tube 1 APPLIC TOPICAL ×2 (06:00→21:18)
[2018-06-12] MEDS: Propranolol 40 MG Tablet 80 MG PO ×2 (06:00→17:59)
[2018-06-12] MEDS: Nystatin Powder 15gm Bottle 1 APPLIC TOPICAL ×2 (06:00→21:18)
[2018-06-12] MEDS: Enoxaparin 30 MG/0.3 ML Syringe SC (06:01)
[2018-06-12 06:36] LABS: Bedside Glucose 130 mg/dL (70-110)
[2018-06-12 07:05] VITALS: O2SAT 99
[2018-06-12] MEDS: Iron Polysaccharide Complex 150 MG CAPSULE PO (08:17)
[2018-06-12] MEDS: Aspirin 81 MG TAB.CHEW PO (08:17)
[2018-06-12] MEDS: Acetaminophen 500 MG Tablet 1000 MG PO (08:21)
--- NOTE | 2018-06-12 09:18 | CASEMGMT ---
Brief interview for mental status (BIMS) and resident mood interview (PHQ-9) completed on this day. BIMS score 15/15. PHQ-9 score 05/25
--- NOTE | 2018-06-12 09:30 | CASEMGMT ---
Insurance Continued stay approved with next update due on 06/18/18. Auth#[id number] Mely SANDOVAL, CATALOGUE CLERK
[2018-06-12] MEDS: Lidocaine 5% Patch 1 PATCH TOPICAL (09:45)
[2018-06-12] MEDS: oxyCODONE HCl Cr 10 MG Tablet PO ×2 (09:48→21:22)
[2018-06-12 11:20] LABS: Bedside Glucose 156 mg/dL (70-110)
[2018-06-12] MEDS: Insulin Lispro 100 UNIT/ML INSULN.PEN SC ×3 (11:42→21:29)
[2018-06-12 16:00] VITALS: BP 117/46; PULSE 60; RESP 20; TEMP 36.5; O2SAT 98
[2018-06-12 17:00] LABS: Bedside Glucose 165 mg/dL (70-110)
[2018-06-12 21:15] LABS: Bedside Glucose 160 mg/dL (70-110)
[2018-06-12] MEDS: Atorvastatin Calcium 40 MG Tablet PO (21:23)
[2018-06-12] MEDS: MELATONIN 10 MG TABLET PO (21:23)
[2018-06-12] MEDS: Amitriptyline 25 MG Tablet PO (21:23)
[2018-06-12 22:51] VITALS: RESP 18
[2018-06-13] MEDS: Menthol/Lanolin/Calamine/Znox 113 GM Tube 1 APPLIC TOPICAL ×2 (05:38→20:05)
[2018-06-13] MEDS: amLODIPine 5 MG Tablet PO (05:39)
[2018-06-13] MEDS: Nystatin Powder 15gm Bottle 1 APPLIC TOPICAL ×2 (05:39→20:02)
[2018-06-13] MEDS: Magnesium Oxide 400 MG Tablet PO (05:39)
[2018-06-13] MEDS: Propranolol 40 MG Tablet 80 MG PO ×2 (05:39→17:54)
[2018-06-13] MEDS: Furosemide 40 MG Tablet 60 MG PO ×2 (05:39→13:27)
[2018-06-13] MEDS: Senna/Docusate Sodium 1 Tablet 2 TABLET PO ×2 (05:40→17:54)
[2018-06-13] MEDS: Enoxaparin 30 MG/0.3 ML Syringe SC (05:40)
[2018-06-13 06:36] LABS: Bedside Glucose 133 mg/dL (70-110)
[2018-06-13 07:34] VITALS: O2SAT 98
[2018-06-13] MEDS: oxyCODONE HCl Cr 10 MG Tablet PO (08:51)
[2018-06-13] MEDS: Collagenase 30gm Tube 1 APPLIC TOPICAL (08:52)
[2018-06-13] MEDS: Aspirin 81 MG TAB.CHEW PO (08:53)
[2018-06-13] MEDS: Iron Polysaccharide Complex 150 MG CAPSULE PO (08:53)
[2018-06-13] MEDS: Lidocaine 5% Patch 1 PATCH TOPICAL (08:53)
[2018-06-13 11:01] LABS: Bedside Glucose 182 mg/dL (70-110)
--- NOTE | 2018-06-13 11:06 | PCM.CONS.GEN ---
Problem List (1) Other specified peripheral vascular diseases Status: Acute (2) Pressure ulcer, heel, left, unstageable Status: Acute Reason for Consult Date of Consultation: 06/13/18 History of Present Illness: The patient is a 83 year old M with a wound on his posterior left thigh and slowly healing wound on his left heel. On the left heel the lower part appears to have some healthy tissue where the scab has come off above it has a little bit of a necrotic scab noted at the skin area there. He had ABIs done that were 0.58 on the right 0.6 on the left. Digit brachial index on the left 0.57. Patient's recent event started in March 2018 he had a fall with a left leg tibial fracture he had ORIF at [facility] the end of March. During this course it looks like he is developed the left heel sore. Not sure when his left thigh wound started. It looks like he is mostly probably from a pressure sore to this left heel area. He is also developing a sore on his coccyx. Vascular surgery consult for evaluation of this. No known coronary interventions. He has had an episode of congestive heart failure. Patient reports a TIA many years ago. Quit smoking many years ago. He has A. fib on anticoagulation. Diabetes and hypertension on meds. Some COPD appears to have some oxygen at home. He said what appears to be a biliary stent in the past. Cholecystectomy as well. There is mention of cirrhosis. No prior PAD interventions. Ultrasound shows no DVT. 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) multiple areas of eschar LLE Fracture of left tibia and fibula (Chronic) Chronic kidney disease (Chronic) Cirrhosis of liver (Chronic) Anemia (Chronic) Chronic constipation (Chronic) Diabetes mellitus (Chronic) Chronic pain (Chronic) Encephalopathy (Chronic) Paroxysmal A-fib (Chronic) Toe pain, left (Chronic) Toe pain, right (Chronic) Tinea unguium (Chronic) Insomnia (Chronic) GERD (gastroesophageal reflux disease) (Chronic) Edema (Chronic) Hypomagnesemia (Chronic) Pulmonary hypertension (Chronic) mild Debility secondary to stroke (Chronic) 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) Stroke (Chronic) Hypertension (Chronic) COPD (chronic obstructive pulmonary disease) (Chronic) Peripheral vascular disease (Chronic) Allergies aspirin Adverse Reaction (Verified 05/22/18 18:58) Other causes stomach to bleed Home Medications: Ambulatory Orders Medication Instructions Recorded Magnesium Oxide [Mag-Ox 400] 400 mg PO DAILY 12/21/15 Amlodipine [Norvasc] 5 mg PO DAILY 07/13/17 Propranolol HCl 80 mg PO BID 07/13/17 Amitriptyline HCl [Elavil] 25 mg PO QHS 08/02/17 Aspirin [Aspirin, Baby] 81 mg PO DAILY@0800 11/13/17 Atorvastatin Calcium [Lipitor] 40 mg PO QHS 11/13/17 Oxycodone CR [Oxycontin] 10 mg PO Q12H 04/25/18 Bisacodyl [Dulcolax] 10 mg PO DAILY PRN tablet 05/21/18 Guaifenesin Dm [Robitussin Dm] 10 ml PO Q4H PRN PRN udc 05/21/18 Acetaminophen 1,000 mg PO Q8H PRN PRN 05/22/18 Emollient Combination No.72 1 applicatio TP BID 05/22/18 [Eucerin Intensive Repair] Polyethylene Glycol 3350 [Miralax] 17 gm PO DAILY 05/22/18 Potassium Chloride [K-Dur] 20 meq PO DAILYCM 05/22/18 Senna/Docusate Sodium [Senokot-S] 2 tablet PO BID 05/22/18 Albuterol Aerosols [Ventolin 2.5 mg INHALATION Q2H PRN PRN 05/25/18 Aerosols] vial.neb. Furosemide [Lasix] 60 mg PO BID #60 05/25/18 Insulin Lispro [Humalog KwikPen] See Protocol SQ ACHS 05/25/18 Lidocaine [Lidoderm Patch] 1 patch TOPICAL DAILY 05/25/18 Melatonin 10 mg PO QHS 05/25/18 Menthol/Lanolin/Calamine/Znox 1 applic TOPICAL 599,219905/25/18 [Calmoseptine Ointment] Nystatin Powder [Mycostatin Powder] 1 applic TOPICAL 599,219905/25/18 Oxycodone [Oxyir] 10 mg PO Q4H PRN PRN #20 tab 05/25/18 Surgical History: cholecystectomy, tonsillectomy, - - Stone removal from common bile duct, ORIF left tib/fib fracture. Psychiatric History: No pertinent psych hx Smoking Status: Former smoker - *Family History Maternal History Items: Diabetes Paternal History Items: Stroke Review of Systems Constitutional: Denies: Chills, Fever, Weight Change HEENT: Denies: Head Aches, Sinus Congestion, Sinus Drainage Cardiovascular: Denies: Chest Pain, Palpitations Respiratory: Denies: Cough, Shortness of breath at rest, Sputum production Gastrointestinal: Denies: Abdominal Pain, Nausea, Vomiting Genitourinary: Denies: Dysuria Musculoskeletal: Reports: - Skin: Reports: Wounds - Wound to the left heel and left posterior thigh Patient Problems: Active and Suspected Problems Other specified peripheral vascular diseases (Acute) Pressure ulcer, heel, left, unstageable (Acute) - Physical Exam General: Alert, Oriented x3 HEENT: Atraumatic, PERRLA Oral: Moist Mucosa Neck: Supple, No JVD Lungs: Clear to auscultation Cardiovascular: Regular rate Abdomen: Soft, Non Tender Extremities: - - Decreased pulses noted left leg, difficult to feel femoral pulse. Sore on the left heel and left posterior thigh Vital Signs Temp Pulse Resp BP Pulse Ox 97.7 F L 60 18 117/46 L 98 06/12/18 16:00 06/12/18 16:00 06/12/18 22:51 06/12/18 16:00 06/13/18 07:34 Oxygen Flow Rate (L/min) 3 Oxygen Delivery Method Nasal Cannula Weight: 182 lb 4 oz Body Mass Index (BMI) 27.5 Finger Stick Blood Glucose 205 Intake and Output for Last 24 Hours 06/11/18 06/12/18 06/13/18 23:59 23:59 23:59 Intake Total 480 / 480 840 / 840 120 / 120 Output Total 300 / 300 250 / 250 300 / 300 Balance 180 / 180 590 / 590 -180 / -180 POC Glucose 06/13/18 06/13/18 06/12/18 10:54 06:24 20:58 POC Glucose 182 H 133 H 160 H 06/12/18 06/12/18 16:56 11:17 POC Glucose 165 H 156 H Assessment/Plan All Active Problems Other specified peripheral vascular diseases (Acute) Pressure ulcer, heel, left, unstageable (Acute) Acute exacerbation of CHF (congestive heart failure) (Acute) Acute respiratory failure with hypoxia (Acute) Debility (Acute) YANNA (acute kidney injury) (Resolved) Diastolic CHF (Acute) COPD with acute exacerbation (Acute) Abdominal pain (Resolved) Left leg cellulitis (Resolved) Sepsis (Resolved) Fall (Resolved) Pancreatitis (Resolved) 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 1. Wounds. Appears to be a pressure wound left heel and left posterior thigh almost appears probably had some type of wrap or compression along here that caused this. #2. PAD. He has known PAD. He has decreased femoral pulse and will plan for an aortic duplex and left leg duplex. May need to just get a CTA to better evaluate how we can get some improved flow to help with wounds healing. We will follow this and plan intervention is needed either as an inpatient or an outpatient. Thank you for the consult
[2018-06-13] MEDS: Insulin Lispro 100 UNIT/ML INSULN.PEN SC ×2 (11:36→22:00)
--- NOTE | 2018-06-13 12:02 | NURSING ---
NO from Dr. Cruz, aortic and LLE arterial duplex.
--- NOTE | 2018-06-13 15:48 | NURSING ---
wound photo: bilateral buttocks
--- NOTE | 2018-06-13 15:48 | NURSING ---
wound photo: left posterior thigh
--- NOTE | 2018-06-13 15:49 | NURSING ---
wound photo: left heel
[2018-06-13 15:58] VITALS: BP 119/52; PULSE 56; RESP 18; TEMP 36.8; O2SAT 93
--- NOTE | 2018-06-13 16:40 | NURSING ---
Pt refusing Clif supplement d/c'd per splunk developer request.
[2018-06-13 17:06] LABS: Bedside Glucose 124 mg/dL (70-110)
[2018-06-13] MEDS: Acetaminophen 500 MG Tablet 1000 MG PO (20:03)
[2018-06-13] MEDS: oxyCODONE 5 MG Tablet 10 MG PO (20:03)
[2018-06-13] MEDS: Amitriptyline 25 MG Tablet PO (20:04)
[2018-06-13] MEDS: MELATONIN 10 MG TABLET PO (20:05)
[2018-06-13] MEDS: Atorvastatin Calcium 40 MG Tablet PO (20:07)
[2018-06-13 20:09] VITALS: PULSE 72; RESP 18; O2SAT 93
[2018-06-13 21:06] LABS: Bedside Glucose 168 mg/dL (70-110)
[2018-06-14] MEDS: Menthol/Lanolin/Calamine/Znox 113 GM Tube 1 APPLIC TOPICAL ×2 (05:47→20:19)
[2018-06-14] MEDS: Nystatin Powder 15gm Bottle 1 APPLIC TOPICAL ×2 (05:47→20:19)
[2018-06-14] MEDS: Enoxaparin 30 MG/0.3 ML Syringe SC (05:50)
[2018-06-14 06:35] VITALS: O2SAT 95
--- NOTE | 2018-06-14 07:53 | CPS ---
TCU staff called for prn aerosol, GR[employer]TH [employer] MIXER MUSHROOM's getting him ready for appointment, breath sounds are clear & diminished, no indication for aerosol.
[2018-06-14 08:30] LABS: Bedside Glucose 132 mg/dL (70-110)
[2018-06-14] MEDS: Ondansetron ODT 4 MG Tablet PO (09:23)
[2018-06-14] MEDS: amLODIPine 5 MG Tablet PO (10:20)
[2018-06-14] MEDS: Furosemide 40 MG Tablet 60 MG PO ×2 (10:20→14:46)
[2018-06-14] MEDS: Aspirin 81 MG TAB.CHEW PO (10:20)
[2018-06-14] MEDS: Propranolol 40 MG Tablet 80 MG PO ×2 (10:21→17:51)
[2018-06-14] MEDS: Senna/Docusate Sodium 1 Tablet 2 TABLET PO (10:21)
[2018-06-14] MEDS: oxyCODONE HCl Cr 10 MG Tablet PO ×2 (10:22→20:18)
[2018-06-14] MEDS: Lidocaine 5% Patch 1 PATCH TOPICAL (10:24)
[2018-06-14] MEDS: Collagenase 30gm Tube 1 APPLIC TOPICAL (10:28)
[2018-06-14 11:21] LABS: Bedside Glucose 154 mg/dL (70-110)
--- NOTE | 2018-06-14 13:22 | PCM.PROGNOTE ---
Patient Problems: Active and Suspected Problems Other specified peripheral vascular diseases (Acute) Pressure ulcer, heel, left, unstageable (Acute) Subjective: This 83-year-old male was seen bedside for follow-up of decubitus left heel ulcer. He denies pain at this time. He is resting in the bed without his offloading boots on. He says he will not wear these. He is undergoing rehabilitation status post tibia ORIF by Dr. Louise. He denies fever, chill, nausea, vomiting. - Physical Exam General: Alert, Oriented x3, Cooperative Extremities: Capillary Refill Less than 3 Seconds, No Calf Tenderness - negative dinehs and flores sign, Diminished Peripheral Pulses - palpable dp right, non palpable left and non palpable PT bilateral Skin: Ulcer/ Wound - Unstageable pressure ulcer to the posterior left heel measures 1.0 x 1.5 x 0.1 cm. There is no odor, infection, streaking, or purulence. Atrophic skin. Musculoskeletal: No Tenderness to Palpation of Joints or Extremities, - - no pain with manipulation of left heel ulcer site Neurological: - - epicritic sensation grossly absent to lower extremity Psych/Mental Status: Normal Affect, Appropriate Vital Signs Temp Pulse Resp BP Pulse Ox 98.2 F 72 18 119/52 L 95 06/13/18 15:58 06/13/18 20:09 06/13/18 20:09 06/13/18 15:58 06/14/18 06:35 Oxygen Flow Rate (L/min) 3 Oxygen Delivery Method Nasal Cannula Weight: 81.817 kg Body Mass Index (BMI) 27.5 Finger Stick Blood Glucose 205 Intake and Output for Last 24 Hours 06/12/18 06/13/18 06/14/18 23:59 23:59 23:59 Intake Total 840 / 840 600 / 600 Output Total 250 / 250 300 / 300 125 / 125 Balance 590 / 590 300 / 300 -125 / -125 POC Glucose 06/14/18 06/14/18 06/13/18 11:10 08:12 20:57 POC Glucose 154 H 132 H 168 H 06/13/18 16:56 POC Glucose 124 H Medical Necessity - Tobacco Use Smoking Status: Former smoker Assessment/Plan All Active Problems Other specified peripheral vascular diseases (Acute) Pressure ulcer, heel, left, unstageable (Acute) Acute exacerbation of CHF (congestive heart failure) (Acute) Acute respiratory failure with hypoxia (Acute) Debility (Acute) YANNA (acute kidney injury) (Resolved) Diastolic CHF (Acute) COPD with acute exacerbation (Acute) Abdominal pain (Resolved) Left leg cellulitis (Resolved) Sepsis (Resolved) Fall (Resolved) Pancreatitis (Resolved) 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 His left heel was examined and evaluated. No infection or deeper ulcer/wound was appreciated again today. I recommend strict offloading. Patient says he refuses to wear the offloading boots. I talked him into keeping a pillow under his calves and floating the heel off of the edge. I recommend continuation of daily Santyl dressing changes. His noninvasive vascular studies suggest moderate to severe lower extremity arterial disease. Dr. Cruz saw this patient yesterday. Dr. Cruz's plan in part states, He has known PAD. He has decreased femoral pulse and will plan for an aortic duplex and left leg duplex. May need to just get a CTA to better evaluate how we can get some improved flow to help with wounds healing. We will follow this and plan intervention is needed either as an inpatient or an outpatient.'' To continue with rehabilitation. Medical management and DVT prophylaxis per primary team. The podiatry team will continue to follow him weekly while in house. Please not hesitate to call if you have any questions.
--- NOTE | 2018-06-14 14:49 | NURSING ---
Has been c/o nausea today. Did not eat breakfast or lunch. Dr. Maciel ordered Zofran which helped some. Is up in recliner resting.
[2018-06-14 15:42] VITALS: BP 119/41; PULSE 67; RESP 18; TEMP 36.8; O2SAT 97
[2018-06-14 16:56] LABS: Bedside Glucose 135 mg/dL (70-110)
[2018-06-14] MEDS: Atorvastatin Calcium 40 MG Tablet PO (20:19)
[2018-06-14] MEDS: MELATONIN 10 MG TABLET PO (20:19)
[2018-06-14] MEDS: Amitriptyline 25 MG Tablet PO (20:19)
[2018-06-14 21:26] LABS: Bedside Glucose 127 mg/dL (70-110)
[2018-06-15] MEDS: amLODIPine 5 MG Tablet PO (04:22)
[2018-06-15] MEDS: Furosemide 40 MG Tablet 60 MG PO ×2 (04:22→13:52)
[2018-06-15] MEDS: Senna/Docusate Sodium 1 Tablet 2 TABLET PO (04:22)
[2018-06-15] MEDS: Propranolol 40 MG Tablet 80 MG PO ×2 (04:22→17:28)
[2018-06-15] MEDS: Enoxaparin 30 MG/0.3 ML Syringe SC (04:23)
[2018-06-15] MEDS: Menthol/Lanolin/Calamine/Znox 113 GM Tube 1 APPLIC TOPICAL (04:26)
[2018-06-15] MEDS: Nystatin Powder 15gm Bottle 1 APPLIC TOPICAL (04:26)
[2018-06-15] MEDS: Collagenase 30gm Tube 1 APPLIC TOPICAL (04:26)
[2018-06-15] MEDS: Magnesium Oxide 400 MG Tablet PO (04:28)
[2018-06-15 07:00] LABS: Bedside Glucose 154 mg/dL (70-110)
[2018-06-15 07:05] VITALS: O2SAT 89
[2018-06-15 07:09] VITALS: O2SAT 91
[2018-06-15] MEDS: Aspirin 81 MG TAB.CHEW PO (08:58)
[2018-06-15] MEDS: Iron Polysaccharide Complex 150 MG CAPSULE PO (08:58)
[2018-06-15] MEDS: Insulin Lispro 100 UNIT/ML INSULN.PEN SC (08:58)
[2018-06-15] MEDS: Lidocaine 5% Patch 1 PATCH TOPICAL (08:59)
[2018-06-15] MEDS: oxyCODONE HCl Cr 10 MG Tablet PO (08:59)
[2018-06-15 11:15] LABS: Bedside Glucose 152 mg/dL (70-110)
[2018-06-15 16:00] VITALS: BP 127/52; PULSE 61; RESP 20; TEMP 36.2; O2SAT 99
[2018-06-15 17:10] LABS: Bedside Glucose 153 mg/dL (70-110)
[2018-06-15 21:01] LABS: Bedside Glucose 161 mg/dL (70-110)
[2018-06-16] MEDS: Enoxaparin 30 MG/0.3 ML Syringe SC (05:50)
[2018-06-16] MEDS: Senna/Docusate Sodium 1 Tablet 2 TABLET PO (05:51)
[2018-06-16] MEDS: amLODIPine 5 MG Tablet PO (05:51)
[2018-06-16] MEDS: Furosemide 40 MG Tablet 60 MG PO ×2 (05:51→13:18)
[2018-06-16] MEDS: Propranolol 40 MG Tablet 80 MG PO (05:51)
[2018-06-16] MEDS: Magnesium Oxide 400 MG Tablet PO (05:51)
[2018-06-16] MEDS: Menthol/Lanolin/Calamine/Znox 113 GM Tube 1 APPLIC TOPICAL ×2 (05:52→21:19)
[2018-06-16] MEDS: Nystatin Powder 15gm Bottle 1 APPLIC TOPICAL ×2 (05:53→21:20)
[2018-06-16] MEDS: Collagenase 30gm Tube 1 APPLIC TOPICAL (06:41)
[2018-06-16 06:55] LABS: Bedside Glucose 142 mg/dL (70-110)
[2018-06-16 07:47] VITALS: O2SAT 98
--- NOTE | 2018-06-16 09:02 | NURSING ---
Pt refusing Am medications at this time, stating he wishes we we all just leave him alone for awhile.
[2018-06-16] MEDS: Ondansetron ODT 4 MG Tablet PO (09:20)
[2018-06-16 10:00] VITALS: PULSE 59; RESP 18; O2SAT 97
[2018-06-16] MEDS: oxyCODONE HCl Cr 10 MG Tablet PO ×2 (10:34→21:22)
[2018-06-16] MEDS: Lidocaine 5% Patch 1 PATCH TOPICAL (10:36)
[2018-06-16 11:05] LABS: Bedside Glucose 137 mg/dL (70-110)
[2018-06-16 15:33] VITALS: BP 109/39; PULSE 61; RESP 22; TEMP 36.2; O2SAT 95
[2018-06-16 17:05] LABS: Bedside Glucose 117 mg/dL (70-110)
[2018-06-16 21:11] LABS: Bedside Glucose 148 mg/dL (70-110)
[2018-06-16] MEDS: Amitriptyline 25 MG Tablet PO (21:20)
[2018-06-16] MEDS: Atorvastatin Calcium 40 MG Tablet PO (21:20)
[2018-06-16] MEDS: MELATONIN 10 MG TABLET PO (21:20)
[2018-06-17 07:25] VITALS: O2SAT 96
[2018-06-17] MEDS: Enoxaparin 30 MG/0.3 ML Syringe SC (08:58)
[2018-06-17] MEDS: amLODIPine 5 MG Tablet PO (08:59)
[2018-06-17] MEDS: Propranolol 40 MG Tablet 80 MG PO (08:59)
[2018-06-17] MEDS: Furosemide 40 MG Tablet 60 MG PO ×2 (09:00→15:33)
[2018-06-17] MEDS: Collagenase 30gm Tube 1 APPLIC TOPICAL (09:00)
[2018-06-17] MEDS: Aspirin 81 MG TAB.CHEW PO (09:00)
[2018-06-17] MEDS: Iron Polysaccharide Complex 150 MG CAPSULE PO (09:01)
[2018-06-17] MEDS: oxyCODONE HCl Cr 10 MG Tablet PO ×2 (09:01→21:06)
[2018-06-17] MEDS: Lidocaine 5% Patch 1 PATCH TOPICAL (09:02)
[2018-06-17 11:15] LABS: Bedside Glucose 147 mg/dL (70-110)
[2018-06-17 15:45] VITALS: BP 109/48; PULSE 77; RESP 22; TEMP 35.8; O2SAT 99
[2018-06-17 16:40] LABS: Bedside Glucose 341 mg/dL (70-110)
[2018-06-17] MEDS: Insulin Lispro 100 UNIT/ML INSULN.PEN SC ×2 (16:55→21:04)
[2018-06-17 20:56] LABS: Bedside Glucose 166 mg/dL (70-110)
[2018-06-17] MEDS: Atorvastatin Calcium 40 MG Tablet PO (21:03)
[2018-06-17] MEDS: Amitriptyline 25 MG Tablet PO (21:03)
[2018-06-17] MEDS: MELATONIN 10 MG TABLET PO (21:03)
[2018-06-17] MEDS: Nystatin Powder 15gm Bottle 1 APPLIC TOPICAL (21:03)
[2018-06-17] MEDS: Menthol/Lanolin/Calamine/Znox 113 GM Tube 1 APPLIC TOPICAL (21:03)
--- NOTE | 2018-06-18 04:49 | NURSING ---
Pt agitated this morning. Sitting on edge of bed, refusing to be assisted to lay down in bed. Security called dt pt hitting TRIAL MGR Arti twice prior to this RN entering room. Pt given urinal stating he had to urinate. Stating You better move or I'll piss on you! to this RN. Pt educated on not being safe to transfer without assistance. Security present in room. 1:1 given to pt after several minutes, pt begins to calm down. pt reoriented to place- thought he was in a car. TV turned on at this time for pt. Security remains at bedside.
[2018-06-18] MEDS: Menthol/Lanolin/Calamine/Znox 113 GM Tube 1 APPLIC TOPICAL ×2 (06:33→21:22)
[2018-06-18] MEDS: Magnesium Oxide 400 MG Tablet PO (06:35)
[2018-06-18] MEDS: Propranolol 40 MG Tablet 80 MG PO ×2 (06:35→17:45)
[2018-06-18] MEDS: Nystatin Powder 15gm Bottle 1 APPLIC TOPICAL ×2 (06:35→21:22)
[2018-06-18] MEDS: Enoxaparin 30 MG/0.3 ML Syringe SC (06:35)
[2018-06-18] MEDS: amLODIPine 5 MG Tablet PO (06:35)
[2018-06-18] MEDS: Furosemide 40 MG Tablet 60 MG PO ×2 (06:35→14:05)
[2018-06-18] MEDS: Senna/Docusate Sodium 1 Tablet 2 TABLET PO (06:36)
[2018-06-18 06:50] LABS: Bedside Glucose 150 mg/dL (70-110)
[2018-06-18] MEDS: Insulin Lispro 100 UNIT/ML INSULN.PEN SC ×2 (08:04→11:59)
[2018-06-18] MEDS: Aspirin 81 MG TAB.CHEW PO (08:05)
[2018-06-18] MEDS: Iron Polysaccharide Complex 150 MG CAPSULE PO (08:05)
[2018-06-18] MEDS: Collagenase 30gm Tube 1 APPLIC TOPICAL (08:05)
[2018-06-18] MEDS: Lidocaine 5% Patch 1 PATCH TOPICAL (08:06)
[2018-06-18] MEDS: oxyCODONE HCl Cr 10 MG Tablet PO ×2 (09:28→21:20)
--- NOTE | 2018-06-18 11:10 | CASEMGMT ---
Insurance Clinical information faxed. Pending continued stay approval at this time. Auth#[id number] Mely SANDOVAL, HOSIERY MENDER
[2018-06-18 11:25] VITALS: O2SAT 98
[2018-06-18 11:25] LABS: Bedside Glucose 155 mg/dL (70-110)
--- NOTE | 2018-06-18 14:33 | CASEMGMT ---
Insurance Continued stay approved with next update due on 06/22/18 Auth#[id number] Mely SANDOVAL, CLINICAL APPEALS REVIEWER
[2018-06-18 15:24] VITALS: BP 119/45; PULSE 68; RESP 18; TEMP 36.3; O2SAT 93
[2018-06-18 16:56] LABS: Bedside Glucose 125 mg/dL (70-110)
--- NOTE | 2018-06-18 20:55 | PCM.TCUNOT ---
Subjective: Resident seen in room after therapy session. He has progressed. I thought he was going to . I let resident know he has more lives than a cat. Vitals/I&O's: Vital Signs Temp Pulse Resp BP Pulse Ox 97.4 F L 68 18 119/45 L 93 06/18/18 15:24 06/18/18 15:24 06/18/18 15:24 06/18/18 15:24 06/18/18 15:24 Oxygen Flow Rate (L/min) 3 Oxygen Delivery Method Nasal Cannula Weight: 79.917 kg Body Mass Index (BMI) 27.5 Finger Stick Blood Glucose 205 Intake and Output for Last 24 Hours 06/16/18 06/17/18 06/18/18 23:59 23:59 23:59 Intake Total 180 / 180 500 / 500 420 / 420 Output Total 100 / 100 125 / 125 250 / 250 Balance 80 / 80 375 / 375 170 / 170 Laboratory Results 06/17/18 20:45: POC Glucose 166 H 06/18/18 06:35: POC Glucose 150 H 06/18/18 11:18: POC Glucose 155 H 06/18/18 16:47: POC Glucose 125 H 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) multiple areas of eschar LLE Fracture of left tibia and fibula (Chronic) Chronic kidney disease (Chronic) Cirrhosis of liver (Chronic) Anemia (Chronic) Chronic constipation (Chronic) Diabetes mellitus (Chronic) Chronic pain (Chronic) Encephalopathy (Chronic) Paroxysmal A-fib (Chronic) Toe pain, left (Chronic) Toe pain, right (Chronic) Tinea unguium (Chronic) Insomnia (Chronic) GERD (gastroesophageal reflux disease) (Chronic) Edema (Chronic) Hypomagnesemia (Chronic) Pulmonary hypertension (Chronic) mild Debility secondary to stroke (Chronic) 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) Stroke (Chronic) Hypertension (Chronic) COPD (chronic obstructive pulmonary disease) (Chronic) Peripheral vascular disease (Chronic) Allergies aspirin Adverse Reaction (Verified 05/22/18 18:58) Other causes stomach to bleed Home Medications: Ambulatory Orders Medication Instructions Recorded Magnesium Oxide [Mag-Ox 400] 400 mg PO DAILY 12/21/15 Amlodipine [Norvasc] 5 mg PO DAILY 07/13/17 Propranolol HCl 80 mg PO BID 07/13/17 Amitriptyline HCl [Elavil] 25 mg PO QHS 08/02/17 Aspirin [Aspirin, Baby] 81 mg PO DAILY@0800 11/13/17 Atorvastatin Calcium [Lipitor] 40 mg PO QHS 11/13/17 Oxycodone CR [Oxycontin] 10 mg PO Q12H 04/25/18 Bisacodyl [Dulcolax] 10 mg PO DAILY PRN tablet 05/21/18 Guaifenesin Dm [Robitussin Dm] 10 ml PO Q4H PRN PRN udc 05/21/18 Acetaminophen 1,000 mg PO Q8H PRN PRN 05/22/18 Emollient Combination No.72 1 applicatio TP BID 05/22/18 [Eucerin Intensive Repair] Polyethylene Glycol 3350 [Miralax] 17 gm PO DAILY 05/22/18 Potassium Chloride [K-Dur] 20 meq PO DAILYCM 05/22/18 Senna/Docusate Sodium [Senokot-S] 2 tablet PO BID 05/22/18 Albuterol Aerosols [Ventolin 2.5 mg INHALATION Q2H PRN PRN 05/25/18 Aerosols] vial.neb. Furosemide [Lasix] 60 mg PO BID #60 05/25/18 Insulin Lispro [Humalog KwikPen] See Protocol SQ ACHS 05/25/18 Lidocaine [Lidoderm Patch] 1 patch TOPICAL DAILY 05/25/18 Melatonin 10 mg PO QHS 05/25/18 Menthol/Lanolin/Calamine/Znox 1 applic TOPICAL 599,219905/25/18 [Calmoseptine Ointment] Nystatin Powder [Mycostatin Powder] 1 applic TOPICAL 00,219905/25/18 Oxycodone [Oxyir] 10 mg PO Q4H PRN PRN #20 tab 05/25/18 Surgical History: cholecystectomy, tonsillectomy, - - Stone removal from common bile duct, ORIF left tib/fib fracture. Psychiatric History: No pertinent psych hx Smoking Status: Former smoker - *Family History Maternal History Items: Diabetes Paternal History Items: Stroke Review of Systems Constitutional: Denies: Chills, Fever, Weight Change HEENT: Denies: Head Aches, Sinus Congestion, Sinus Drainage Cardiovascular: Denies: Chest Pain, Palpitations Respiratory: Denies: Cough, Shortness of breath at rest, Sputum production Gastrointestinal: Denies: Abdominal Pain, Nausea, Vomiting Genitourinary: Denies: Dysuria Musculoskeletal: Denies: Joint Pain, Joint Tenderness Skin: Denies: Rash, Wounds Neurological: Denies: Numbness, Tingling, Focal weakness Psychiatric: Denies: Anxiety, Depression, Homicidal Ideations, Suicidal Ideations Hematologic/ Lymphatic: Denies: Easy Bruising, Easy Bleeding Patient Problems: Active and Suspected Problems Other specified peripheral vascular diseases (Acute) Pressure ulcer, heel, left, unstageable (Acute) - Physical Exam General: Alert, Oriented x3, Cooperative HEENT: Atraumatic, PERRLA, EOMI, Normocephalic Neck: Supple, No JVD, Negative Carotid Bruits Lungs: Clear to auscultation, Normal air movement Cardiovascular: Regular rate, No murmurs Abdomen: Bowel Sounds Present, Soft, Non Tender Extremities: No edema, Capillary Refill Less than 3 Seconds Skin: No rashes, No breakdown Musculoskeletal: No Tenderness to Palpation of Joints or Extremities Neurological: Cranial nerves II-XII grossly intact Psych/Mental Status: Normal Affect, Appropriate Vital Signs Temp Pulse Resp BP Pulse Ox 97.4 F L 68 18 119/45 L 93 06/18/18 15:24 06/18/18 15:24 06/18/18 15:24 06/18/18 15:24 06/18/18 15:24 Oxygen Flow Rate (L/min) 3 Oxygen Delivery Method Nasal Cannula Weight: 79.917 kg Body Mass Index (BMI) 27.5 Finger Stick Blood Glucose 205 Intake and Output for Last 24 Hours 06/16/18 06/17/18 06/18/18 23:59 23:59 23:59 Intake Total 180 / 180 500 / 500 420 / 420 Output Total 100 / 100 125 / 125 250 / 250 Balance 80 / 80 375 / 375 170 / 170 POC Glucose 06/18/18 06/18/18 06/18/18 16:47 11:18 06:35 POC Glucose 125 H 155 H 150 H 06/17/18 20:45 POC Glucose 166 H Assessment/Plan All Active Problems Other specified peripheral vascular diseases (Acute) Pressure ulcer, heel, left, unstageable (Acute) Acute exacerbation of CHF (congestive heart failure) (Acute) Acute respiratory failure with hypoxia (Acute) Debility (Acute) YANNA (acute kidney injury) (Resolved) Diastolic CHF (Acute) COPD with acute exacerbation (Acute) Abdominal pain (Resolved) Left leg cellulitis (Resolved) Sepsis (Resolved) Fall (Resolved) Pancreatitis (Resolved) 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 Debility - PT/OT. Pain - Oxycontin 10MG Q12H, Oxycodone 10MG Q4H PRN severe pain, Tylenol 1000MG Q8H PRN mild pain. Bowel - Miralax 17GM daily, Senna/colace 2 tablets twice daily, Dulcoalx 10MG LA PRN, Lidoderm patch 1 patch daily. Pneumonia vaccination - Administer Prevnar 13 and/or Pneumovax 23 as necessary. DVT prophylaxis - Lovenox 30MG SC daily. Shortness of breath - Albuterol 2.5MG Q2H PRN. Neuropathic pain - Elavil 25MG QHS. Hypertension - Amlodipine 5MG daily. Coronary Artery Disease - Propranolol 80MG BID, Aspirin 81MG daily. Hyperlipidemia - Atorvastatin 40MG QHS. Wound - Santyl daily, wound care team. Skin irritation - Eucerin BID, Calmoseptine BID. Chronic diastolic heart failure - Propranolol 80MG BID, Lasix 60MG twice daily. Cough - Robitussin DM 10ML PO Q4H PRN. Iron deficiency anemia - Ferrex 150MG daily. Hypomagnesemia - Magnesium Oxide 400MG daily. Insomnia - Melatonin 10MG QHS. Tinea Corporis - Nystatin powder BID. Nausea - Zofran 4MG Q8H PRN. Hypokalemia - K-Dur 20MEQ daily.
[2018-06-18 21:01] LABS: Bedside Glucose 182 mg/dL (70-110)
[2018-06-18] MEDS: Amitriptyline 25 MG Tablet PO (21:21)
[2018-06-18] MEDS: MELATONIN 10 MG TABLET PO (21:21)
[2018-06-18] MEDS: Atorvastatin Calcium 40 MG Tablet PO (21:21)
[2018-06-19] MEDS: Polyethylene Glycol 3350 17 GM PACKET PO (06:10)
[2018-06-19] MEDS: Senna/Docusate Sodium 1 Tablet 2 TABLET PO ×2 (06:13→17:47)
[2018-06-19] MEDS: Furosemide 40 MG Tablet 60 MG PO ×2 (06:13→13:52)
[2018-06-19] MEDS: Propranolol 40 MG Tablet 80 MG PO ×2 (06:14→17:47)
[2018-06-19] MEDS: Menthol/Lanolin/Calamine/Znox 113 GM Tube 1 APPLIC TOPICAL ×2 (06:14→20:56)
[2018-06-19] MEDS: amLODIPine 5 MG Tablet PO (06:14)
[2018-06-19] MEDS: Magnesium Oxide 400 MG Tablet PO (06:14)
[2018-06-19] MEDS: Nystatin Powder 15gm Bottle 1 APPLIC TOPICAL ×2 (06:14→20:56)
[2018-06-19] MEDS: Enoxaparin 30 MG/0.3 ML Syringe SC (06:15)
[2018-06-19] MEDS: Collagenase 30gm Tube 1 APPLIC TOPICAL (06:33)
[2018-06-19 06:41] LABS: Bedside Glucose 128 mg/dL (70-110)
[2018-06-19 07:50] VITALS: O2SAT 94
[2018-06-19] MEDS: Iron Polysaccharide Complex 150 MG CAPSULE PO (08:14)
[2018-06-19] MEDS: Aspirin 81 MG TAB.CHEW PO (08:14)
[2018-06-19] MEDS: Lidocaine 5% Patch 1 PATCH TOPICAL (09:25)
[2018-06-19] MEDS: oxyCODONE HCl Cr 10 MG Tablet PO ×2 (09:25→20:56)
[2018-06-19 09:35] VITALS: PULSE 67; RESP 18
[2018-06-19 11:36] LABS: Bedside Glucose 131 mg/dL (70-110)
[2018-06-19] MEDS: oxyCODONE 5 MG Tablet 10 MG PO (12:34)
[2018-06-19 15:13] VITALS: BP 121/47; PULSE 72; RESP 20; TEMP 36.4; O2SAT 96
[2018-06-19 17:01] LABS: Bedside Glucose 143 mg/dL (70-110)
[2018-06-19] MEDS: Bisacodyl 5 MG Tablet 10 MG PO (17:47)
[2018-06-19] MEDS: MELATONIN 10 MG TABLET PO (20:56)
[2018-06-19] MEDS: Atorvastatin Calcium 40 MG Tablet PO (20:56)
[2018-06-19] MEDS: Amitriptyline 25 MG Tablet PO (20:56)
[2018-06-19 21:01] LABS: Bedside Glucose 151 mg/dL (70-110)
[2018-06-20] MEDS: Collagenase 30gm Tube 1 APPLIC TOPICAL (03:00)
[2018-06-20] MEDS: Nystatin Powder 15gm Bottle 1 APPLIC TOPICAL ×2 (05:01→21:05)
[2018-06-20] MEDS: Menthol/Lanolin/Calamine/Znox 113 GM Tube 1 APPLIC TOPICAL ×2 (05:01→21:06)
[2018-06-20] MEDS: Senna/Docusate Sodium 1 Tablet 2 TABLET PO ×2 (05:03→17:16)
[2018-06-20] MEDS: amLODIPine 5 MG Tablet PO (05:04)
[2018-06-20] MEDS: Magnesium Oxide 400 MG Tablet PO (05:04)
[2018-06-20] MEDS: Polyethylene Glycol 3350 17 GM PACKET PO (05:04)
[2018-06-20] MEDS: Propranolol 40 MG Tablet 80 MG PO ×2 (05:04→17:16)
[2018-06-20] MEDS: Furosemide 40 MG Tablet 60 MG PO ×2 (05:04→13:09)
[2018-06-20] MEDS: Bisacodyl 10 MG Suppository RECTAL (05:07)
[2018-06-20] MEDS: Enoxaparin 30 MG/0.3 ML Syringe SC (05:08)
[2018-06-20 06:51] LABS: Bedside Glucose 137 mg/dL (70-110)
[2018-06-20 06:59] VITALS: O2SAT 95
--- NOTE | 2018-06-20 08:55 | NURSING ---
Addendum entered by Cate Martinez 06/20/18 18:44: pt refused SSE tonight, did have small formed this am. states maybe tomorrow, but I feel like i am gonna go Original Note: soap suds enema ordered, d/t no BM since 06/15/18
[2018-06-20] MEDS: Aspirin 81 MG TAB.CHEW PO (09:10)
[2018-06-20] MEDS: Lidocaine 5% Patch 1 PATCH TOPICAL (09:10)
[2018-06-20] MEDS: Iron Polysaccharide Complex 150 MG CAPSULE PO (09:10)
[2018-06-20] MEDS: oxyCODONE HCl Cr 10 MG Tablet PO ×2 (09:11→21:04)
[2018-06-20 11:15] LABS: Bedside Glucose 158 mg/dL (70-110)
[2018-06-20] MEDS: oxyCODONE 5 MG Tablet 10 MG PO (13:08)
--- NOTE | 2018-06-20 13:29 | MDS.RN ---
Information for the mds was obtained from review of the clinical record, interview of resident, staff, and direct observation of resident's care.
[2018-06-20 15:17] VITALS: BP 120/52; PULSE 75; RESP 20; TEMP 36.8; O2SAT 98
[2018-06-20 16:05] LABS: Bedside Glucose 235 mg/dL (70-110)
[2018-06-20 20:56] LABS: Bedside Glucose 162 mg/dL (70-110)
[2018-06-20] MEDS: Atorvastatin Calcium 40 MG Tablet PO (21:04)
[2018-06-20] MEDS: MELATONIN 10 MG TABLET PO (21:04)
[2018-06-20] MEDS: Amitriptyline 25 MG Tablet PO (21:04)
[2018-06-21 05:35] LABS: Absolute Lymphocyte Count 1.27 X10^3/ul (0.83-4.51); Absolute Neutrophil Count 4.4 X10^3/uL (2.0-7.7); Basophil# 0.03 X10^3/uL; Basophil% 0.4 % (0-1); Eosinophil# 0.55 X10^3/uL; Eosinophils% 7.6 % (0-5); Hematocrit 26.3 % (40-54); Hemoglobin 8.2 g/dl (13.0-16.5); Lymphocyte # 1.27 X10^3/ul (4.0); Lymphocyte % 17.5 % (19-41); Mean Corp Hgb Conc 31.2 g/gl (32-36); Mean Corpuscular Hgb 29.9 pg (27.0-32.0); Mean Platelet Vol. 8.6 fl (6.2-12.0); Monocyte# 1.04 X10^3/uL; Monocyte% 14.3 % (0-10); Neutrophil # 4.38 X10^3/uL (2.7-7.7); Neutrophil % 60.2 % (47-70); Platelet Count 171 K/mm3 (150-450); RBC Distribution Width CV 14.5 % (11.6-14.6); Red Blood Count 2.74 M/mm3 (4.6-6.2); White Blood Count 7.3 K/mm3 (4.4-11.0)
[2018-06-21 05:36] LABS: POSITIVE COUNT NO; POSITIVE DIFFERENTIAL NO; POSITIVE MORPHOLOGY NO
[2018-06-21] MEDS: amLODIPine 5 MG Tablet PO (05:38)
[2018-06-21] MEDS: Magnesium Oxide 400 MG Tablet PO (05:38)
[2018-06-21] MEDS: Senna/Docusate Sodium 1 Tablet 2 TABLET PO ×2 (05:38→17:48)
[2018-06-21] MEDS: Propranolol 40 MG Tablet 80 MG PO ×2 (05:38→17:48)
[2018-06-21] MEDS: Polyethylene Glycol 3350 17 GM PACKET PO (05:39)
[2018-06-21] MEDS: Enoxaparin 30 MG/0.3 ML Syringe SC (05:39)
[2018-06-21] MEDS: Nystatin Powder 15gm Bottle 1 APPLIC TOPICAL ×2 (05:39→21:01)
[2018-06-21] MEDS: Menthol/Lanolin/Calamine/Znox 113 GM Tube 1 APPLIC TOPICAL ×2 (05:39→21:00)
[2018-06-21] MEDS: Furosemide 40 MG Tablet 60 MG PO ×2 (05:39→13:42)
[2018-06-21 05:58] LABS: Anion Gap 8 (5-15); BUN 13 mg/dL (7-18); BUN/Creat Ratio 9.4 RATIO (10-20); Calcium,Total 8.4 mg/dL (8.5-10.1); Chloride 98 mmol/L (98-107); Creatinine, Serum 1.38 mg/dL (0.70-1.30); EST Glomerular Filtration Rate 52 mL/min (>60); Est Glom Filt Rate - Afr Amer 63 mL/min (>60); Estimated Creatinine Clearance 39.93 ml/min; Glucose 103 mg/dL (74-106); Potassium 3.6 mmol/L (3.5-5.1); Sodium Level 140 mmol/L (136-145)
[2018-06-21] MEDS: Collagenase 30gm Tube 1 APPLIC TOPICAL (06:01)
[2018-06-21 06:51] LABS: Bedside Glucose 103 mg/dL (70-110)
[2018-06-21 07:36] VITALS: O2SAT 97
--- NOTE | 2018-06-21 08:21 | PCM.PROGNOTE ---
Patient Problems: Active and Suspected Problems Other specified peripheral vascular diseases (Acute) Pressure ulcer, heel, left, unstageable (Acute) Subjective: Patient seen today for follow up left heel ulceration. He was resting in bed, no new complaints. States the heel is healing. No complaints of fever, chills, nausea or vomiting. - Physical Exam General: Alert, Oriented x3, Cooperative, No apparent distress Extremities: No cyanosis, Capillary Refill Less than 3 Seconds, No Calf Tenderness, Diminished Peripheral Pulses - chronic - no evidence of acute ischemia to the foot, ankle or leg bilateral. Skin: Ulcer/ Wound - Unstageable pressure ulcer to the posterior left heel with overlying eschar which is healing and resolving, there is no odor, infection, streaking, or purulence. Atrophic skin. There are some superficial abrasions to the anterior leg and base of dorsal hallux - with no evidence of infection, no deep involvement. Musculoskeletal: No Tenderness to Palpation of Joints or Extremities - to the foot/ankle Vital Signs Temp Pulse Resp BP Pulse Ox 98.2 F 75 20 H 120/52 L 97 06/20/18 15:17 06/20/18 15:17 06/20/18 15:17 06/20/18 15:17 06/21/18 07:36 Oxygen Flow Rate (L/min) 3 Oxygen Delivery Method Nasal Cannula Weight: 80.513 kg Body Mass Index (BMI) 27.5 Finger Stick Blood Glucose 205 Intake and Output for Last 24 Hours 06/19/18 06/20/18 06/21/18 23:59 23:59 23:59 Intake Total 600 / 600 720 / 720 Output Total 400 / 400 Balance 600 / 600 320 / 320 Laboratory Tests Past 24 Hrs 06/21/18 06/21/18 05:20 05:20 WBC 7.3 RBC 2.74 L Hgb 8.2 L Hct 26.3 L MCV 96.0 H MCH 29.9 MCHC 31.2 L RDW 14.5 RDW Differential 51.0 H Plt Count 171 MPV 8.6 Immature Gran % (Auto) 0.000 Neut % (Auto) 60.2 Lymph % (Auto) 17.5 L Metcalfe % (Auto) 14.3 H Eos % (Auto) 7.6 H Baso % (Auto) 0.4 Absolute Neuts (auto) 4.4 Absolute Lymphs (auto) 1.27 Total Counted Not Reportable Sodium 140 Potassium 3.6 Chloride 98 Carbon Dioxide 34.0 H Anion Gap 8 BUN 13 Creatinine 1.38 H Estim Creat Clear Calc 39.93 Est GFR (MDRD) Af Amer 63 Est GFR (MDRD) Non-Af 52 L BUN/Creatinine Ratio 9.4 L Glucose 103 Calcium 8.4 L POC Glucose 06/21/18 06/20/18 06/20/18 06:32 20:47 16:01 POC Glucose 103 162 H 235 H 06/20/18 11:03 POC Glucose 158 H Medical Necessity - Tobacco Use Smoking Status: Former smoker Assessment/Plan All Active Problems Other specified peripheral vascular diseases (Acute) Pressure ulcer, heel, left, unstageable (Acute) Acute exacerbation of CHF (congestive heart failure) (Acute) Acute respiratory failure with hypoxia (Acute) Debility (Acute) YANNA (acute kidney injury) (Resolved) Diastolic CHF (Acute) COPD with acute exacerbation (Acute) Abdominal pain (Resolved) Left leg cellulitis (Resolved) Sepsis (Resolved) Fall (Resolved) Pancreatitis (Resolved) 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 Keep offloaded at all times. Dr. Cruz from vascular surgery following patient for his lower extremity PAD. Podiatry will continue to follow weekly.
[2018-06-21] MEDS: Lidocaine 5% Patch 1 PATCH TOPICAL (09:07)
[2018-06-21] MEDS: Aspirin 81 MG TAB.CHEW PO (09:08)
[2018-06-21] MEDS: Iron Polysaccharide Complex 150 MG CAPSULE PO (09:08)
[2018-06-21] MEDS: oxyCODONE HCl Cr 10 MG Tablet PO ×2 (09:15→20:58)
[2018-06-21 10:00] VITALS: PULSE 68; RESP 18; O2SAT 96
[2018-06-21 11:21] LABS: Bedside Glucose 165 mg/dL (70-110)
[2018-06-21 15:18] VITALS: BP 111/46; PULSE 75; RESP 20; TEMP 36.4; O2SAT 97
[2018-06-21 17:10] LABS: Bedside Glucose 140 mg/dL (70-110)
[2018-06-21 20:36] LABS: Bedside Glucose 159 mg/dL (70-110)
[2018-06-21] MEDS: Atorvastatin Calcium 40 MG Tablet PO (20:58)
[2018-06-21] MEDS: Amitriptyline 25 MG Tablet PO (20:59)
[2018-06-21] MEDS: MELATONIN 10 MG TABLET PO (20:59)
[2018-06-22] MEDS: Senna/Docusate Sodium 1 Tablet 2 TABLET PO ×2 (05:14→18:16)
[2018-06-22] MEDS: Magnesium Oxide 400 MG Tablet PO (05:14)
[2018-06-22] MEDS: Furosemide 40 MG Tablet 60 MG PO ×2 (05:14→12:59)
[2018-06-22] MEDS: Enoxaparin 30 MG/0.3 ML Syringe SC (05:15)
[2018-06-22] MEDS: Polyethylene Glycol 3350 17 GM PACKET PO (05:15)
[2018-06-22] MEDS: Menthol/Lanolin/Calamine/Znox 113 GM Tube 1 APPLIC TOPICAL ×2 (05:15→21:41)
[2018-06-22] MEDS: Propranolol 40 MG Tablet 80 MG PO ×2 (05:15→18:16)
[2018-06-22] MEDS: amLODIPine 5 MG Tablet PO (05:15)
[2018-06-22] MEDS: Nystatin Powder 15gm Bottle 1 APPLIC TOPICAL ×2 (05:16→21:42)
[2018-06-22] MEDS: Collagenase 30gm Tube 1 APPLIC TOPICAL (05:16)
[2018-06-22 06:36] LABS: Bedside Glucose 133 mg/dL (70-110)
[2018-06-22 07:48] VITALS: O2SAT 98
[2018-06-22] MEDS: Iron Polysaccharide Complex 150 MG CAPSULE PO (08:46)
[2018-06-22] MEDS: Aspirin 81 MG TAB.CHEW PO (08:46)
--- NOTE | 2018-06-22 09:05 | CASEMGMT ---
Insurance Clinical information faxed. Pending continued stay approval at this time. Auth#[id number] Mely SANDOVAL, GEOGRAPHY HEAD
[2018-06-22] MEDS: oxyCODONE HCl Cr 10 MG Tablet PO ×2 (09:39→21:44)
[2018-06-22] MEDS: Lidocaine 5% Patch 1 PATCH TOPICAL (09:40)
--- NOTE | 2018-06-22 09:53 | CASEMGMT ---
Insurance Continued stay approved with next update due on 06/26/18. Auth#[id number] Mely SANDOVAL, KNITTING MACHINE FIXER
[2018-06-22 10:23] VITALS: PULSE 58; RESP 18; O2SAT 98
[2018-06-22 11:26] LABS: Bedside Glucose 154 mg/dL (70-110)
--- NOTE | 2018-06-22 13:31 | NURSING ---
nursing staff had changed dressings this am. Pt does not want this nurse to change the dressings again. pt is getting santyl applied daily to the left posterior thigh and the left heel. will monitor.
--- NOTE | 2018-06-22 14:29 | CASEMGMT ---
Brief interview for mental status (BIMS) and resident mood interview (PHQ-9) completed on this day. BIMS score 13/15. PHQ-9 score 06/25
[2018-06-22 15:07] VITALS: BP 125/56; PULSE 58; RESP 20; TEMP 36.7; O2SAT 97
[2018-06-22 16:50] LABS: Bedside Glucose 134 mg/dL (70-110)
[2018-06-22] MEDS: oxyCODONE 5 MG Tablet 10 MG PO (18:27)
[2018-06-22 20:51] LABS: Bedside Glucose 161 mg/dL (70-110)
[2018-06-22] MEDS: Atorvastatin Calcium 40 MG Tablet PO (21:42)
[2018-06-22] MEDS: MELATONIN 10 MG TABLET PO (21:42)
[2018-06-22] MEDS: Amitriptyline 25 MG Tablet PO (21:42)
[2018-06-23] MEDS: Enoxaparin 30 MG/0.3 ML Syringe SC (05:45)
[2018-06-23] MEDS: Propranolol 40 MG Tablet 80 MG PO ×2 (05:45→19:31)
[2018-06-23] MEDS: Furosemide 40 MG Tablet 60 MG PO ×2 (05:45→13:37)
[2018-06-23] MEDS: Menthol/Lanolin/Calamine/Znox 113 GM Tube 1 APPLIC TOPICAL ×2 (05:45→21:22)
[2018-06-23] MEDS: Collagenase 30gm Tube 1 APPLIC TOPICAL (05:46)
[2018-06-23] MEDS: Nystatin Powder 15gm Bottle 1 APPLIC TOPICAL ×2 (05:46→21:22)
[2018-06-23] MEDS: Senna/Docusate Sodium 1 Tablet 2 TABLET PO ×2 (05:46→19:32)
[2018-06-23] MEDS: amLODIPine 5 MG Tablet PO (05:46)
[2018-06-23] MEDS: Magnesium Oxide 400 MG Tablet PO (05:46)
[2018-06-23 06:56] LABS: Bedside Glucose 144 mg/dL (70-110)
[2018-06-23] MEDS: Aspirin 81 MG TAB.CHEW PO (08:56)
[2018-06-23] MEDS: Iron Polysaccharide Complex 150 MG CAPSULE PO (08:56)
[2018-06-23] MEDS: oxyCODONE HCl Cr 10 MG Tablet PO ×2 (10:11→21:22)
[2018-06-23 11:20] LABS: Bedside Glucose 180 mg/dL (70-110)
--- NOTE | 2018-06-23 12:16 | NURSING ---
Dr Maciel notified of pt request to get rid of lidoderm, no doing anything for him. new order to d/c
[2018-06-23 15:00] VITALS: O2SAT 96
[2018-06-23 15:27] VITALS: BP 113/41; PULSE 75; RESP 20; TEMP 36.1; O2SAT 91
[2018-06-23 16:56] LABS: Bedside Glucose 198 mg/dL (70-110)
[2018-06-23 20:34] VITALS: O2SAT 95
[2018-06-23 20:51] LABS: Bedside Glucose 173 mg/dL (70-110)
[2018-06-23] MEDS: Atorvastatin Calcium 40 MG Tablet PO (21:22)
[2018-06-23] MEDS: MELATONIN 10 MG TABLET PO (21:22)
[2018-06-23] MEDS: Amitriptyline 25 MG Tablet PO (21:22)
[2018-06-24] MEDS: Senna/Docusate Sodium 1 Tablet 2 TABLET PO ×2 (06:10→17:46)
[2018-06-24] MEDS: Magnesium Oxide 400 MG Tablet PO (06:10)
[2018-06-24] MEDS: Furosemide 40 MG Tablet 60 MG PO ×2 (06:10→13:22)
[2018-06-24] MEDS: amLODIPine 5 MG Tablet PO (06:10)
[2018-06-24] MEDS: Enoxaparin 30 MG/0.3 ML Syringe SC (06:10)
[2018-06-24] MEDS: Propranolol 40 MG Tablet 80 MG PO ×2 (06:10→17:45)
[2018-06-24] MEDS: Polyethylene Glycol 3350 17 GM PACKET PO (06:11)
[2018-06-24] MEDS: Menthol/Lanolin/Calamine/Znox 113 GM Tube 1 APPLIC TOPICAL ×2 (06:12→21:00)
[2018-06-24] MEDS: Nystatin Powder 15gm Bottle 1 APPLIC TOPICAL ×2 (06:12→21:00)
[2018-06-24] MEDS: Collagenase 30gm Tube 1 APPLIC TOPICAL (06:13)
[2018-06-24] MEDS: oxyCODONE 5 MG Tablet 10 MG PO (06:16)
[2018-06-24 06:55] LABS: Bedside Glucose 146 mg/dL (70-110)
[2018-06-24] MEDS: Iron Polysaccharide Complex 150 MG CAPSULE PO (08:08)
[2018-06-24] MEDS: Aspirin 81 MG TAB.CHEW PO (08:08)
[2018-06-24 10:00] VITALS: PULSE 57; O2SAT 96
[2018-06-24] MEDS: oxyCODONE HCl Cr 10 MG Tablet PO ×2 (10:38→20:58)
[2018-06-24 11:26] LABS: Bedside Glucose 156 mg/dL (70-110)
[2018-06-24 15:10] VITALS: BP 127/53; PULSE 71; RESP 18; TEMP 35.9; O2SAT 97
[2018-06-24 17:06] LABS: Bedside Glucose 189 mg/dL (70-110)
[2018-06-24] MEDS: Amitriptyline 25 MG Tablet PO (20:58)
[2018-06-24] MEDS: Atorvastatin Calcium 40 MG Tablet PO (20:58)
[2018-06-24] MEDS: MELATONIN 10 MG TABLET PO (20:58)
[2018-06-24 21:01] LABS: Bedside Glucose 152 mg/dL (70-110)
[2018-06-25] MEDS: Enoxaparin 30 MG/0.3 ML Syringe SC (06:24)
[2018-06-25] MEDS: Polyethylene Glycol 3350 17 GM PACKET PO (06:24)
[2018-06-25] MEDS: Furosemide 40 MG Tablet 60 MG PO ×2 (06:26→13:27)
[2018-06-25] MEDS: Senna/Docusate Sodium 1 Tablet 2 TABLET PO ×2 (06:26→18:16)
[2018-06-25] MEDS: Propranolol 40 MG Tablet 80 MG PO ×2 (06:26→18:16)
[2018-06-25] MEDS: amLODIPine 5 MG Tablet PO (06:26)
[2018-06-25] MEDS: Magnesium Oxide 400 MG Tablet PO (06:26)
[2018-06-25] MEDS: Nystatin Powder 15gm Bottle 1 APPLIC TOPICAL (06:29)
[2018-06-25] MEDS: Menthol/Lanolin/Calamine/Znox 113 GM Tube 1 APPLIC TOPICAL (06:29)
[2018-06-25] MEDS: Collagenase 30gm Tube 1 APPLIC TOPICAL (06:30)
[2018-06-25 06:47] LABS: Bedside Glucose 125 mg/dL (70-110)
[2018-06-25] MEDS: Aspirin 81 MG TAB.CHEW PO (08:14)
[2018-06-25] MEDS: Iron Polysaccharide Complex 150 MG CAPSULE PO (08:14)
[2018-06-25] MEDS: oxyCODONE HCl Cr 10 MG Tablet PO (09:09)
[2018-06-25 11:06] LABS: Bedside Glucose 212 mg/dL (70-110)
--- NOTE | 2018-06-25 13:34 | MDS.RN ---
Information for the mds was obtained from review of the clinical record, interview of resident, staff, and direct observation of resident's care.
[2018-06-25 15:26] VITALS: BP 120/61; PULSE 67; RESP 20; TEMP 36.6; O2SAT 99
[2018-06-25 16:14] VITALS: PULSE 55; RESP 18; O2SAT 97
[2018-06-25 17:06] LABS: Bedside Glucose 159 mg/dL (70-110)
[2018-06-25 21:11] LABS: Bedside Glucose 159 mg/dL (70-110)
[2018-06-26] MEDS: amLODIPine 5 MG Tablet PO (05:01)
[2018-06-26] MEDS: Propranolol 40 MG Tablet 80 MG PO ×2 (05:01→17:17)
[2018-06-26] MEDS: Magnesium Oxide 400 MG Tablet PO (05:01)
[2018-06-26] MEDS: Senna/Docusate Sodium 1 Tablet 2 TABLET PO (05:01)
[2018-06-26] MEDS: Furosemide 40 MG Tablet 60 MG PO ×2 (05:02→14:24)
[2018-06-26] MEDS: Enoxaparin 30 MG/0.3 ML Syringe SC (05:02)
[2018-06-26] MEDS: Nystatin Powder 15gm Bottle 1 APPLIC TOPICAL ×2 (05:20→21:00)
[2018-06-26] MEDS: Collagenase 30gm Tube 1 APPLIC TOPICAL (05:21)
[2018-06-26] MEDS: Menthol/Lanolin/Calamine/Znox 113 GM Tube 1 APPLIC TOPICAL ×2 (05:21→21:00)
[2018-06-26 05:22] VITALS: BP 136/51; PULSE 72
[2018-06-26 06:51] LABS: Bedside Glucose 127 mg/dL (70-110)
[2018-06-26 07:08] VITALS: O2SAT 98
[2018-06-26] MEDS: Iron Polysaccharide Complex 150 MG CAPSULE PO (08:54)
[2018-06-26] MEDS: Aspirin 81 MG TAB.CHEW PO (08:54)
[2018-06-26] MEDS: oxyCODONE HCl Cr 10 MG Tablet PO ×2 (09:47→20:57)
--- NOTE | 2018-06-26 09:47 | CASEMGMT ---
Insurance Clinical information faxed. Pending continued stay approval at this time. Auth#[id number] Mely SANDOVAL, HOOP CUTTER
--- NOTE | 2018-06-26 11:23 | CASEMGMT ---
Insurance Continued stay approved with next update due on 06/29/18. Auth#[id number] Mely SANDOVAL, MOLDING MACHINE TENDER
[2018-06-26 11:36] LABS: Bedside Glucose 160 mg/dL (70-110)
[2018-06-26 12:43] VITALS: PULSE 86; RESP 18; O2SAT 95
[2018-06-26 16:00] VITALS: BP 126/52; PULSE 64; RESP 22; TEMP 36.9; O2SAT 95
[2018-06-26 16:50] LABS: Bedside Glucose 168 mg/dL (70-110)
[2018-06-26 20:51] LABS: Bedside Glucose 137 mg/dL (70-110)
[2018-06-26] MEDS: MELATONIN 10 MG TABLET PO (20:57)
[2018-06-26] MEDS: Atorvastatin Calcium 40 MG Tablet PO (20:57)
[2018-06-26] MEDS: Amitriptyline 25 MG Tablet PO (20:57)
[2018-06-27] MEDS: amLODIPine 5 MG Tablet PO (04:37)
[2018-06-27] MEDS: Magnesium Oxide 400 MG Tablet PO (04:37)
[2018-06-27] MEDS: Propranolol 40 MG Tablet 80 MG PO ×2 (04:38→17:45)
[2018-06-27] MEDS: Senna/Docusate Sodium 1 Tablet 2 TABLET PO (04:38)
[2018-06-27] MEDS: Furosemide 40 MG Tablet 60 MG PO ×2 (04:38→14:34)
[2018-06-27] MEDS: Enoxaparin 30 MG/0.3 ML Syringe SC (04:38)
[2018-06-27] MEDS: Polyethylene Glycol 3350 17 GM PACKET PO (04:38)
[2018-06-27] MEDS: Nystatin Powder 15gm Bottle 1 APPLIC TOPICAL ×2 (04:42→21:29)
[2018-06-27] MEDS: Menthol/Lanolin/Calamine/Znox 113 GM Tube 1 APPLIC TOPICAL ×2 (04:42→21:28)
[2018-06-27] MEDS: Collagenase 30gm Tube 1 APPLIC TOPICAL (04:43)
[2018-06-27 04:50] VITALS: O2SAT 94
[2018-06-27 07:06] LABS: Bedside Glucose 117 mg/dL (70-110)
[2018-06-27] MEDS: Iron Polysaccharide Complex 150 MG CAPSULE PO (08:25)
[2018-06-27] MEDS: Aspirin 81 MG TAB.CHEW PO (08:25)
[2018-06-27] MEDS: oxyCODONE HCl Cr 10 MG Tablet PO ×2 (09:41→21:33)
[2018-06-27 11:35] LABS: Bedside Glucose 145 mg/dL (70-110)
--- NOTE | 2018-06-27 14:50 | CASEMGMT ---
Brief interview for mental status (BIMS) and resident mood interview (PHQ-9) completed on this day. BIMS score 15. PHQ-9 score 11/25
[2018-06-27 16:00] VITALS: BP 117/50; PULSE 63; RESP 20; TEMP 36.6; O2SAT 98
[2018-06-27 17:05] LABS: Bedside Glucose 149 mg/dL (70-110)
[2018-06-27 20:56] LABS: Bedside Glucose 169 mg/dL (70-110)
[2018-06-27] MEDS: Amitriptyline 25 MG Tablet PO (21:28)
[2018-06-27] MEDS: MELATONIN 10 MG TABLET PO (21:29)
[2018-06-27] MEDS: Atorvastatin Calcium 40 MG Tablet PO (21:29)
[2018-06-28 05:30] LABS: Absolute Lymphocyte Count 1.27 X10^3/ul (0.83-4.51); Absolute Neutrophil Count 5.4 X10^3/uL (2.0-7.7); Basophil# 0.04 X10^3/uL; Basophil% 0.5 % (0-1); Eosinophil# 0.62 X10^3/uL; Eosinophils% 7.3 % (0-5); Hematocrit 26.2 % (40-54); Hemoglobin 8.2 g/dl (13.0-16.5); Lymphocyte # 1.27 X10^3/ul (4.0); Lymphocyte % 14.9 % (19-41); Mean Corp Hgb Conc 31.3 g/gl (32-36); Mean Corpuscular Hgb 30.4 pg (27.0-32.0); Mean Platelet Vol. 8.4 fl (6.2-12.0); Monocyte# 1.14 X10^3/uL; Monocyte% 13.4 % (0-10); Neutrophil # 5.44 X10^3/uL (2.7-7.7); Neutrophil % 63.8 % (47-70); Platelet Count 211 K/mm3 (150-450); RBC Distribution Width CV 13.8 % (11.6-14.6); RBC Distribution Width SD 46.1 fl (35.1-43.9); White Blood Count 8.5 K/mm3 (4.4-11.0)
[2018-06-28 05:32] LABS: POSITIVE COUNT NO; POSITIVE DIFFERENTIAL NO; POSITIVE MORPHOLOGY NO
[2018-06-28] MEDS: Menthol/Lanolin/Calamine/Znox 113 GM Tube 1 APPLIC TOPICAL ×2 (05:35→21:31)
[2018-06-28] MEDS: Enoxaparin 30 MG/0.3 ML Syringe SC (05:35)
[2018-06-28] MEDS: Magnesium Oxide 400 MG Tablet PO (05:35)
[2018-06-28] MEDS: Nystatin Powder 15gm Bottle 1 APPLIC TOPICAL ×2 (05:36→21:32)
[2018-06-28] MEDS: amLODIPine 5 MG Tablet PO (05:36)
[2018-06-28] MEDS: Senna/Docusate Sodium 1 Tablet 2 TABLET PO (05:36)
[2018-06-28] MEDS: Collagenase 30gm Tube 1 APPLIC TOPICAL (05:42)
[2018-06-28 05:43] LABS: Anion Gap 6 (5-15); BUN 14 mg/dL (7-18); BUN/Creat Ratio 10.9 RATIO (10-20); Calcium,Total 8.1 mg/dL (8.5-10.1); Chloride 98 mmol/L (98-107); Creatinine, Serum 1.29 mg/dL (0.70-1.30); EST Glomerular Filtration Rate 57 mL/min (>60); Est Glom Filt Rate - Afr Amer 69 mL/min (>60); Estimated Creatinine Clearance 42.71 ml/min; Glucose 110 mg/dL (74-106); Potassium 3.8 mmol/L (3.5-5.1); Sodium Level 139 mmol/L (136-145)
[2018-06-28 07:00] LABS: Bedside Glucose 117 mg/dL (70-110)
[2018-06-28 07:57] VITALS: O2SAT 96
--- NOTE | 2018-06-28 09:02 | NURSING ---
Pt refused his am medication 2 attempts were made, Pt stated he was tired and to leave him sleep, he doesn't want bothered.
[2018-06-28] MEDS: oxyCODONE 5 MG Tablet 10 MG PO (10:01)
[2018-06-28] MEDS: Iron Polysaccharide Complex 150 MG CAPSULE PO (10:02)
[2018-06-28] MEDS: Aspirin 81 MG TAB.CHEW PO (10:03)
[2018-06-28] MEDS: oxyCODONE HCl Cr 10 MG Tablet PO ×2 (10:05→21:38)
[2018-06-28 11:11] LABS: Bedside Glucose 145 mg/dL (70-110)
--- NOTE | 2018-06-28 12:38 | NURSING ---
This nurse notified by thepary that Pt has a skin tear to right buttocks. This nurse assessed Pt and there is loose skin hanging with some bleeding to Pt right inner buttock near the gluteal sulcus. small incisional , meplex placed over area. Cate BOUDREAUX aware
[2018-06-28] MEDS: Furosemide 40 MG Tablet 60 MG PO (13:28)
--- NOTE | 2018-06-28 15:06 | PCM.PN.RX ---
<Robert Buckleyip D - Last Filed: 06/28/18 15:06> Progress Note - Pharmacy Subjective: Monthly TCU Note Objective: Allergies aspirin Adverse Reaction (Verified 05/22/18 18:58) Other causes stomach to bleed Current Medications Generic Name Dose Route Start Last Admin Trade Name Freq PRN Reason Stop Dose Admin Acetaminophen 1,000 mg 05/25/18 16:58 06/13/18 20:03 Tylenol PO 1,000 mg Q8H PRN PRN Administration PAIN Albuterol Sulfate 2.5 mg 05/25/18 16:58 Ventolin Aerosols INHALATION Q2H PRN PRN SHORTNESS OF BREATH Amitriptyline HCl 25 mg 05/25/18 22:00 06/27/18 21:28 Elavil PO 25 mg QHS EVRONIKA Administration Amlodipine Besylate 5 mg 05/26/18 06:00 06/28/18 05:36 Norvasc PO 5 mg DAILY VERONIKA Administration Aspirin 81 mg 05/26/18 08:00 06/28/18 10:03 Aspirin, Baby PO 81 mg DAILY@0800 VERONIKA Administration Atorvastatin Calcium 40 mg 05/25/18 22:00 06/27/18 21:29 Lipitor PO 40 mg QHS VERONIKA Administration Bisacodyl 10 mg 05/25/18 16:57 06/20/18 05:07 Dulcolax RECTAL 10 mg DAILY PRN Administration Constipation Bisacodyl 10 mg 05/25/18 16:58 06/19/18 17:47 Dulcolax PO 10 mg DAILY PRN Administration Constipation Calamine/Phenol 1 applic 05/25/18 22:00 06/28/18 05:35 Calmoseptine Ointment TOPICAL 1 applicatio 0600,2200 [facility] Administration Protocol Collagenase 1 applic 05/26/18 06:00 06/28/18 05:42 Santyl TOPICAL 1 applicatio DAILY [facility] Administration Protocol Emollient Ointment 1 applic 06/24/18 22:00 06/27/18 21:29 Eucerin Intensive Repair TOPICAL 1 applicatio QHS VERONIKA Administration Enoxaparin Sodium 30 mg 05/26/18 06:00 06/28/18 05:35 Lovenox SC 30 mg DAILY@0600 VERONIKA Administration Furosemide 60 mg 05/25/18 18:30 06/28/18 13:28 Lasix PO 60 mg BIDLX VERONIKA Administration Guaifenesin 10 ml 05/25/18 16:58 Robitussin Dm PO Q4H PRN PRN COUGH Magnesium Oxide 400 mg 05/26/18 06:00 06/28/18 05:35 Mag-Ox 400 PO 400 mg DAILY VERONIKA Administration Melatonin 10 mg 05/25/18 22:00 06/27/18 21:29 Melatonin PO 10 mg QHS VERONIKA Administration Nystatin 1 applic 05/25/18 22:00 06/28/18 05:36 Mycostatin Powder TOPICAL 1 applicatio 0600,2200 VERONIKA Administration Protocol Ondansetron HCl 4 mg 06/14/18 08:46 06/16/18 09:20 Zofran Odt PO 4 mg Q8H PRN PRN Administration NAUSEA/VOMITING Oxycodone HCl 10 mg 05/25/18 16:58 06/28/18 10:01 Oxyir PO 10 mg Q4H PRN PRN Administration SEVERE PAIN (6-10/10) Oxycodone HCl 10 mg 05/25/18 22:00 06/28/18 10:05 Oxycontin PO 10 mg Q12H [facility] Administration Polyethylene Glycol 17 gm 05/26/18 06:00 06/28/18 05:40 Miralax PO Not Given DAILY [facility] Polysaccharide Iron Complex 150 mg 06/10/18 08:00 06/28/18 10:02 Ferrex 150 PO 150 mg DAILYCM [facility] Administration Potassium Chloride 20 meq 05/26/18 08:00 06/28/18 10:02 K-Dur PO 20 meq DAILYCM [facility] Administration Propranolol HCl 80 mg 05/25/18 18:30 06/28/18 09:00 Inderal PO Not Given BID [facility] Senna/Docusate Sodium 2 tablet 05/25/18 18:00 06/28/18 05:36 Senokot-S, Anastasia-Colace PO 2 tablet BID [facility] Administration Problem List Other specified peripheral vascular diseases (Acute) Pressure ulcer, heel, left, unstageable (Acute) Pressure injury of coccygeal region, 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) Vital Signs Temp Pulse Resp BP Pulse Ox 97.9 F 63 20 H 117/50 L 96 06/27/18 16:00 06/27/18 16:00 06/27/18 16:00 06/27/18 16:00 06/28/18 07:57 Oxygen Flow Rate (L/min) 3 Oxygen Delivery Method Nasal Cannula Weight: 80.796 kg Body Mass Index (BMI) 27.5 Finger Stick Blood Glucose 205 Sodium 139 mmol/L (136-145) 06/28/18 05:15 Potassium 3.8 mmol/L (3.5-5.1) 06/28/18 05:15 Chloride 98 mmol/L (98-107) 06/28/18 05:15 Carbon Dioxide 35.0 mmol/L (21.0-32.0) H 06/28/18 05:15 Anion Gap 6 (5-15) 06/28/18 05:15 BUN 14 mg/dL (7-18) 06/28/18 05:15 Creatinine 1.29 mg/dL (0.70-1.30) 06/28/18 05:15 Est GFR (MDRD) Af Amer 69 mL/min (>60) 06/28/18 05:15 Est GFR (MDRD) Non-Af 57 mL/min (>60) L 06/28/18 05:15 BUN/Creatinine Ratio 10.9 RATIO (10-20) 06/28/18 05:15 Glucose 110 mg/dL (74-106) H 06/28/18 05:15 Assessment/Plan: * 1) Pain APAP prn for pain, oxycodone for severe pain, Oxycontin twice daily, amitriptyline. Continue to monitor daily pain scores, prn medication use. *Please clarify instructions for APAP and oxyIR so instructions do not overlap. Thank you. 2) Pulm Albuterol for shortness of breath, guaifenesin for congestion. Continue to monitor prn medication use, for shortness of breath. 3) HTN/CAD/CHF Amlodipine, propranolol, ASA, atorvastatin, furosemide/KCl/Mg. Continue to monitor BP/HR, renal function, electrolytes, lipids, for chest pain. 4) DM2 Insulin lispro SSI. Continue to monitor BGT, s/s hyper/hypoglycemia. 5) DVT PPx Enoxaparin daily. Continue to monitor s/s bleeding/clot. 6) Nutrition Fe. Continue to monitor clinically. 7) Derm Calmoseptine, collagenase, emollient, nystatin. Continue to monitor clinically. 8) Sleep Melatonin at HS. Continue to monitor for insomnia. Psychotropic Medications: None Unnecessary Medications: None Bowel Regimen: 9) Senna/s, PEG, prn bisacodyl. Continue to monitor prn medication use, for constipation/diarrhea. Date of Note:: 06/28/18 - Provider Comments Provider responsibility: Provider responsible to enter orders to implement recommendations <Tommy Maciel Chi - Last Filed: 06/28/18 18:18> Progress Note - Pharmacy Subjective: [] Objective: Allergies aspirin Adverse Reaction (Verified 05/22/18 18:58) Other causes stomach to bleed Current Medications Generic Name Dose Route Start Last Admin Trade Name Freq PRN Reason Stop Dose Admin Acetaminophen 1,000 mg 05/25/18 16:58 06/13/18 20:03 Tylenol PO 1,000 mg Q8H PRN PRN Administration PAIN Albuterol Sulfate 2.5 mg 05/25/18 16:58 Ventolin Aerosols INHALATION Q2H PRN PRN SHORTNESS OF BREATH Amitriptyline HCl 25 mg 05/25/18 22:00 06/27/18 21:28 Elavil PO 25 mg QHS VERONIKA Administration Amlodipine Besylate 5 mg 05/26/18 06:00 06/28/18 05:36 Norvasc PO 5 mg DAILY VERONIKA Administration Aspirin 81 mg 05/26/18 08:00 06/28/18 10:03 Aspirin, Baby PO 81 mg DAILY@0800 VERONIKA Administration Atorvastatin Calcium 40 mg 05/25/18 22:00 06/27/18 21:29 Lipitor PO 40 mg QHS VERONIKA Administration Bisacodyl 10 mg 05/25/18 16:57 06/20/18 05:07 Dulcolax RECTAL 10 mg DAILY PRN Administration Constipation Bisacodyl 10 mg 05/25/18 16:58 06/19/18 17:47 Dulcolax PO 10 mg DAILY PRN Administration Constipation Calamine/Phenol 1 applic 05/25/18 22:00 06/28/18 05:35 Calmoseptine Ointment TOPICAL 1 applicatio 0600,2200 [facility] Administration Protocol Collagenase 1 applic 05/26/18 06:00 06/28/18 05:42 Santyl TOPICAL 1 applicatio DAILY VERONIKA Administration Protocol Emollient Ointment 1 applic 06/24/18 22:00 06/27/18 21:29 Eucerin Intensive Repair TOPICAL 1 applicatio QHS VERONIKA Administration Enoxaparin Sodium 30 mg 05/26/18 06:00 06/28/18 05:35 Lovenox SC 30 mg DAILY@0600 VERONIKA Administration Furosemide 60 mg 05/25/18 18:30 06/28/18 13:28 Lasix PO 60 mg BIDLX VERONIKA Administration Guaifenesin 10 ml 05/25/18 16:58 Robitussin Dm PO Q4H PRN PRN COUGH Magnesium Oxide 400 mg 05/26/18 06:00 06/28/18 05:35 Mag-Ox 400 PO 400 mg DAILY VERONIKA Administration Melatonin 10 mg 05/25/18 22:00 06/27/18 21:29 Melatonin PO 10 mg QHS [facility] Administration Nystatin 1 applic 05/25/18 22:00 06/28/18 05:36 Mycostatin Powder TOPICAL 1 applicatio 0600,2200 [facility] Administration Protocol Ondansetron HCl 4 mg 06/14/18 08:46 06/16/18 09:20 Zofran Odt PO 4 mg Q8H PRN PRN Administration NAUSEA/VOMITING Oxycodone HCl 10 mg 05/25/18 16:58 06/28/18 10:01 Oxyir PO 10 mg Q4H PRN PRN Administration SEVERE PAIN (6-10/10) Oxycodone HCl 10 mg 05/25/18 22:00 06/28/18 10:05 Oxycontin PO 10 mg Q12H [facility] Administration Polyethylene Glycol 17 gm 05/26/18 06:00 06/28/18 05:40 Miralax PO Not Given DAILY [facility] Polysaccharide Iron Complex 150 mg 06/10/18 08:00 06/28/18 10:02 Ferrex 150 PO 150 mg DAILYCM [facility] Administration Potassium Chloride 20 meq 05/26/18 08:00 06/28/18 10:02 K-Dur PO 20 meq DAILYCM [facility] Administration Propranolol HCl 80 mg 05/25/18 18:30 06/28/18 16:49 Inderal PO Not Given BID [facility] Senna/Docusate Sodium 2 tablet 05/25/18 18:00 06/28/18 16:49 Senokot-S, Anastasia-Colace PO Not Given BID [facility] Problem List Other specified peripheral vascular diseases (Acute) Pressure ulcer, heel, left, unstageable (Acute) Pressure injury of coccygeal region, 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) Vital Signs Temp Pulse Resp BP Pulse Ox 98.1 F 71 18 113/34 L 96 06/28/18 15:35 06/28/18 15:35 06/28/18 15:35 06/28/18 15:35 06/28/18 15:35 Oxygen Flow Rate (L/min) 3 Oxygen Delivery Method Nasal Cannula Weight: 80.796 kg Body Mass Index (BMI) 27.5 Finger Stick Blood Glucose 205 Sodium 139 mmol/L (136-145) 06/28/18 05:15 Potassium 3.8 mmol/L (3.5-5.1) 06/28/18 05:15 Chloride 98 mmol/L (98-107) 06/28/18 05:15 Carbon Dioxide 35.0 mmol/L (21.0-32.0) H 06/28/18 05:15 Anion Gap 6 (5-15) 06/28/18 05:15 BUN 14 mg/dL (7-18) 06/28/18 05:15 Creatinine 1.29 mg/dL (0.70-1.30) 06/28/18 05:15 Est GFR (MDRD) Af Amer 69 mL/min (>60) 06/28/18 05:15 Est GFR (MDRD) Non-Af 57 mL/min (>60) L 06/28/18 05:15 BUN/Creatinine Ratio 10.9 RATIO (10-20) 06/28/18 05:15 Glucose 110 mg/dL (74-106) H 06/28/18 05:15 Assessment/Plan: Psychotropic Medications: Unnecessary Medications: Bowel Regimen: - Provider Comments Provider responsibility: Provider responsible to enter orders to implement recommendations Provider Comments to Recommendations by Pharmacy: Agree
--- NOTE | 2018-06-28 15:13 | PHA.CONS_ITS ---
<Robert Buckleyip D - Last Filed: 06/28/18 15:06> Progress Note - Pharmacy Subjective: Monthly TCU Note Objective: Allergies aspirin Adverse Reaction (Verified 05/22/18 18:58) Other causes stomach to bleed Current Medications Generic Name Dose Route Start Last Admin Trade Name Freq PRN Reason Stop Dose Admin Acetaminophen 1,000 mg 05/25/18 16:58 06/13/18 20:03 Tylenol PO 1,000 mg Q8H PRN PRN Administration PAIN Albuterol Sulfate 2.5 mg 05/25/18 16:58 Ventolin Aerosols INHALATION Q2H PRN PRN SHORTNESS OF BREATH Amitriptyline HCl 25 mg 05/25/18 22:00 06/27/18 21:28 Elavil PO 25 mg QHS VERONIKA Administration Amlodipine Besylate 5 mg 05/26/18 06:00 06/28/18 05:36 Norvasc PO 5 mg DAILY VERONIKA Administration Aspirin 81 mg 05/26/18 08:00 06/28/18 10:03 Aspirin, Baby PO 81 mg DAILY@0800 VERONIKA Administration Atorvastatin Calcium 40 mg 05/25/18 22:00 06/27/18 21:29 Lipitor PO 40 mg QHS VERONIKA Administration Bisacodyl 10 mg 05/25/18 16:57 06/20/18 05:07 Dulcolax RECTAL 10 mg DAILY PRN Administration Constipation Bisacodyl 10 mg 05/25/18 16:58 06/19/18 17:47 Dulcolax PO 10 mg DAILY PRN Administration Constipation Calamine/Phenol 1 applic 05/25/18 22:00 06/28/18 05:35 Calmoseptine Ointment TOPICAL 1 applicatio 0600,2200 [facility] Administration Protocol Collagenase 1 applic 05/26/18 06:00 06/28/18 05:42 Santyl TOPICAL 1 applicatio DAILY [facility] Administration Protocol Emollient Ointment 1 applic 06/24/18 22:00 06/27/18 21:29 Eucerin Intensive Repair TOPICAL 1 applicatio QHS VERONIKA Administration Enoxaparin Sodium 30 mg 05/26/18 06:00 06/28/18 05:35 Lovenox SC 30 mg DAILY@0600 VERONIKA Administration Furosemide 60 mg 05/25/18 18:30 06/28/18 13:28 Lasix PO 60 mg BIDLX VERONIKA Administration Guaifenesin 10 ml 05/25/18 16:58 Robitussin Dm PO Q4H PRN PRN COUGH Magnesium Oxide 400 mg 05/26/18 06:00 06/28/18 05:35 Mag-Ox 400 PO 400 mg DAILY VERONIKA Administration Melatonin 10 mg 05/25/18 22:00 06/27/18 21:29 Melatonin PO 10 mg QHS VERONIKA Administration Nystatin 1 applic 05/25/18 22:00 06/28/18 05:36 Mycostatin Powder TOPICAL 1 applicatio 0600,2200 VERONIKA Administration Protocol Ondansetron HCl 4 mg 06/14/18 08:46 06/16/18 09:20 Zofran Odt PO 4 mg Q8H PRN PRN Administration NAUSEA/VOMITING Oxycodone HCl 10 mg 05/25/18 16:58 06/28/18 10:01 Oxyir PO 10 mg Q4H PRN PRN Administration SEVERE PAIN (6-10/10) Oxycodone HCl 10 mg 05/25/18 22:00 06/28/18 10:05 Oxycontin PO 10 mg Q12H [facility] Administration Polyethylene Glycol 17 gm 05/26/18 06:00 06/28/18 05:40 Miralax PO Not Given DAILY [facility] Polysaccharide Iron Complex 150 mg 06/10/18 08:00 06/28/18 10:02 Ferrex 150 PO 150 mg DAILYCM [facility] Administration Potassium Chloride 20 meq 05/26/18 08:00 06/28/18 10:02 K-Dur PO 20 meq DAILYCM [facility] Administration Propranolol HCl 80 mg 05/25/18 18:30 06/28/18 09:00 Inderal PO Not Given BID [facility] Senna/Docusate Sodium 2 tablet 05/25/18 18:00 06/28/18 05:36 Senokot-S, Anastasia-Colace PO 2 tablet BID [facility] Administration Problem List Other specified peripheral vascular diseases (Acute) Pressure ulcer, heel, left, unstageable (Acute) Pressure injury of coccygeal region, 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) Vital Signs Temp Pulse Resp BP Pulse Ox 97.9 F 63 20 H 117/50 L 96 06/27/18 16:00 06/27/18 16:00 06/27/18 16:00 06/27/18 16:00 06/28/18 07:57 Oxygen Flow Rate (L/min) 3 Oxygen Delivery Method Nasal Cannula Weight: 80.796 kg Body Mass Index (BMI) 27.5 Finger Stick Blood Glucose 205 Sodium 139 mmol/L (136-145) 06/28/18 05:15 Potassium 3.8 mmol/L (3.5-5.1) 06/28/18 05:15 Chloride 98 mmol/L (98-107) 06/28/18 05:15 Carbon Dioxide 35.0 mmol/L (21.0-32.0) H 06/28/18 05:15 Anion Gap 6 (5-15) 06/28/18 05:15 BUN 14 mg/dL (7-18) 06/28/18 05:15 Creatinine 1.29 mg/dL (0.70-1.30) 06/28/18 05:15 Est GFR (MDRD) Af Amer 69 mL/min (>60) 06/28/18 05:15 Est GFR (MDRD) Non-Af 57 mL/min (>60) L 06/28/18 05:15 BUN/Creatinine Ratio 10.9 RATIO (10-20) 06/28/18 05:15 Glucose 110 mg/dL (74-106) H 06/28/18 05:15 Assessment/Plan: * 1) Pain APAP prn for pain, oxycodone for severe pain, Oxycontin twice daily, amitriptyline. Continue to monitor daily pain scores, prn medication use. *Please clarify instructions for APAP and oxyIR so instructions do not overlap. Thank you. 2) Pulm Albuterol for shortness of breath, guaifenesin for congestion. Continue to monitor prn medication use, for shortness of breath. 3) HTN/CAD/CHF Amlodipine, propranolol, ASA, atorvastatin, furosemide/KCl/Mg. Continue to monitor BP/HR, renal function, electrolytes, lipids, for chest pain. 4) DM2 Insulin lispro SSI. Continue to monitor BGT, s/s hyper/hypoglycemia. 5) DVT PPx Enoxaparin daily. Continue to monitor s/s bleeding/clot. 6) Nutrition Fe. Continue to monitor clinically. 7) Derm Calmoseptine, collagenase, emollient, nystatin. Continue to monitor clinically. 8) Sleep Melatonin at HS. Continue to monitor for insomnia. Psychotropic Medications: None Unnecessary Medications: None Bowel Regimen: 9) Senna/s, PEG, prn bisacodyl. Continue to monitor prn medication use, for constipation/diarrhea. Date of Note:: 06/28/18 - Provider Comments Provider responsibility: Provider responsible to enter orders to implement recommendations <Tommy Maciel Chi - Last Filed: 06/28/18 18:18> Progress Note - Pharmacy Subjective: [] Objective: Allergies aspirin Adverse Reaction (Verified 05/22/18 18:58) Other causes stomach to bleed Current Medications Generic Name Dose Route Start Last Admin Trade Name Freq PRN Reason Stop Dose Admin Acetaminophen 1,000 mg 05/25/18 16:58 06/13/18 20:03 Tylenol PO 1,000 mg Q8H PRN PRN Administration PAIN Albuterol Sulfate 2.5 mg 05/25/18 16:58 Ventolin Aerosols INHALATION Q2H PRN PRN SHORTNESS OF BREATH Amitriptyline HCl 25 mg 05/25/18 22:00 06/27/18 21:28 Elavil PO 25 mg QHS VERONIKA Administration Amlodipine Besylate 5 mg 05/26/18 06:00 06/28/18 05:36 Norvasc PO 5 mg DAILY VERONIKA Administration Aspirin 81 mg 05/26/18 08:00 06/28/18 10:03 Aspirin, Baby PO 81 mg DAILY@0800 VERONIKA Administration Atorvastatin Calcium 40 mg 05/25/18 22:00 06/27/18 21:29 Lipitor PO 40 mg QHS VERONIKA Administration Bisacodyl 10 mg 05/25/18 16:57 06/20/18 05:07 Dulcolax RECTAL 10 mg DAILY PRN Administration Constipation Bisacodyl 10 mg 05/25/18 16:58 06/19/18 17:47 Dulcolax PO 10 mg DAILY PRN Administration Constipation Calamine/Phenol 1 applic 05/25/18 22:00 06/28/18 05:35 Calmoseptine Ointment TOPICAL 1 applicatio 0600,2200 [facility] Administration Protocol Collagenase 1 applic 05/26/18 06:00 06/28/18 05:42 Santyl TOPICAL 1 applicatio DAILY VERONIKA Administration Protocol Emollient Ointment 1 applic 06/24/18 22:00 06/27/18 21:29 Eucerin Intensive Repair TOPICAL 1 applicatio QHS VERONIKA Administration Enoxaparin Sodium 30 mg 05/26/18 06:00 06/28/18 05:35 Lovenox SC 30 mg DAILY@0600 VERONIKA Administration Furosemide 60 mg 05/25/18 18:30 06/28/18 13:28 Lasix PO 60 mg BIDLX VERONIKA Administration Guaifenesin 10 ml 05/25/18 16:58 Robitussin Dm PO Q4H PRN PRN COUGH Magnesium Oxide 400 mg 05/26/18 06:00 06/28/18 05:35 Mag-Ox 400 PO 400 mg DAILY VERONIKA Administration Melatonin 10 mg 05/25/18 22:00 06/27/18 21:29 Melatonin PO 10 mg QHS [facility] Administration Nystatin 1 applic 05/25/18 22:00 06/28/18 05:36 Mycostatin Powder TOPICAL 1 applicatio 0600,2200 [facility] Administration Protocol Ondansetron HCl 4 mg 06/14/18 08:46 06/16/18 09:20 Zofran Odt PO 4 mg Q8H PRN PRN Administration NAUSEA/VOMITING Oxycodone HCl 10 mg 05/25/18 16:58 06/28/18 10:01 Oxyir PO 10 mg Q4H PRN PRN Administration SEVERE PAIN (6-10/10) Oxycodone HCl 10 mg 05/25/18 22:00 06/28/18 10:05 Oxycontin PO 10 mg Q12H [facility] Administration Polyethylene Glycol 17 gm 05/26/18 06:00 06/28/18 05:40 Miralax PO Not Given DAILY [facility] Polysaccharide Iron Complex 150 mg 06/10/18 08:00 06/28/18 10:02 Ferrex 150 PO 150 mg DAILYCM [facility] Administration Potassium Chloride 20 meq 05/26/18 08:00 06/28/18 10:02 K-Dur PO 20 meq DAILYCM [facility] Administration Propranolol HCl 80 mg 05/25/18 18:30 06/28/18 16:49 Inderal PO Not Given BID [facility] Senna/Docusate Sodium 2 tablet 05/25/18 18:00 06/28/18 16:49 Senokot-S, Anastasia-Colace PO Not Given BID [facility] Problem List Other specified peripheral vascular diseases (Acute) Pressure ulcer, heel, left, unstageable (Acute) Pressure injury of coccygeal region, 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) Vital Signs Temp Pulse Resp BP Pulse Ox 98.1 F 71 18 113/34 L 96 06/28/18 15:35 06/28/18 15:35 06/28/18 15:35 06/28/18 15:35 06/28/18 15:35 Oxygen Flow Rate (L/min) 3 Oxygen Delivery Method Nasal Cannula Weight: 80.796 kg Body Mass Index (BMI) 27.5 Finger Stick Blood Glucose 205 Sodium 139 mmol/L (136-145) 06/28/18 05:15 Potassium 3.8 mmol/L (3.5-5.1) 06/28/18 05:15 Chloride 98 mmol/L (98-107) 06/28/18 05:15 Carbon Dioxide 35.0 mmol/L (21.0-32.0) H 06/28/18 05:15 Anion Gap 6 (5-15) 06/28/18 05:15 BUN 14 mg/dL (7-18) 06/28/18 05:15 Creatinine 1.29 mg/dL (0.70-1.30) 06/28/18 05:15 Est GFR (MDRD) Af Amer 69 mL/min (>60) 06/28/18 05:15 Est GFR (MDRD) Non-Af 57 mL/min (>60) L 06/28/18 05:15 BUN/Creatinine Ratio 10.9 RATIO (10-20) 06/28/18 05:15 Glucose 110 mg/dL (74-106) H 06/28/18 05:15 Assessment/Plan: Psychotropic Medications: Unnecessary Medications: Bowel Regimen: - Provider Comments Provider responsibility: Provider responsible to enter orders to implement recommendations Provider Comments to Recommendations by Pharmacy: Agree
[2018-06-28 15:35] VITALS: BP 113/34; PULSE 71; RESP 18; TEMP 36.7; O2SAT 96
[2018-06-28 16:45] LABS: Bedside Glucose 116 mg/dL (70-110)
--- NOTE | 2018-06-28 16:49 | NURSING ---
Pt inderal held this night due to Low BP 92/34. Cate BOUDREAUX aware
[2018-06-28 19:55] VITALS: O2SAT 97
[2018-06-28 20:55] LABS: Bedside Glucose 162 mg/dL (70-110)
[2018-06-28] MEDS: Amitriptyline 25 MG Tablet PO (21:31)
[2018-06-28] MEDS: Atorvastatin Calcium 40 MG Tablet PO (21:32)
[2018-06-28] MEDS: MELATONIN 10 MG TABLET PO (21:32)
[2018-06-29 06:31] LABS: Bedside Glucose 134 mg/dL (70-110)
--- NOTE | 2018-06-29 06:47 | NURSING ---
Pt refusing all meds this morning after offering 3 different times. Pt wanting to sleep at this time.
[2018-06-29 07:00] VITALS: O2SAT 96
[2018-06-29] MEDS: Aspirin 81 MG TAB.CHEW PO (09:42)
[2018-06-29] MEDS: oxyCODONE HCl Cr 10 MG Tablet PO ×2 (09:42→21:22)
[2018-06-29] MEDS: Iron Polysaccharide Complex 150 MG CAPSULE PO (09:42)
--- NOTE | 2018-06-29 10:44 | CASEMGMT ---
Insurance Clinical update faxed. Will await continued stay determination. Auth # [id number] JAIME Spann
[2018-06-29 11:21] LABS: Bedside Glucose 190 mg/dL (70-110)
--- NOTE | 2018-06-29 12:34 | CASEMGMT ---
Insurance Continued stay approved with update due on 07/06. Pt and notified. Auth # [id number] JAIME Spann
[2018-06-29] MEDS: Furosemide 40 MG Tablet 60 MG PO (14:10)
--- NOTE | 2018-06-29 15:12 | PCM.PROGNOTE ---
Patient Problems: Active and Suspected Problems Other specified peripheral vascular diseases (Acute) Pressure ulcer, heel, left, unstageable (Acute) Subjective: This patient was seen bedside for left heel and rosario wound. He resides in the transitional care unit for continued rehabilitation. He has known peripheral vascular disease. He denies heel pain today. He denies fever, chill, nausea, vomiting. - Physical Exam General: Alert, Oriented x3, Cooperative Extremities: No cyanosis, No edema, Capillary Refill Less than 3 Seconds, No Calf Tenderness - Negative Norberto and Bright sign bilateral, Diminished Peripheral Pulses Skin: Ulcer/ Wound - No purulence, erythema, streaking, odor, or infection to left lower extremity. His skin is atrophic and hairless. There is an ulcer to the posterior left heel that has a fibrous base that measures 1.2 cm in diameter with a depth of 0.1 cm and post debridement 1.3 x 1.3 x 0.1 cm. There is an anterior left rosario wound that measures 0.7 by 0.3 x 0.1 with 100% granular base and no exposed deep tissue. A post debridement wound measurement is 0.8 x 0.4 x 0.1 cm. His current compartments on palpation remain soft and there is no bogginess or necrosis noted. Musculoskeletal: No Tenderness to Palpation of Joints or Extremities, Muscle Wasting Neurological: - - Lack of full normal sensation light touch noted left lower extremity Psych/Mental Status: Normal Affect, Appropriate Vital Signs Temp Pulse Resp BP Pulse Ox 98.1 F 71 18 113/34 L 96 06/28/18 15:35 06/28/18 15:35 06/28/18 15:35 06/28/18 15:35 06/29/18 07:00 Oxygen Flow Rate (L/min) 4 Oxygen Delivery Method Nasal Cannula Weight: 82.27 kg Body Mass Index (BMI) 27.5 Finger Stick Blood Glucose 205 Intake and Output for Last 24 Hours 06/27/18 06/28/18 06/29/18 23:59 23:59 23:59 Intake Total 700 / 700 600 / 600 720 / 720 Output Total 450 / 450 975 / 975 350 / 350 Balance 250 / 250 -375 / -375 370 / 370 POC Glucose 06/29/18 06/29/18 06/28/18 11:15 06:29 20:53 POC Glucose 190 H 134 H 162 H 06/28/18 16:40 POC Glucose 116 H Medical Necessity - Tobacco Use Smoking Status: Former smoker Assessment/Plan All Active Problems Other specified peripheral vascular diseases (Acute) Pressure ulcer, heel, left, unstageable (Acute) Acute exacerbation of CHF (congestive heart failure) (Acute) Acute respiratory failure with hypoxia (Acute) Debility (Acute) YANNA (acute kidney injury) (Resolved) Diastolic CHF (Acute) COPD with acute exacerbation (Acute) Abdominal pain (Resolved) Left leg cellulitis (Resolved) Sepsis (Resolved) Fall (Resolved) Pancreatitis (Resolved) 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 His left heel was examined and evaluated. Subcutaneous excisional debridement was performed with a 15 blade as noted above. He tolerated this well did not have pain and did not require local anesthetic. Pressure was applied to maintain hemostasis to the minimal bleeding that was noted. He tolerated this well. No infection or deeper ulcer/wound was appreciated today. He will try to offload with a pillow as recommended to float the ulcer site in the air. I recommend continuation of daily Santyl dressing changes. His noninvasive vascular studies suggest moderate to severe lower extremity arterial disease. Vascular surgery saw this patient and plans for a CTA with possible aoritc duplex and left leg duplex on an inpatient versus outpatient basis. To continue with rehabilitation. Medical management, nutritional supplement to optimize healing, and DVT prophylaxis per primary team. The podiatry team will continue to follow him weekly while in house. Please not hesitate to call if you have any questions. Jolie Contreras DPM, [facility] [phone]
[2018-06-29 15:45] VITALS: BP 123/50; PULSE 71; RESP 20; TEMP 36.3; O2SAT 94
--- NOTE | 2018-06-29 16:37 | NURSING ---
Dr. Contreras in to see patient.
[2018-06-29 17:00] LABS: Bedside Glucose 148 mg/dL (70-110)
[2018-06-29] MEDS: Propranolol 40 MG Tablet 80 MG PO (17:03)
[2018-06-29 21:11] LABS: Bedside Glucose 137 mg/dL (70-110)
[2018-06-29] MEDS: Atorvastatin Calcium 40 MG Tablet PO (21:21)
[2018-06-29] MEDS: MELATONIN 10 MG TABLET PO (21:21)
[2018-06-29] MEDS: Amitriptyline 25 MG Tablet PO (21:22)
[2018-06-29] MEDS: Nystatin Powder 15gm Bottle 1 APPLIC TOPICAL (21:23)
[2018-06-29] MEDS: Menthol/Lanolin/Calamine/Znox 113 GM Tube 1 APPLIC TOPICAL (21:24)
[2018-06-29 21:28] VITALS: O2SAT 95
[2018-06-30] MEDS: Furosemide 40 MG Tablet 60 MG PO ×2 (05:58→13:49)
[2018-06-30] MEDS: Magnesium Oxide 400 MG Tablet PO (05:58)
[2018-06-30] MEDS: amLODIPine 5 MG Tablet PO (05:58)
[2018-06-30] MEDS: Propranolol 40 MG Tablet 80 MG PO ×2 (05:58→16:59)
[2018-06-30] MEDS: Collagenase 30gm Tube 1 APPLIC TOPICAL (06:01)
[2018-06-30] MEDS: Menthol/Lanolin/Calamine/Znox 113 GM Tube 1 APPLIC TOPICAL ×2 (06:01→22:00)
[2018-06-30] MEDS: Nystatin Powder 15gm Bottle 1 APPLIC TOPICAL ×2 (06:01→22:00)
[2018-06-30] MEDS: Enoxaparin 30 MG/0.3 ML Syringe SC (06:02)
[2018-06-30 06:55] LABS: Bedside Glucose 117 mg/dL (70-110)
[2018-06-30 07:25] VITALS: O2SAT 99
[2018-06-30] MEDS: Aspirin 81 MG TAB.CHEW PO (08:35)
[2018-06-30] MEDS: Iron Polysaccharide Complex 150 MG CAPSULE PO (08:35)
[2018-06-30] MEDS: oxyCODONE HCl Cr 10 MG Tablet PO ×2 (09:19→21:13)
[2018-06-30 11:30] LABS: Bedside Glucose 154 mg/dL (70-110)
[2018-06-30 15:56] VITALS: BP 121/51; PULSE 70; RESP 18; TEMP 36.7; O2SAT 95
[2018-06-30 16:56] LABS: Bedside Glucose 117 mg/dL (70-110)
[2018-06-30 21:06] LABS: Bedside Glucose 171 mg/dL (70-110)
[2018-06-30] MEDS: Atorvastatin Calcium 40 MG Tablet PO (21:12)
[2018-06-30] MEDS: MELATONIN 10 MG TABLET PO (21:12)
[2018-06-30] MEDS: Amitriptyline 25 MG Tablet PO (21:13)
[2018-06-30 22:00] VITALS: PULSE 62; RESP 16; O2SAT 99
[2018-07-01] MEDS: Magnesium Oxide 400 MG Tablet PO (06:22)
[2018-07-01] MEDS: Polyethylene Glycol 3350 17 GM PACKET PO (06:22)
[2018-07-01] MEDS: amLODIPine 5 MG Tablet PO (06:22)
[2018-07-01] MEDS: Furosemide 40 MG Tablet 60 MG PO ×2 (06:22→13:22)
[2018-07-01] MEDS: Senna/Docusate Sodium 1 Tablet 2 TABLET PO (06:23)
[2018-07-01] MEDS: Propranolol 40 MG Tablet 80 MG PO ×2 (06:23→17:18)
[2018-07-01] MEDS: Menthol/Lanolin/Calamine/Znox 113 GM Tube 1 APPLIC TOPICAL ×2 (06:24→21:05)
[2018-07-01] MEDS: Enoxaparin 30 MG/0.3 ML Syringe SC (06:25)
[2018-07-01] MEDS: Nystatin Powder 15gm Bottle 1 APPLIC TOPICAL ×2 (06:25→21:06)
[2018-07-01] MEDS: Collagenase 30gm Tube 1 APPLIC TOPICAL (06:31)
[2018-07-01 06:56] LABS: Bedside Glucose 111 mg/dL (70-110)
[2018-07-01 07:41] VITALS: O2SAT 95
[2018-07-01] MEDS: Aspirin 81 MG TAB.CHEW PO (07:59)
[2018-07-01] MEDS: Iron Polysaccharide Complex 150 MG CAPSULE PO (08:00)
[2018-07-01] MEDS: Bisacodyl 5 MG Tablet 10 MG PO (08:00)
[2018-07-01] MEDS: oxyCODONE HCl Cr 10 MG Tablet PO ×2 (09:51→21:05)
[2018-07-01 11:30] LABS: Bedside Glucose 143 mg/dL (70-110)
[2018-07-01 15:25] VITALS: BP 116/50; PULSE 62; RESP 22; TEMP 35.7; O2SAT 96
[2018-07-01 16:50] LABS: Bedside Glucose 156 mg/dL (70-110)
[2018-07-01 20:51] LABS: Bedside Glucose 201 mg/dL (70-110)
[2018-07-01] MEDS: Amitriptyline 25 MG Tablet PO (21:05)
[2018-07-01] MEDS: Atorvastatin Calcium 40 MG Tablet PO (21:05)
[2018-07-01] MEDS: MELATONIN 10 MG TABLET PO (21:05)
[2018-07-02] MEDS: amLODIPine 5 MG Tablet PO (05:32)
[2018-07-02] MEDS: Propranolol 40 MG Tablet 80 MG PO ×2 (05:33→16:59)
[2018-07-02] MEDS: Menthol/Lanolin/Calamine/Znox 113 GM Tube 1 APPLIC TOPICAL ×2 (05:33→21:10)
[2018-07-02] MEDS: Nystatin Powder 15gm Bottle 1 APPLIC TOPICAL ×2 (05:33→21:10)
[2018-07-02] MEDS: Magnesium Oxide 400 MG Tablet PO (05:33)
[2018-07-02] MEDS: Enoxaparin 30 MG/0.3 ML Syringe SC (05:33)
[2018-07-02] MEDS: Furosemide 40 MG Tablet 60 MG PO ×2 (05:33→13:22)
[2018-07-02] MEDS: Collagenase 30gm Tube 1 APPLIC TOPICAL (05:36)
[2018-07-02 06:56] LABS: Bedside Glucose 145 mg/dL (70-110)
[2018-07-02 07:20] VITALS: O2SAT 96
[2018-07-02] MEDS: Aspirin 81 MG TAB.CHEW PO (08:09)
[2018-07-02] MEDS: Iron Polysaccharide Complex 150 MG CAPSULE PO (08:09)
[2018-07-02] MEDS: oxyCODONE HCl Cr 10 MG Tablet PO ×2 (09:09→21:07)
[2018-07-02 11:26] LABS: Bedside Glucose 149 mg/dL (70-110)
[2018-07-02 15:20] VITALS: BP 118/41; PULSE 95; RESP 18; TEMP 36.3; O2SAT 92
[2018-07-02 16:51] LABS: Bedside Glucose 146 mg/dL (70-110)
[2018-07-02 19:36] VITALS: O2SAT 92
[2018-07-02 21:01] LABS: Bedside Glucose 142 mg/dL (70-110)
[2018-07-02] MEDS: Atorvastatin Calcium 40 MG Tablet PO (21:07)
[2018-07-02] MEDS: MELATONIN 10 MG TABLET PO (21:07)
[2018-07-02] MEDS: Amitriptyline 25 MG Tablet PO (21:07)
--- NOTE | 2018-07-02 21:14 | NURSING ---
Upon assessment Mepilex to coccyx noted to be off. This nurse tried to reapply a new one and pt stated Those damn things dont work. educated on importance of it d/t pt having a small opening on his Rt buttock. Pt still refused and stated maybe in the AM. Meg applied per order. Pt resting in bed with call light in reach.
[2018-07-03] MEDS: Propranolol 40 MG Tablet 80 MG PO ×2 (04:34→17:06)
[2018-07-03] MEDS: Magnesium Oxide 400 MG Tablet PO (04:34)
[2018-07-03] MEDS: Furosemide 40 MG Tablet 60 MG PO ×2 (04:35→13:18)
[2018-07-03] MEDS: Menthol/Lanolin/Calamine/Znox 113 GM Tube 1 APPLIC TOPICAL ×2 (04:35→21:16)
[2018-07-03] MEDS: Nystatin Powder 15gm Bottle 1 APPLIC TOPICAL ×2 (04:35→21:16)
[2018-07-03] MEDS: Enoxaparin 30 MG/0.3 ML Syringe SC (04:35)
[2018-07-03] MEDS: amLODIPine 5 MG Tablet PO (04:35)
[2018-07-03] MEDS: Collagenase 30gm Tube 1 APPLIC TOPICAL (04:36)
[2018-07-03 06:15] LABS: Bedside Glucose 108 mg/dL (70-110)
[2018-07-03 06:46] VITALS: O2SAT 97
[2018-07-03] MEDS: Iron Polysaccharide Complex 150 MG CAPSULE PO (08:50)
[2018-07-03] MEDS: Aspirin 81 MG TAB.CHEW PO (08:50)
[2018-07-03] MEDS: oxyCODONE HCl Cr 10 MG Tablet PO ×2 (08:50→21:15)
[2018-07-03 10:00] VITALS: PULSE 64; RESP 20; O2SAT 94
[2018-07-03 11:21] LABS: Bedside Glucose 186 mg/dL (70-110)
[2018-07-03 16:00] VITALS: BP 113/43; PULSE 64; RESP 20; TEMP 35.9; O2SAT 99
[2018-07-03 16:56] LABS: Bedside Glucose 188 mg/dL (70-110)
[2018-07-03 21:11] LABS: Bedside Glucose 147 mg/dL (70-110)
[2018-07-03] MEDS: Atorvastatin Calcium 40 MG Tablet PO (21:15)
[2018-07-03] MEDS: MELATONIN 10 MG TABLET PO (21:15)
[2018-07-03] MEDS: Amitriptyline 25 MG Tablet PO (21:15)
[2018-07-04] MEDS: amLODIPine 5 MG Tablet PO (05:42)
[2018-07-04] MEDS: Furosemide 40 MG Tablet 60 MG PO ×2 (05:42→13:13)
[2018-07-04] MEDS: Enoxaparin 30 MG/0.3 ML Syringe SC (05:42)
[2018-07-04] MEDS: Propranolol 40 MG Tablet 80 MG PO ×2 (05:42→17:02)
[2018-07-04] MEDS: Magnesium Oxide 400 MG Tablet PO (05:42)
[2018-07-04] MEDS: Menthol/Lanolin/Calamine/Znox 113 GM Tube 1 APPLIC TOPICAL ×2 (05:48→21:44)
[2018-07-04] MEDS: Nystatin Powder 15gm Bottle 1 APPLIC TOPICAL ×2 (05:48→21:44)
[2018-07-04 06:56] LABS: Bedside Glucose 199 mg/dL (70-110)
[2018-07-04 07:17] VITALS: O2SAT 92
[2018-07-04] MEDS: Iron Polysaccharide Complex 150 MG CAPSULE PO (08:39)
[2018-07-04] MEDS: Aspirin 81 MG TAB.CHEW PO (08:39)
--- NOTE | 2018-07-04 09:23 | NURSING ---
PT TOOK MEPILEX OFF OF BOTTOM, STATED I DONT WANT THIS. IT DOESNT HELP. REPORTED TO JANUSZ LEON
[2018-07-04 10:30] VITALS: PULSE 52; RESP 18; O2SAT 93
[2018-07-04] MEDS: oxyCODONE HCl Cr 10 MG Tablet PO ×2 (10:51→21:43)
[2018-07-04] MEDS: Collagenase 30gm Tube 1 APPLIC TOPICAL (10:52)
[2018-07-04 12:01] LABS: Bedside Glucose 159 mg/dL (70-110)
--- NOTE | 2018-07-04 12:02 | NURSING ---
wound photo: left heel
--- NOTE | 2018-07-04 12:02 | NURSING ---
wound photo: left buttock
--- NOTE | 2018-07-04 12:03 | NURSING ---
wound photo: left posterior thigh
--- NOTE | 2018-07-04 13:16 | MDS.RN ---
Information for the mds was obtained from review of the clinical record, interview of resident, staff, and direct observation of resident's care
[2018-07-04 15:33] VITALS: BP 119/50; PULSE 70; RESP 20; TEMP 36.4; O2SAT 98
[2018-07-04 17:01] LABS: Bedside Glucose 176 mg/dL (70-110)
[2018-07-04 20:56] LABS: Bedside Glucose 167 mg/dL (70-110)
[2018-07-04] MEDS: Amitriptyline 25 MG Tablet PO (21:43)
[2018-07-04] MEDS: Atorvastatin Calcium 40 MG Tablet PO (21:43)
[2018-07-04] MEDS: MELATONIN 10 MG TABLET PO (21:43)
[2018-07-05] MEDS: amLODIPine 5 MG Tablet PO (04:34)
[2018-07-05] MEDS: Magnesium Oxide 400 MG Tablet PO (04:34)
[2018-07-05] MEDS: Propranolol 40 MG Tablet 80 MG PO ×2 (04:34→17:04)
[2018-07-05] MEDS: Enoxaparin 30 MG/0.3 ML Syringe SC (04:34)
[2018-07-05] MEDS: Furosemide 40 MG Tablet 60 MG PO ×2 (04:34→13:36)
[2018-07-05] MEDS: Nystatin Powder 15gm Bottle 1 APPLIC TOPICAL ×2 (04:35→19:48)
[2018-07-05] MEDS: Menthol/Lanolin/Calamine/Znox 113 GM Tube 1 APPLIC TOPICAL ×2 (04:35→19:48)
[2018-07-05] MEDS: Collagenase 30gm Tube 1 APPLIC TOPICAL (04:39)
[2018-07-05 05:27] LABS: Absolute Lymphocyte Count 1.35 X10^3/ul (0.83-4.51); Absolute Neutrophil Count 6.9 X10^3/uL (2.0-7.7); Basophil# 0.05 X10^3/uL; Basophil% 0.5 % (0-1); Eosinophil# 0.49 X10^3/uL; Hematocrit 28.3 % (40-54); Hemoglobin 8.8 g/dl (13.0-16.5); Lymphocyte # 1.35 X10^3/ul (4.0); Lymphocyte % 13.8 % (19-41); Mean Corp Hgb Conc 31.1 g/gl (32-36); Mean Corpuscular Volume 96.6 fL (80-94); Mean Platelet Vol. 8.7 fl (6.2-12.0); Monocyte# 0.99 X10^3/uL; Monocyte% 10.1 % (0-10); Neutrophil # 6.91 X10^3/uL (2.7-7.7); Neutrophil % 70.5 % (47-70); Platelet Count 227 K/mm3 (150-450); RBC Distribution Width CV 13.7 % (11.6-14.6); RBC Distribution Width SD 45.8 fl (35.1-43.9); Red Blood Count 2.93 M/mm3 (4.6-6.2); White Blood Count 9.8 K/mm3 (4.4-11.0)
[2018-07-05 05:29] LABS: POSITIVE COUNT NO; POSITIVE DIFFERENTIAL NO; POSITIVE MORPHOLOGY NO
[2018-07-05 05:38] LABS: Anion Gap 6 (5-15); BUN 16 mg/dL (7-18); BUN/Creat Ratio 10.7 RATIO (10-20); Calcium,Total 8.6 mg/dL (8.5-10.1); Chloride 98 mmol/L (98-107); Creatinine, Serum 1.49 mg/dL (0.70-1.30); EST Glomerular Filtration Rate 48 mL/min (>60); Est Glom Filt Rate - Afr Amer 58 mL/min (>60); Estimated Creatinine Clearance 36.98 ml/min; Glucose 141 mg/dL (74-106); Potassium 3.6 mmol/L (3.5-5.1); Sodium Level 140 mmol/L (136-145)
[2018-07-05 06:51] LABS: Bedside Glucose 151 mg/dL (70-110)
[2018-07-05] MEDS: Aspirin 81 MG TAB.CHEW PO (08:43)
[2018-07-05] MEDS: Iron Polysaccharide Complex 150 MG CAPSULE PO (08:43)
[2018-07-05] MEDS: oxyCODONE HCl Cr 10 MG Tablet PO ×2 (08:44→21:19)
[2018-07-05 11:16] LABS: Bedside Glucose 184 mg/dL (70-110)
--- NOTE | 2018-07-05 13:50 | PCM.PROGNOTE ---
Patient Problems: Active and Suspected Problems Chronic ulcer of left foot with fat layer exposed (Acute) Chronic ulcer of left leg with fat layer exposed (Acute) Chronic ulcer of left leg with fat layer exposed (Acute) Other specified peripheral vascular diseases (Acute) Pressure ulcer, heel, left, unstageable (Acute) Subjective: This 83 year old male was seen bedside again today for follow up evaluation of his left heel and rosario ulcers. Patient was seen today resting in chair by bedside with legs elevated. He has known pvd. He continued to deny pain to the leg and heel. He also denies any feelings of nausea, vomiting, fever, or chills. - Physical Exam General: Alert, Oriented x3, Cooperative Extremities: No edema, Capillary Refill Less than 3 Seconds, No Calf Tenderness - negative dinesh and flores sign, Diminished Peripheral Pulses Skin: Ulcer/ Wound - Ulcer to posterior left heel with some slight slough to the base that is approximately 1cm x 1cm x 0.1 cm. No probing, trackin, undermining, increase in warmth, purulence, malodor, or extending or surrounding cellulitis currently appreciated. Some scabs noted to left rosario, but no open ulcer appreciated to this area today. Compartments remain soft to palpation. No necrosis noted. Musculoskeletal: No Tenderness to Palpation of Joints or Extremities, Muscle Wasting Neurological: - - Some lack of light touch and pain sensation to left lower extremity Psych/Mental Status: Normal Affect, Appropriate Vital Signs Temp Pulse Resp BP Pulse Ox 97.6 F L 70 20 H 119/50 L 98 07/04/18 15:33 07/04/18 15:33 07/04/18 15:33 07/04/18 15:33 07/04/18 15:33 Oxygen Flow Rate (L/min) 4 Oxygen Delivery Method Nasal Cannula Weight: 83.149 kg Body Mass Index (BMI) 27.5 Finger Stick Blood Glucose 205 Intake and Output for Last 24 Hours 07/03/18 07/04/18 07/05/18 23:59 23:59 23:59 Intake Total 960 / 960 300 / 300 490 / 490 Output Total 400 / 400 Balance 960 / 960 300 / 300 90 / 90 Laboratory Tests Past 24 Hrs 07/05/18 07/05/18 05:05 05:05 WBC 9.8 RBC 2.93 L Hgb 8.8 L Hct 28.3 L MCV 96.6 H MCH 30.0 MCHC 31.1 L RDW 13.7 RDW Differential 45.8 H Plt Count 227 MPV 8.7 Immature Gran % (Auto) 0.100 Neut % (Auto) 70.5 H Lymph % (Auto) 13.8 L [place] % (Auto) 10.1 H Eos % (Auto) 5.0 Baso % (Auto) 0.5 Absolute Neuts (auto) 6.9 Absolute Lymphs (auto) 1.35 Total Counted Not Reportable Sodium 140 Potassium 3.6 Chloride 98 Carbon Dioxide 36.0 H Anion Gap 6 BUN 16 Creatinine 1.49 H Estim Creat Clear Calc 36.98 Est GFR (MDRD) Af Amer 58 L Est GFR (MDRD) Non-Af 48 L BUN/Creatinine Ratio 10.7 Glucose 141 H Calcium 8.6 POC Glucose 07/05/18 07/05/18 07/04/18 11:04 06:30 20:42 POC Glucose 184 H 151 H 167 H 07/04/18 16:55 POC Glucose 176 H Medical Necessity - Tobacco Use Smoking Status: Former smoker Assessment/Plan All Active Problems Chronic ulcer of left foot with fat layer exposed (Acute) Chronic ulcer of left leg with fat layer exposed (Acute) Chronic ulcer of left leg with fat layer exposed (Acute) Other specified peripheral vascular diseases (Acute) Pressure ulcer, heel, left, unstageable (Acute) Acute exacerbation of CHF (congestive heart failure) (Acute) Acute respiratory failure with hypoxia (Acute) Debility (Acute) YANNA (acute kidney injury) (Resolved) Diastolic CHF (Acute) COPD with acute exacerbation (Acute) Abdominal pain (Resolved) Left leg cellulitis (Resolved) Sepsis (Resolved) Fall (Resolved) Pancreatitis (Resolved) 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 Ulcer to left heel was manually debrided using a wet 4x4 to remove some of the slough tissue. There are currently no signs or symptoms of local infection appreciated to the left heel or anterior leg. Patient is to continue to offload this areas at all times while seated or in bed by floating them with a pillow. Patient to continue with daily santyl dressing changes by nursing staff. Vascular surgery saw this patient and plants for a CTA with possible aortic duplex and left leg duplex on either an inpatient or outpatient basis. He is to continue with rehab. Medical management, nutritional supplementation, and DVT prophylaxis per primary team is appreciated. Podiatry will continue to follow this patient while in the TCU on a weekly basis.
[2018-07-05 15:32] VITALS: BP 121/58; PULSE 61; RESP 20; TEMP 36.7; O2SAT 99
[2018-07-05 17:00] LABS: Bedside Glucose 121 mg/dL (70-110)
[2018-07-05] MEDS: Senna/Docusate Sodium 1 Tablet 2 TABLET PO (17:04)
[2018-07-05] MEDS: Atorvastatin Calcium 40 MG Tablet PO (19:49)
[2018-07-05] MEDS: MELATONIN 10 MG TABLET PO (19:49)
[2018-07-05] MEDS: Amitriptyline 25 MG Tablet PO (19:50)
[2018-07-05 20:45] LABS: Bedside Glucose 227 mg/dL (70-110)
[2018-07-06] MEDS: Menthol/Lanolin/Calamine/Znox 113 GM Tube 1 APPLIC TOPICAL ×2 (05:48→20:14)
[2018-07-06] MEDS: Nystatin Powder 15gm Bottle 1 APPLIC TOPICAL ×2 (05:48→20:15)
[2018-07-06] MEDS: Enoxaparin 30 MG/0.3 ML Syringe SC (05:49)
[2018-07-06] MEDS: Senna/Docusate Sodium 1 Tablet 2 TABLET PO ×2 (05:49→17:10)
[2018-07-06] MEDS: Furosemide 40 MG Tablet 60 MG PO ×2 (05:50→12:14)
[2018-07-06] MEDS: amLODIPine 5 MG Tablet PO (05:50)
[2018-07-06] MEDS: Magnesium Oxide 400 MG Tablet PO (05:50)
[2018-07-06] MEDS: Propranolol 40 MG Tablet 80 MG PO ×2 (05:51→17:10)
[2018-07-06 05:58] VITALS: BP 110/51; PULSE 62
[2018-07-06] MEDS: Collagenase 30gm Tube 1 APPLIC TOPICAL (06:00)
[2018-07-06 06:56] LABS: Bedside Glucose 131 mg/dL (70-110)
[2018-07-06 07:22] VITALS: O2SAT 98
[2018-07-06] MEDS: Iron Polysaccharide Complex 150 MG CAPSULE PO (08:20)
[2018-07-06] MEDS: oxyCODONE HCl Cr 10 MG Tablet PO ×2 (08:20→20:18)
[2018-07-06] MEDS: Aspirin 81 MG TAB.CHEW PO (08:21)
--- NOTE | 2018-07-06 08:25 | NURSING ---
Pt asking for his Pain medication 10 mg oxycontin at this time, Pt asking why he doesn't get it earlier. This nurse will see if we can change time.
[2018-07-06 10:00] VITALS: PULSE 76; RESP 18; O2SAT 96
--- NOTE | 2018-07-06 11:03 | CASEMGMT ---
Insurance Clinical information faxed. Pending continued stay approval at this time. Auth#[id number] Mely SANDOVAL, CRIMINAL LAWYER
[2018-07-06 11:56] LABS: Bedside Glucose 153 mg/dL (70-110)
[2018-07-06 15:33] VITALS: BP 108/46; PULSE 69; RESP 18; TEMP 36.9; O2SAT 98
--- NOTE | 2018-07-06 15:44 | CASEMGMT ---
Insurance Continued stay denied with last cover day being 07/09/18 and resident to discharge or financial responsibility to begin on 07/10/18. Auth#[id number] Mely SANDOVAL, AIR BATTLE MANAGER
--- NOTE | 2018-07-06 15:45 | CASEMGMT ---
Social Work Spoke with resident and resident spouse. This social professionals communicating to resident that continued stay has been denied with last cover day being 07/09/18 and resident to discharge or financial responsibility to begin on 07/10/18. Resident spouse is not agreeable to discharge date and is planning to initiate appeal at this time. This social professionals broaching topic of discharge plan in the event that appeal is lost. Resident and resident spouse are undecided and are planning for resident to discharge home with home health services or to the [facility] under private pay. To continue to follow for support as resident and resident spouse make decision. Support given. Proposed discharge date: 07/10/18 pending appeal. PLAN: Discharge to home vs. facility pending appeal. Mely SANDOVAL, B2B SALES REPRESENTATIVE
[2018-07-06 16:56] LABS: Bedside Glucose 171 mg/dL (70-110)
[2018-07-06] MEDS: Amitriptyline 25 MG Tablet PO (20:14)
[2018-07-06] MEDS: Atorvastatin Calcium 40 MG Tablet PO (20:15)
[2018-07-06] MEDS: MELATONIN 10 MG TABLET PO (20:15)
[2018-07-06 21:06] LABS: Bedside Glucose 137 mg/dL (70-110)
[2018-07-07] MEDS: Menthol/Lanolin/Calamine/Znox 113 GM Tube 1 APPLIC TOPICAL ×2 (05:04→21:47)
[2018-07-07] MEDS: Furosemide 40 MG Tablet 60 MG PO ×2 (05:04→13:24)
[2018-07-07] MEDS: Propranolol 40 MG Tablet 80 MG PO ×2 (05:04→18:24)
[2018-07-07] MEDS: Senna/Docusate Sodium 1 Tablet 2 TABLET PO ×2 (05:05→18:24)
[2018-07-07] MEDS: Enoxaparin 30 MG/0.3 ML Syringe SC (05:05)
[2018-07-07] MEDS: Nystatin Powder 15gm Bottle 1 APPLIC TOPICAL ×2 (05:05→21:49)
[2018-07-07] MEDS: amLODIPine 5 MG Tablet PO (05:05)
[2018-07-07] MEDS: Magnesium Oxide 400 MG Tablet PO (05:05)
[2018-07-07 06:56] LABS: Bedside Glucose 125 mg/dL (70-110)
[2018-07-07 07:45] VITALS: O2SAT 93
[2018-07-07 10:00] VITALS: PULSE 64; RESP 14; O2SAT 96
[2018-07-07] MEDS: Iron Polysaccharide Complex 150 MG CAPSULE PO (10:14)
[2018-07-07] MEDS: Aspirin 81 MG TAB.CHEW PO (10:14)
[2018-07-07] MEDS: oxyCODONE HCl Cr 10 MG Tablet PO ×2 (10:14→21:50)
[2018-07-07] MEDS: Collagenase 30gm Tube 1 APPLIC TOPICAL (10:16)
[2018-07-07 11:30] LABS: Bedside Glucose 240 mg/dL (70-110)
[2018-07-07 16:00] VITALS: BP 134/55; PULSE 63; RESP 18; TEMP 36.7; O2SAT 96
[2018-07-07 17:01] LABS: Bedside Glucose 222 mg/dL (70-110)
[2018-07-07 21:21] LABS: Bedside Glucose 186 mg/dL (70-110)
[2018-07-07] MEDS: MELATONIN 10 MG TABLET PO (21:48)
[2018-07-07] MEDS: Amitriptyline 25 MG Tablet PO (21:48)
[2018-07-07] MEDS: Atorvastatin Calcium 40 MG Tablet PO (21:48)
[2018-07-08] MEDS: oxyCODONE 5 MG Tablet 10 MG PO (00:21)
[2018-07-08] MEDS: Menthol/Lanolin/Calamine/Znox 113 GM Tube 1 APPLIC TOPICAL ×2 (05:26→20:51)
[2018-07-08] MEDS: Propranolol 40 MG Tablet 80 MG PO ×2 (05:26→18:57)
[2018-07-08] MEDS: Furosemide 40 MG Tablet 60 MG PO ×2 (05:26→15:53)
[2018-07-08] MEDS: Nystatin Powder 15gm Bottle 1 APPLIC TOPICAL ×2 (05:27→20:52)
[2018-07-08] MEDS: Enoxaparin 30 MG/0.3 ML Syringe SC (05:27)
[2018-07-08] MEDS: amLODIPine 5 MG Tablet PO (05:27)
[2018-07-08] MEDS: Magnesium Oxide 400 MG Tablet PO (05:27)
[2018-07-08 07:10] LABS: Bedside Glucose 148 mg/dL (70-110)
[2018-07-08 07:43] VITALS: O2SAT 97
[2018-07-08] MEDS: Aspirin 81 MG TAB.CHEW PO (08:17)
[2018-07-08] MEDS: Iron Polysaccharide Complex 150 MG CAPSULE PO (08:17)
[2018-07-08] MEDS: Collagenase 30gm Tube 1 APPLIC TOPICAL (08:20)
[2018-07-08] MEDS: oxyCODONE HCl Cr 10 MG Tablet PO ×2 (11:15→20:55)
[2018-07-08 11:30] LABS: Bedside Glucose 143 mg/dL (70-110)
--- NOTE | 2018-07-08 14:26 | NURSING ---
Call received from [facility], patient lost appeal, last covered day 07/09. Family aware. consumer services advisor updated.
[2018-07-08 15:49] VITALS: BP 122/65; PULSE 64; RESP 18; TEMP 36.6; O2SAT 98
[2018-07-08 17:26] LABS: Bedside Glucose 155 mg/dL (70-110)
[2018-07-08] MEDS: Senna/Docusate Sodium 1 Tablet 2 TABLET PO (18:57)
[2018-07-08] MEDS: MELATONIN 10 MG TABLET PO (20:52)
[2018-07-08] MEDS: Amitriptyline 25 MG Tablet PO (20:52)
[2018-07-08] MEDS: Atorvastatin Calcium 40 MG Tablet PO (20:52)
[2018-07-08 21:31] LABS: Bedside Glucose 196 mg/dL (70-110)
[2018-07-09] MEDS: Menthol/Lanolin/Calamine/Znox 113 GM Tube 1 APPLIC TOPICAL ×2 (05:16→21:16)
[2018-07-09] MEDS: Propranolol 40 MG Tablet 80 MG PO ×2 (05:17→16:56)
[2018-07-09] MEDS: Furosemide 40 MG Tablet 60 MG PO ×2 (05:17→13:26)
[2018-07-09] MEDS: Enoxaparin 30 MG/0.3 ML Syringe SC (05:18)
[2018-07-09] MEDS: Nystatin Powder 15gm Bottle 1 APPLIC TOPICAL ×2 (05:18→21:12)
[2018-07-09] MEDS: Senna/Docusate Sodium 1 Tablet 2 TABLET PO ×2 (05:18→16:56)
[2018-07-09] MEDS: Magnesium Oxide 400 MG Tablet PO (05:18)
[2018-07-09] MEDS: amLODIPine 5 MG Tablet PO (05:18)
[2018-07-09 06:55] VITALS: O2SAT 93
[2018-07-09 07:06] LABS: Bedside Glucose 128 mg/dL (70-110)
[2018-07-09] MEDS: Aspirin 81 MG TAB.CHEW PO (07:54)
[2018-07-09] MEDS: Iron Polysaccharide Complex 150 MG CAPSULE PO (07:54)
[2018-07-09] MEDS: oxyCODONE HCl Cr 10 MG Tablet PO ×2 (10:48→21:11)
[2018-07-09] MEDS: Collagenase 30gm Tube 1 APPLIC TOPICAL (14:56)
[2018-07-09 16:00] VITALS: BP 110/52; PULSE 67; RESP 18; TEMP 37; O2SAT 98
--- NOTE | 2018-07-09 17:20 | CASEMGMT ---
Brief interview for mental status (BIMS) and resident mood interview (PHQ-9) completed on this day. BIMS score 09/13. PHQ-9 score 12/26
--- NOTE | 2018-07-09 17:21 | CASEMGMT ---
Social Work Resident lost appeal. Resident plans to discharge to the [facility] at time of discharge under private pay. Resident spouse is agreeable to this plan. Telephone call to the [facility], Kira. This social service worker making referral. Kira reporting to be able to accept resident and to have already spoken with resident spouse. Transportation set up through [facility], transportation set up for 07/10/18 at 1:30pm. Transportation form completed and left with resident discharge information. Transfer form initiated. Proposed discharge date: 07/10/18 PLAN: Discharge to the [facility]. Mely SANDOVAL, BRAND AMBASSADOR PROMOTIONAL MODEL
--- NOTE | 2018-07-09 20:07 | PCM.TXEXTCAR ---
- Diet 06/14/18 10:53 Diet: Regular Diet Is pt able to select menu?: Yes - Routine Orders/Code Status Suppository Type: Dulcolax 10mg Suppository Frequency: Daily PRN Code Status: Full Code - Wound(s) R buttock Wound Type: sheared areas Dressing Change: calmoseptine L Buttock Wound Type: Pressure Injury Dressing Change: calmoseptine L Great Toe Wound Type: Pressure Injury L heel Wound Type: Pressure Injury Dressing Change: santyl with dry dressing L post thigh Wound Type: healing abrasion Dressing Change: santyl with dry dressing Left groin Wound Type: slight redness Dressing Change: Nystatin coccyx Wound Type: reddened Dressing Change: salma Lt Munoz Wound Type: scattered abrasions Dressing Change: Dry Sterile Dressing - Therapies Weight Bearing: Weight bearing as tolerated Extremity Affected:: Bilateral Lower Physical Therapy: Eval and Treat Occupational Therapy: Eval and Treat - Allergies/Procedures Done in Hospital Allergies/Adverse Reactions: Allergies aspirin Adverse Reaction (Verified 05/22/18 18:58) Other causes stomach to bleed - Type of Care/Length of Stay Estimated LOS: More Than 30 Days Type of Care Needed: Intermediate Rehab Potential: Fair Prognosis: Fair - Additional Orders/Day of Discharge Day of Discharge: 07/10/18 - Dietary and Speech Recommendations Dietitian Recommendations/Changes: Rec d/c Clif bid d/t res refusal - Follow Up Care Primary Care Physician: Tommy Maciel Chi, MD [Primary Care Provider] - Please follow up with your Primary Care Physician in: 1 week. Please Follow Up With: Dr Hans Louise When: 2 weeks. Please Follow Up With: [facility] - with Diane Gay or Uriah When: one week; [phone]
--- NOTE | 2018-07-09 20:09 | PCM.DC.SUM ---
Discharge Date and Diagnosis - Problem List Patient Problems: Active and Suspected Problems Chronic ulcer of left foot with fat layer exposed (Acute) Chronic ulcer of left leg with fat layer exposed (Acute) Chronic ulcer of left leg with fat layer exposed (Acute) Other specified peripheral vascular diseases (Acute) Pressure ulcer, heel, left, unstageable (Acute) Date of Admission: 05/25/18 Date of Discharge: 07/10/18 - Primary Discharge Diagnosis Active and Suspected Problems Chronic ulcer of left foot with fat layer exposed (Acute) Chronic ulcer of left leg with fat layer exposed (Acute) Chronic ulcer of left leg with fat layer exposed (Acute) Other specified peripheral vascular diseases (Acute) Pressure ulcer, heel, left, unstageable (Acute) - Secondary Discharge Diagnosis Chronic Problems Pressure injury of coccygeal region, 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) multiple areas of eschar LLE Fracture of left tibia and fibula (Chronic) Chronic kidney disease (Chronic) Cirrhosis of liver (Chronic) Anemia (Chronic) Chronic constipation (Chronic) Diabetes mellitus (Chronic) Chronic pain (Chronic) Encephalopathy (Chronic) Paroxysmal A-fib (Chronic) Toe pain, left (Chronic) Toe pain, right (Chronic) Tinea unguium (Chronic) Insomnia (Chronic) GERD (gastroesophageal reflux disease) (Chronic) Edema (Chronic) Hypomagnesemia (Chronic) Pulmonary hypertension (Chronic) mild 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 Slight interval healing of the previously seen proximal tibia and proximal fibular fractures. No new fracture. No dislocation. Electronically Signed: Demario Velasquez, at 18:44 EDT Tel , Service support , Labs (Last 48 Hours) 07/07/18 07/08/18 07/08/18 21:12 06:55 11:16 POC Glucose 186 H 148 H 143 H 09/09/18 09/09/18 09/10/18 16:51 21:17 06:48 POC Glucose 155 H 196 H 128 H Consultations 05/25/18 17:24 Consult: Onc/Wound/cmm operator Routine Comment: Reason for Consult:: LT POST UPPER CALF Comments:: SANTYL? Operations: None Procedures: None Summary of Care Provided: The patient is a 83 year old Male with below past medical history hospitalized for fall with left tib-fib fracture underwent ORIF 04/27/2018 at [facility], initially admitted to TCU, 05/22/2018 admitted to TCU for acute on chronic CHF exacerbation and hypoxia, patient admitted to monitored floor and diuresed, medications adjusted, 05/25/2018 patient admitted to TCU with debility for rehabilitation, strengthening prior to discharge home with spouse. Discharge to [facility]. Discharge Diet: No Restrictions Discharge Activity: May Shower, Use Walker Weight Bearing Status: Weight bearing as tolerated Call your doctor if you observe: Fever of 101 or Higher, Inability to urinate, Inability to have a bowel movement, Shortness of breath, Chest pain, Uncontrolled pain Cleanse incision/area with: Soap & Water Additional Dressing/Incision Instructions:: left heel: change daily with santyl (nickel thickness) and well padded gauze Home Medications: Medications to take at Discharge Magnesium Oxide [Mag-Ox 400] 400 mg PO DAILY 12/21/15 Amlodipine [Norvasc] 5 mg PO DAILY 07/13/17 Propranolol HCl 80 mg PO BID 07/13/17 Amitriptyline HCl [Elavil] 25 mg PO QHS 08/02/17 Aspirin [Aspirin, Baby] 81 mg PO DAILY@0800 11/13/17 Atorvastatin Calcium [Lipitor] 40 mg PO QHS 11/13/17 Bisacodyl [Dulcolax] 10 mg PO DAILY PRN tablet 05/21/18 Guaifenesin Dm [Robitussin Dm] 10 ml PO Q4H PRN PRN udc 05/21/18 Acetaminophen 1,000 mg PO Q8H PRN PRN 05/22/18 Emollient Combination No.72 [Eucerin Intensive Repair] 1 applicatio TP BID 05/22/18 Polyethylene Glycol 3350 [Miralax] 17 gm PO DAILY 05/22/18 Potassium Chloride [K-Dur] 20 meq PO DAILYCM 05/22/18 Senna/Docusate Sodium [Senokot-S] 2 tablet PO BID 05/22/18 Albuterol Aerosols [Ventolin Aerosols] 2.5 mg INHALATION Q2H PRN PRN vial.neb. 05/25/18 Furosemide [Lasix] 60 mg PO BID #60 05/25/18 Melatonin 10 mg PO QHS 05/25/18 Menthol/Lanolin/Calamine/Znox [Calmoseptine Ointment] 1 applic TOPICAL 0600,219905/25/18 Nystatin Powder [Mycostatin Powder] 1 applic TOPICAL 00,219905/25/18 Collagenase [Santyl] 1 applic TOPICAL DAILY tube 07/09/18 Iron Polysaccharide Complex [Ferrex 150] 150 mg PO DAILYCM capsule 07/09/18 Ondansetron [Zofran Odt] 4 mg PO Q8H PRN PRN tablet 07/09/18 Oxycodone CR [Oxycontin] 10 mg PO Q12H #60 tab 07/09/18 Oxycodone [Oxyir] 10 mg PO Q4H PRN PRN #30 tab 07/09/18 Following Prescrptions Were Given to Patient: Oxycodone [Oxyir] 10 mg PO Q4H PRN PRN #30 tab PRN Reason: Severe Pain (-08/08) Oxycodone CR [Oxycontin] 10 mg PO Q12H #60 tab Primary Care Physician: Tommy Maciel Chi, MD [Primary Care Provider] - Please follow up with your Primary Care Physician in: 1 week. Please Follow Up With: Dr Hans Louise When: 2 weeks. [facility] Follow [facility] - with Diane Gay or Jack When: one week; [phone] Additional Instructions: keep pressure off of the left heel by wearing a pillow boot; float this heel in the air to prevent further breakdown Disposition: Asstd Living/Non-Skill [place] Minutes spent on discharge:: 35 Patient Condition:: Stable Medical Necessity - Tobacco Use Smoking Status: Former smoker Meaningful Use Info Meaningful Use Diagnoses (Choose all that apply): None applicable
--- NOTE | 2018-07-09 20:12 | DS.PCM_ITS ---
Discharge Date and Diagnosis - Problem List Patient Problems: Active and Suspected Problems Chronic ulcer of left foot with fat layer exposed (Acute) Chronic ulcer of left leg with fat layer exposed (Acute) Chronic ulcer of left leg with fat layer exposed (Acute) Other specified peripheral vascular diseases (Acute) Pressure ulcer, heel, left, unstageable (Acute) Date of Admission: 05/25/18 Date of Discharge: 07/10/18 - Primary Discharge Diagnosis Active and Suspected Problems Chronic ulcer of left foot with fat layer exposed (Acute) Chronic ulcer of left leg with fat layer exposed (Acute) Chronic ulcer of left leg with fat layer exposed (Acute) Other specified peripheral vascular diseases (Acute) Pressure ulcer, heel, left, unstageable (Acute) - Secondary Discharge Diagnosis Chronic Problems Pressure injury of coccygeal region, 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) multiple areas of eschar LLE Fracture of left tibia and fibula (Chronic) Chronic kidney disease (Chronic) Cirrhosis of liver (Chronic) Anemia (Chronic) Chronic constipation (Chronic) Diabetes mellitus (Chronic) Chronic pain (Chronic) Encephalopathy (Chronic) Paroxysmal A-fib (Chronic) Toe pain, left (Chronic) Toe pain, right (Chronic) Tinea unguium (Chronic) Insomnia (Chronic) GERD (gastroesophageal reflux disease) (Chronic) Edema (Chronic) Hypomagnesemia (Chronic) Pulmonary hypertension (Chronic) mild 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 Slight interval healing of the previously seen proximal tibia and proximal fibular fractures. No new fracture. No dislocation. Electronically Signed: Demario Velasquez, at 18:44 EDT Tel , Service support , Labs (Last 48 Hours) 07/07/18 07/08/18 07/08/18 21:12 06:55 11:16 POC Glucose 186 H 148 H 143 H 09/09/18 09/09/18 09/10/18 16:51 21:17 06:48 POC Glucose 155 H 196 H 128 H Consultations 05/25/18 17:24 Consult: Onc/Wound/consumer affairs specialist Routine Comment: Reason for Consult:: LT POST UPPER CALF Comments:: SANTYL? Operations: None Procedures: None Summary of Care Provided: The patient is a 83 year old Male with below past medical history hospitalized for fall with left tib-fib fracture underwent ORIF 04/27/2018 at [facility], initially admitted to TCU, 05/22/2018 admitted to TCU for acute on chronic CHF exacerbation and hypoxia, patient admitted to monitored floor and diuresed, medications adjusted, 05/25/2018 patient admitted to TCU with debility for rehabilitation, strengthening prior to discharge home with spouse. Discharge to [facility] [place]. Discharge Diet: No Restrictions Discharge Activity: May Shower, Use Walker Weight Bearing Status: Weight bearing as tolerated Call your doctor if you observe: Fever of 101 or Higher, Inability to urinate, Inability to have a bowel movement, Shortness of breath, Chest pain, Uncontrolled pain Cleanse incision/area with: Soap & Water Additional Dressing/Incision Instructions:: left heel: change daily with santyl (nickel thickness) and well padded gauze Home Medications: Medications to take at Discharge Magnesium Oxide [Mag-Ox 400] 400 mg PO DAILY 12/21/15 Amlodipine [Norvasc] 5 mg PO DAILY 07/13/17 Propranolol HCl 80 mg PO BID 07/13/17 Amitriptyline HCl [Elavil] 25 mg PO QHS 08/02/17 Aspirin [Aspirin, Baby] 81 mg PO DAILY@0800 11/13/17 Atorvastatin Calcium [Lipitor] 40 mg PO QHS 11/13/17 Bisacodyl [Dulcolax] 10 mg PO DAILY PRN tablet 05/21/18 Guaifenesin Dm [Robitussin Dm] 10 ml PO Q4H PRN PRN udc 05/21/18 Acetaminophen 1,000 mg PO Q8H PRN PRN 05/22/18 Emollient Combination No.72 [Eucerin Intensive Repair] 1 applicatio TP BID 05/22 Polyethylene Glycol 3350 [Miralax] 17 gm PO DAILY 05/22/18 Potassium Chloride [K-Dur] 20 meq PO DAILYCM 05/22/18 Senna/Docusate Sodium [Senokot-S] 2 tablet PO BID 05/22/18 Albuterol Aerosols [Ventolin Aerosols] 2.5 mg INHALATION Q2H PRN PRN vial.neb. 05/25/18 Furosemide [Lasix] 60 mg PO BID #60 05/25/18 Melatonin 10 mg PO QHS 05/25/18 Menthol/Lanolin/Calamine/Znox [Calmoseptine Ointment] 1 applic TOPICAL 0600, 219905/25/18 Nystatin Powder [Mycostatin Powder] 1 applic TOPICAL 00,219905/25/18 Collagenase [Santyl] 1 applic TOPICAL DAILY tube 07/09/18 Iron Polysaccharide Complex [Ferrex 150] 150 mg PO DAILYCM capsule 07/09/18 Ondansetron [Zofran Odt] 4 mg PO Q8H PRN PRN tablet 07/09/18 Oxycodone CR [Oxycontin] 10 mg PO Q12H #60 tab 07/09/18 Oxycodone [Oxyir] 10 mg PO Q4H PRN PRN #30 tab 07/09/18 Following Prescrptions Were Given to Patient: Oxycodone [Oxyir] 10 mg PO Q4H PRN PRN #30 tab PRN Reason: Severe Pain (-08/08) Oxycodone CR [Oxycontin] 10 mg PO Q12H #60 tab Primary Care Physician: Tommy Maciel Chi, MD [Primary Care Provider] - Please follow up with your Primary Care Physician in: 1 week. Please Follow Up With: Dr Hans Louise When: 2 weeks. Please Follow [facility] - with Diane Gay or Jack When: one week; [phone] Additional Instructions: keep pressure off of the left heel by wearing a pillow boot; float this heel in the air to prevent further breakdown Disposition: Asstd Living/Non-Skill [place] Minutes spent on discharge:: 35 Patient Condition:: Stable Medical Necessity - Tobacco Use Smoking Status: Former smoker Meaningful Use Info Meaningful Use Diagnoses (Choose all that apply): None applicable
[2018-07-09] MEDS: MELATONIN 10 MG TABLET PO (21:11)
[2018-07-09] MEDS: Atorvastatin Calcium 40 MG Tablet PO (21:11)
[2018-07-09] MEDS: Amitriptyline 25 MG Tablet PO (21:11)
[2018-07-10] MEDS: Enoxaparin 30 MG/0.3 ML Syringe SC (05:20)
[2018-07-10] MEDS: Furosemide 40 MG Tablet 60 MG PO ×2 (05:20→12:53)
[2018-07-10] MEDS: Magnesium Oxide 400 MG Tablet PO (05:20)
[2018-07-10] MEDS: Propranolol 40 MG Tablet 80 MG PO (05:20)
[2018-07-10] MEDS: amLODIPine 5 MG Tablet PO (05:20)
[2018-07-10] MEDS: Menthol/Lanolin/Calamine/Znox 113 GM Tube 1 APPLIC TOPICAL (05:24)
[2018-07-10] MEDS: Nystatin Powder 15gm Bottle 1 APPLIC TOPICAL (05:24)
[2018-07-10] MEDS: Collagenase 30gm Tube 1 APPLIC TOPICAL (05:24)
[2018-07-10 05:26] VITALS: PULSE 72; O2SAT 97
[2018-07-10 06:55] LABS: Bedside Glucose 145 mg/dL (70-110)
[2018-07-10] MEDS: Aspirin 81 MG TAB.CHEW PO (08:49)
[2018-07-10] MEDS: Iron Polysaccharide Complex 150 MG CAPSULE PO (08:49)
[2018-07-10] MEDS: oxyCODONE HCl Cr 10 MG Tablet PO (09:55)
[2018-07-10 11:18] VITALS: BP 121/54; PULSE 68; RESP 20; TEMP 36.5; O2SAT 97
--- NOTE | 2018-07-10 11:30 | CASEMGMT ---
Social Work Faxed discharge information along with HENS results to [facility]. Proposed discharge date: 07/10/18 @ 1:30pm. PLAN: Discharge to the [facility] under private pay. Mely SANDOVAL, CHILD CARE COOK
--- NOTE | 2018-07-10 13:10 | NURSING ---
REPORT CALLED TO JANUSZ BLAS AT [facility].
--- NOTE | 2018-07-11 14:14 | CASEMGMT ---
Insurance Notified insurance of resident discharge on 07/10/18 to the [facility]. Auth#[id number] Mely SANDOVAL, IMAGE SCIENTIST
== END 2018-07-10 13:30 | disposition intermediate care facility (04) | DRG 463 ==
PROVIDERS: Admitting Provider Internal Medicine; Family Provider Family Medicine Geriatric Medicine; PCP Family Medicine Geriatric Medicine; Visit Provider Internal Medicine
DX: S82.202D Unspecified fracture of shaft of left tibia, subsequent encounter for closed fracture with routine healing (principal); I50.33 Acute on chronic diastolic (congestive) heart failure; I13.0 Hypertensive heart and chronic kidney disease with heart failure and stage 1 through stage 4 chronic kidney disease, or unspecified chronic kidney disease; L97.922 Non-pressure chronic ulcer of unspecified part of left lower leg with fat layer exposed; S82.402D Unspecified fracture of shaft of left fibula, subsequent encounter for closed fracture with routine healing; W19.XXXD Unspecified fall, subsequent encounter; N18.9 Chronic kidney disease, unspecified; E11.22 Type 2 diabetes mellitus with diabetic chronic kidney disease; K74.60 Unspecified cirrhosis of liver; I48.0 Paroxysmal atrial fibrillation; K21.9 Gastro-esophageal reflux disease without esophagitis; J44.9 Chronic obstructive pulmonary disease, unspecified; L89.152 Pressure ulcer of sacral region, stage 2; E11.51 Type 2 diabetes mellitus with diabetic peripheral angiopathy without gangrene; E11.622 Type 2 diabetes mellitus with other skin ulcer; Z87.891 Personal history of nicotine dependence; D63.8 Anemia in other chronic diseases classified elsewhere; I25.10 Atherosclerotic heart disease of native coronary artery without angina pectoris; R09.02 Hypoxemia; L89.620 Pressure ulcer of left heel, unstageable; E11.621 Type 2 diabetes mellitus with foot ulcer; G89.29 Other chronic pain; I69.398 Other sequelae of cerebral infarction; H53.9 Unspecified visual disturbance; I27.20 Pulmonary hypertension, unspecified; Z99.81 Dependence on supplemental oxygen; D50.9 Iron deficiency anemia, unspecified; E87.6 Hypokalemia
CPT/HCPCS: 36415; 73590; 80048; 82962; 85025; 93922; 93926; 93970; 97110; 97116; 97163; 97166; 97530; 97535; 97802

== ENCOUNTER → 2018-06-13 13:38 | Outpatient (CLI) | payer MEDICARE, SELFPAY | PROVIDERS: Family Provider Family Medicine Geriatric Medicine; PCP Family Medicine Geriatric Medicine; Visit Provider Surgery Vascular Surgery | DX: Z53.9 Procedure and treatment not carried out, unspecified reason (principal) ==

== ENCOUNTER → 2018-07-19 05:00 | Outpatient (REF) | payer MEDICARE, SELFPAY ==
[2018-07-19 09:13] LABS: Anion Gap 10 (5-15); BUN 26 mg/dL (7-18); BUN/Creat Ratio 15.7 RATIO (10-20); Calcium,Total 8.9 mg/dL (8.5-10.1); Chloride 97 mmol/L (98-107); Creatinine, Serum 1.66 mg/dL (0.70-1.30); EST Glomerular Filtration Rate 42 mL/min (>60); Est Glom Filt Rate - Afr Amer 51 mL/min (>60); Glucose 236 mg/dL (74-106); Potassium 3.9 mmol/L (3.5-5.1); Sodium Level 138 mmol/L (136-145)
== END ==
LOC: OLS.AVEB 05:00
PROVIDERS: Visit Provider Family Medicine
DX: E11.9 Type 2 diabetes mellitus without complications (principal)
CPT/HCPCS: 36415; 80048

== ENCOUNTER 2018-07-22 06:50 | Emergency (ER) | payer MEDICARE, SELFPAY ==
[2018-07-22 06:52] VITALS: BP 0/0; PULSE 0; RESP 12; BMI 34.0
--- NOTE | 2018-07-22 06:53 | ED.VISSUMM ---
- ER Visit Summary Date of Service: 07/22/18 Chief Complaint: CPR in progress History of Present Illness: The patient is a 83 M who presents from longterm facility with CPR in progress. Staff at the facility called 911 after finding the patient unresponsive and pulseless/not breathing, with estimated downtime of 20 minutes. EMS staff arrived and found patient to be in asystole. CPR was started and patient was bagged using a BVM. 2 rounds of epinephrine were given via an IO. Patient had good capnography with assisted ventilations. No other history available at this time. Unknown when the last time patient was seen well was. Physical Examination: Patient is pulseless, no spontaneous respirations, oropharyngeal airway in place, being assisted with BVM. No carotid pulse. Compressions being delivered via an automated CPR device. Pupils are midpoint, fixed, nonreactive, conjunctivae dry with eyes partially open. Skin is warm and pale, cyanosis around the mouth and nose, mucous membranes are dry. Abdomen is soft and nondistended. Test Results: [] Emergency Department Course and Treatment: CPR was continued, with good airway exchange using the bag valve mask. Patient was in asystole at presentation and pulseless. No spontaneous respirations. 2 rounds of CPR were performed and did each pulse check there was no carotid pulse and the monitor continued to show asystole. Cardiac ultrasound showed complete cardiac standstill with no activity noted. Total downtime at this point was greater than 35 minutes. Patient has been in asystole the entire time and has no signs of life and no cardiac activity noted. Resuscitative efforts were ceased. Time of called at 06:49. Critical care time of 35 minutes for coordination of care, initial assessment and resuscitative interventions, documentation, coordination of notification of necessary parties, including family and technical mgr. Treatment Plan: [] Disposition: [] Impression: Cardiac arrest, respiratory arrest This note was generated with [employer] dictation software. It may contain incorrect words, spelling, and punctuation that were not noted in review of the chart prior to signing ED Disposition - Plan for ED Patient: Chief Complaint: CPR Referrals: Adalberto Campbell MD [Primary Care Provider] -
--- NOTE | 2018-07-22 06:57 | ED.DCSUM_ITS ---
- ER Visit Summary Date of Service: 07/22/18 Chief Complaint: CPR in progress History of Present Illness: The patient is a 83 M who presents from [facility] facility with CPR in progress. Staff at the facility called 911 after finding the patient unresponsive and pulseless/not breathing, with estimated downtime of 20 minutes. EMS staff arrived and found patient to be in asystole. CPR was started and patient was bagged using a BVM. 2 rounds of epinephrine were given via an IO. Patient had good capnography with assisted ventilations. No other history available at this time. Unknown when the last time patient was seen well was. Physical Examination: Patient is pulseless, no spontaneous respirations, oropharyngeal airway in place , being assisted with BVM. No carotid pulse. Compressions being delivered via an automated CPR device. Pupils are midpoint, fixed, nonreactive, conjunctivae dry with eyes partially open. Skin is warm and pale, cyanosis around the mouth and nose, mucous membranes are dry. Abdomen is soft and nondistended. Test Results: [] Emergency Department Course and Treatment: CPR was continued, with good airway exchange using the bag valve mask. Patient was in asystole at presentation and pulseless. No spontaneous respirations. 2 rounds of CPR were performed and did each pulse check there was no carotid pulse and the monitor continued to show asystole. Cardiac ultrasound showed complete cardiac standstill with no activity noted. Total downtime at this point was greater than 35 minutes. Patient has been in asystole the entire time and has no signs of life and no cardiac activity noted. Resuscitative efforts were ceased. Time of called at 06:49. Critical care time of 35 minutes for coordination of care, initial assessment and resuscitative interventions, documentation, coordination of notification of necessary parties, including family and aircraft seat upholsterer. Treatment Plan: [] Disposition: [] Impression: Cardiac arrest, respiratory arrest This note was generated with [employer] dictation software. It may contain incorrect words, spelling, and punctuation that were not noted in review of the chart prior to signing ED Disposition - Plan for ED Patient: Chief Complaint: CPR Referrals: Adalberto Campbell MD [Primary Care Provider] -
== END 2018-07-22 13:35 ==
PROVIDERS: Emergency Provider Emergency Medicine; Family Provider Family Medicine Geriatric Medicine; PCP Family Medicine
DX: I46.9 Cardiac arrest, cause unspecified (principal)
CPT/HCPCS: 92950; 99291; J7030; A4216